=== PATIENT | male | born 1990 | race Caucasian/White ===

== ENCOUNTER 2016-10-09 12:34 | Emergency (ER) | payer MEDICARE ==
[2016-10-09] MEDS ORDERED: XYLOCAINE 1% HCL 20 ML MDV IJ ONE (12:47)
[2016-10-09] MEDS ORDERED: NORCO 5/325 MG PO ONE (12:47)
--- NOTE | 2016-10-09 12:50 | ERPHSYRPT ---
- History of Present Illness Time Seen by Provider: 10/09/16 12:47 Source: patient Physician History: CC: boil Hx: 26 y/o patient of Dr Boateng with hx of DM. Tetanus vaccine up to date. He has had a sore on the right lower leg. He saw [facility] 8 days ago and started bactrim. It is worse. No drng. No fever or chills. Pain moderate. Sugars running well. Allergies/Adverse Reactions: Penicillins Allergy (Verified 10/09/16 12:49) shellfish derived Allergy (Verified 10/09/16 12:49) Home Medications: Atorvastatin Calcium [Lipitor 20MG Tablet] 20 mg PO HS 10/09/16 [History] Hx Tetanus, Diphtheria Vaccination/Date Given: Yes Hx Influenza Vaccination/Date Given: No Hx Pneumococcal Vaccination/Date Given: No - Review of Systems Constitutional: No Fever, No Chills Abdominal/Gastrointestinal: No Nausea Skin: Skin Lesions (right lower leg) Neurological: No Focal Weakness, No Parasthesia - Past Medical History Pertinent Past Medical History: Yes Neurological History: Migraines, Peripheral Neuropathy Cardiac History: High Cholesterol Respiratory History: No Pertinent History Endocrine Medical History: Diabetes Type II Musculoskeletal History: Other - Past Surgical History Past Surgical History: No Other Surgical History: MRSA - Social History Smoking Status: Never smoker Exposure to second hand smoke: No Drug Use: none Patient Lives Alone: No - Nursing Vital Signs Nursing Vital Signs: Initial Vital Signs Temperature 98.8 F 10/09/16 12:42 Pulse Rate 97 H 10/09/16 12:42 Respiratory Rate 16 10/09/16 12:42 Blood Pressure 139/88 10/09/16 12:42 O2 Sat by Pulse Oximetry 95 10/09/16 12:42 Pain Scale Pain Intensity 8 - Physical Exam General Appearance: alert Eyes, Ears, Nose, Throat Exam: moist mucous membranes Neck Exam: supple Cardiovascular/Respiratory Exam: regular rate/rhythm Neuro/Tendon Exam: normal sensation, normal motor functions Mental Status Exam: alert, oriented x 3, cooperative Skin Exam: warm, dry, other (boil with surrounding erythema right lateral mid lower leg) Procedures - Incision and Drainage Site: right lower leg Anesthesia: 1% Lidocaine cc's of anesthesia: 5 Blade Size: scalpel I & D Procedure: betadine prep, culture obtained Results: moderate amount pus - Course Nursing assessment & vital signs reviewed: Yes Ordered Tests: Active Orders 24 hr Category Date Time Status Accucheck STAT Care 10/09/16 12:47 Active Wound Care STAT Care 10/09/16 12:47 Active CULTURE,WOUND Stat Lab 10/09/16 12:47 Ordered Medication Summary Discontinued Medications Generic Name Dose Route Start Last Admin Trade Name Rosa Isela PRN Reason Stop Dose Admin Hydrocodone Bitart/Acetaminophen 1 tab 10/09/16 12:47 10/09/16 12:55 [place] 5/325 Mg PO 10/09/16 12:48 1 tab STAT ONE Administration Hydrocodone Bitart/Acetaminophen Confirm 10/09/16 12:54 [place] 5/325 Mg Administered 10/09/16 12:55 Dose 1 tab .ROUTE .STK-MED ONE Lidocaine HCl 5 ml 10/09/16 12:47 10/09/16 12:55 Xylocaine 1% Hcl 20 Ml Mdv IJ 10/09/16 12:48 5 ml STAT ONE Administration Lidocaine HCl Confirm 10/09/16 12:54 Xylocaine 1% Hcl 20 Ml Mdv Administered 10/09/16 12:55 Dose 5 ml .ROUTE .STK-MED ONE - Progress Progress Note: 10/09/16 12:50 Advised I&D. 10/09/16 13:25 Sugar up buthe is not surprised and will take his meds at home. Wound care instr given. He already has bactrim which will be continued. Counseled pt/family regarding: lab results, diagnosis, need for follow-up - Departure Time of Disposition: 13:25 Departure Disposition: Home Clinical Impression: cutaneous abscess right lower leg, Diabetes mellitus Condition: Stable Critical Care Time: No Referrals: GARY BOATENG MD [Primary Care Provider] - Instructions: Incision and Drainage of a Skin Abscess Additional Instructions: Change dressing and apply warm compress twice a day. See Dr Boateng office this week for recheck. Continue bactrim. Watch and treat your sugars. Return for problems or concerns.
[2016-10-09] MEDS ORDERED: NORCO 5/325 MG ONE (12:54)
[2016-10-09] MEDS ORDERED: XYLOCAINE 1% HCL 20 ML MDV ONE (12:54)
[2016-10-09 13:42] VITALS: BP 134/70; PULSE 88; O2SAT 98
== END 2016-10-09 13:47 | disposition home or self-care (01) ==
LOC: ED 12:34
DX: L02.415 Cutaneous abscess of right lower limb (principal); E11.9 Type 2 diabetes mellitus without complications
CPT/HCPCS: 82962; 87070; 87077; 99283; A9270-GY

== ENCOUNTER 2017-11-09 17:48 | Emergency (ER) | payer MEDICARE, OTHER ==
--- NOTE | 2017-11-09 18:03 | ERPHSYRPT ---
- History of Present Illness Time Seen by Provider: 11/09/17 17:57 Source: patient Exam Limitations: no limitations (R open dictation box) Physician History: The patient is a 27-year-old obese white male who complains of a sore throat that began last night. He also has a mild cough that hurts when he coughs. He denies fever. It hurts for him to swallow. He has a past medical history of diabetes. Timing/Duration: gradual onset, yesterday Severity: moderate ENT Location: throat Prearrival Treatment: no prearrival treatment Modifying Factors: Improves With: coughing Associated Symptoms: cough, sore throat, difficulty swallowing Allergies/Adverse Reactions: Penicillins Allergy (Verified 11/09/17 17:54) shellfish derived Allergy (Verified 11/09/17 17:54) Home Medications: No Reportable Medications [No Reported Medications] 11/09/17 [History] Hx Tetanus, Diphtheria Vaccination/Date Given: Yes Hx Influenza Vaccination/Date Given: No Hx Pneumococcal Vaccination/Date Given: No - Review of Systems Constitutional: No Fever, No Chills Eyes: No Symptoms Ears, Nose, & Throat: Throat Pain Respiratory: Cough, No Dyspnea Cardiac: No Chest Pain, No Edema, No Syncope Abdominal/Gastrointestinal: No Abdominal Pain, No Nausea, No Vomiting, No Diarrhea Genitourinary Symptoms: No Dysuria Musculoskeletal: No Back Pain, No Neck Pain Skin: No Rash Neurological: No Dizziness, No Focal Weakness, No Sensory Changes Psychological: No Symptoms Endocrine: No Symptoms Hematologic/Lymphatic: No Symptoms Immunological/Allergic: No Symptoms All Other Systems: Reviewed and Negative - Past Medical History Pertinent Past Medical History: Yes Neurological History: Migraines, Peripheral Neuropathy Cardiac History: High Cholesterol Respiratory History: No Pertinent History Endocrine Medical History: Diabetes Type II Musculoskeletal History: Other - Past Surgical History Past Surgical History: No Other Surgical History: MRSA - Social History Smoking Status: Never smoker Exposure to second hand smoke: No Drug Use: none Patient Lives Alone: No - Nursing Vital Signs Nursing Vital Signs: Initial Vital Signs Temperature 98.1 F 11/09/17 17:48 Pulse Rate 104 H 11/09/17 17:48 Respiratory Rate 20 11/09/17 17:48 Blood Pressure 143/85 11/09/17 17:48 O2 Sat by Pulse Oximetry 97 11/09/17 17:48 Pain Scale Pain Intensity 6 - Physical Exam General Appearance: no apparent distress, alert Eye Exam: bilateral eye: normal inspection, PERRL Ear Exam: bilateral ear: auricle normal, canal normal Nasal Exam: normal inspection Throat Exam: tonsillar exudate, tonsillar swelling, uvula swelling Neck Exam: supple Cardiovascular/Respiratory Exam: normal breath sounds, regular rate/rhythm Abdominal Exam: non-tender, soft Neurologic Exam: alert, oriented x 3, sensation nml, No motor deficits Skin Exam: normal color, warm, dry SpO2 Interpretation: normal Oxygen Delivery: Room Air Lab/Rad Data: Laboratory Results 11/09/17 Range/Units 18:20 Group A Strep Antibody NEGATIVE (NEGATIVE) - Departure Time of Disposition: 18:51 Departure Disposition: Home Clinical Impression: Pharyngitis, Bronchitis Condition: Stable Critical Care Time: No Referrals: GARY BOATENG MD [Primary Care Provider] - Additional Instructions: You have viral pharyngitis and bronchitis. Your strep test was negative. You were given Toradol 60 mg by IM in the ER. Gargle with warm salt water as often as you need to for comfort. Take Tylenol and ibuprofen as needed. Follow-up with your primary medical doctor as needed.
[2017-11-09] MEDS ORDERED: TORAdol 30 mg Injection IM ONE (18:52)
[2017-11-09] MEDS ORDERED: TORAdol 30 mg Injection ONE (18:53)
[2017-11-09 18:59] VITALS: BP 140/85; PULSE 88; O2SAT 97
== END 2017-11-09 19:16 | disposition home or self-care (01) ==
LOC: ED 17:48
DX: J02.9 Acute pharyngitis, unspecified (principal); J40 Bronchitis, not specified as acute or chronic
CPT/HCPCS: 87651; 96372; 99284; J1885

== ENCOUNTER 2018-02-12 08:59 | Emergency (ER) | payer MEDICARE, OTHER ==
--- NOTE | 2018-02-12 09:22 | ERPHSYRPT ---
- History of Present Illness Time Seen by Provider: 02/12/18 09:07 Source: patient Physician History: patient complaining of a sorethroat since , no travel and no exposure , no fever, no cough, no vomiting or diarrhea Timing/Duration: abrupt onset, days (2) Severity: moderate ENT Location: throat Prearrival Treatment: no prearrival treatment Modifying Factors: Improves With: nothing Associated Symptoms: sore throat, No ear pain (R), No ear pain (L), No cough, No fever, No drooling, No headache, No epistaxis, No neck pain, No difficulty swallowing Allergies/Adverse Reactions: Penicillins Allergy (Verified 11/09/17 17:54) shellfish derived Allergy (Verified 11/09/17 17:54) Home Medications: No Reportable Medications [No Reported Medications] 11/09/17 [History] Hx Tetanus, Diphtheria Vaccination/Date Given: Yes Hx Influenza Vaccination/Date Given: No Hx Pneumococcal Vaccination/Date Given: No - Review of Systems Constitutional: No Symptoms Eyes: No Symptoms Ears, Nose, & Throat: Throat Pain, No Ear Pain, No Hearing Changes, No Nose Congestion, No Epistaxis, No Painful Swallowing Respiratory: No Cough, No Dyspnea, No Wheezing Cardiac: No Chest Pain, No Palpitations, No Syncope Abdominal/Gastrointestinal: No Abdominal Pain, No Nausea, No Vomiting, No Diarrhea Genitourinary Symptoms: No Symptoms Musculoskeletal: No Symptoms Skin: No Symptoms Neurological: No Symptoms Psychological: No Symptoms Endocrine: No Symptoms Hematologic/Lymphatic: No Symptoms Immunological/Allergic: No Symptoms - Past Medical History Pertinent Past Medical History: Yes Neurological History: Migraines, Peripheral Neuropathy Cardiac History: High Cholesterol Respiratory History: No Pertinent History Endocrine Medical History: Diabetes Type II Musculoskeletal History: Other - Past Surgical History Past Surgical History: No Other Surgical History: MRSA - Social History Smoking Status: Never smoker Exposure to second hand smoke: No Alcohol Use: Socially Drug Use: none Patient Lives Alone: No Significant Family History: no pertinent family hx - Female History Hx Now: No - Physical Exam General Appearance: mild distress, alert Eye Exam: bilateral eye: normal inspection, PERRL, EOMI Ear Exam: bilateral ear: auricle normal, canal normal, TM normal Nasal Exam: normal inspection, No dried blood Throat Exam: moist mucus membranes, tonsillar exudate, tonsillar swelling, No pharynx normal, No dental tenderness, No excessive drooling, No mandibular swelling, No trismus, No uvula swelling, No voice changes Neck Exam: normal inspection, non-tender, supple, full range of motion, No stiff neck Cardiovascular/Respiratory Exam: chest non-tender, normal breath sounds, regular rate/rhythm, heart sounds normal, no JVD, no M/R/G, no respiratory distress Abdominal Exam: non-tender, soft, no organomegaly Neurologic Exam: alert, oriented x 3, cooperative, protective signal superintendent II-XII nml as tested, normal mood/affect, nml cerebellar function, nml station & gait Skin Exam: normal color, warm, dry, No rash - Course Nursing assessment & vital signs reviewed: Yes Ordered Tests: Active Orders 24 hr Category Date Time Status Pulse Oximetry (ED) STAT Care 02/12/18 09:15 Ordered - Progress Progress Note: 02/12/18 09:19 discussed treatment options discussed; instructions givnen; no work 48 hours Counseled pt/family regarding: diagnosis, need for follow-up - Departure Time of Disposition: 09:20 Departure Disposition: Home Clinical Impression: Acute tonsillitis Condition: Stable Critical Care Time: No Referrals: GARY BOATENG MD [Primary Care Provider] - Instructions: Sore Throat, Adult (DC), Strep Throat (DC) Additional Instructions: no work 48 hours; gargle H2)2; choroseptic gargle; tylenol prn; Z pack Follow-up with family doctor as directed. Call for appointment. Return if any problems. If you smoke please stop. Call or follow up with your family doctor for assistance if you need it to stop. Please wear your seatbelt when driving. Have a nice day. Thank you for allowing us to participate in your care today. :o) Dr Surinder Kumar
[2018-02-12 09:27] VITALS: BP 142/98; PULSE 100; O2SAT 99
== END 2018-02-12 09:32 | disposition home or self-care (01) ==
LOC: ED 08:59
DX: J03.90 Acute tonsillitis, unspecified (principal)
CPT/HCPCS: 99283

== ENCOUNTER 2018-10-08 19:50 | Emergency (ER) | payer SELFPAY | END 2018-10-08 23:23 | disposition home or self-care (01) | LOC: ED 23:23 ==

== ENCOUNTER 2019-02-24 09:53 | Emergency (ER) | payer BC ==
[2019-02-24] MEDS ORDERED: Sodium Chloride 0.9% 1000 ML 1,000 ML IV STA (10:09)
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
[2019-02-24 10:35] LABS: Absolute Neutrophil Ct (ANC) 4.13 (1.4-6.9); BASOPHIL % 0.5 % (0.0-0.4); Basophil (Absolute #) 0.04 (0-0.4); Eosinophil % 1.6 % (0.00-5.0); Eosinophil (Absolute #) 0.12 (0-0.5); Hematocrit 41.3 % (42-50); Lymphocyte (Absolute #) 2.44 (1.0-4.6); Lymphocytes % 33.4 % (24.0-44.0); Mean Cell Volume 88.2 fl (78-100); Mean Corpuscular Hemoglobin 29.9 pg (26-32); Mean Corpuscular Hgb Concent. 33.9 g/dl (32-36); Mean Platelet Volume 12.3 fl (7.5-11.0); Monocyte (Absolute #) 0.57 (0.0-1.3); Monocytes % 7.8 % (0.0-12.0); Neutrophil % 56.7 % (36.0-66.0); Platelet Count 165 K/mm3 (150-450); Red Blood Count 4.68 M/mm3 (4.1-5.6); Red Cell Distribution Width 12.7 % (11.5-14.0); White Blood Count 7.3 K/mm3 (4.0-10.5)
[2019-02-24 10:41] LABS: ALBUMIN 4.2 g/dL (3.5-5.0); ALKALINE PHOSPHATASE 79 U/L (38-126); AMYLASE 46 U/L (30-110); ANION GAP 15.1 MEQ/L (5-15); BLOOD UREA NITROGEN 15 mg/dL (9-20); CHLORIDE 104 mmol/L (98-107); Calcium 9.5 mg/dL (8.4-10.2); Carbon Dioxide 22 mmol/L (22-30); Creatinine 1 0.58 mg/dL (0.66-1.25); Glucose 408 mg/dL (74-106); LIPASE 44 U/L (23-300); Potassium 4.2 mmol/L (3.5-5.1); SGOT/AST 66 U/L (17-59); SGPT/ALT 90 U/L (0-50); SODIUM 137 mmol/L (137-145); Total Protein 7.5 g/dL (6.3-8.2)
[2019-02-24] MEDS ORDERED: Sodium Chloride 0.9% 1000 ML 1,000 ML ONE (10:56)
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
[2019-02-24 11:00] LABS: Appearance CLEAR (CLEAR); Bilirubin NEGATIVE (NEGATIVE); Blood NEGATIVE Ery/ul (0-5); Glucose >=500 mg/dL (NEGATIVE); Ketones NEGATIVE (NEGATIVE); Leukocyte Esterase NEGATIVE (NEGATIVE); Mucus SLIGHT /HPF (NEGATIVE); Nitrite NEGATIVE (NEGATIVE); Protein,Urine Dip NEGATIVE (Negative); Specific Gravity 1.035 (1.005-1.025); Urobilinogen NEGATIVE mg/dL (0-1)
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
[2019-02-24] MEDS ORDERED: TYLENOL EXTRA STRENGTH 500 MG PO STA (11:22)
[2019-02-24] MEDS ORDERED: TYLENOL EXTRA STRENGTH 500 MG ONE (11:26)
[2019-02-24 11:32] VITALS: BP 118/76; PULSE 84; O2SAT 97
== END 2019-02-24 11:36 | disposition home or self-care (01) ==
LOC: ED 09:53
DX: S16.1XXA Strain of muscle, fascia and tendon at neck level, initial encounter (principal); V89.2XXA Person injured in unspecified motor-vehicle accident, traffic, initial encounter; R51 Headache; M25.519 Pain in unspecified shoulder
CPT/HCPCS: 36000; 36415; 70450; 71045; 72125; 73030; 80053; 81001; 82150; 83690; 84484; 85025; 93005; 99285; A9270-GY

== ENCOUNTER 2022-07-22 14:36 | Observation (INO) | payer BC ==
--- NOTE | 2022-07-22 15:01 | ERPHSYRPT ---
- History of Present Illness Source: patient Exam Limitations: no limitations Patient Subjective Stated Complaint: Pt states "I have pain on my reight leg and had an ultrasound done a couple days ago and i was on steroids and antibiotics but ever since I stopped my steroids it has been hurting." Triage Nursing Assessment: Pt presented alert and oriented X 3, skin pwd. Pt ambulates with a limp. PT able to speak in clear full sentencs. PT has small blister on bottom of right foot and thickened toe nail to great toe on right foot. Physician History: 32 yo WM w R medial thigh pain since 06/13/22. Pt also has an open lesion on plantar foot and erythema R dorsal foot. Pain is 8/10 and worse w weight bearing. He is a Type2 diabetic. Venous doppler RLE neg 07/14/22. Injury/fever/dyspnea/chest pain all denied. Method of Injury: unknown (Denies injury) Occurred: other (06/13/22) Quality: aching Severity of Pain-Max: severe Severity of Pain-Current: severe Lower Extremities Pain: knee: right, thigh: right, foot: right Modifying Factors: Improves With: movement Associated Symptoms: none Allergies/Adverse Reactions: Penicillins Allergy (Verified 02/24/19 10:08) shellfish derived Allergy (Verified 02/24/19 10:08) Home Medications: Cefdinir 300 mg PO DAILY 07/22/22 [History] Insulin Degludec/Liraglutide [Xultophy 100 Unit-3.6MG/ml Pen] 40 units IM DAILY 07/22/22 [History] Levothyroxine Sodium [Unithroid] 225 mcg PO DAILY 07/22/22 [History] Ziprasidone Mesylate [Geodon] 20 mg IM DAILY 07/22/22 [History] Hx Tetanus, Diphtheria Vaccination/Date Given: Yes Hx Influenza Vaccination/Date Given: No Hx Pneumococcal Vaccination/Date Given: No Travel Risk - International Travel Have you traveled outside of the country in past 3 weeks: No - Coronavirus Screening Are you exhibiting any of the following symptoms?: No Close contact with a COVID-19 positive Pt in past 14-21 Days: No - Vaccine Status Have you recieved a Covid-19 vaccination: No - Review of Systems Constitutional: No Symptoms Eyes: No Symptoms Ears, Nose, & Throat: No Symptoms Respiratory: No Symptoms Cardiac: No Symptoms Abdominal/Gastrointestinal: No Symptoms Genitourinary Symptoms: No Symptoms Neurological: No Symptoms Psychological: No Symptoms Endocrine: No Symptoms Hematologic/Lymphatic: No Symptoms Immunological/Allergic: No Symptoms - Past Medical History Pertinent Past Medical History: Yes Neurological History: Migraines, Peripheral Neuropathy ENT History: Other Cardiac History: No Pertinent History Respiratory History: No Pertinent History Endocrine Medical History: Diabetes Type II Musculoskeletal History: No Pertinent History GI Medical History: No Pertinent History History: No Pertinent History Psycho-Social History: No Pertinent History Male Reproductive Disorders: No Pertinent History Other Medical History: tonsils and adnoids - Past Surgical History Past Surgical History: Yes Neuro Surgical History: No Pertinent History Cardiac: No Pertinent History Respiratory: No Pertinent History Gastrointestinal: No Pertinent History Genitourinary: No Pertinent History Musculoskeletal: No Pertinent History Male Surgical History: No Pertinent History Other Surgical History: MRSA - Social History Smoking Status: Never smoker Exposure to second hand smoke: No Alcohol Use: Socially Drug Use: none Patient Lives Alone: No Significant Family History: no pertinent family hx - Nursing Vital Signs Nursing Vital Signs: Initial Vital Signs Temperature 98.0 F 07/22/22 14:40 Pulse Rate 99 H 07/22/22 14:40 Respiratory Rate 20 07/22/22 14:40 Blood Pressure 135/89 07/22/22 14:40 O2 Sat by Pulse Oximetry 96 07/22/22 14:40 Pain Scale Pain Intensity 4 WNL - Physical Exam General Appearance: no apparent distress Eyes, Ears, Nose, Throat Exam: normal ENT inspection, TMs normal, pharynx normal, moist mucous membranes Neck Exam: normal inspection, non-tender, supple, full range of motion, No Brudz inski, No Kernig's, No meningismus Cardiovascular/Respiratory Exam: normal breath sounds, regular rate/rhythm, heart sounds normal Gastrointestinal/Abdominal Exam: non-tender, soft Back Exam: normal inspection, normal range of motion, No vertebral tenderness Hips Exam: bilateral: non-tender, normal inspection, normal range of motion, no evidence of injury Knees Exam: right knee: pain (TTP medial to R knee) Ankle Exam: bilateral ankle: non-tender, normal inspection, normal range of motion Foot Exam: right foot: other (Open lesion on ventral foot/erythema radiating superiorly dorsal foot/Good pedal pulse, distal sensation, and capillary return) Neuro/Tendon Exam: normal sensation, normal motor functions, normal tendon functions, responds to pain Mental Status Exam: alert, oriented x 3, cooperative Skin Exam: other (Erythem R dorsal foot, otherwise negative) SpO2 Interpretation: normal SpO2: 96 O2 Delivery: Room Air - Course Nursing assessment & vital signs reviewed: Yes Ordered Tests: Active Orders 24 hr Category Date Time Status Bedrest ROUTINE Activity 07/22/22 15:55 Active Code Status Order ROUTINE Care 07/22/22 15:54 Active IV Care Q6H Care 07/22/22 15:[address] in Observation ROUTINE Care 07/22/22 15:54 Active Vital Signs Q4H Care 07/22/22 15:54 Active Consult Podiatry ROUTINE Cons 07/22/22 15:54 Active Consistent Carbohydrate Diet 2000 Calorie Diet 07/22/22 Dinner Active BLOOD CULTURE Stat Lab 07/22/22 15:55 Received CBC W DIFF AM.LAB Lab 07/23/22 04:00 Ordered CBC W DIFF Stat Lab 07/22/22 15:05 Completed CMP AM.LAB Lab 07/23/22 04:00 Ordered CMP Stat Lab 07/22/22 15:05 Completed Lactic Acid Stat Lab 07/22/22 14:54 Completed UA W/RFX UR CULTURE Stat Lab 07/22/22 15:06 Completed Transfer Order Routine Transfer 07/22/22 Ordered Medication Summary Generic Name Dose Route Start Last Admin Trade Name Freq PRN Reason Stop Dose Admin Enoxaparin Sodium 40 mg 07/23/22 10:00 Enoxaparin Sodium 40 Mg/0.4 Ml Syringe SQ 08/22/22 09:59 DAILY FERNANDO Hydromorphone HCl 0.5 mg 07/22/22 15:54 Hydromorphone 1 Mg/1ml Inj IV 07/27/22 15:53 Q4H PRN PRN PAIN Vancomycin HCl 1 gm in 200 mls @ 125 mls/hr 07/22/22 15:51 07/22/22 15:54 Vancomycin 1 Gram/200 Ml Bag IV 07/22/22 17:26 125 mls/hr STAT ONE 125 mls/hr Administration Sodium Chloride 1,000 mls @ 100 mls/hr 07/22/22 16:00 Sodium Chloride 0.9% 1000 Ml IV 08/21/22 15:59 .Q10H FERNANDO Vancomycin HCl 1 gm in 200 mls @ 125 mls/hr 07/22/22 16:00 Vancomycin 1 Gram/200 Ml Bag IV 08/21/22 15:59 Q12H FERNANDO Insulin Human Lispro 0 unit 07/22/22 15:54 Insulin Lispro 1 Unit SQ 08/21/22 15:53 UD PRN HYPERGLYCEMIA Ondansetron HCl 4 mg 07/22/22 15:54 Ondansetron Hcl 4 Mg/2 Ml Vial IV 08/21/22 15:53 Q6H PRN PRN NAUSEA/VOMITING Discontinued Medications Generic Name Dose Route Start Last Admin Trade Name Freq PRN Reason Stop Dose Admin Vancomycin HCl Confirm 07/22/22 15:53 Vancomycin 1 Gram/200 Ml Bag Administered 07/22/22 15:54 Dose 1 gm in 200 mls @ ud IV .STK-MED ONE Lab/Rad Data: Laboratory Result Diagrams 07/22/22 15:05 07/22/22 15:05 Laboratory Results 07/22/22 07/22/22 07/22/22 Range/Units 15:06 15:05 15:05 WBC 12.4 H (4.0-10.5) x10^3/uL RBC 4.75 (4.1-5.6) x10^6/uL Hgb 14.0 (12.5-18.0) g/dL Hct 43.0 (42-50) % MCV 90.5 (78-100) fL MCH 29.5 (26-32) pg MCHC 32.6 (32-36) g/dL RDW 12.1 (11.5-14.0) % Plt Count 238 (150-450) x10^3/uL MPV 10.6 (7.5-11.0) fL Gran % 67.4 H (36.0-66.0) % Immature Gran % (Auto) 0.6 H (0.00-0.4) % Nucleat RBC Rel Count 0.0 (0.00-0.1) % Eos # (Auto) 0.08 (0-0.5) x10^3/uL Immature Gran # (Auto) 0.07 H (0.00-0.03) x10^3u/L Absolute Lymphs (auto) 2.70 (1.0-4.6) x10^3/uL Absolute Monos (auto) 1.13 (0.0-1.3) x10^3/uL Absolute Nucleated RBC 0.00 (0.00-0.01) x10^3u/L Lymphocytes % 21.7 L (24.0-44.0) % Monocytes % 9.1 (0.0-12.0) % Eosinophils % 0.6 (0.00-5.0) % Basophils % 0.6 (0.0-0.4) % Absolute Granulocytes 8.36 H (1.4-6.9) x10^3/uL Basophils # 0.08 (0-0.4) x10^3/uL Sodium 137 (137-145) mmol/L Potassium 3.8 (3.5-5.1) mmol/L Chloride 101 (98-107) mmol/L Carbon Dioxide 24 (22-30) mmol/L Anion Gap 15.4 H (5-15) MEQ/L BUN 20 (9-20) mg/dL Creatinine 0.81 (0.66-1.25) mg/dL Estimated GFR > 60.0 ML/MIN Glucose 272 H (74-106) mg/dL Lactic Acid (0.4-2.0) Calcium 8.9 (8.4-10.2) mg/dL Total Bilirubin 0.50 (0.2-1.3) mg/dL AST 38 (17-59) U/L ALT 56 H (0-50) U/L Alkaline Phosphatase 69 (38-126) U/L Serum Total Protein 7.6 (6.3-8.2) g/dL Albumin 4.0 (3.5-5.0) g/dL Urine Color Yellow (Yellow) Urine Appearance Clear (Clear) Urine pH 6.5 (4.6-8.0) Ur Specific [place] >=1.030 A (1.005-1.030) Urine Protein Negative (Negative) Urine Glucose (UA) >=1000 A (Negative) mg/dL Urine Ketones Negative (Negative) Urine Blood Negative (Negative) Urine Nitrite Negative (Negative) Urine Bilirubin Negative (Negative) Urine Urobilinogen 0.2 (0.2) mg/dL Ur Leukocyte Esterase Negative (Negative) U Hyaline Cast (Auto) NONE SEEN (0-2) /LPF Urine Microscopic RBC 0-2 (0-5) /HPF Urine Microscopic WBC 0-2 (0-5) /HPF Ur Epithelial Cells None Seen (None Seen) /HPF Urine Bacteria None Seen (None Seen) /HPF Urine Culture Reflexed NO (NO) 07/22/22 Range/Units 14:54 WBC (4.0-10.5) x10^3/uL RBC (4.1-5.6) x10^6/uL Hgb (12.5-18.0) g/dL Hct (42-50) % MCV (78-100) fL MCH (26-32) pg MCHC (32-36) g/dL RDW (11.5-14.0) % Plt Count (150-450) x10^3/uL MPV (7.5-11.0) fL Gran % (36.0-66.0) % Immature Gran % (Auto) (0.00-0.4) % Nucleat RBC Rel Count (0.00-0.1) % Eos # (Auto) (0-0.5) x10^3/uL Immature Gran # (Auto) (0.00-0.03) x10^3u/L Absolute Lymphs (auto) (1.0-4.6) x10^3/uL Absolute Monos (auto) (0.0-1.3) x10^3/uL Absolute Nucleated RBC (0.00-0.01) x10^3u/L Lymphocytes % (24.0-44.0) % Monocytes % (0.0-12.0) % Eosinophils % (0.00-5.0) % Basophils % (0.0-0.4) % Absolute Granulocytes (1.4-6.9) x10^3/uL Basophils # (0-0.4) x10^3/uL Sodium (137-145) mmol/L Potassium (3.5-5.1) mmol/L Chloride (98-107) mmol/L Carbon Dioxide (22-30) mmol/L Anion Gap (5-15) MEQ/L BUN (9-20) mg/dL Creatinine (0.66-1.25) mg/dL Estimated GFR ML/MIN Glucose (74-106) mg/dL Lactic Acid 1.8 (0.4-2.0) Calcium (8.4-10.2) mg/dL Total Bilirubin (0.2-1.3) mg/dL AST (17-59) U/L ALT (0-50) U/L Alkaline Phosphatase (38-126) U/L Serum Total Protein (6.3-8.2) g/dL Albumin (3.5-5.0) g/dL Urine Color (Yellow) Urine Appearance (Clear) Urine pH (4.6-8.0) Ur Specific [place] (1.005-1.030) Urine Protein (Negative) Urine Glucose (UA) (Negative) mg/dL Urine Ketones (Negative) Urine Blood (Negative) Urine Nitrite (Negative) Urine Bilirubin (Negative) Urine Urobilinogen (0.2) mg/dL Ur Leukocyte Esterase (Negative) U Hyaline Cast (Auto) (0-2) /LPF Urine Microscopic RBC (0-5) /HPF Urine Microscopic WBC (0-5) /HPF Ur Epithelial Cells (None Seen) /HPF Urine Bacteria (None Seen) /HPF Urine Culture Reflexed (NO) - Progress Progress Note: 07/22/22 15:52 Nursing note and vital signs reviewed No food or housing insecurities noted All lab results reviewed and shared w pt/ Obs per Dr. Lacy Blood cultures x2/1gm IV Vancomycin 07/22/22 16:23 Discussed with .: [place] Will see patient in: hospital (observation) Counseled pt/family regarding: lab results, diagnosis Medical Desision Making - Independent Historian Additional History obtained from: Spouse - Discussion of managment Care discussed with:: on-call "doc" Reviewed:: Test results, Need for additional workup Agreed on:: place in obs Will see patient: in hospital - Diagnostic Testing Diagnostic test were ordered, analyzed, and reviewed by me: Yes - Risk of complications The pt has a high risk of morbidity or mortality based on: Drug therapy requiring intensive monitoring for toxicity - Departure Departure Disposition: Observation Clinical Impression: Diabetic foot ulcer, Cellulitis Condition: Stable Critical Care Time: No
[2022-07-22 15:12] LABS: Absolute Neutrophil Ct (ANC) 8.36 x10^3/uL (1.4-6.9); BASOPHIL % 0.6 % (0.0-0.4); Basophil (Absolute #) 0.08 x10^3/uL (0-0.4); Eosinophil % 0.6 % (0.00-5.0); Eosinophil (Absolute #) 0.08 x10^3/uL (0-0.5); IMMATURE GRAN # 0.07 x10^3u/L (0.00-0.03); IMMATURE GRAN % 0.6 % (0.00-0.4); Lymphocytes % 21.7 % (24.0-44.0); Mean Cell Volume 90.5 fL (78-100); Mean Corpuscular Hemoglobin 29.5 pg (26-32); Mean Corpuscular Hgb Concent. 32.6 g/dL (32-36); Mean Platelet Volume 10.6 fL (7.5-11.0); Monocyte (Absolute #) 1.13 x10^3/uL (0.0-1.3); Monocytes % 9.1 % (0.0-12.0); Neutrophil % 67.4 % (36.0-66.0); Platelet Count 238 x10^3/uL (150-450); Red Blood Count 4.75 x10^6/uL (4.1-5.6); Red Cell Distribution Width 12.1 % (11.5-14.0); White Blood Count 12.4 x10^3/uL (4.0-10.5)
[2022-07-22 15:23] LABS: Appearance Clear (Clear); Bacteria None Seen /HPF (None Seen); Bilirubin Negative (Negative); Blood Negative (Negative); Epithelial Cells None Seen /HPF (None Seen); Glucose, Urine >=1000 mg/dL (Negative); Hyaline Casts NONE SEEN /LPF (0-2); Ketones Negative (Negative); Leukocyte Esterase Negative (Negative); Nitrite Negative (Negative); Ph 6.5 (4.6-8.0); Protein,Urine Dip Negative (Negative); RBC 0-2 /HPF (0-5); Specific Gravity >=1.030 (1.005-1.030); Urobilinogen 0.2 mg/dL (0.2); WBC 0-2 /HPF (0-5)
[2022-07-22 15:36] LABS: ADD URINE CULTURE? NO (NO)
[2022-07-22 15:44] LABS: ALKALINE PHOSPHATASE 69 U/L (38-126); ANION GAP 15.4 MEQ/L (5-15); BLOOD UREA NITROGEN 20 mg/dL (9-20); CHLORIDE 101 mmol/L (98-107); Calcium 8.9 mg/dL (8.4-10.2); Carbon Dioxide 24 mmol/L (22-30); Creatinine 1 0.81 mg/dL (0.66-1.25); EST GLOMERULAR FILTRATION RATE > 60.0 ML/MIN; Glucose 272 mg/dL (74-106); Potassium 3.8 mmol/L (3.5-5.1); SGOT/AST 38 U/L (17-59); SGPT/ALT 56 U/L (0-50); SODIUM 137 mmol/L (137-145); Total Protein 7.6 g/dL (6.3-8.2)
[2022-07-22] MEDS ORDERED: VANCOMYCIN 1 GRAM/200 ML BAG 1 GM/200 ML PIGGYBACK IV ONE ×2 (15:51→15:53)
[2022-07-22] MEDS ORDERED: Zofran 4 MG/2 ML VIAL IV PRN (15:54)
[2022-07-22] MEDS ORDERED: Hydromorphone 1 mg/ml Injection IV PRN (15:54)
[2022-07-22] MEDS: VANCOMYCIN 1 GRAM/200 ML BAG 1 GM/200 ML PIGGYBACK IV SCH (16:55)
[2022-07-22] MEDS: NORCO 7.5/325 MG TAB PO PRN ×2 (17:39→22:26)
[2022-07-22] MEDS: ENOXAPARIN SODIUM SQ SCH (19:55)
[2022-07-22] MEDS ORDERED: HUMULIN R ONE ×2 (21:35→21:38)
[2022-07-22] MEDS: HUMALOG SQ PRN (21:41)
[2022-07-22] MEDS: Geodon 20 MG Capsule PO SCH (22:22)
[2022-07-23] MEDS: VANCOMYCIN 1 GRAM/200 ML BAG 1 GM/200 ML PIGGYBACK IV SCH (03:42)
[2022-07-23] MEDS: Sodium Chloride 0.9% 1000 ML 1,000 ML IV SCH ×2 (03:42→14:43)
[2022-07-23 04:42] LABS: BASOPHIL % 0.6 % (0.0-0.4); Basophil (Absolute #) 0.05 x10^3/uL (0-0.4); Eosinophil % 1.4 % (0.00-5.0); Eosinophil (Absolute #) 0.12 x10^3/uL (0-0.5); Hematocrit 40.1 % (42-50); Hemoglobin 13.1 g/dL (12.5-18.0); IMMATURE GRAN # 0.02 x10^3u/L (0.00-0.03); IMMATURE GRAN % 0.2 % (0.00-0.4); Lymphocyte (Absolute #) 2.41 x10^3/uL (1.0-4.6); Lymphocytes % 28.5 % (24.0-44.0); Mean Cell Volume 89.7 fL (78-100); Mean Corpuscular Hemoglobin 29.3 pg (26-32); Mean Corpuscular Hgb Concent. 32.7 g/dL (32-36); Mean Platelet Volume 10.6 fL (7.5-11.0); Monocyte (Absolute #) 0.77 x10^3/uL (0.0-1.3); Monocytes % 9.1 % (0.0-12.0); Neutrophil % 60.2 % (36.0-66.0); Platelet Count 190 x10^3/uL (150-450); Red Blood Count 4.47 x10^6/uL (4.1-5.6); Red Cell Distribution Width 12.5 % (11.5-14.0); White Blood Count 8.5 x10^3/uL (4.0-10.5)
[2022-07-23 05:02] LABS: ALBUMIN 3.5 g/dL (3.5-5.0); ALKALINE PHOSPHATASE 68 U/L (38-126); ANION GAP 11.6 MEQ/L (5-15); BLOOD UREA NITROGEN 17 mg/dL (9-20); CHLORIDE 104 mmol/L (98-107); Calcium 8.2 mg/dL (8.4-10.2); Carbon Dioxide 26 mmol/L (22-30); Creatinine 1 0.76 mg/dL (0.66-1.25); EST GLOMERULAR FILTRATION RATE > 60.0 ML/MIN; Glucose 256 mg/dL (74-106); Potassium 3.9 mmol/L (3.5-5.1); SGOT/AST 29 U/L (17-59); SGPT/ALT 47 U/L (0-50); SODIUM 138 mmol/L (137-145); Total Protein 6.6 g/dL (6.3-8.2)
[2022-07-23] MEDS ORDERED: MEDICATION INTERVENTION MC SCH (08:00)
[2022-07-23] MEDS: Geodon 20 MG Capsule PO SCH ×2 (08:08→17:11)
[2022-07-23] MEDS: HUMALOG SQ PRN ×4 (08:08→21:54)
[2022-07-23] MEDS: SYNTHROID 125 MCG PO SCH (09:50)
[2022-07-23] MEDS: ENOXAPARIN SODIUM SQ SCH (09:50)
[2022-07-23] MEDS: SYNTHROID 100 MCG PO SCH (09:50)
[2022-07-23] MEDS ORDERED: ENOXAPARIN SODIUM SQ SCH (10:00)
[2022-07-23] MEDS ORDERED: INSULIN DEGLUDEC SQ SCH (10:00)
[2022-07-23] MEDS ORDERED: LEVOTHYROXINE SODIUM 200 MCG PO SCH (10:00)
[2022-07-23] MEDS ORDERED: LIRAGLUTIDE SQ SCH (10:00)
[2022-07-23] MEDS ORDERED: INS SQ SCH (10:00)
[2022-07-23] MEDS ORDERED: Geodon 20 MG Capsule PO SCH ×2 (10:00)
[2022-07-23] MEDS ORDERED: [UNRECOGNIZED DRUG - OTHER] SQ SCH (10:00)
[2022-07-23] MEDS ORDERED: SYNTHROID 112 MCG PO SCH (10:00)
--- NOTE | 2022-07-23 13:05 | XRAY ---
CLINICAL HISTORY:Diabetic foot ulcer. COMPARISON:None. TECHNIQUES:X-ray right foot AP, oblique and lateral views. FINDINGS: Moderate soft tissue swelling of the mid and forefoot seen. No clear signs of osteomyelitis noted. Reduced bone mineral density noted. Radiological examination of foot demonstrates no lytic or sclerotic bone lesion. No definite fracture is visible. Cortical margins of the osseous structures are within normal limits. Normal metatarsophalangeal and interphalangeal joint spaces. Articular margins are intact. Small tractional and plantar calcaneal spurs are noted with small soft tissue calcification at the heel. No focal abnormality seen in great toe. IMPRESSION: 1. Moderate soft tissue swelling of the mid and forefoot seen. 2. Small tractional and plantar calcaneal spurs are noted with small soft tissue calcification at the heel. 3. No clear signs of osteomyelitis noted. 4. No definite fracture is visible. 5. Correlation with CT/MRI is recommended. DISCLAIMER: A subtle bone abnormality or fracture may not be readily apparent on x-rays, thus clinical correlation and further imaging including follow-up CT, MRI, or follow-up x-rays are advised as needed. Electronically Signed by: Dex Vazquez MD. ( 07/23/2022 12:02:21 [employer])
[2022-07-23] MEDS: VANCOMYCIN 1.5 GRAM/300 ML BAG 1.5 GM/300 ML PIGGYBACK IV SCH ×2 (14:40→21:10)
--- NOTE | 2022-07-23 15:53 | PCM.NOTE ---
Date and Time: 07/23/22 1546 Subjective Assessment: No new complaints. Does not report foot pain or fever. The entirety of this encounter was performed via telemedicine. The patient consented to this telemedicine encounter. - Review of Systems Constitutional: No Symptoms Eyes: No Symptoms Ears, Nose, & Throat: No Symptoms Respiratory: No Symptoms Cardiac: No Symptoms Abdominal/Gastrointestinal: No Symptoms Genitourinary Symptoms: No Symptoms Musculoskeletal: No Symptoms Skin: Other (Foot ulcer on right) Neurological: No Symptoms Psychological: No Symptoms Endocrine: No Symptoms Hematologic/Lymphatic: No Symptoms Immunological/Allergic: No Symptoms All Other Systems: Reviewed and Negative Objective Exam Neurologic Exam: alert, oriented x 3, cooperative, observation nurse II-XII nml as tested, normal mood/affect, nml cerebellar function Skin Exam: other (right foot ulcer noted without bleeding or purulent drainage) Wound Assessment: Skin/Wound Assessment Wound/Incision Assessment Start: 07/22/22 18:39 Text: Status: Active Freq: Q6H Protocol: Document 07/23/22 14:00 (Rec: 07/23/22 15:05 [id number]) Co-Sign 07/23/22 14:00 AW Wound/Incision Assessment Left Volar Foot Wound Assessment Shift Assessment Wound Stage Non Pressure Wound Drainage Amount None General Appearance Open to air,Reddened Surrounding Tissue Olla Eye Exam: PERRL, EOMI, eyes nml inspection Ears, Nose, Throat Exam: normal ENT inspection Neck Exam: normal inspection Respiratory Exam: normal breath sounds Cardiovascular Exam: regular rate/rhythm Gastrointestinal/Abdomen Exam: soft, normal bowel sounds Extremity Exam: normal inspection, normal range of motion OBJECTIVE DATA Vital Signs: Vital Signs - 24 hr Temp Pulse Resp BP Pulse Ox 07/23/22 11:51 97.0 F 81 17 127/70 97 07/23/22 07:23 97.0 F 73 18 132/80 97 07/23/22 04:00 97.6 F 76 19 122/70 97 07/22/22 23:45 97.8 F 76 20 118/63 98 07/22/22 20:00 98.2 F 88 20 124/58 97 07/22/22 18:01 98.2 F 88 130/73 98 07/22/22 16:24 96 07/22/22 15:52 98.2 F 88 20 132/86 98 Pain Assessment - Last Documented Pain Intensity 0 Pain Scale Used 0-10 Pain Scale Intake and Output: Intake & Output 07/21/22 07/22/22 07/23/22 07/24/22 11:59 11:59 11:59 11:59 Intake Total 3296 240 Balance 3296 240 Weight 141.4 kg Lab Results: Lab Results-Last 24 Hours 07/22/22 07/22/22 07/22/22 Range/Units 15:12 15:12 15:12 WBC (4.0-10.5) x10^3/uL RBC (4.1-5.6) x10^6/uL Hgb (12.5-18.0) g/dL Hct (42-50) % MCV (78-100) fL MCH (26-32) pg MCHC (32-36) g/dL RDW (11.5-14.0) % Plt Count (150-450) x10^3/uL MPV (7.5-11.0) fL Gran % (36.0-66.0) % Immature Gran % (Auto) (0.00-0.4) % Nucleat RBC Rel Count (0.00-0.1) % Eos # (Auto) (0-0.5) x10^3/uL Immature Gran # (Auto) (0.00-0.03) x10^3u/L Absolute Lymphs (auto) (1.0-4.6) x10^3/uL Absolute Monos (auto) (0.0-1.3) x10^3/uL Absolute Nucleated RBC (0.00-0.01) x10^3u/L Lymphocytes % (24.0-44.0) % Monocytes % (0.0-12.0) % Eosinophils % (0.00-5.0) % Basophils % (0.0-0.4) % Absolute Granulocytes (1.4-6.9) x10^3/uL Basophils # (0-0.4) x10^3/uL Sodium (137-145) mmol/L Potassium (3.5-5.1) mmol/L Chloride (98-107) mmol/L Carbon Dioxide (22-30) mmol/L Anion Gap (5-15) MEQ/L BUN (9-20) mg/dL Creatinine (0.66-1.25) mg/dL Estimated GFR ML/MIN Glucose (74-106) mg/dL POC Glucometer (74 to 106) mg/dL Hemoglobin A1c 9.02 H (4.5-6.0) % Calcium (8.4-10.2) mg/dL Total Bilirubin (0.2-1.3) mg/dL AST (17-59) U/L ALT (0-50) U/L Alkaline Phosphatase (38-126) U/L Serum Total Protein (6.3-8.2) g/dL Albumin (3.5-5.0) g/dL Prealbumin (17.6-36.0) mg/dL Free T4 1.31 (0.78-2.19) ng/dL Free T3 pg/mL (2.77-5.27) pg/mL TSH 3rd Generation 11.800 H (0.47-4.68) mIU/L 07/22/22 07/22/22 07/22/22 Range/Units 15:12 17:00 21:13 WBC (4.0-10.5) x10^3/uL RBC (4.1-5.6) x10^6/uL Hgb (12.5-18.0) g/dL Hct (42-50) % MCV (78-100) fL MCH (26-32) pg MCHC (32-36) g/dL RDW (11.5-14.0) % Plt Count (150-450) x10^3/uL MPV (7.5-11.0) fL Gran % (36.0-66.0) % Immature Gran % (Auto) (0.00-0.4) % Nucleat RBC Rel Count (0.00-0.1) % Eos # (Auto) (0-0.5) x10^3/uL Immature Gran # (Auto) (0.00-0.03) x10^3u/L Absolute Lymphs (auto) (1.0-4.6) x10^3/uL Absolute Monos (auto) (0.0-1.3) x10^3/uL Absolute Nucleated RBC (0.00-0.01) x10^3u/L Lymphocytes % (24.0-44.0) % Monocytes % (0.0-12.0) % Eosinophils % (0.00-5.0) % Basophils % (0.0-0.4) % Absolute Granulocytes (1.4-6.9) x10^3/uL Basophils # (0-0.4) x10^3/uL Sodium (137-145) mmol/L Potassium (3.5-5.1) mmol/L Chloride (98-107) mmol/L Carbon Dioxide (22-30) mmol/L Anion Gap (5-15) MEQ/L BUN (9-20) mg/dL Creatinine (0.66-1.25) mg/dL Estimated GFR ML/MIN Glucose (74-106) mg/dL POC Glucometer 345 H (74 to 106) mg/dL Hemoglobin A1c (4.5-6.0) % Calcium (8.4-10.2) mg/dL Total Bilirubin (0.2-1.3) mg/dL AST (17-59) U/L ALT (0-50) U/L Alkaline Phosphatase (38-126) U/L Serum Total Protein (6.3-8.2) g/dL Albumin (3.5-5.0) g/dL Prealbumin 26.76 (17.6-36.0) mg/dL Free T4 (0.78-2.19) ng/dL Free T3 pg/mL 3.65 (2.77-5.27) pg/mL TSH 3rd Generation (0.47-4.68) mIU/L 07/23/22 07/23/22 07/23/22 Range/Units 04:27 04:27 07:06 WBC 8.5 (4.0-10.5) x10^3/uL RBC 4.47 (4.1-5.6) x10^6/uL Hgb 13.1 (12.5-18.0) g/dL Hct 40.1 L (42-50) % MCV 89.7 (78-100) fL MCH 29.3 (26-32) pg MCHC 32.7 (32-36) g/dL RDW 12.5 (11.5-14.0) % Plt Count 190 (150-450) x10^3/uL MPV 10.6 (7.5-11.0) fL Gran % 60.2 (36.0-66.0) % Immature Gran % (Auto) 0.2 (0.00-0.4) % Nucleat RBC Rel Count 0.0 (0.00-0.1) % Eos # (Auto) 0.12 (0-0.5) x10^3/uL Immature Gran # (Auto) 0.02 (0.00-0.03) x10^3u/L Absolute Lymphs (auto) 2.41 (1.0-4.6) x10^3/uL Absolute Monos (auto) 0.77 (0.0-1.3) x10^3/uL Absolute Nucleated RBC 0.00 (0.00-0.01) x10^3u/L Lymphocytes % 28.5 (24.0-44.0) % Monocytes % 9.1 (0.0-12.0) % Eosinophils % 1.4 (0.00-5.0) % Basophils % 0.6 (0.0-0.4) % Absolute Granulocytes 5.10 (1.4-6.9) x10^3/uL Basophils # 0.05 (0-0.4) x10^3/uL Sodium 138 (137-145) mmol/L Potassium 3.9 (3.5-5.1) mmol/L Chloride 104 (98-107) mmol/L Carbon Dioxide 26 (22-30) mmol/L Anion Gap 11.6 (5-15) MEQ/L BUN 17 (9-20) mg/dL Creatinine 0.76 (0.66-1.25) mg/dL Estimated GFR > 60.0 ML/MIN Glucose 256 H (74-106) mg/dL POC Glucometer 225 H (74 to 106) mg/dL Hemoglobin A1c (4.5-6.0) % Calcium 8.2 L (8.4-10.2) mg/dL Total Bilirubin 0.40 (0.2-1.3) mg/dL AST 29 (17-59) U/L ALT 47 (0-50) U/L Alkaline Phosphatase 68 (38-126) U/L Serum Total Protein 6.6 (6.3-8.2) g/dL Albumin 3.5 (3.5-5.0) g/dL Prealbumin (17.6-36.0) mg/dL Free T4 (0.78-2.19) ng/dL Free T3 pg/mL (2.77-5.27) pg/mL TSH 3rd Generation (0.47-4.68) mIU/L 07/23/22 Range/Units 11:39 WBC (4.0-10.5) x10^3/uL RBC (4.1-5.6) x10^6/uL Hgb (12.5-18.0) g/dL Hct (42-50) % MCV (78-100) fL MCH (26-32) pg MCHC (32-36) g/dL RDW (11.5-14.0) % Plt Count (150-450) x10^3/uL MPV (7.5-11.0) fL Gran % (36.0-66.0) % Immature Gran % (Auto) (0.00-0.4) % Nucleat RBC Rel Count (0.00-0.1) % Eos # (Auto) (0-0.5) x10^3/uL Immature Gran # (Auto) (0.00-0.03) x10^3u/L Absolute Lymphs (auto) (1.0-4.6) x10^3/uL Absolute Monos (auto) (0.0-1.3) x10^3/uL Absolute Nucleated RBC (0.00-0.01) x10^3u/L Lymphocytes % (24.0-44.0) % Monocytes % (0.0-12.0) % Eosinophils % (0.00-5.0) % Basophils % (0.0-0.4) % Absolute Granulocytes (1.4-6.9) x10^3/uL Basophils # (0-0.4) x10^3/uL Sodium (137-145) mmol/L Potassium (3.5-5.1) mmol/L Chloride (98-107) mmol/L Carbon Dioxide (22-30) mmol/L Anion Gap (5-15) MEQ/L BUN (9-20) mg/dL Creatinine (0.66-1.25) mg/dL Estimated GFR ML/MIN Glucose (74-106) mg/dL POC Glucometer 290 H (74 to 106) mg/dL Hemoglobin A1c (4.5-6.0) % Calcium (8.4-10.2) mg/dL Total Bilirubin (0.2-1.3) mg/dL AST (17-59) U/L ALT (0-50) U/L Alkaline Phosphatase (38-126) U/L Serum Total Protein (6.3-8.2) g/dL Albumin (3.5-5.0) g/dL Prealbumin (17.6-36.0) mg/dL Free T4 (0.78-2.19) ng/dL Free T3 pg/mL (2.77-5.27) pg/mL TSH 3rd Generation (0.47-4.68) mIU/L Radiology Exams: Radiology Procedures Category Date Time Status FOOT (MINIMUM 3 VIEWS) Routine Exams 07/23/22 11:36 Completed MRI LOW EXT JOINT W/O CONTRAST [MRI] Stat Exams 07/23/22 11:39 Ordered Multi-Disciplinary Progress Notes: Multi-Disciplinary Progress Notes 07/23/22 07:38 Pharmacy Note by Florencio Barrera Vancomycin dose increased for weight and renal function. Trough tomorrow with 14:00 dose. Initialized on 07/23/22 07:38 - END OF NOTE Assessment/Plan (1) Diabetic foot ulcer Current Visit: Yes Status: Acute Assessment & Plan: Podiatry consulted. Wound care Code(s): E11.621 - TYPE 2 DIABETES MELLITUS WITH FOOT ULCER; L97.509 - NON- PRESSURE CHRONIC ULCER OTH PRT UNSP FOOT W UNSP SEVERITY (2) Leukocytosis Current Visit: Yes Status: Acute Assessment & Plan: Awaiting recommendations by podiatry (Dr. Mullen). WBC improved Code(s): D72.829 - ELEVATED WHITE BLOOD CELL COUNT, UNSPECIFIED (3) Hypothyroidism Current Visit: Yes Status: Acute Assessment & Plan: TSH elevated but FT4 normal. On synthroid (high dose). Will need close outpatient follow up Code(s): E03.9 - HYPOTHYROIDISM, UNSPECIFIED (4) Diabetes mellitus Current Visit: No Status: Acute Assessment & Plan: Monitor sugars Code(s): E11.9 - TYPE 2 DIABETES MELLITUS WITHOUT COMPLICATIONS
--- NOTE | 2022-07-23 16:22 | PCM.CONS ---
Podiatry HPI - Consult Reason for Consult: Diabetic foot ulcer right foot. Cellulitis Consulting Provider: MAHNAZ PISANO DPM - HPI History of Present Illness: Felice is a very pleasant 32 year old male resting at bedside this AM with by bedside. Patient states he has no pain to the right foot. He indicates that he noticed the wound approximately 3-4 weeks ago and in the last several days he presented to the emergency department for streaking up the leg and pain. He currently denies pain. He also denies any constitutional signs of infection at this time. Medications & Allergies Home Medications: Home Medication List Cefdinir 300 mg PO DAILY 07/22/22 [History Confirmed 07/22/22] Insulin Degludec/Liraglutide [Xultophy 100 Unit-3.6MG/ml Pen] 40 units SQ QAM 07/22/22 [History Confirmed 07/22/22] Levothyroxine Sodium [Unithroid] 225 mcg PO DAILY 07/22/22 [History Confirmed 07/22/22] Ziprasidone 20 mg [Geodon 20 MG Capsule] 20 mg PO BID 07/22/22 [History Confirmed 07/22/22] Allergies/Adverse Reactions: Allergies Allergy/AdvReac Type Severity Reaction Status Date / Time Penicillins Allergy Verified 02/24/19 10:08 shellfish derived Allergy Verified 02/24/19 10:08 - Past Medical History Past Medical History: Yes Neurological History: Migraines, Peripheral Neuropathy ENT History: Other Cardiac History: No Pertinent History Respiratory History: No Pertinent History Endocrine Medical History: Diabetes Type II Musculoskelatal History: No Pertinent History GI Medical History: No Pertinent History History: No Pertinent History Pyscho-Social History: Other Male Reproductive Disorders: No Pertinent History Comment: tonsils and adenoids; psychosis requring inpatient admission - Past Surgical History Past Surgical History: Yes Neuro Surgical History: No Pertinent History Cardiac History: No Pertinent History Respiratory Surgery: No Pertinent History GI Surgical History: No Pertinent History Genitourinary Surgical Hx: No Pertinent History Musculskeletal Surgical Hx: No Pertinent History Male Surgical History: No Pertinent History Other Surgical History: thyroidectomy. MRSA - Social History Smoking Status: Never smoker Exposure to second hand smoke: No Alcohol: None Drug Use: none Significant Family History: no pertinent family hx Physical Exam - General General Appearance: lethargy, obese - Neuro Neurologic: Epicritic and protopathic (absent 0/10 bilaterally) - Vascular Peripheral Pulses: Posterior tibialis: 2+, Dorsalis-Pedis: 2+ Capillary Refill Time: < 3 seconds Hair Growth: Symmetrical and Bilateral (toe tops with hair) Varicosities: Negtive Edema: Pitting Edema Degree: 2+ (R>L) Skin: Supple, not atrophic (Wound plantar right foot 2.5 x 1.7 x 0.3) - Muscular Muscle Strength: 5/5 on all 4 quadrants Digital Deformity: no digital deformities Equinus: Gastorocnemius equinus - Narrative Narrative Physical Exam: Podiatry Physical Exam Results - Labs Lab/Micro Results: Lab Results-Last 24 Hours 07/22/22 07/22/22 07/22/22 Range/Units 15:12 15:12 15:12 WBC (4.0-10.5) x10^3/uL RBC (4.1-5.6) x10^6/uL Hgb (12.5-18.0) g/dL Hct (42-50) % MCV (78-100) fL MCH (26-32) pg MCHC (32-36) g/dL RDW (11.5-14.0) % Plt Count (150-450) x10^3/uL MPV (7.5-11.0) fL Gran % (36.0-66.0) % Immature Gran % (Auto) (0.00-0.4) % Nucleat RBC Rel Count (0.00-0.1) % Eos # (Auto) (0-0.5) x10^3/uL Immature Gran # (Auto) (0.00-0.03) x10^3u/L Absolute Lymphs (auto) (1.0-4.6) x10^3/uL Absolute Monos (auto) (0.0-1.3) x10^3/uL Absolute Nucleated RBC (0.00-0.01) x10^3u/L Lymphocytes % (24.0-44.0) % Monocytes % (0.0-12.0) % Eosinophils % (0.00-5.0) % Basophils % (0.0-0.4) % Absolute Granulocytes (1.4-6.9) x10^3/uL Basophils # (0-0.4) x10^3/uL Sodium (137-145) mmol/L Potassium (3.5-5.1) mmol/L Chloride (98-107) mmol/L Carbon Dioxide (22-30) mmol/L Anion Gap (5-15) MEQ/L BUN (9-20) mg/dL Creatinine (0.66-1.25) mg/dL Estimated GFR ML/MIN Glucose (74-106) mg/dL POC Glucometer (74 to 106) mg/dL Hemoglobin A1c 9.02 H (4.5-6.0) % Calcium (8.4-10.2) mg/dL Total Bilirubin (0.2-1.3) mg/dL AST (17-59) U/L ALT (0-50) U/L Alkaline Phosphatase (38-126) U/L Serum Total Protein (6.3-8.2) g/dL Albumin (3.5-5.0) g/dL Prealbumin (17.6-36.0) mg/dL Free T4 1.31 (0.78-2.19) ng/dL Free T3 pg/mL (2.77-5.27) pg/mL TSH 3rd Generation 11.800 H (0.47-4.68) mIU/L 07/22/22 07/22/22 07/22/22 Range/Units 15:12 17:00 21:13 WBC (4.0-10.5) x10^3/uL RBC (4.1-5.6) x10^6/uL Hgb (12.5-18.0) g/dL Hct (42-50) % MCV (78-100) fL MCH (26-32) pg MCHC (32-36) g/dL RDW (11.5-14.0) % Plt Count (150-450) x10^3/uL MPV (7.5-11.0) fL Gran % (36.0-66.0) % Immature Gran % (Auto) (0.00-0.4) % Nucleat RBC Rel Count (0.00-0.1) % Eos # (Auto) (0-0.5) x10^3/uL Immature Gran # (Auto) (0.00-0.03) x10^3u/L Absolute Lymphs (auto) (1.0-4.6) x10^3/uL Absolute Monos (auto) (0.0-1.3) x10^3/uL Absolute Nucleated RBC (0.00-0.01) x10^3u/L Lymphocytes % (24.0-44.0) % Monocytes % (0.0-12.0) % Eosinophils % (0.00-5.0) % Basophils % (0.0-0.4) % Absolute Granulocytes (1.4-6.9) x10^3/uL Basophils # (0-0.4) x10^3/uL Sodium (137-145) mmol/L Potassium (3.5-5.1) mmol/L Chloride (98-107) mmol/L Carbon Dioxide (22-30) mmol/L Anion Gap (5-15) MEQ/L BUN (9-20) mg/dL Creatinine (0.66-1.25) mg/dL Estimated GFR ML/MIN Glucose (74-106) mg/dL POC Glucometer 345 H (74 to 106) mg/dL Hemoglobin A1c (4.5-6.0) % Calcium (8.4-10.2) mg/dL Total Bilirubin (0.2-1.3) mg/dL AST (17-59) U/L ALT (0-50) U/L Alkaline Phosphatase (38-126) U/L Serum Total Protein (6.3-8.2) g/dL Albumin (3.5-5.0) g/dL Prealbumin 26.76 (17.6-36.0) mg/dL Free T4 (0.78-2.19) ng/dL Free T3 pg/mL 3.65 (2.77-5.27) pg/mL TSH 3rd Generation (0.47-4.68) mIU/L 07/23/22 07/23/22 07/23/22 Range/Units 04:27 04:27 07:06 WBC 8.5 (4.0-10.5) x10^3/uL RBC 4.47 (4.1-5.6) x10^6/uL Hgb 13.1 (12.5-18.0) g/dL Hct 40.1 L (42-50) % MCV 89.7 (78-100) fL MCH 29.3 (26-32) pg MCHC 32.7 (32-36) g/dL RDW 12.5 (11.5-14.0) % Plt Count 190 (150-450) x10^3/uL MPV 10.6 (7.5-11.0) fL Gran % 60.2 (36.0-66.0) % Immature Gran % (Auto) 0.2 (0.00-0.4) % Nucleat RBC Rel Count 0.0 (0.00-0.1) % Eos # (Auto) 0.12 (0-0.5) x10^3/uL Immature Gran # (Auto) 0.02 (0.00-0.03) x10^3u/L Absolute Lymphs (auto) 2.41 (1.0-4.6) x10^3/uL Absolute Monos (auto) 0.77 (0.0-1.3) x10^3/uL Absolute Nucleated RBC 0.00 (0.00-0.01) x10^3u/L Lymphocytes % 28.5 (24.0-44.0) % Monocytes % 9.1 (0.0-12.0) % Eosinophils % 1.4 (0.00-5.0) % Basophils % 0.6 (0.0-0.4) % Absolute Granulocytes 5.10 (1.4-6.9) x10^3/uL Basophils # 0.05 (0-0.4) x10^3/uL Sodium 138 (137-145) mmol/L Potassium 3.9 (3.5-5.1) mmol/L Chloride 104 (98-107) mmol/L Carbon Dioxide 26 (22-30) mmol/L Anion Gap 11.6 (5-15) MEQ/L BUN 17 (9-20) mg/dL Creatinine 0.76 (0.66-1.25) mg/dL Estimated GFR > 60.0 ML/MIN Glucose 256 H (74-106) mg/dL POC Glucometer 225 H (74 to 106) mg/dL Hemoglobin A1c (4.5-6.0) % Calcium 8.2 L (8.4-10.2) mg/dL Total Bilirubin 0.40 (0.2-1.3) mg/dL AST 29 (17-59) U/L ALT 47 (0-50) U/L Alkaline Phosphatase 68 (38-126) U/L Serum Total Protein 6.6 (6.3-8.2) g/dL Albumin 3.5 (3.5-5.0) g/dL Prealbumin (17.6-36.0) mg/dL Free T4 (0.78-2.19) ng/dL Free T3 pg/mL (2.77-5.27) pg/mL TSH 3rd Generation (0.47-4.68) mIU/L 07/23/22 Range/Units 11:39 WBC (4.0-10.5) x10^3/uL RBC (4.1-5.6) x10^6/uL Hgb (12.5-18.0) g/dL Hct (42-50) % MCV (78-100) fL MCH (26-32) pg MCHC (32-36) g/dL RDW (11.5-14.0) % Plt Count (150-450) x10^3/uL MPV (7.5-11.0) fL Gran % (36.0-66.0) % Immature Gran % (Auto) (0.00-0.4) % Nucleat RBC Rel Count (0.00-0.1) % Eos # (Auto) (0-0.5) x10^3/uL Immature Gran # (Auto) (0.00-0.03) x10^3u/L Absolute Lymphs (auto) (1.0-4.6) x10^3/uL Absolute Monos (auto) (0.0-1.3) x10^3/uL Absolute Nucleated RBC (0.00-0.01) x10^3u/L Lymphocytes % (24.0-44.0) % Monocytes % (0.0-12.0) % Eosinophils % (0.00-5.0) % Basophils % (0.0-0.4) % Absolute Granulocytes (1.4-6.9) x10^3/uL Basophils # (0-0.4) x10^3/uL Sodium (137-145) mmol/L Potassium (3.5-5.1) mmol/L Chloride (98-107) mmol/L Carbon Dioxide (22-30) mmol/L Anion Gap (5-15) MEQ/L BUN (9-20) mg/dL Creatinine (0.66-1.25) mg/dL Estimated GFR ML/MIN Glucose (74-106) mg/dL POC Glucometer 290 H (74 to 106) mg/dL Hemoglobin A1c (4.5-6.0) % Calcium (8.4-10.2) mg/dL Total Bilirubin (0.2-1.3) mg/dL AST (17-59) U/L ALT (0-50) U/L Alkaline Phosphatase (38-126) U/L Serum Total Protein (6.3-8.2) g/dL Albumin (3.5-5.0) g/dL Prealbumin (17.6-36.0) mg/dL Free T4 (0.78-2.19) ng/dL Free T3 pg/mL (2.77-5.27) pg/mL TSH 3rd Generation (0.47-4.68) mIU/L Accuchecks Date 07/23/22 Date 07/23/22 Time 11:50 Time 07:22 - Radiology Impressions Radiology Exams & Impressions: Radiology Procedures Category Date Time Status FOOT (MINIMUM 3 VIEWS) Routine Exams 07/23/22 11:36 Completed MRI LOWER EXT W/O CONTRAST [MRI] Stat Exams 07/23/22 11:39 Ordered Assessment/Plan (1) Cellulitis Current Visit: Yes Status: Acute Assessment & Plan: Venous doppler obtained demonstrating no indications of superficial or deep vein thrombosis Patient good candidate for compression therapy Unna boot applied to the right lower extremity. Code(s): L03.90 - CELLULITIS, UNSPECIFIED (2) Diabetic foot ulcer Current Visit: Yes Status: Acute Assessment & Plan: Seen at bedside. Pulses palpable Discussed with the patient the etiology and treatment options for their ulceration. Today, the ulcer was debrided under asepctic technique utilzing a sterile loop curette. post intervention wound measuring 2.7x 1.9 x 0.4 . It was then dressed with Hibiclens, adaptic 4x4 Unna boot kerlix and coban. Patient was provided care instructions. Code(s): E11.621 - TYPE 2 DIABETES MELLITUS WITH FOOT ULCER; L97.509 - NON-PRESSURE CHRONIC ULCER OTH PRT UNSP FOOT W UNSP SEVERITY (3) Hypothyroidism Current Visit: Yes Status: Acute Code(s): E03.9 - HYPOTHYROIDISM, UNSPECIFIED (4) Leukocytosis Current Visit: Yes Status: Acute Assessment & Plan: resolving with IV abx. Can likely switch to Oral on D/c. culture obtained at bedside. Awaiting preliminary. Code(s): D72.829 - ELEVATED WHITE BLOOD CELL COUNT, UNSPECIFIED (5) Peripheral neuropathy Current Visit: Yes Status: Acute Assessment & Plan: Patient is under a comprehensive plan of care for diabetes. Perform diabetic foot exam. Patient has peripheral neuropathy with callus formation. Patient requires diabetic shoes and inserts Code(s): G62.9 - POLYNEUROPATHY, UNSPECIFIED (6) Uncontrolled diabetes mellitus Current Visit: Yes Status: Acute Assessment & Plan: Work with PCP on better management HbA1c 9.1 during stay Code(s): [id number] -
--- NOTE | 2022-07-23 18:29 | XRAY ---
CLINICAL HISTORY:Osteomyelitis; COMPARISON:CR dated 07/23/2022; TECHNIQUES:Multiplanar multisequence MRI of Foot was performed without contrast administration; FINDINGS: Moderate soft tissue edema involving plantar and dorsal food without associating fluid collection. Muscles are also involved. No associated bone marrow edema. Findings are suggestive of cellulitis. No evidence of osteomyelitis. First MTP joint moderate effusion suggestive of synovitis. Bony structures appears normal. No bony marrow edema. No aggressive bony lesion. Visualized tendons appears normal. No evidence of edema or inflammation. Visualized plantar fascia unremarkable. Joints grossly normal. Limited study: Distal toe area not visualized. IMPRESSION: MR findings suggestive of soft tissue cellulitis without evidence of osteomyelitis. No evidence of abscess. First MTP joints synovitis. No bone marrow edema. Electronically Signed by: Dex Vazquez MD. (07/23/2022 17:19:35 HEAD PASTRY CHEF;)
[2022-07-23] MEDS: NORCO 7.5/325 MG TAB PO PRN (21:21)
[2022-07-24] MEDS: VANCOMYCIN 1.5 GRAM/300 ML BAG 1.5 GM/300 ML PIGGYBACK IV SCH (05:06)
[2022-07-24 05:11] VITALS: O2SAT 98
[2022-07-24 07:52] VITALS: BP 132/77; PULSE 87
[2022-07-24] MEDS: Geodon 20 MG Capsule PO SCH (08:29)
[2022-07-24] MEDS: Sodium Chloride 0.9% 1000 ML 1,000 ML IV SCH (08:29)
[2022-07-24] MEDS: ENOXAPARIN SODIUM SQ SCH (10:56)
[2022-07-24] MEDS: SYNTHROID 100 MCG PO SCH (10:56)
[2022-07-24] MEDS: SYNTHROID 125 MCG PO SCH (10:56)
--- NOTE | 2022-07-24 12:35 | PCM.DS ---
Discharge Summary Date of Admission: 07/22/22 16:21 Date of Discharge: Patient seen and examined. Case discussed with podiatry via case management. Wound culture collected with prelim gram positive growth (final ID pending). Leukocytosis resolved. Plan is for discharge on po Bactrim and doxycycline with outpatient podiatry follow up and wound care. The entirety of this encounter was performed via telemedicine. The patient consented to this telemedicine encounter. Admitting Physician: TOMMIE DAMON DO Consults: Consults on Case 07/22/22 15:54 Consult Podiatry ROUTINE Primary Care Provider: GARY BOATENG ALPA Allergies Allergies Penicillins Allergy (Verified 02/24/19 10:08) shellfish derived Allergy (Verified 02/24/19 10:08) Hospital Summary - Vitals & Intake/Output Vital Signs: Vital Signs Temperature 96.2 F 07/24/22 07:50 Pulse Rate 87 07/24/22 07:50 Respiratory Rate 20 07/24/22 07:50 Blood Pressure 132/77 07/24/22 07:50 O2 Sat by Pulse Oximetry 98 07/24/22 07:50 Intake & Output: Intake & Output 07/22/22 07/23/22 07/24/22 07/25/22 11:59 11:59 11:59 11:59 Intake Total 3296 2385 Balance 3296 2385 Weight 141.4 kg - Lab Result Diagrams: 07/23/22 04:27 07/23/22 04:27 Lab Results-Last 24 Hrs: Lab Results-Last 24 Hours 07/23/22 07/23/22 07/24/22 Range/Units 16:56 21:37 07:28 POC Glucometer 284 H 310 H 233 H (74 to 106) mg/dL 07/24/22 Range/Units 12:28 POC Glucometer 335 H (74 to 106) mg/dL Micro Results-Entire Visit: Microbiology 07/23/22 Unknown Wound Culture - Preliminary Foot - Right Bottom GRAM POSITIVE ID AND SENSITIVITY PENDING 07/22/22 16:07 Blood Culture - Preliminary Blood NO GROWTH TO DATE 07/22/22 15:55 Blood Culture - Preliminary Blood NO GROWTH TO DATE Accuchecks Date 07/24/22 Date 07/23/22 Date 07/23/22 Time 07:41 Time 16:58 - Radiology Exams Ordered Rad Exams-Entire Visit: Radiology Procedures Category Date Time Status FOOT (MINIMUM 3 VIEWS) Routine Exams 07/23/22 11:36 Completed MRI LOWER EXT W/O CONTRAST [MRI] Stat Exams 07/23/22 11:39 Completed - Procedures and Test Procedures and Tests throughout Hospitalization: Therapy Orders & Screens 07/22/22 18:39 OT Screen per Nursing Assess ONCE Comment: Protocol Order Physician Instructions: Greater than 3 points order OT Admission Screening Reason For Exam: Triggered on Admission Diagnosis: diabetic foot ulcer; cellulitis Open Wound/Cellutlitis/Pressure Ulcers: Yes: diabetic ulcer Acute Fx/ORIF/Change in wt bearing status: No Severe MUSCULOSKELETAL pain: No ADL Dysfunction: No Acute CVA w/Hemiparesis/Hemiplegia: No Decreased Functional Mobility/Strength: No Sprain/Strain: No Acute Post-op Mobility Dysfunction: No Total Points: 5 PT Screen per Nursing Assess ONCE Comment: Protocol Order Physician Instructions: Greater than 3 points order PT Admission Screenin Reason For Exam: Triggered on Admission Diagnosis: diabetic foot ulcer; cellulitis Open Wound/Cellutlitis/Pressure Ulcers: Yes: diabetic ulcer Acute Fx/ORIF/Change in wt bearing status: No Severe MUSCULOSKELETAL pain: No ADL Dysfunction: No Acute CVA w/Hemiparesis/Hemiplegia: No Decreased Functional Mobility/Strength: No Sprain/Strain: No Acute Post-op Mobility Dysfunction: No Total Points: 5 Discharge Exam Wound Assessment: Skin/Wound Assessment Wound/Incision Assessment Start: 07/22/22 18:39 Text: Status: Active Freq: Q6H Protocol: Document 07/24/22 08:00 CATHERINE (Rec: 07/24/22 08:38 CATHERINE [id number]) Wound/Incision Assessment Left Volar Foot Wound Assessment Shift Assessment Wound Type DIABETIC ULCER Wound Stage Non Pressure Wound Dressing Status Dry & Intact Drainage Amount None Comment DRESSING CLEAN DRY AND INTACT Final Diagnosis/Problem List - Final Discharge Diagnosis/Problem (1) Diabetic foot ulcer Current Visit: Yes Status: Acute Code(s): E11.621 - TYPE 2 DIABETES MELLITUS WITH FOOT ULCER; L97.509 - NON-PRESSURE CHRONIC ULCER OTH PRT UNSP FOOT W UNSP SEVERITY (2) Leukocytosis Current Visit: Yes Status: Acute Code(s): D72.829 - ELEVATED WHITE BLOOD CELL COUNT, UNSPECIFIED (3) Hypothyroidism Current Visit: Yes Status: Acute Code(s): E03.9 - HYPOTHYROIDISM, UNSPECIFIE D (4) Diabetes mellitus Current Visit: No Status: Acute Code(s): E11.9 - TYPE 2 DIABETES MELLITUS WITHOUT COMPLICATIONS - Discharge Disposition: Home, Self-Care Condition: Stable Prescriptions: New Smz/Tmp Ds Tablet [Bactrim Ds Tablet] 1 tab PO BID 10 Days #20 tablet Doxycycline Hyclate 100 mg [Vibramycin 100 MG] 100 mg PO BID 10 Days #20 tab No Action Levothyroxine Sodium [Unithroid] 225 mcg PO DAILY Insulin Degludec/Liraglutide [Xultophy 100 Unit-3.6MG/ml Pen] 40 units SQ QAM Cefdinir 300 mg PO DAILY Ziprasidone 20 mg [Geodon 20 MG Capsule] 20 mg PO BID Additional Instructions: LEAVE DRESSING CLEAN AND DRY Follow up with: MAHNAZ PISANO DPM [ACTIVE STAFF] - 07/26/22
[2022-07-24] MEDS ORDERED: TROUGH DRUG LEVELS IJ ONE (13:30)
== END 2022-07-24 13:30 | disposition home or self-care (01) ==
LOC: ED 14:36 → MED SURG 16:21
PROVIDERS: ADMIT Family Medicine; ATTEND Family Medicine
DX: E11.621 Type 2 diabetes mellitus with foot ulcer (principal); L03.115 Cellulitis of right lower limb; M79.604 Pain in right leg; L97.519 Non-pressure chronic ulcer of other part of right foot with unspecified severity; E03.9 Hypothyroidism, unspecified; D72.829 Elevated white blood cell count, unspecified; G62.9 Polyneuropathy, unspecified; E11.9 Type 2 diabetes mellitus without complications; Z79.899 Other long term (current) drug therapy; Z20.828 Contact with and (suspected) exposure to other viral communicable diseases
CPT/HCPCS: 11042; 29580; 36415; 73630; 73718; 80053; 81001; 82947; 83036; 83605; 84134; 84439; 84443; 84481; 85025; 87040; 87070; 99223; 99285; Q3014; 87077; 87186; G0378; J1650; J1815; J1817; A9270-GY; J3370

== ENCOUNTER 2023-04-04 17:41 | Emergency (ER) | payer BC ==
[2023-04-04 18:00] VITALS: RESP 18; TEMP 97.5; O2SAT 98
[2023-04-04 18:49] VITALS: BP 103/62; PULSE 86
[2023-04-04] MEDS ORDERED: BACIGUENT PACKET ONE (18:50)
--- NOTE | 2023-04-04 18:51 | ERPHSYRPT ---
- History of Present Illness Time Seen by Provider: 04/04/23 18:00 Source: patient Exam Limitations: no limitations Patient Subjective Stated Complaint: Wound check Triage Nursing Assessment: Patient ambulated back to ED and transferred self to bed. Patient A+O X 3. Patient's skin pink, warm and dry. Patient states he is a diabetic and peripheral neuropathy. Patient states his right foot has had an ulcer on intra digital space that is 1cm X 1cm with 1cm depth that has a black center. Patient's toes noted to be moist. Patient denies pain or discomfort. Physician History: Patient is [id number] white male diabetic who presents with an ulcer on his right foot between his fourth and fifth toes. He is followed by Dr. Loving for care of his feet as a diabetic. He has been told by Dr. Loving that this right foot causes problems because of excessive perspiration. The patient noted that there was a deepening of the ulcer on the fourth toe and is not on antibiotics. Patient does not complain of pain because he has loss of sensation. Allergies/Adverse Reactions: Iodinated Contrast Media Allergy (Verified 04/04/23 17:46) Penicillins Allergy (Verified 04/04/23 17:46) shellfish derived Allergy (Verified 04/04/23 17:46) Home Medications: Insulin Degludec/Liraglutide [Xultophy 100 Unit-3.6MG/ml Pen] 40 units SQ QAM 07/22/22 [History] Levothyroxine Sodium [Unithroid] 225 mcg PO DAILY 07/22/22 [History] Ziprasidone 20 mg [Geodon 20 MG Capsule] 20 mg PO BID 07/22/22 [History] Hydroxyzine HCl 25 mg [Atarax 25 mg] 25 mg PO QID 11/14/22 [History] Insulin Lispro [Humalog] 15 unit SQ BID 11/14/22 [History] Zinc Acetate [Galzin] 1 cap PO DAILY 11/16/22 [History] Hx Tetanus, Diphtheria Vaccination/Date Given: Yes Hx Influenza Vaccination/Date Given: No Hx Pneumococcal Vaccination/Date Given: No Immunizations Up to Date: Yes Travel Risk - International Travel Have you traveled outside of the country in past 3 weeks: No - Coronavirus Screening Are you exhibiting any of the following symptoms?: No Close contact with a COVID-19 positive Pt in past 14-21 Days: No - Vaccine Status Have you recieved a Covid-19 vaccination: No - Review of Systems Constitutional: No Fever, No Chills Eyes: No Symptoms Ears, Nose, & Throat: No Symptoms Respiratory: No Cough, No Dyspnea Cardiac: No Chest Pain, No Edema, No Syncope Abdominal/Gastrointestinal: No Abdominal Pain, No Nausea, No Vomiting, No Diarrhea Genitourinary Symptoms: No Dysuria Musculoskeletal: No Back Pain, No Neck Pain Skin: No Rash Neurological: No Dizziness, No Focal Weakness, No Sensory Changes Psychological: No Symptoms Endocrine: No Symptoms All Other Systems: Reviewed and Negative - Past Medical History Pertinent Past Medical History: Yes Neurological History: Peripheral Neuropathy ENT History: Other Cardiac History: No Pertinent History Respiratory History: No Pertinent History Endocrine Medical History: Diabetes Type II, Thyroid Cancer, Other Musculoskeletal History: No Pertinent History GI Medical History: No Pertinent History History: No Pertinent History Psycho-Social History: Bipolar Male Reproductive Disorders: No Pertinent History Other Medical History: PAST THYROID CA, - Past Surgical History Past Surgical History: Yes Neuro Surgical History: No Pertinent History Cardiac: No Pertinent History Respiratory: No Pertinent History Gastrointestinal: No Pertinent History Genitourinary: No Pertinent History Musculoskeletal: No Pertinent History Male Surgical History: No Pertinent History Other Surgical History: thyroidectomy. MRSA - Social History Smoking Status: Never smoker Exposure to second hand smoke: No Alcohol Use: Socially Drug Use: none Patient Lives Alone: No Significant Family History: no pertinent family hx - Nursing Vital Signs Nursing Vital Signs: Initial Vital Signs Temperature 97.5 F 04/04/23 17:57 Pulse Rate 99 H 04/04/23 17:57 Respiratory Rate 18 04/04/23 17:57 Blood Pressure 114/77 04/04/23 17:57 O2 Sat by Pulse Oximetry 98 04/04/23 17:57 Pain Scale Pain Intensity 0 - Physical Exam General Appearance: alert Eyes, Ears, Nose, Throat Exam: moist mucous membranes Neck Exam: non-tender, supple Cardiovascular/Respiratory Exam: chest non-tender, normal breath sounds, regular rate/rhythm, no respiratory distress Gastrointestinal/Abdominal Exam: non-tender, guarding Back Exam: normal inspection, No vertebral tenderness Hips Exam: bilateral: non-tender, normal inspection, normal range of motion Legs Exam: bilateral leg: non-tender, normal inspection, normal range of motion Knees Exam: bilateral knee: non-tender, normal inspection, normal range of motion Ankle Exam: bilateral ankle: non-tender, normal inspection, normal range of motion Foot Exam: right foot: soft tissue tenderness, swelling, other (1 cm circular ulcer deep with purulent material) Neuro/Tendon Exam: normal sensation, normal motor functions Mental Status Exam: alert, oriented x 3, cooperative Skin Exam: normal color, warm, dry SpO2 Interpretation: normal SpO2: 98 O2 Delivery: Room Air - Course Nursing assessment & vital signs reviewed: Yes - Radiology Exams Right Foot X-ray Interpretation: Interpreted by me, Other (No appreciated evidence of o steomyelitis.) Ordered Tests: Active Orders 24 hr Category Date Time Status FOOT (MINIMUM 3 VIEWS) Stat Exams 04/04/23 18:00 Taken CULTURE,WOUND Stat Lab 04/04/23 18:07 Received - Progress Progress: unchanged Medical Desision Making - Diagnostic Testing Radiological Interpretation: Interpreted by me - Risk of complications The pt has a mod risk of morbidity or mortality based on: Need for prescription drug management - Departure Departure Disposition: Home Clinical Impression: Diabetic ulcer of right foot Condition: Stable Critical Care Time: No Referrals: GARY BOATENG MD [Primary Care Provider] - Follow up/PCP as directed Instructions: Wound Care (DC) Prescriptions: clindamycin HCL [Cleocin HCl] 300 mg PO TID 10 Days #30 cap
[2023-04-04] MEDS: BACIGUENT PACKET TP ONE (18:52)
--- NOTE | 2023-04-05 08:53 | XRAY ---
Indication: 2nd digit wound 1 week. Comparison: September 11, 2022 3 nonweightbearing views right foot demonstrates new 4th digit soft tissue swelling with tiny lateral subcutaneous emphysema presumed infectious. Also new finding old distal 5th metatarsal fracture. Stable small heel spurs and small cuboid accessory ossicle. No other bony, articular, or soft tissue abnormalities.
== END 2023-04-04 18:59 | disposition home or self-care (01) ==
LOC: ED 17:41
DX: E11.621 Type 2 diabetes mellitus with foot ulcer (principal); L97.519 Non-pressure chronic ulcer of other part of right foot with unspecified severity; E11.42 Type 2 diabetes mellitus with diabetic polyneuropathy; Z79.4 Long term (current) use of insulin; Z79.899 Other long term (current) drug therapy; Z28.310 Unvaccinated for COVID-19
CPT/HCPCS: 73630; 87070; 87077; 87186; 99283; A9270-GY

== ENCOUNTER 2023-05-15 08:21 | Inpatient (IN) | payer BC ==
[2023-05-15] MEDS ORDERED: Zofran 4 MG/2 ML VIAL ONE ×2 (08:41→10:15)
[2023-05-15] MEDS ORDERED: PROTONIX 40 MG IV IV ONE (08:41)
[2023-05-15] MEDS ORDERED: Sodium Chloride 0.9% 1000 ML 1,000 ML ONE (08:42)
[2023-05-15] MEDS: Sodium Chloride 0.9% 1000 ML 1,000 ML IV STA (08:42)
[2023-05-15] MEDS ORDERED: Hydromorphone 1 mg/ml Injection ONE (08:42)
[2023-05-15] MEDS: PROTONIX 40 MG IV IV ONE (08:43)
[2023-05-15] MEDS: Hydromorphone 1 mg/ml Injection IV ONE (08:43)
[2023-05-15] MEDS: Zofran 4 MG/2 ML VIAL IV ONE ×2 (08:43→10:15)
--- NOTE | 2023-05-15 08:43 | ERPHSYRPT ---
- History of Present Illness Time Seen by Provider: 05/15/23 08:30 Historian: patient, family Exam Limitations: no limitations Patient Subjective Stated Complaint: Pt states "I have been running a fever and had a headache since yesterday afternoon." Triage Nursing Assessment: Pt presented alert and orietned X 3, skin pwd. pt ambulates with an upright steady gait, able to speak in clear full sentences. PT will moan occasionally. Physician History: This is an obese 32-year-old white male patient of Dr. Boateng who was brought into the emergency department by private vehicle by his significant other. Patient states that he has been having vomiting, body aches, headaches since yesterday. Symptoms have persisted. Patient has been taking his insulin medication. Patient is insulin-dependent diabetic, has hypothyroidism, peripheral neuropathy, bipolar disorder and history of MRSA. Patient has not had any exposures to individuals with similar symptoms. Patient denies chest pain. Patient denies shortness of breath. His abdominal pain is present and generalized in location. He has not had diarrhea. Timing/Duration: yesterday Activities at Onset: none Quality: aching Abdominal Pain Onset Location: generalized abdomen Severity of Pain-Max: moderate Severity of Pain-Current: moderate Modifying Factors: Improves With: vomiting Associated Symptoms: fever/chills, loss of appetite, nausea, vomiting, weakness, No chest pain, No diarrhea, No shortness of breath Previous symptoms: no prior history, no recent treatment Allergies/Adverse Reactions: Iodinated Contrast Media Allergy (Verified 04/04/23 17:46) Penicillins Allergy (Verified 04/04/23 17:46) shellfish derived Allergy (Verified 04/04/23 17:46) Home Medications: Insulin Degludec/Liraglutide [Xultophy 100 Unit-3.6MG/ml Pen] 40 units SQ QAM 07/22/22 [History] Levothyroxine Sodium [Unithroid] 225 mcg PO DAILY 07/22/22 [History] Ziprasidone 20 mg [Geodon 20 MG Capsule] 20 mg PO BID 07/22/22 [History] Hydroxyzine HCl 25 mg [Atarax 25 mg] 25 mg PO QID 11/14/22 [History] Insulin Lispro [Humalog] 15 unit SQ BID 11/14/22 [History] Zinc Acetate [Galzin] 1 cap PO DAILY 11/16/22 [History] Hx Tetanus, Diphtheria Vaccination/Date Given: Yes Hx Influenza Vaccination/Date Given: No Hx Pneumococcal Vaccination/Date Given: No Immunizations Up to Date: Yes Travel Risk - International Travel Have you traveled outside of the country in past 3 weeks: No - Emerging Infectious Disease Are you exhibiting symptoms associated with any current EIDs: Yes Symptoms: Abdominal Pain, Fever, Headaches/Body Aches/, Vomitting - Review of Systems Constitutional: Fever Eyes: No Symptoms Ears, Nose, & Throat: No Symptoms Respiratory: No Symptoms Cardiac: No Symptoms Abdominal/Gastrointestinal: Abdominal Pain, Nausea, Vomiting, Appetite Changes Genitourinary Symptoms: No Symptoms Musculoskeletal: Arthralgias, Myalgias Skin: No Symptoms Neurological: Headache Psychological: No Symptoms Endocrine: No Symptoms Hematologic/Lymphatic: No Symptoms Immunological/Allergic: No Symptoms All Other Systems: Reviewed and Negative - Past Medical History Pertinent Past Medical History: Yes Neurological History: Peripheral Neuropathy ENT History: Other Cardiac History: No Pertinent History Respiratory History: No Pertinent History Endocrine Medical History: Diabetes Type II, Thyroid Cancer, Other Musculoskeletal History: No Pertinent History GI Medical History: No Pertinent History History: No Pertinent History Psycho-Social History: Bipolar Male Reproductive Disorders: No Pertinent History Other Medical History: PAST THYROID CA, - Past Surgical History Past Surgical History: Yes Neuro Surgical History: No Pertinent History Cardiac: No Pertinent History Respiratory: No Pertinent History Gastrointestinal: No Pertinent History Genitourinary: No Pertinent History Musculoskeletal: No Pertinent History Male Surgical History: No Pertinent History Other Surgical History: thyroidectomy. MRSA Significant Family History: no pertinent family hx - Social History Smoking Status: Never smoker Exposure to second hand smoke: No Alcohol Use: Socially Drug Use: none Patient Lives Alone: No - Nursing Vital Signs Nursing Vital Signs: Initial Vital Signs Temperature 100.5 F 05/15/23 08:25 Pulse Rate 136 H 05/15/23 08:25 Respiratory Rate 24 05/15/23 08:25 Blood Pressure 125/95 05/15/23 08:25 O2 Sat by Pulse Oximetry 96 05/15/23 08:25 Pain Scale Pain Intensity 0 - Physical Exam General Appearance: mild distress, alert, anxiety, obese Eye Exam: PERRL/EOMI, eyes nml inspection Ears, Nose, Throat Exam: TMs normal, dry mucous membranes Neck Exam: normal inspection, non-tender, supple, full range of motion Respiratory Exam: normal breath sounds, lungs clear, airway intact, No chest tenderness, No respiratory distress Cardiovascular Exam: tachycardia Gastrointestinal/Abdomen Exam: soft, normal bowel sounds, tenderness (Generalized), guarding (Generalized to palpation), No rebound Rectal Exam: not done Back Exam: normal inspection, normal range of motion, No CVA tenderness, No vertebral tenderness Extremity Exam: normal inspection, normal range of motion, pelvis stable Neurologic Exam: alert, oriented x 3, cooperative, polymerization helper II-XII nml as tested, sensation nml Skin Exam: normal color, warm, dry Lymphatic Exam: No adenopathy SpO2 Interpretation: normal SpO2: 96 O2 Delivery: Room Air - Course Nursing assessment & vital signs reviewed: Yes Ordered Tests: Active Orders 24 hr Category Date Time Status EKG-ER Only STAT Care 05/15/23 10:51 Active IV Insertion STAT Care 05/15/23 08:35 Active ABDOMEN AND PELVIS W/0 CONTRAS [CT] Stat Exams 05/15/23 08:37 Completed CHEST 1 VIEW (PORTABLE) Stat Exams 05/15/23 11:05 Ordered AMYLASE Stat Lab 05/15/23 08:57 Completed BLOOD CULTURE Stat Lab 05/15/23 08:37 Received CBC W DIFF Stat Lab 05/15/23 08:57 Completed CMP Stat Lab 05/15/23 08:57 Completed LIPASE Stat Lab 05/15/23 08:57 Completed Lactic Acid Stat Lab 05/15/23 08:42 Completed Lactic Acid Stat Lab 05/15/23 10:47 Completed MONO SCREEN Stat Lab 05/15/23 08:57 Completed POCT GLUCOSE Stat Lab 05/15/23 08:28 Completed TROPONIN Q4H Lab 05/15/23 15:00 Ordered TROPONIN Q4H Lab 05/15/23 19:00 Ordered TROPONIN Q4H Lab 05/15/23 23:00 Ordered TSH [TSH, 3RD Generation] Stat Lab 05/15/23 08:59 Received UA W/RFX UR CULTURE Stat Lab 05/15/23 10:06 Completed Medication Summary Discontinued Medications Generic Name Dose Route Start Last Admin Trade Name Freq PRN Reason Stop Dose Admin Acetaminophen 650 mg 05/15/23 10:02 05/15/23 10:12 Acetaminophen 325 Mg Tablet PO 05/15/23 10:03 650 mg STAT ONE Administration Acetaminophen Confirm 05/15/23 10:10 Acetaminophen 325 Mg Tablet Administered 05/15/23 10:11 Dose 650 mg .ROUTE .STK-MED ONE Doxycycline Hyclate 100 mg 05/15/23 11:20 Doxycycline Hyclate 100 Mg Tablet PO 05/15/23 11:21 STAT ONE Hydromorphone HCl 1 mg 05/15/23 08:35 05/15/23 08:43 Hydromorphone 1 Mg/1ml Inj IV 05/15/23 08:36 1 mg STAT ONE Administration Hydromorphone HCl Confirm 05/15/23 08:42 Hydromorphone 1 Mg/1ml Inj Administered 05/15/23 08:43 Dose 1 mg .ROUTE .STK-MED ONE Sodium Chloride 1,000 mls @ 999 mls/hr 05/15/23 08:35 05/15/23 09:53 Sodium Chloride 0.9% 1000 Ml IV 05/15/23 09:35 Infused .Q1H1M STA Infusion Sodium Chloride Confirm 05/15/23 08:42 Sodium Chloride 0.9% 1000 Ml Administered 05/15/23 08:43 Dose 1,000 mls @ ud .ROUTE .STK-MED ONE Lactated Ringer's 1,000 mls @ 999 mls/hr 05/15/23 09:52 05/15/23 11:15 Lactated Ringers IV 05/15/23 10:52 Infused .Q1H1M ONE Infusion Lactated Ringer's Confirm 05/15/23 10:11 Lactated Ringers Administered 05/15/23 10:12 Dose 1,000 mls @ ud IV .STK-MED ONE Levofloxacin 500 mg 05/15/23 11:20 Levofloxacin 500 Mg Tablet PO 05/15/23 11:21 STAT ONE Metoprolol Tartrate 5 mg 05/15/23 10:50 05/15/23 10:55 Metoprolol Tartrate 5 Mg/5 Ml Vial IV 05/15/23 10:51 5 mg STAT ONE Administration Metoprolol Tartrate Confirm 05/15/23 10:55 Metoprolol Tartrate 5 Mg/5 Ml Vial Administered 05/15/23 10:56 Dose 5 mg IV .STK-MED ONE Ondansetron HCl 4 mg 05/15/23 08:35 05/15/23 08:43 Ondansetron Hcl 4 Mg/2 Ml Vial IV 05/15/23 08:36 4 mg STAT ONE Administration Ondansetron HCl Confirm 05/15/23 08:41 Ondansetron Hcl 4 Mg/2 Ml Vial Administered 05/15/23 08:42 Dose 4 mg .ROUTE .STK-MED ONE Ondansetron HCl 4 mg 05/15/23 10:15 05/15/23 10:15 Ondansetron Hcl 4 Mg/2 Ml Vial IV 05/15/23 10:16 4 mg STAT ONE Administration Ondansetron HCl Confirm 05/15/23 10:15 Ondansetron Hcl 4 Mg/2 Ml Vial Administered 05/15/23 10:16 Dose 4 mg .ROUTE .STK-MED ONE Pantoprazole Sodium 40 mg 05/15/23 08:35 05/15/23 08:43 Pantoprazole 40 Mg Vial IV 05/15/23 08:36 40 mg STAT ONE Administration Pantoprazole Sodium Confirm 05/15/23 08:41 Pantoprazole 40 Mg Vial Administered 05/15/23 08:42 Dose 40 mg IV .STK-MED ONE Lab/Rad Data: Laboratory Result Diagrams 05/15/23 08:57 05/15/23 08:57 Laboratory Results 05/15/23 05/15/23 05/15/23 Range/Units 10:47 10:06 08:57 WBC (4.0-10.5) x10^3/uL RBC (4.1-5.6) x10^6/uL Hgb (12.5-18.0) g/dL Hct (42-50) % MCV (78-100) fL MCH (26-32) pg MCHC (32-36) g/dL RDW (11.5-14.0) % Plt Count (150-450) x10^3/uL MPV (7.5-11.0) fL Gran % (36.0-66.0) % Immature Gran % (Auto) (0.00-0.4) % Nucleat RBC Rel Count (0.00-0.1) % Eos # (Auto) (0-0.5) x10^3/uL Immature Gran # (Auto) (0.00-0.03) x10^3u/L Absolute Lymphs (auto) (1.0-4.6) x10^3/uL Absolute Monos (auto) (0.0-1.3) x10^3/uL Absolute Nucleated RBC (0.00-0.01) x10^3u/L Lymphocytes % (24.0-44.0) % Monocytes % (0.0-12.0) % Eosinophils % (0.00-5.0) % Basophils % (0.0-0.4) % Absolute Granulocytes (1.4-6.9) x10^3/uL Basophils # (0-0.4) x10^3/uL Sodium (135-145) mmol/L Potassium (3.5-5.1) mmol/L Chloride (98-107) mmol/L Carbon Dioxide (22-30) mmol/L Anion Gap (5-15) MEQ/L BUN (9-20) mg/dL Creatinine (0.66-1.25) mg/dL Estimated GFR ML/MIN Glucose (74-106) mg/dL POC Glucometer (74 to 106) mg/dL Lactic Acid 1.7 (0.4-2.0) Calcium (8.4-10.2) mg/dL Total Bilirubin (0.2-1.3) mg/dL AST (17-59) U/L ALT (0-50) U/L Alkaline Phosphatase (38-126) U/L Serum Total Protein (6.3-8.2) g/dL Albumin (3.5-5.0) g/dL Amylase (30-110) U/L Lipase (23-300) U/L Urine Color Dark Yellow (Yellow) Urine Appearance Clear (Clear) Urine pH 5.5 (4.6-8.0) Ur Specific [place] >=1.030 A (1.005-1.030) Urine Protein Trace A (Negative) Urine Glucose (UA) Negative (Negative) mg/dL Urine Ketones Trace A (Negative) Urine Blood Negative (Negative) Urine Nitrite Negative (Negative) Urine Bilirubin Negative (Negative) Urine Urobilinogen 1.0 A (0.2) mg/dL Ur Leukocyte Esterase Negative (Negative) U Hyaline Cast (Auto) NONE SEEN (0-2) /LPF Urine Microscopic RBC 0-2 (0-5) /HPF Urine Microscopic WBC 0-2 (0-5) /HPF Ur Epithelial Cells None Seen (None Seen) /HPF Urine Bacteria None Seen (None Seen) /HPF Urine Culture Reflexed NO (NO) Monoscreen (NEGATIVE) Influenza Type A Ag NEGATIVE (NEGATIVE) Influenza Type B Ag NEGATIVE (NEGATIVE) RSV (PCR) NEGATIVE (NEGATIVE) SARS-CoV-2 (PCR) NEGATIVE (NEGATIVE) 05/15/23 05/15/23 05/15/23 Range/Units 08:57 08:57 08:57 WBC 12.3 H (4.0-10.5) x10^3/uL RBC 5.10 (4.1-5.6) x10^6/uL Hgb 15.0 (12.5-18.0) g/dL Hct 47.0 (42-50) % MCV 92.2 (78-100) fL MCH 29.4 (26-32) pg MCHC 31.9 L (32-36) g/dL RDW 11.9 (11.5-14.0) % Plt Count 163 (150-450) x10^3/uL MPV 11.8 H (7.5-11.0) fL Gran % 80.7 H (36.0-66.0) % Immature Gran % (Auto) 0.5 H (0.00-0.4) % Nucleat RBC Rel Count 0.0 (0.00-0.1) % Eos # (Auto) 0 (0-0.5) x10^3/uL Immature Gran # (Auto) 0.06 H (0.00-0.03) x10^3u/L Absolute Lymphs (auto) 1.11 (1.0-4.6) x10^3/uL Absolute Monos (auto) 1.18 (0.0-1.3) x10^3/uL Absolute Nucleated RBC 0.00 (0.00-0.01) x10^3u/L Lymphocytes % 9.0 L (24.0-44.0) % Monocytes % 9.6 (0.0-12.0) % Eosinophils % 0.0 (0.00-5.0) % Basophils % 0.2 (0.0-0.4) % Absolute Granulocytes 9.89 H (1.4-6.9) x10^3/uL Basophils # 0.03 (0-0.4) x10^3/uL Sodium 134 L (135-145) mmol/L Potassium 4.6 (3.5-5.1) mmol/L Chloride 100 (98-107) mmol/L Carbon Dioxide 20 L (22-30) mmol/L Anion Gap 19.0 H (5-15) MEQ/L BUN 17 (9-20) mg/dL Creatinine 1.36 H (0.66-1.25) mg/dL Estimated GFR 70.0 ML/MIN Glucose 227 H (74-106) mg/dL POC Glucometer (74 to 106) mg/dL Lactic Acid (0.4-2.0) Calcium 9.0 (8.4-10.2) mg/dL Total Bilirubin 1.70 H (0.2-1.3) mg/dL AST 35 (17-59) U/L ALT 40 (0-50) U/L Alkaline Phosphatase 73 (38-126) U/L Serum Total Protein 8.2 (6.3-8.2) g/dL Albumin 4.3 (3.5-5.0) g/dL Amylase 71 (30-110) U/L Lipase 50 (23-300) U/L Urine Color (Yellow) Urine Appearance (Clear) Urine pH (4.6-8.0) Ur Specific [place] (1.005-1.030) Urine Protein (Negative) Urine Glucose (UA) (Negative) mg/dL Urine Ketones (Negative) Urine Blood (Negative) Urine Nitrite (Negative) Urine Bilirubin (Negative) Urine Urobilinogen (0.2) mg/dL Ur Leukocyte Esterase (Negative) U Hyaline Cast (Auto) (0-2) /LPF Urine Microscopic RBC (0-5) /HPF Urine Microscopic WBC (0-5) /HPF Ur Epithelial Cells (None Seen) /HPF Urine Bacteria (None Seen) /HPF Urine Culture Reflexed (NO) Monoscreen NEGATIVE (NEGATIVE) Influenza Type A Ag (NEGATIVE) Influenza Type B Ag (NEGATIVE) RSV (PCR) (NEGATIVE) SARS-CoV-2 (PCR) (NEGATIVE) 05/15/23 05/15/23 Range/Units 08:42 08:28 WBC (4.0-10.5) x10^3/uL RBC (4.1-5.6) x10^6/uL Hgb (12.5-18.0) g/dL Hct (42-50) % MCV (78-100) fL MCH (26-32) pg MCHC (32-36) g/dL RDW (11.5-14.0) % Plt Count (150-450) x10^3/uL MPV (7.5-11.0) fL Gran % (36.0-66.0) % Immature Gran % (Auto) (0.00-0.4) % Nucleat RBC Rel Count (0.00-0.1) % Eos # (Auto) (0-0.5) x10^3/uL Immature Gran # (Auto) (0.00-0.03) x10^3u/L Absolute Lymphs (auto) (1.0-4.6) x10^3/uL Absolute Monos (auto) (0.0-1.3) x10^3/uL Absolute Nucleated RBC (0.00-0.01) x10^3u/L Lymphocytes % (24.0-44.0) % Monocytes % (0.0-12.0) % Eosinophils % (0.00-5.0) % Basophils % (0.0-0.4) % Absolute Granulocytes (1.4-6.9) x10^3/uL Basophils # (0-0.4) x10^3/uL Sodium (135-145) mmol/L Potassium (3.5-5.1) mmol/L Chloride (98-107) mmol/L Carbon Dioxide (22-30) mmol/L Anion Gap (5-15) MEQ/L BUN (9-20) mg/dL Creatinine (0.66-1.25) mg/dL Estimated GFR ML/MIN Glucose (74-106) mg/dL POC Glucometer 173 H (74 to 106) mg/dL Lactic Acid 3.1 H (0.4-2.0) Calcium (8.4-10.2) mg/dL Total Bilirubin (0.2-1.3) mg/dL AST (17-59) U/L ALT (0-50) U/L Alkaline Phosphatase (38-126) U/L Serum Total Protein (6.3-8.2) g/dL Albumin (3.5-5.0) g/dL Amylase (30-110) U/L Lipase (23-300) U/L Urine Color (Yellow) Urine Appearance (Clear) Urine pH (4.6-8.0) Ur Specific [place] (1.005-1.030) Urine Protein (Negative) Urine Glucose (UA) (Negative) mg/dL Urine Ketones (Negative) Urine Blood (Negative) Urine Nitrite (Negative) Urine Bilirubin (Negative) Urine Urobilinogen (0.2) mg/dL Ur Leukocyte Esterase (Negative) U Hyaline Cast (Auto) (0-2) /LPF Urine Microscopic RBC (0-5) /HPF Urine Microscopic WBC (0-5) /HPF Ur Epithelial Cells (None Seen) /HPF Urine Bacteria (None Seen) /HPF Urine Culture Reflexed (NO) Monoscreen (NEGATIVE) Influenza Type A Ag (NEGATIVE) Influenza Type B Ag (NEGATIVE) RSV (PCR) (NEGATIVE) SARS-CoV-2 (PCR) (NEGATIVE) - Progress Progress: improved, re-examined Progress Note: 05/15/23 08:42 This patient's medical issue is at least moderate complexity. The level of complexity in the workup performed is based on review of the patient's past medical history, review the patient's medication list, review of patient drug allergy list, history of present illness and physical findings on examination. The workup in this patient includes placement of an intravenous line, infusion of normal saline solution, infusion of Protonix, infusion of Dilaudid, infusion of Zofran, CBC, CMP, amylase, lipase, urinalysis, lactic acid level, viral swabs, mono screen, and CT scan of the abdomen pelvis without contrast. 05/15/23 10:04 CT scan of the abdomen pelvis was interpreted by the radiologist and I reviewed the impression. Impression states markedly distended urinary bladder outlet obstruction versus neurogenic bladder. There is an indeterminate 1 cm right lung base noncalcified nodule. The remainder of the CT scan of the abdomen pelvis is negative. I discussed these findings with the patient and his spouse. 05/15/23 11:23 The chest x-ray was interpreted by me. This is a preliminary reading. This was discussed with the patient. I do not appreciate any acute cardiopulmonary process. There is no specific infiltrate that I see on this chest x-ray. I interpreted the patient's laboratory data results. The patient has leukocytosis. Patient has hyperglycemia. Patient's initial lactic acid is elevated. Repeat lactic acid level after infusion of 2 L crystalloid solution intravenously is now normal. This patient has leukocytosis, fever and infection of unknown origin. I reexam ined the patient's right foot. There is a fourth toe/digit right foot ulceration that has been present and been treated in the past. There is also a plantar surface crack that is superficial. There is no expressible pus present. There is no malodor present. The patient states that he does not want to be transferred to an inpatient or outpatient facility. He does not want to be admitted into the hospital. I explained to him that there is significant amount of benefit by being placed in the hospital in terms of intravenous fluid, intravenous antibiotics, consultation with his paper rewinder and treating his infection/sepsis. Patient refuses because he states he has to go to work he cannot miss work. He was told that his condition could worsen and this could lead to worsening sepsis and possible . He and his spouse are both aware. He is awake alert oriented and understands that there are consequences to his is leaving AGAINST MEDICAL ADVICE. He will sign the AGAINST MEDICAL ADVICE form. Counseled pt/family regarding: lab results, diagnosis Medical Desision Making - Independent Historian Additional History obtained from: Spouse - Diagnostic Testing Diagnostic test were ordered, analyzed, and reviewed by me: Yes - Risk of complications The pt has a high risk of morbidity or mortality based on: Decision regarding hospitilization or escalation of hosp level of care - Departure Departure Disposition: AMA Clinical Impression: Fever, Abdominal pain, Right lower lobe pulmonary nodule, Sepsis, Fever of unknown origin (FUO) Condition: Fair Critical Care Time: Yes Critical Care Time(excluding separately billable procedures): Critical 30-74 mins (45 minutes) Referrals: GARY BOATENG MD [Primary Care Provider] - Follow up/PCP as directed Additional Instructions: Drink plenty of fluids before advancing your diet. Take your medications as prescribed. Return to the emergency department if symptoms worsen. Call your primary care provider and your paper rewinder today to make an appointment for follow-up as an outpatient in the next 2 to 3 days. Monitor your blood sugar levels closely. Prescriptions: Smz/Tmp Ds Tablet [Bactrim Ds Tablet] 1 udtab PO BID #20 tablet
[2023-05-15 09:09] LABS: Absolute Neutrophil Ct (ANC) 9.89 x10^3/uL (1.4-6.9); BASOPHIL % 0.2 % (0.0-0.4); Basophil (Absolute #) 0.03 x10^3/uL (0-0.4); Eosinophil (Absolute #) 0 x10^3/uL (0-0.5); IMMATURE GRAN # 0.06 x10^3u/L (0.00-0.03); IMMATURE GRAN % 0.5 % (0.00-0.4); Lymphocyte (Absolute #) 1.11 x10^3/uL (1.0-4.6); Mean Cell Volume 92.2 fL (78-100); Mean Corpuscular Hemoglobin 29.4 pg (26-32); Mean Corpuscular Hgb Concent. 31.9 g/dL (32-36); Mean Platelet Volume 11.8 fL (7.5-11.0); Monocyte (Absolute #) 1.18 x10^3/uL (0.0-1.3); Monocytes % 9.6 % (0.0-12.0); Neutrophil % 80.7 % (36.0-66.0); Platelet Count 163 x10^3/uL (150-450); Red Cell Distribution Width 11.9 % (11.5-14.0); White Blood Count 12.3 x10^3/uL (4.0-10.5)
[2023-05-15 09:23] LABS: ALBUMIN 4.3 g/dL (3.5-5.0); BILIRUBIN,TOTAL 1.7 mg/dL (0.2-1.3); Creatinine 1 1.36 mg/dL (0.66-1.25); Potassium 4.6 mmol/L (3.5-5.1); Total Protein 8.2 g/dL (6.3-8.2)
--- NOTE | 2023-05-15 09:52 | XRAY ---
Indication: Abdominal pain and vomiting. Multiple contiguous axial images obtained through the abdomen and pelvis without contrast. Comparison: None Lung bases and upper abdomen are degraded by respiration. Scattered bibasilar subsuming atelectasis/scarring. Posterior right lung base demonstrates 1 cm indeterminant noncalcified nodule. Heart not enlarged. Noncontrasted stomach and bowel loops appear nonobstructed with normal appendix. No free fluid/air. Markedly distended urinary bladder. Remaining liver, gallbladder, pancreas, spleen, adrenal glands, kidneys, ureters, bladder, and aorta are unremarkable for noncontrast exam. Osseous structures intact with minimal/mild degenerative changes throughout the spine. No ventral or inguinal hernias. Impression: 1. Respiration artifact. 2. Markedly distended urinary bladder. Rule out outlet obstruction versus neurogenic bladder. 3. Indeterminant 1 cm right lung base noncalcified nodule. Outside comparison studies recommended if available. If not, baseline CT with follow-up per Fleischner guidelines recommend. 4. Remaining CT abdomen/pelvis without contrast exam grossly negative.
[2023-05-15 09:55] LABS: INFLUENZA A NEGATIVE (NEGATIVE); INFLUENZA B NEGATIVE (NEGATIVE); RESPIRATORY SYNCTIAL VIRUS NEGATIVE (NEGATIVE); SARS-CoV-2 Xpert Express NEGATIVE (NEGATIVE)
[2023-05-15] MEDS ORDERED: TYLENOL 325 MG ONE (10:10)
[2023-05-15] MEDS ORDERED: Lactated Ringers 1,000 ML IV ONE (10:11)
[2023-05-15] MEDS: Lactated Ringers 1,000 ML IV ONE (10:12)
[2023-05-15] MEDS: TYLENOL 325 MG PO ONE (10:12)
[2023-05-15 10:35] LABS: Appearance Clear (Clear); Bacteria None Seen /HPF (None Seen); Bilirubin Negative (Negative); Blood Negative (Negative); Epithelial Cells None Seen /HPF (None Seen); Glucose, Urine Negative (Negative); Hyaline Casts NONE SEEN /LPF (0-2); Ketones Trace (Negative); Leukocyte Esterase Negative (Negative); Nitrite Negative (Negative); Ph 5.5 (4.6-8.0); Protein,Urine Dip Trace (Negative); RBC 0-2 /HPF (0-5); Specific Gravity >=1.030 (1.005-1.030); WBC 0-2 /HPF (0-5)
[2023-05-15 10:37] LABS: ADD URINE CULTURE? NO (NO)
[2023-05-15] MEDS: LOPRESSOR INJECTION IV ONE (10:55)
[2023-05-15] MEDS ORDERED: LOPRESSOR INJECTION IV ONE (10:55)
[2023-05-15] MEDS ORDERED: Vibramycin 100 MG ONE (11:35)
[2023-05-15] MEDS ORDERED: Levofloxacin 500 MG Tablet ONE (11:35)
--- NOTE | 2023-05-15 11:36 | XRAY ---
Indication: Fever. Comparison: February 24, 2019 Portable apical lordotic chest less inflated and clear. Heart not enlarged. Bony thorax intact. Impression: Nonacute underinflated chest.
[2023-05-15] MEDS: Levofloxacin 500 MG Tablet PO ONE (12:07)
[2023-05-15] MEDS: Vibramycin 100 MG PO ONE (12:07)
[2023-05-15] MEDS ORDERED: BACTRIM DS TABLET PO ONE (12:08)
[2023-05-15] MEDS ORDERED: Levofloxacin 500MG/100ML D5W 500 MG/100 ML BAG IV ONE (12:08)
[2023-05-15] MEDS: BACTRIM DS TABLET PO ONE (12:09)
[2023-05-15] MEDS: Sodium Chloride 0.9% 1000 ML 1,000 ML IV SCH (12:10)
[2023-05-15] MEDS: Levofloxacin 500MG/100ML D5W 500 MG/100 ML BAG IV STA (12:11)
[2023-05-15] MEDS ORDERED: TYLENOL 325 MG PO PRN (12:59)
[2023-05-15] MEDS ORDERED: HUMULIN R SQ PRN (12:59)
--- NOTE | 2023-05-15 13:24 | PCM.HP ---
History of Present Illness - Chief Complaint Chief Complaint: Fever of unknown origin Date: 05/15/23 History of Present Illness: Mr.KING MENDOZA is a 32 year old male with PMHX of Type II DM, hypothyroidism, thyroid CA, bipolar, and obesity. He reports a chronic foot wound that he follow Dr. Loving for. He was brought into the emergency department by private vehicle by his significant other. Patient states that he has been having vomiting, body aches, headaches since yesterday. Symptoms have persisted. Patient has been taking his insulin medication. Patient has not had any exposures to individuals with similar symptoms. + generalized abdominal pain. He denies CP, SOB, diarrhea or constipation. In ER initial Lactate was 3.1 after fluid bolus repeat LA was 1.7. Temp 99.7 and WBC 12.3. He is dehydrated and will continue IVF. Will have podiatry consult as this may be source of infection. Continue antibiotics per podiatry recs. Levaquin started in ER. - Review of Systems Constitutional: Fever, Other (body aches), No Chills Eyes: No Symptoms Ears, Nose, & Throat: No Symptoms Respiratory: No Cough, No Short Of Breath Cardiac: No Chest Pain, No Edema, No Syncope Abdominal/Gastrointestinal: Abdominal Pain, Vomiting, No Nausea, No Diarrhea Genitourinary Symptoms: No Dysuria Musculoskeletal: No Back Pain, No Neck Pain Skin: Decubiti (chronic right foot wound), No Rash Neurological: No Dizziness, No Focal Weakness, No Sensory Changes Psychological: No Symptoms Endocrine: No Symptoms Hematologic/Lymphatic: No Symptoms Immunological/Allergic: No Symptoms Medications & Allergies Home Medications: Home Medication List Insulin Degludec/Liraglutide [Xultophy 100 Unit-3.6MG/ml Pen] 50 units SQ QAM 07/22/22 [History Confirmed 05/15/23] Levothyroxine Sodium [Unithroid] 225 mcg PO DAILY 07/22/22 [History Confirmed 05/15/23] Hydroxyzine HCl 25 mg [Atarax 25 mg] 25 mg PO QID 11/14/22 [History Confirmed 05/15/23] Insulin Lispro [Humalog] 15 unit SQ BID 11/14/22 [History Confirmed 05/15/23] Zinc Acetate [Galzin] 1 cap PO DAILY 09/29/23 [History Confirmed 05/15/23] Ondansetron ODT 4 MG [Zofran Odt 4 mg] 4 mg PO Q6H PRN PRN #10 tablet 05/15/23 [Rx] Smz/Tmp Ds Tablet [Bactrim Ds Tablet] 1 udtab PO BID #20 tablet 05/15/23 [Rx] Allergies/Adverse Reactions: Allergies Allergy/AdvReac Type Severity Reaction Status Date / Time Iodinated Contrast Media Allergy Verified 04/04/23 17:46 Penicillins Allergy Verified 04/04/23 17:46 shellfish derived Allergy Verified 04/04/23 17:46 - Past Medical History Past Medical History: Yes Neurological History: Peripheral Neuropathy ENT History: Other Cardiac History: No Pertinent History Respiratory History: No Pertinent History Endocrine Medical History: Diabetes Type II, Thyroid Cancer, Other Musculoskelatal History: No Pertinent History GI Medical History: No Pertinent History History: No Pertinent History Pyscho-Social History: Bipolar Male Reproductive Disorders: No Pertinent History Comment: PAST THYROID CA, - Past Surgical History Past Surgical History: Yes Neuro Surgical History: No Pertinent History Cardiac History: No Pertinent History Respiratory Surgery: No Pertinent History GI Surgical History: No Pertinent History Genitourinary Surgical Hx: No Pertinent History Musculskeletal Surgical Hx: No Pertinent History Male Surgical History: No Pertinent History Other Surgical History: thyroidectomy. MRSA Significant Family History: no pertinent family hx - Social History Smoking Status: Never smoker Exposure to second hand smoke: No Alcohol: None Drug Use: none - Social Determinants of Health Will the patient participate in the screening: Yes Do you worry about a steady place to live?: No Do you have any problems with any of the following?: No known problems In the past 12 months,have you had to go without utilities?: No Have you or anyone in your house had to go without enough: No Transportation Issues: No Has anyone in your support network made you feel unsafe?: No - Physical Exam Vital Signs: Vital Signs - 24 hr Temp Pulse Resp BP BP Pulse Ox 05/15/23 12:45 105/81 05/15/23 12:30 107 H 18 107/72 95 05/15/23 12:15 99.7 F 110 H 22 113/70 95 05/15/23 12:00 109 H 22 108/65 05/15/23 11:45 112 H 18 110/60 05/15/23 11:30 96 05/15/23 11:30 113 H 22 111/66 05/15/23 11:15 116 H 28 H 113/59 05/15/23 11:00 103 F 113 H 25 H 132/64 99 05/15/23 10:45 115 H 19 136/75 97 05/15/23 10:30 134 H 32 H 153/86 94 L 05/15/23 10:15 131 H 33 H 138/95 96 05/15/23 10:08 132 H 16 154/92 98 05/15/23 10:07 129 H 31 H 96 05/15/23 10:02 96 05/15/23 09:45 130 H 29 H 175/96 100 05/15/23 09:31 133 H 31 H 99 05/15/23 09:24 135 H 31 H 96 05/15/23 09:00 138 H 24 122/76 100 05/15/23 08:46 136 H 23 127/81 99 05/15/23 08:31 133 H 28 H 142/70 05/15/23 08:25 100.5 F 136 H 24 125/95 96 General Appearance: no apparent distress, alert, obese Neurologic Exam: alert, oriented x 3, cooperative, normal mood/affect, nml cerebellar function, nml station & gait, sensation nml, No motor deficits Eye Exam: PERRL/EOMI, eyes nml inspection Ears, Nose, Throat Exam: normal ENT inspection, TMs normal, pharynx normal, moist mucous membranes Neck Exam: normal inspection, non-tender, supple, full range of motion Respiratory Exam: normal breath sounds, lungs clear, No respiratory distress Cardiovascular Exam: regular rate/rhythm, normal heart sounds, normal peripheral pulses Gastrointestinal/Abdomen Exam: soft, normal bowel sounds, tenderness (generalized), No mass Back Exam: normal inspection, normal range of motion, No CVA tenderness, No vertebral tenderness Extremity Exam: normal inspection, normal range of motion, pelvis stable Skin Exam: normal color, warm, dry, decubitus (right lower extremity, foot), No rash Lymphatic Exam: No adenopathy Results - Labs Lab/Micro Results: Lab Results-Last 24 Hours 05/15/23 05/15/23 05/15/23 Range/Units 08:28 08:42 08:57 WBC 12.3 H (4.0-10.5) x10^3/uL RBC 5.10 (4.1-5.6) x10^6/uL Hgb 15.0 (12.5-18.0) g/dL Hct 47.0 (42-50) % MCV 92.2 (78-100) fL MCH 29.4 (26-32) pg MCHC 31.9 L (32-36) g/dL RDW 11.9 (11.5-14.0) % Plt Count 163 (150-450) x10^3/uL MPV 11.8 H (7.5-11.0) fL Gran % 80.7 H (36.0-66.0) % Immature Gran % (Auto) 0.5 H (0.00-0.4) % Nucleat RBC Rel Count 0.0 (0.00-0.1) % Eos # (Auto) 0 (0-0.5) x10^3/uL Immature Gran # (Auto) 0.06 H (0.00-0.03) x10^3u/L Absolute Lymphs (auto) 1.11 (1.0-4.6) x10^3/uL Absolute Monos (auto) 1.18 (0.0-1.3) x10^3/uL Absolute Nucleated RBC 0.00 (0.00-0.01) x10^3u/L Lymphocytes % 9.0 L (24.0-44.0) % Monocytes % 9.6 (0.0-12.0) % Eosinophils % 0.0 (0.00-5.0) % Basophils % 0.2 (0.0-0.4) % Absolute Granulocytes 9.89 H (1.4-6.9) x10^3/uL Basophils # 0.03 (0-0.4) x10^3/uL Sodium (135-145) mmol/L Potassium (3.5-5.1) mmol/L Chloride (98-107) mmol/L Carbon Dioxide (22-30) mmol/L Anion Gap (5-15) MEQ/L BUN (9-20) mg/dL Creatinine (0.66-1.25) mg/dL Estimated GFR ML/MIN Glucose (74-106) mg/dL POC Glucometer 173 H (74 to 106) mg/dL Lactic Acid 3.1 H (0.4-2.0) Calcium (8.4-10.2) mg/dL Total Bilirubin (0.2-1.3) mg/dL AST (17-59) U/L ALT (0-50) U/L Alkaline Phosphatase (38-126) U/L Troponin (0.00-0.03) ng/mL Serum Total Protein (6.3-8.2) g/dL Albumin (3.5-5.0) g/dL Amylase (30-110) U/L Lipase (23-300) U/L Urine Color (Yellow) Urine Appearance (Clear) Urine pH (4.6-8.0) Ur Specific Bandon (1.005-1.030) Urine Protein (Negative) Urine Glucose (UA) (Negative) mg/dL Urine Ketones (Negative) Urine Blood (Negative) Urine Nitrite (Negative) Urine Bilirubin (Negative) Urine Urobilinogen (0.2) mg/dL Ur Leukocyte Esterase (Negative) U Hyaline Cast (Auto) (0-2) /LPF Urine Microscopic RBC (0-5) /HPF Urine Microscopic WBC (0-5) /HPF Ur Epithelial Cells (None Seen) /HPF Urine Bacteria (None Seen) /HPF Urine Culture Reflexed (NO) Monoscreen (NEGATIVE) Influenza Type A Ag (NEGATIVE) Influenza Type B Ag (NEGATIVE) RSV (PCR) (NEGATIVE) SARS-CoV-2 (PCR) (NEGATIVE) 05/15/23 05/15/23 05/15/23 Range/Units 08:57 08:57 08:57 WBC (4.0-10.5) x10^3/uL RBC (4.1-5.6) x10^6/uL Hgb (12.5-18.0) g/dL Hct (42-50) % MCV (78-100) fL MCH (26-32) pg MCHC (32-36) g/dL RDW (11.5-14.0) % Plt Count (150-450) x10^3/uL MPV (7.5-11.0) fL Gran % (36.0-66.0) % Immature Gran % (Auto) (0.00-0.4) % Nucleat RBC Rel Count (0.00-0.1) % Eos # (Auto) (0-0.5) x10^3/uL Immature Gran # (Auto) (0.00-0.03) x10^3u/L Absolute Lymphs (auto) (1.0-4.6) x10^3/uL Absolute Monos (auto) (0.0-1.3) x10^3/uL Absolute Nucleated RBC (0.00-0.01) x10^3u/L Lymphocytes % (24.0-44.0) % Monocytes % (0.0-12.0) % Eosinophils % (0.00-5.0) % Basophils % (0.0-0.4) % Absolute Granulocytes (1.4-6.9) x10^3/uL Basophils # (0-0.4) x10^3/uL Sodium 134 L (135-145) mmol/L Potassium 4.6 (3.5-5.1) mmol/L Chloride 100 (98-107) mmol/L Carbon Dioxide 20 L (22-30) mmol/L Anion Gap 19.0 H (5-15) MEQ/L BUN 17 (9-20) mg/dL Creatinine 1.36 H (0.66-1.25) mg/dL Estimated GFR 70.0 ML/MIN Glucose 227 H (74-106) mg/dL POC Glucometer (74 to 106) mg/dL Lactic Acid (0.4-2.0) Calcium 9.0 (8.4-10.2) mg/dL Total Bilirubin 1.70 H (0.2-1.3) mg/dL AST 35 (17-59) U/L ALT 40 (0-50) U/L Alkaline Phosphatase 73 (38-126) U/L Troponin (0.00-0.03) ng/mL Serum Total Protein 8.2 (6.3-8.2) g/dL Albumin 4.3 (3.5-5.0) g/dL Amylase 71 (30-110) U/L Lipase 50 (23-300) U/L Urine Color (Yellow) Urine Appearance (Clear) Urine pH (4.6-8.0) Ur Specific Bandon (1.005-1.030) Urine Protein (Negative) Urine Glucose (UA) (Negative) mg/dL Urine Ketones (Negative) Urine Blood (Negative) Urine Nitrite (Negative) Urine Bilirubin (Negative) Urine Urobilinogen (0.2) mg/dL Ur Leukocyte Esterase (Negative) U Hyaline Cast (Auto) (0-2) /LPF Urine Microscopic RBC (0-5) /HPF Urine Microscopic WBC (0-5) /HPF Ur Epithelial Cells (None Seen) /HPF Urine Bacteria (None Seen) /HPF Urine Culture Reflexed (NO) Monoscreen NEGATIVE (NEGATIVE) Influenza Type A Ag NEGATIVE (NEGATIVE) Influenza Type B Ag NEGATIVE (NEGATIVE) RSV (PCR) NEGATIVE (NEGATIVE) SARS-CoV-2 (PCR) NEGATIVE (NEGATIVE) 05/15/23 05/15/23 05/15/23 Range/Units 10:06 10:47 11:14 WBC (4.0-10.5) x10^3/uL RBC (4.1-5.6) x10^6/uL Hgb (12.5-18.0) g/dL Hct (42-50) % MCV (78-100) fL MCH (26-32) pg MCHC (32-36) g/dL RDW (11.5-14.0) % Plt Count (150-450) x10^3/uL MPV (7.5-11.0) fL Gran % (36.0-66.0) % Immature Gran % (Auto) (0.00-0.4) % Nucleat RBC Rel Count (0.00-0.1) % Eos # (Auto) (0-0.5) x10^3/uL Immature Gran # (Auto) (0.00-0.03) x10^3u/L Absolute Lymphs (auto) (1.0-4.6) x10^3/uL Absolute Monos (auto) (0.0-1.3) x10^3/uL Absolute Nucleated RBC (0.00-0.01) x10^3u/L Lymphocytes % (24.0-44.0) % Monocytes % (0.0-12.0) % Eosinophils % (0.00-5.0) % Basophils % (0.0-0.4) % Absolute Granulocytes (1.4-6.9) x10^3/uL Basophils # (0-0.4) x10^3/uL Sodium (135-145) mmol/L Potassium (3.5-5.1) mmol/L Chloride (98-107) mmol/L Carbon Dioxide (22-30) mmol/L Anion Gap (5-15) MEQ/L BUN (9-20) mg/dL Creatinine (0.66-1.25) mg/dL Estimated GFR ML/MIN Glucose (74-106) mg/dL POC Glucometer (74 to 106) mg/dL Lactic Acid 1.7 (0.4-2.0) Calcium (8.4-10.2) mg/dL Total Bilirubin (0.2-1.3) mg/dL AST (17-59) U/L ALT (0-50) U/L Alkaline Phosphatase (38-126) U/L Troponin 0.00 (0.00-0.03) ng/mL Serum Total Protein (6.3-8.2) g/dL Albumin (3.5-5.0) g/dL Amylase (30-110) U/L Lipase (23-300) U/L Urine Color Dark Yellow (Yellow) Urine Appearance Clear (Clear) Urine pH 5.5 (4.6-8.0) Ur Specific Bandon >=1.030 A (1.005-1.030) Urine Protein Trace A (Negative) Urine Glucose (UA) Negative (Negative) mg/dL Urine Ketones Trace A (Negative) Urine Blood Negative (Negative) Urine Nitrite Negative (Negative) Urine Bilirubin Negative (Negative) Urine Urobilinogen 1.0 A (0.2) mg/dL Ur Leukocyte Esterase Negative (Negative) U Hyaline Cast (Auto) NONE SEEN (0-2) /LPF Urine Microscopic RBC 0-2 (0-5) /HPF Urine Microscopic WBC 0-2 (0-5) /HPF Ur Epithelial Cells None Seen (None Seen) /HPF Urine Bacteria None Seen (None Seen) /HPF Urine Culture Reflexed NO (NO) Monoscreen (NEGATIVE) Influenza Type A Ag (NEGATIVE) Influenza Type B Ag (NEGATIVE) RSV (PCR) (NEGATIVE) SARS-CoV-2 (PCR) (NEGATIVE) 05/15/23 Range/Units 12:21 WBC (4.0-10.5) x10^3/uL RBC (4.1-5.6) x10^6/uL Hgb (12.5-18.0) g/dL Hct (42-50) % MCV (78-100) fL MCH (26-32) pg MCHC (32-36) g/dL RDW (11.5-14.0) % Plt Count (150-450) x10^3/uL MPV (7.5-11.0) fL Gran % (36.0-66.0) % Immature Gran % (Auto) (0.00-0.4) % Nucleat RBC Rel Count (0.00-0.1) % Eos # (Auto) (0-0.5) x10^3/uL Immature Gran # (Auto) (0.00-0.03) x10^3u/L Absolute Lymphs (auto) (1.0-4.6) x10^3/uL Absolute Monos (auto) (0.0-1.3) x10^3/uL Absolute Nucleated RBC (0.00-0.01) x10^3u/L Lymphocytes % (24.0-44.0) % Monocytes % (0.0-12.0) % Eosinophils % (0.00-5.0) % Basophils % (0.0-0.4) % Absolute Granulocytes (1.4-6.9) x10^3/uL Basophils # (0-0.4) x10^3/uL Sodium (135-145) mmol/L Potassium (3.5-5.1) mmol/L Chloride (98-107) mmol/L Carbon Dioxide (22-30) mmol/L Anion Gap (5-15) MEQ/L BUN (9-20) mg/dL Creatinine (0.66-1.25) mg/dL Estimated GFR ML/MIN Glucose (74-106) mg/dL POC Glucometer 262 H (74 to 106) mg/dL Lactic Acid (0.4-2.0) Calcium (8.4-10.2) mg/dL Total Bilirubin (0.2-1.3) mg/dL AST (17-59) U/L ALT (0-50) U/L Alkaline Phosphatase (38-126) U/L Troponin (0.00-0.03) ng/mL Serum Total Protein (6.3-8.2) g/dL Albumin (3.5-5.0) g/dL Amylase (30-110) U/L Lipase (23-300) U/L Urine Color (Yellow) Urine Appearance (Clear) Urine pH (4.6-8.0) Ur Specific [place] (1.005-1.030) Urine Protein (Negative) Urine Glucose (UA) (Negative) mg/dL Urine Ketones (Negative) Urine Blood (Negative) Urine Nitrite (Negative) Urine Bilirubin (Negative) Urine Urobilinogen (0.2) mg/dL Ur Leukocyte Esterase (Negative) U Hyaline Cast (Auto) (0-2) /LPF Urine Microscopic RBC (0-5) /HPF Urine Microscopic WBC (0-5) /HPF Ur Epithelial Cells (None Seen) /HPF Urine Bacteria (None Seen) /HPF Urine Culture Reflexed (NO) Monoscreen (NEGATIVE) Influenza Type A Ag (NEGATIVE) Influenza Type B Ag (NEGATIVE) RSV (PCR) (NEGATIVE) SARS-CoV-2 (PCR) (NEGATIVE) Accuchecks Date 05/15/23 Date 05/15/23 Time 12:21 Time 08:28 - Radiology Impressions Radiology Exams & Impressions: Radiology Procedures Category Date Time Status ABDOMEN AND PELVIS W/0 CONTRAS [CT] Stat Exams 05/15/23 08:37 Completed CHEST 1 VIEW (PORTABLE) Stat Exams 05/15/23 11:05 Completed Assessment/Plan (1) Sepsis Current Visit: Yes Status: Acute Assessment & Plan: - 2:2 DM wound of right foot? - HR > 90, WBC > 12 - BC x2 - UA with C&S - wound culture - LA on admission 3.1- fluid bolus in ER, repeat LA 1.7 in ER - Cont IVF - antibiotics per podiatry recs - Levaquin gave in ER (2) Diabetic ulcer of right foot Current Visit: No Status: Acute Assessment & Plan: - Acute on chronic- follows Dr. Loving OP - Wound culture right 4th toe and bottom of right foot - hx of MRSA - podiatry consult - Levaquin started in ER- stopped - Antibiotics per podiatry recs- vanc and zosyn with pharmacy to dose - MRI RLE - If podiatry not doing procedure today then can eat ADA diet Code(s): E11.621 - TYPE 2 DIABETES MELLITUS WITH FOOT ULCER; L97.519 - NON-PRS CHRONIC ULCER OTH PRT RIGHT FOOT W UNSP SEVERITY (3) ORIANA (acute kidney injury) Current Visit: Yes Status: Acute Assessment & Plan: - Creat 1.36- baseline normal - IVF - recheck in AM Code(s): N17.9 - ACUTE KIDNEY FAILURE, UNSPECIFIED (4) Dehydration Current Visit: Yes Status: Acute Assessment & Plan: - anion gap 19.0 - IVF Code(s): E86.0 - DEHYDRATION (5) Hyponatremia Current Visit: Yes Status: Acute Assessment & Plan: - Mild Na+134- trend - Cont IVF - 2:2 fever, vomiting Code(s): E87.1 - HYPO-OSMOLALITY AND HYPONATREMIA (6) Diabetes Current Visit: Yes Status: Chronic Qualifiers: Diabetes mellitus type: type 2 Diabetes mellitus complication detail: with foot ulcer Assessment & Plan: - A1C - accuchecks ac/HS - Humalog 15 units BID per home dose - Will ask pt if he can bring in home insulin of Xultophy. If not will start 50 unit s of lantus daily with moderate dose s/s with meals. Code(s): E11.9 - TYPE 2 DIABETES MELLITUS WITHOUT COMPLICATIONS (7) Tachycardia Current Visit: Yes Status: Acute Assessment & Plan: - 2:2 N/V, dehydration, ORIANA - tele - EKG Code(s): R00.0 - TACHYCARDIA, UNSPECIFIED (8) Abdominal pain Current Visit: Yes Status: Acute Assessment & Plan: - Compazine PRN N/V - CT Abd. and pelvis 05/15/23 Impression: 1. Respiration artifact. 2. Markedly distended urinary bladder. Rule out outlet obstruction versus neurogenic bladder. 3. Indeterminant 1 cm right lung base noncalcified nodule. Outside comparison studies recommended if available. If not, baseline CT with follow-up per Fleischner guidelines recommend. 4. Remaining CT abdomen/pelvis without contrast exam grossly negative. - PRN bladder scan - Accurate I&O's - Consider amin for acute urinary retention - Sxs improved since admission Code(s): R10.9 - UNSPECIFIED ABDOMINAL PAIN (9) Fever Current Visit: Yes Status: Acute Assessment & Plan: - temp 99. 7 - tylenol PRN - BC x2 - UA with C&S - 2:2 DM foot wound infection? - CXR 05/14 Portable apical lordotic chest less inflated and clear. Heart not enlarged. Bony thorax intact. Impression: Nonacute underinflated chest Code(s): R50.9 - FEVER, UNSPECIFIED (10) Hx MRSA infection Current Visit: Yes Status: Chronic Assessment & Plan: - place in isolation- contact Code(s): Z86.14 - PERSONAL HISTORY OF METHICILLIN RESIS STAPH INFECTION (11) Obesity (BMI 30-39.9) Current Visit: Yes Status: Chronic Assessment & Plan: - Advised ADA diet and exercise control VTE: SCD's Next of Kin: , Jaimie Doan [phone] D/C plan: 1-2 days Code status: Full Code(s): E66.9 - OBESITY, UNSPECIFIED
[2023-05-15] MEDS ORDERED: Compazine 10 MG/2 ML IM PRN (13:44)
--- NOTE | 2023-05-15 14:57 | XRAY ---
Indication: Diabetic wound with sepsis. Sagittal, coronal, and axial MRI right mid to forefoot performed using pre and post T1, T2, and STIR sequences. 20 cc Dotarem contrast used. Comparison: September 11, 2022 Worsening more diffuse subcutaneous and deep soft tissue swelling/edema signal with enhancement favoring marked cellulitis. No focal solid/cystic soft tissue mass or abnormal fluid collection. Proximal and base 2nd-5th metatarsals, 2nd/3rd cuneiforms, and cuboid bone all demonstrates minimal patchy bone edema signal and enhancement favoring osteomyelitis. New finding healing angulated fracture head 5th metatarsal. No other acute fracture, dislocation, or abnormal bone marrow signal. Impression: Worsening diffuse enhancing cellulitis involving subcutaneous and deep soft tissues. No walled off fluid collection/abscess. New minimal osteomyelitis 2nd-5th metatarsals, 2nd/3rd cuneiforms, and cuboid.
[2023-05-15] MEDS ORDERED: BENADRYL 50 MG/ML IV PRN (16:06)
[2023-05-15 16:12] LABS: ANION GAP 16.8 MEQ/L (5-15); BILIRUBIN,TOTAL 1.8 mg/dL (0.2-1.3); Calcium 8.5 mg/dL (8.4-10.2); Creatinine 1 1.31 mg/dL (0.66-1.25); EST GLOMERULAR FILTRATION RATE 73.3 ML/MIN; Potassium 4.2 mmol/L (3.5-5.1); Total Protein 7.7 g/dL (6.3-8.2)
[2023-05-15 16:14] LABS: Amphetamine,Urine NEGATIVE (NEGATIVE); Barbiturate,Urine NEGATIVE (NEGATIVE); Benzodiazepine,Urine NEGATIVE (NEGATIVE); Cocaine,Urine NEGATIVE (NEGATIVE); Methadone,Urine NEGATIVE (NEGATIVE); Opiate,Urine NEGATIVE (NEGATIVE); PCP,Urine NEGATIVE (NEGATIVE); THC,Urine NEGATIVE (NEGATIVE)
[2023-05-15] MEDS: VANCOMYCIN 1.5 GRAM/300 ML BAG 1.5 GM/300 ML PIGGYBACK IV SCH (16:17)
[2023-05-15] MEDS: TYLENOL 325 MG PO PRN (16:50)
[2023-05-15] MEDS: Compazine 10 MG/2 ML IV PRN (17:31)
[2023-05-15] MEDS: HUMALOG SQ SCH (17:31)
[2023-05-15] MEDS: PHARMACY DOSING REQUEST MC ONE (17:38)
[2023-05-15] MEDS: PHARMACY DOSING REQUIRED: VANCOMYCIN IV STA (17:39)
[2023-05-15] MEDS: PIPERACILLIN/TAZOBACTAM 4.5 GM in Dextrose 5%/Water IV Soln. 100ML PLUS BAG 100 ML IV SCH (18:45)
[2023-05-16] MEDS: Sodium Chloride 0.9% 1000 ML 1,000 ML IV SCH (03:34)
[2023-05-16] MEDS: TYLENOL 325 MG PO ONE (03:51)
[2023-05-16 04:56] LABS: Absolute Neutrophil Ct (ANC) 8.88 x10^3/uL (1.4-6.9); BASOPHIL % 0.3 % (0.0-0.4); Basophil (Absolute #) 0.03 x10^3/uL (0-0.4); Eosinophil (Absolute #) 0 x10^3/uL (0-0.5); Hematocrit 43.6 % (42-50); Hemoglobin 14.1 g/dL (12.5-18.0); IMMATURE GRAN # 0.06 x10^3u/L (0.00-0.03); IMMATURE GRAN % 0.6 % (0.00-0.4); Lymphocyte (Absolute #) 0.65 x10^3/uL (1.0-4.6); Mean Cell Volume 90.8 fL (78-100); Mean Corpuscular Hemoglobin 29.4 pg (26-32); Mean Corpuscular Hgb Concent. 32.3 g/dL (32-36); Mean Platelet Volume 11.5 fL (7.5-11.0); Monocyte (Absolute #) 1.13 x10^3/uL (0.0-1.3); Monocytes % 10.5 % (0.0-12.0); Neutrophil % 82.6 % (36.0-66.0); Platelet Count 127 x10^3/uL (150-450); Red Cell Distribution Width 12.1 % (11.5-14.0); White Blood Count 10.8 x10^3/uL (4.0-10.5)
[2023-05-16 05:04] LABS: INR 1.14 (0.8-3.0); PROTIME 12.3 SECONDS (9.4-12.5)
[2023-05-16 05:06] LABS: ALBUMIN 3.9 g/dL (3.5-5.0); ANION GAP 16.9 MEQ/L (5-15); BILIRUBIN,TOTAL 1.7 mg/dL (0.2-1.3); Calcium 8.7 mg/dL (8.4-10.2); Creatinine 1 1.21 mg/dL (0.66-1.25); EST GLOMERULAR FILTRATION RATE 80.6 ML/MIN; MAGNESIUM 1.8 mg/dL (1.6-2.3); Total Protein 7.9 g/dL (6.3-8.2)
--- NOTE | 2023-05-16 07:56 | PCM.CONS ---
Podiatry HPI - Consult Date of Consultation Date: 05/16/23 Reason for Consult: Diabetic foot ulcer, sepsis, possible osteomyelitis right foot Consulting Provider: MAHNAZ PISANO DPM - [facility] History of Present Illness: Felice is a very pleasant 33-year-old male very well-known to my service for history of diabetic foot ulceration. Patient did have ulceration underneath the fifth metatarsal head for some period of time which was resolved for the last several months. Patient did develop a new ulceration on the lateral aspect of his fourth digit however due to his 's work being in [employer] they decided on a transfer of service to Dr. Clayton approximately a month ago. Patient was seen with Dr. Clayton for wound care which was seeming to improve however in recent history patient presented to the emergency department with nausea vomiting fevers chills and gastrointestinal upset. Patient presents with a relatively swollen right foot however no obvious indicators of local infection. No other identifiable source of infection is present. Patient on presentation is ill and brief in response. Medications & Allergies Home Medications: Home Medication List Insulin Degludec/Liraglutide [Xultophy 100 Unit-3.6MG/ml Pen] 50 units SQ QAM 07/22/22 [History Confirmed 05/15/23] Levothyroxine Sodium [Unithroid] 225 mcg PO DAILY 07/22/22 [History Confirmed 05/15/23] Hydroxyzine HCl 25 mg [Atarax 25 mg] 25 mg PO QID 11/14/22 [History Confirmed 05/15/23] Insulin Lispro [Humalog] 15 unit SQ BID 11/14/22 [History Confirmed 05/15/23] Zinc Acetate [Galzin] 1 cap PO DAILY 11/16/22 [History Confirmed 05/15/23] Ondansetron ODT 4 MG [Zofran Odt 4 mg] 4 mg PO Q6H PRN PRN #10 tablet 05/15/23 [Rx] Smz/Tmp Ds Tablet [Bactrim Ds Tablet] 1 udtab PO BID #20 tablet 05/15/23 [Rx] Allergies/Adverse Reactions: Allergies Allergy/AdvReac Type Severity Reaction Status Date / Time Iodinated Contrast Media Allergy Verified 04/04/23 17:46 Penicillins Allergy Verified 04/04/23 17:46 shellfish derived Allergy Verified 04/04/23 17:46 - Past Medical History Past Medical History: Yes Neurological History: Peripheral Neuropathy ENT History: Other Cardiac History: No Pertinent History Respiratory History: No Pertinent History Endocrine Medical History: Diabetes Type II, Thyroid Cancer, Other Musculoskelatal History: No Pertinent History GI Medical History: No Pertinent History History: No Pertinent History Pyscho-Social History: Bipolar Male Reproductive Disorders: No Pertinent History Comment: PAST THYROID CA, - Past Surgical History Past Surgical History: Yes Neuro Surgical History: No Pertinent History Cardiac History: No Pertinent History Respiratory Surgery: No Pertinent History GI Surgical History: No Pertinent History Genitourinary Surgical Hx: No Pertinent History Musculskeletal Surgical Hx: No Pertinent History Male Surgical History: No Pertinent History Other Surgical History: thyroidectomy. MRSA Significant Family History: no pertinent family hx - Social History Smoking Status: Never smoker Exposure to second hand smoke: No Alcohol: None Drug Use: none - Social Determinants of Health Will the patient participate in the screening: Yes Do you worry about a steady place to live?: No Do you have any problems with any of the following?: No known problems In the past 12 months,have you had to go without utilities?: No Have you or anyone in your house had to go without enough: No Transportation Issues: No Has anyone in your support network made you feel unsafe?: No Does the patient want assistance with any of the above?: No Physical Exam - General General Appearance: moderate distress, lethargy, obese - Neuro Neurologic: Epicritic and protopathic (Absent) - Vascular Peripheral Pulses: Posterior tibialis: 2+, Dorsalis-Pedis: 2+ Capillary Refill Time: < 3 seconds Varicosities: Positive Edema: Pitting Edema Degree: 2+ Skin: Supple, not atrophic Skin Temperature: Warm to touch - Narrative Narrative Physical Exam: Podiatry Physical Exam Results - Labs Lab/Micro Results: Lab Results-Last 24 Hours 05/15/23 05/15/23 05/15/23 Range/Units 08:28 08:42 08:57 WBC 12.3 H (4.0-10.5) x10^3/uL RBC 5.10 (4.1-5.6) x10^6/uL Hgb 15.0 (12.5-18.0) g/dL Hct 47.0 (42-50) % MCV 92.2 (78-100) fL MCH 29.4 (26-32) pg MCHC 31.9 L (32-36) g/dL RDW 11.9 (11.5-14.0) % Plt Count 163 (150-450) x10^3/uL MPV 11.8 H (7.5-11.0) fL Gran % 80.7 H (36.0-66.0) % Immature Gran % (Auto) 0.5 H (0.00-0.4) % Nucleat RBC Rel Count 0.0 (0.00-0.1) % Eos # (Auto) 0 (0-0.5) x10^3/uL Immature Gran # (Auto) 0.06 H (0.00-0.03) x10^3u/L Absolute Lymphs (auto) 1.11 (1.0-4.6) x10^3/uL Absolute Monos (auto) 1.18 (0.0-1.3) x10^3/uL Absolute Nucleated RBC 0.00 (0.00-0.01) x10^3u/L Lymphocytes % 9.0 L (24.0-44.0) % Monocytes % 9.6 (0.0-12.0) % Eosinophils % 0.0 (0.00-5.0) % Basophils % 0.2 (0.0-0.4) % Absolute Granulocytes 9.89 H (1.4-6.9) x10^3/uL Basophils # 0.03 (0-0.4) x10^3/uL PT (9.4-12.5) SECONDS INR (0.8-3.0) Sodium (135-145) mmol/L Potassium (3.5-5.1) mmol/L Chloride (98-107) mmol/L Carbon Dioxide (22-30) mmol/L Anion Gap (5-15) MEQ/L BUN (9-20) mg/dL Creatinine (0.66-1.25) mg/dL Estimated GFR ML/MIN Glucose (74-106) mg/dL POC Glucometer 173 H (74 to 106) mg/dL Hemoglobin A1c (4.8-5.6) % Lactic Acid 3.1 H (0.4-2.0) Calcium (8.4-10.2) mg/dL Magnesium (1.6-2.3) mg/dL Total Bilirubin (0.2-1.3) mg/dL AST (17-59) U/L ALT (0-50) U/L Alkaline Phosphatase (38-126) U/L Troponin (0.00-0.03) ng/mL Troponin I (0.000-0.034) ng/mL Serum Total Protein (6.3-8.2) g/dL Albumin (3.5-5.0) g/dL Amylase (30-110) U/L Lipase (23-300) U/L Free T4 (0.78-2.19) ng/dL TSH 3rd Generation (0.47-4.68) mIU/L Urine Color (Yellow) Urine Appearance (Clear) Urine pH (4.6-8.0) Ur Specific [place] (1.005-1.030) Urine Protein (Negative) Urine Glucose (UA) (Negative) mg/dL Urine Ketones (Negative) Urine Blood (Negative) Urine Nitrite (Negative) Urine Bilirubin (Negative) Urine Urobilinogen (0.2) mg/dL Ur Leukocyte Esterase (Negative) U Hyaline Cast (Auto) (0-2) /LPF Urine Microscopic RBC (0-5) /HPF Urine Microscopic WBC (0-5) /HPF Ur Epithelial Cells (None Seen) /HPF Urine Bacteria (None Seen) /HPF Urine Culture Reflexed (NO) Urine Opiates Level (NEGATIVE) Ur Methadone (NEGATIVE) Urine Barbiturates (NEGATIVE) Ur Phencyclidine (PCP) (NEGATIVE) Urine Amphetamine (NEGATIVE) U Benzodiazepine Level (NEGATIVE) Urine Cocaine (NEGATIVE) Urine Marijuana (THC) (NEGATIVE) Monoscreen (NEGATIVE) Influenza Type A Ag (NEGATIVE) Influenza Type B Ag (NEGATIVE) RSV (PCR) (NEGATIVE) SARS-CoV-2 (PCR) (NEGATIVE) 05/15/23 05/15/23 05/15/23 Range/Units 08:57 08:57 08:57 WBC (4.0-10.5) x10^3/uL RBC (4.1-5.6) x10^6/uL Hgb (12.5-18.0) g/dL Hct (42-50) % MCV (78-100) fL MCH (26-32) pg MCHC (32-36) g/dL RDW (11.5-14.0) % Plt Count (150-450) x10^3/uL MPV (7.5-11.0) fL Gran % (36.0-66.0) % Immature Gran % (Auto) (0.00-0.4) % Nucleat RBC Rel Count (0.00-0.1) % Eos # (Auto) (0-0.5) x10^3/uL Immature Gran # (Auto) (0.00-0.03) x10^3u/L Absolute Lymphs (auto) (1.0-4.6) x10^3/uL Absolute Monos (auto) (0.0-1.3) x10^3/uL Absolute Nucleated RBC (0.00-0.01) x10^3u/L Lymphocytes % (24.0-44.0) % Monocytes % (0.0-12.0) % Eosinophils % (0.00-5.0) % Basophils % (0.0-0.4) % Absolute Granulocytes (1.4-6.9) x10^3/uL Basophils # (0-0.4) x10^3/uL PT (9.4-12.5) SECONDS INR (0.8-3.0) Sodium 134 L (135-145) mmol/L Potassium 4.6 (3.5-5.1) mmol/L Chloride 100 (98-107) mmol/L Carbon Dioxide 20 L (22-30) mmol/L Anion Gap 19.0 H (5-15) MEQ/L BUN 17 (9-20) mg/dL Creatinine 1.36 H (0.66-1.25) mg/dL Estimated GFR 70.0 ML/MIN Glucose 227 H (74-106) mg/dL POC Glucometer (74 to 106) mg/dL Hemoglobin A1c (4.8-5.6) % Lactic Acid (0.4-2.0) Calcium 9.0 (8.4-10.2) mg/dL Magnesium (1.6-2.3) mg/dL Total Bilirubin 1.70 H (0.2-1.3) mg/dL AST 35 (17-59) U/L ALT 40 (0-50) U/L Alkaline Phosphatase 73 (38-126) U/L Troponin (0.00-0.03) ng/mL Troponin I (0.000-0.034) ng/mL Serum Total Protein 8.2 (6.3-8.2) g/dL Albumin 4.3 (3.5-5.0) g/dL Amylase 71 (30-110) U/L Lipase 50 (23-300) U/L Free T4 (0.78-2.19) ng/dL TSH 3rd Generation (0.47-4.68) mIU/L Urine Color (Yellow) Urine Appearance (Clear) Urine pH (4.6-8.0) Ur Specific [place] (1.005-1.030) Urine Protein (Negative) Urine Glucose (UA) (Negative) mg/dL Urine Ketones (Negative) Urine Blood (Negative) Urine Nitrite (Negative) Urine Bilirubin (Negative) Urine Urobilinogen (0.2) mg/dL Ur Leukocyte Esterase (Negative) U Hyaline Cast (Auto) (0-2) /LPF Urine Microscopic RBC (0-5) /HPF Urine Microscopic WBC (0-5) /HPF Ur Epithelial Cells (None Seen) /HPF Urine Bacteria (None Seen) /HPF Urine Culture Reflexed (NO) Urine Opiates Level (NEGATIVE) Ur Methadone (NEGATIVE) Urine Barbiturates (NEGATIVE) Ur Phencyclidine (PCP) (NEGATIVE) Urine Amphetamine (NEGATIVE) U Benzodiazepine Level (NEGATIVE) Urine Cocaine (NEGATIVE) Urine Marijuana (THC) (NEGATIVE) Monoscreen NEGATIVE (NEGATIVE) Influenza Type A Ag NEGATIVE (NEGATIVE) Influenza Type B Ag NEGATIVE (NEGATIVE) RSV (PCR) NEGATIVE (NEGATIVE) SARS-CoV-2 (PCR) NEGATIVE (NEGATIVE) 05/15/23 05/15/23 05/15/23 Range/Units 08:59 08:59 10:06 WBC (4.0-10.5) x10^3/uL RBC (4.1-5.6) x10^6/uL Hgb (12.5-18.0) g/dL Hct (42-50) % MCV (78-100) fL MCH (26-32) pg MCHC (32-36) g/dL RDW (11.5-14.0) % Plt Count (150-450) x10^3/uL MPV (7.5-11.0) fL Gran % (36.0-66.0) % Immature Gran % (Auto) (0.00-0.4) % Nucleat RBC Rel Count (0.00-0.1) % Eos # (Auto) (0-0.5) x10^3/uL Immature Gran # (Auto) (0.00-0.03) x10^3u/L Absolute Lymphs (auto) (1.0-4.6) x10^3/uL Absolute Monos (auto) (0.0-1.3) x10^3/uL Absolute Nucleated RBC (0.00-0.01) x10^3u/L Lymphocytes % (24.0-44.0) % Monocytes % (0.0-12.0) % Eosinophils % (0.00-5.0) % Basophils % (0.0-0.4) % Absolute Granulocytes (1.4-6.9) x10^3/uL Basophils # (0-0.4) x10^3/uL PT (9.4-12.5) SECONDS INR (0.8-3.0) Sodium (135-145) mmol/L Potassium (3.5-5.1) mmol/L Chloride (98-107) mmol/L Carbon Dioxide (22-30) mmol/L Anion Gap (5-15) MEQ/L BUN (9-20) mg/dL Creatinine (0.66-1.25) mg/dL Estimated GFR ML/MIN Glucose (74-106) mg/dL POC Glucometer (74 to 106) mg/dL Hemoglobin A1c (4.8-5.6) % Lactic Acid (0.4-2.0) Calcium (8.4-10.2) mg/dL Magnesium (1.6-2.3) mg/dL Total Bilirubin (0.2-1.3) mg/dL AST (17-59) U/L ALT (0-50) U/L Alkaline Phosphatase (38-126) U/L Troponin (0.00-0.03) ng/mL Troponin I (0.000-0.034) ng/mL Serum Total Protein (6.3-8.2) g/dL Albumin (3.5-5.0) g/dL Amylase (30-110) U/L Lipase (23-300) U/L Free T4 0.57 L (0.78-2.19) ng/dL TSH 3rd Generation 5.040 H (0.47-4.68) mIU/L Urine Color Dark Yellow (Yellow) Urine Appearance Clear (Clear) Urine pH 5.5 (4.6-8.0) Ur Specific [place] >=1.030 A (1.005-1.030) Urine Protein Trace A (Negative) Urine Glucose (UA) Negative (Negative) mg/dL Urine Ketones Trace A (Negative) Urine Blood Negative (Negative) Urine Nitrite Negative (Negative) Urine Bilirubin Negative (Negative) Urine Urobilinogen 1.0 A (0.2) mg/dL Ur Leukocyte Esterase Negative (Negative) U Hyaline Cast (Auto) NONE SEEN (0-2) /LPF Urine Microscopic RBC 0-2 (0-5) /HPF Urine Microscopic WBC 0-2 (0-5) /HPF Ur Epithelial Cells None Seen (None Seen) /HPF Urine Bacteria None Seen (None Seen) /HPF Urine Culture Reflexed NO (NO) Urine Opiates Level (NEGATIVE) Ur Methadone (NEGATIVE) Urine Barbiturates (NEGATIVE) Ur Phencyclidine (PCP) (NEGATIVE) Urine Amphetamine (NEGATIVE) U Benzodiazepine Level (NEGATIVE) Urine Cocaine (NEGATIVE) Urine Marijuana (THC) (NEGATIVE) Monoscreen (NEGATIVE) Influenza Type A Ag (NEGATIVE) Influenza Type B Ag (NEGATIVE) RSV (PCR) (NEGATIVE) SARS-CoV-2 (PCR) (NEGATIVE) 05/15/23 05/15/23 05/15/23 Range/Units 10:47 11:00 11:14 WBC (4.0-10.5) x10^3/uL RBC (4.1-5.6) x10^6/uL Hgb (12.5-18.0) g/dL Hct (42-50) % MCV (78-100) fL MCH (26-32) pg MCHC (32-36) g/dL RDW (11.5-14.0) % Plt Count (150-450) x10^3/uL MPV (7.5-11.0) fL Gran % (36.0-66.0) % Immature Gran % (Auto) (0.00-0.4) % Nucleat RBC Rel Count (0.00-0.1) % Eos # (Auto) (0-0.5) x10^3/uL Immature Gran # (Auto) (0.00-0.03) x10^3u/L Absolute Lymphs (auto) (1.0-4.6) x10^3/uL Absolute Monos (auto) (0.0-1.3) x10^3/uL Absolute Nucleated RBC (0.00-0.01) x10^3u/L Lymphocytes % (24.0-44.0) % Monocytes % (0.0-12.0) % Eosinophils % (0.00-5.0) % Basophils % (0.0-0.4) % Absolute Granulocytes (1.4-6.9) x10^3/uL Basophils # (0-0.4) x10^3/uL PT (9.4-12.5) SECONDS INR (0.8-3.0) Sodium (135-145) mmol/L Potassium (3.5-5.1) mmol/L Chloride (98-107) mmol/L Carbon Dioxide (22-30) mmol/L Anion Gap (5-15) MEQ/L BUN (9-20) mg/dL Creatinine (0.66-1.25) mg/dL Estimated GFR ML/MIN Glucose (74-106) mg/dL POC Glucometer (74 to 106) mg/dL Hemoglobin A1c 7.2 H (4.8-5.6) % Lactic Acid 1.7 (0.4-2.0) Calcium (8.4-10.2) mg/dL Magnesium (1.6-2.3) mg/dL Total Bilirubin (0.2-1.3) mg/dL AST (17-59) U/L ALT (0-50) U/L Alkaline Phosphatase (38-126) U/L Troponin 0.00 (0.00-0.03) ng/mL Troponin I (0.000-0.034) ng/mL Serum Total Protein (6.3-8.2) g/dL Albumin (3.5-5.0) g/dL Amylase (30-110) U/L Lipase (23-300) U/L Free T4 (0.78-2.19) ng/dL TSH 3rd Generation (0.47-4.68) mIU/L Urine Color (Yellow) Urine Appearance (Clear) Urine pH (4.6-8.0) Ur Specific [place] (1.005-1.030) Urine Protein (Negative) Urine Glucose (UA) (Negative) mg/dL Urine Ketones (Negative) Urine Blood (Negative) Urine Nitrite (Negative) Urine Bilirubin (Negative) Urine Urobilinogen (0.2) mg/dL Ur Leukocyte Esterase (Negative) U Hyaline Cast (Auto) (0-2) /LPF Urine Microscopic RBC (0-5) /HPF Urine Microscopic WBC (0-5) /HPF Ur Epithelial Cells (None Seen) /HPF Urine Bacteria (None Seen) /HPF Urine Culture Reflexed (NO) Urine Opiates Level (NEGATIVE) Ur Methadone (NEGATIVE) Urine Barbiturates (NEGATIVE) Ur Phencyclidine (PCP) (NEGATIVE) Urine Amphetamine (NEGATIVE) U Benzodiazepine Level (NEGATIVE) Urine Cocaine (NEGATIVE) Urine Marijuana (THC) (NEGATIVE) Monoscreen (NEGATIVE) Influenza Type A Ag (NEGATIVE) Influenza Type B Ag (NEGATIVE) RSV (PCR) (NEGATIVE) SARS-CoV-2 (PCR) (NEGATIVE) 05/15/23 05/15/23 05/15/23 Range/Units 12:21 12:40 15:16 WBC (4.0-10.5) x10^3/uL RBC (4.1-5.6) x10^6/uL Hgb (12.5-18.0) g/dL Hct (42-50) % MCV (78-100) fL MCH (26-32) pg MCHC (32-36) g/dL RDW (11.5-14.0) % Plt Count (150-450) x10^3/uL MPV (7.5-11.0) fL Gran % (36.0-66.0) % Immature Gran % (Auto) (0.00-0.4) % Nucleat RBC Rel Count (0.00-0.1) % Eos # (Auto) (0-0.5) x10^3/uL Immature Gran # (Auto) (0.00-0.03) x10^3u/L Absolute Lymphs (auto) (1.0-4.6) x10^3/uL Absolute Monos (auto) (0.0-1.3) x10^3/uL Absolute Nucleated RBC (0.00-0.01) x10^3u/L Lymphocytes % (24.0-44.0) % Monocytes % (0.0-12.0) % Eosinophils % (0.00-5.0) % Basophils % (0.0-0.4) % Absolute Granulocytes (1.4-6.9) x10^3/uL Basophils # (0-0.4) x10^3/uL PT (9.4-12.5) SECONDS INR (0.8-3.0) Sodium (135-145) mmol/L Potassium (3.5-5.1) mmol/L Chloride (98-107) mmol/L Carbon Dioxide (22-30) mmol/L Anion Gap (5-15) MEQ/L BUN (9-20) mg/dL Creatinine (0.66-1.25) mg/dL Estimated GFR ML/MIN Glucose (74-106) mg/dL POC Glucometer 262 H (74 to 106) mg/dL Hemoglobin A1c (4.8-5.6) % Lactic Acid (0.4-2.0) Calcium (8.4-10.2) mg/dL Magnesium (1.6-2.3) mg/dL Total Bilirubin (0.2-1.3) mg/dL AST (17-59) U/L ALT (0-50) U/L Alkaline Phosphatase (38-126) U/L Troponin (0.00-0.03) ng/mL Troponin I < 0.012 (0.000-0.034) ng/mL Serum Total Protein (6.3-8.2) g/dL Albumin (3.5-5.0) g/dL Amylase (30-110) U/L Lipase (23-300) U/L Free T4 (0.78-2.19) ng/dL TSH 3rd Generation (0.47-4.68) mIU/L Urine Color (Yellow) Urine Appearance (Clear) Urine pH (4.6-8.0) Ur Specific [place] (1.005-1.030) Urine Protein (Negative) Urine Glucose (UA) (Negative) mg/dL Urine Ketones (Negative) Urine Blood (Negative) Urine Nitrite (Negative) Urine Bilirubin (Negative) Urine Urobilinogen (0.2) mg/dL Ur Leukocyte Esterase (Negative) U Hyaline Cast (Auto) (0-2) /LPF Urine Microscopic RBC (0-5) /HPF Urine Microscopic WBC (0-5) /HPF Ur Epithelial Cells (None Seen) /HPF Urine Bacteria (None Seen) /HPF Urine Culture Reflexed (NO) Urine Opiates Level NEGATIVE (NEGATIVE) Ur Methadone NEGATIVE (NEGATIVE) Urine Barbiturates NEGATIVE (NEGATIVE) Ur Phencyclidine (PCP) NEGATIVE (NEGATIVE) Urine Amphetamine NEGATIVE (NEGATIVE) U Benzodiazepine Level NEGATIVE (NEGATIVE) Urine Cocaine NEGATIVE (NEGATIVE) Urine Marijuana (THC) NEGATIVE (NEGATIVE) Monoscreen (NEGATIVE) Influenza Type A Ag (NEGATIVE) Influenza Type B Ag (NEGATIVE) RSV (PCR) (NEGATIVE) SARS-CoV-2 (PCR) (NEGATIVE) 05/15/23 05/15/23 05/15/23 Range/Units 15:16 16:33 18:50 WBC (4.0-10.5) x10^3/uL RBC (4.1-5.6) x10^6/uL Hgb (12.5-18.0) g/dL Hct (42-50) % MCV (78-100) fL MCH (26-32) pg MCHC (32-36) g/dL RDW (11.5-14.0) % Plt Count (150-450) x10^3/uL MPV (7.5-11.0) fL Gran % (36.0-66.0) % Immature Gran % (Auto) (0.00-0.4) % Nucleat RBC Rel Count (0.00-0.1) % Eos # (Auto) (0-0.5) x10^3/uL Immature Gran # (Auto) (0.00-0.03) x10^3u/L Absolute Lymphs (auto) (1.0-4.6) x10^3/uL Absolute Monos (auto) (0.0-1.3) x10^3/uL Absolute Nucleated RBC (0.00-0.01) x10^3u/L Lymphocytes % (24.0-44.0) % Monocytes % (0.0-12.0) % Eosinophils % (0.00-5.0) % Basophils % (0.0-0.4) % Absolute Granulocytes (1.4-6.9) x10^3/uL Basophils # (0-0.4) x10^3/uL PT (9.4-12.5) SECONDS INR (0.8-3.0) Sodium 134 L (135-145) mmol/L Potassium 4.2 (3.5-5.1) mmol/L Chloride 101 (98-107) mmol/L Carbon Dioxide 20 L (22-30) mmol/L Anion Gap 16.8 H (5-15) MEQ/L BUN 17 (9-20) mg/dL Creatinine 1.31 H (0.66-1.25) mg/dL Estimated GFR 73.3 ML/MIN Glucose 243 H (74-106) mg/dL POC Glucometer 216 H (74 to 106) mg/dL Hemoglobin A1c (4.8-5.6) % Lactic Acid (0.4-2.0) Calcium 8.5 (8.4-10.2) mg/dL Magnesium (1.6-2.3) mg/dL Total Bilirubin 1.80 H (0.2-1.3) mg/dL AST 36 (17-59) U/L ALT 37 (0-50) U/L Alkaline Phosphatase 66 (38-126) U/L Troponin (0.00-0.03) ng/mL Troponin I < 0.012 (0.000-0.034) ng/mL Serum Total Protein 7.7 (6.3-8.2) g/dL Albumin 4.0 (3.5-5.0) g/dL Amylase (30-110) U/L Lipase (23-300) U/L Free T4 (0.78-2.19) ng/dL TSH 3rd Generation (0.47-4.68) mIU/L Urine Color (Yellow) Urine Appearance (Clear) Urine pH (4.6-8.0) Ur Specific [place] (1.005-1.030) Urine Protein (Negative) Urine Glucose (UA) (Negative) mg/dL Urine Ketones (Negative) Urine Blood (Negative) Urine Nitrite (Negative) Urine Bilirubin (Negative) Urine Urobilinogen (0.2) mg/dL Ur Leukocyte Esterase (Negative) U Hyaline Cast (Auto) (0-2) /LPF Urine Microscopic RBC (0-5) /HPF Urine Microscopic WBC (0-5) /HPF Ur Epithelial Cells (None Seen) /HPF Urine Bacteria (None Seen) /HPF Urine Culture Reflexed (NO) Urine Opiates Level (NEGATIVE) Ur Methadone (NEGATIVE) Urine Barbiturates (NEGATIVE) Ur Phencyclidine (PCP) (NEGATIVE) Urine Amphetamine (NEGATIVE) U Benzodiazepine Level (NEGATIVE) Urine Cocaine (NEGATIVE) Urine Marijuana (THC) (NEGATIVE) Monoscreen (NEGATIVE) Influenza Type A Ag (NEGATIVE) Influenza Type B Ag (NEGATIVE) RSV (PCR) (NEGATIVE) SARS-CoV-2 (PCR) (NEGATIVE) 05/15/23 05/16/23 05/16/23 Range/Units 21:20 04:50 04:50 WBC 10.8 H (4.0-10.5) x10^3/uL RBC 4.80 (4.1-5.6) x10^6/uL Hgb 14.1 (12.5-18.0) g/dL Hct 43.6 (42-50) % MCV 90.8 (78-100) fL MCH 29.4 (26-32) pg MCHC 32.3 (32-36) g/dL RDW 12.1 (11.5-14.0) % Plt Count 127 L (150-450) x10^3/uL MPV 11.5 H (7.5-11.0) fL Gran % 82.6 H (36.0-66.0) % Immature Gran % (Auto) 0.6 H (0.00-0.4) % Nucleat RBC Rel Count 0.0 (0.00-0.1) % Eos # (Auto) 0 (0-0.5) x10^3/uL Immature Gran # (Auto) 0.06 H (0.00-0.03) x10^3u/L Absolute Lymphs (auto) 0.65 L (1.0-4.6) x10^3/uL Absolute Monos (auto) 1.13 (0.0-1.3) x10^3/uL Absolute Nucleated RBC 0.00 (0.00-0.01) x10^3u/L Lymphocytes % 6.0 L (24.0-44.0) % Monocytes % 10.5 (0.0-12.0) % Eosinophils % 0.0 (0.00-5.0) % Basophils % 0.3 (0.0-0.4) % Absolute Granulocytes 8.88 H (1.4-6.9) x10^3/uL Basophils # 0.03 (0-0.4) x10^3/uL PT (9.4-12.5) SECONDS INR (0.8-3.0) Sodium 134 L (135-145) mmol/L Potassium 4.0 (3.5-5.1) mmol/L Chloride 100 (98-107) mmol/L Carbon Dioxide 21 L (22-30) mmol/L Anion Gap 16.9 H (5-15) MEQ/L BUN 14 (9-20) mg/dL Creatinine 1.21 (0.66-1.25) mg/dL Estimated GFR 80.6 ML/MIN Glucose 166 H (74-106) mg/dL POC Glucometer 188 H (74 to 106) mg/dL Hemoglobin A1c (4.8-5.6) % Lactic Acid (0.4-2.0) Calcium 8.7 (8.4-10.2) mg/dL Magnesium 1.8 (1.6-2.3) mg/dL Total Bilirubin 1.70 H (0.2-1.3) mg/dL AST 41 (17-59) U/L ALT 39 (0-50) U/L Alkaline Phosphatase 65 (38-126) U/L Troponin (0.00-0.03) ng/mL Troponin I (0.000-0.034) ng/mL Serum Total Protein 7.9 (6.3-8.2) g/dL Albumin 3.9 (3.5-5.0) g/dL Amylase (30-110) U/L Lipase (23-300) U/L Free T4 (0.78-2.19) ng/dL TSH 3rd Generation (0.47-4.68) mIU/L Urine Color (Yellow) Urine Appearance (Clear) Urine pH (4.6-8.0) Ur Specific [place] (1.005-1.030) Urine Protein (Negative) Urine Glucose (UA) (Negative) mg/dL Urine Ketones (Negative) Urine Blood (Negative) Urine Nitrite (Negative) Urine Bilirubin (Negative) Urine Urobilinogen (0.2) mg/dL Ur Leukocyte Esterase (Negative) U Hyaline Cast (Auto) (0-2) /LPF Urine Microscopic RBC (0-5) /HPF Urine Microscopic WBC (0-5) /HPF Ur Epithelial Cells (None Seen) /HPF Urine Bacteria (None Seen) /HPF Urine Culture Reflexed (NO) Urine Opiates Level (NEGATIVE) Ur Methadone (NEGATIVE) Urine Barbiturates (NEGATIVE) Ur Phencyclidine (PCP) (NEGATIVE) Urine Amphetamine (NEGATIVE) U Benzodiazepine Level (NEGATIVE) Urine Cocaine (NEGATIVE) Urine Marijuana (THC) (NEGATIVE) Monoscreen (NEGATIVE) Influenza Type A Ag (NEGATIVE) Influenza Type B Ag (NEGATIVE) RSV (PCR) (NEGATIVE) SARS-CoV-2 (PCR) (NEGATIVE) 05/16/23 Range/Units 04:51 WBC (4.0-10.5) x10^3/uL RBC (4.1-5.6) x10^6/uL Hgb (12.5-18.0) g/dL Hct (42-50) % MCV (78-100) fL MCH (26-32) pg MCHC (32-36) g/dL RDW (11.5-14.0) % Plt Count (150-450) x10^3/uL MPV (7.5-11.0) fL Gran % (36.0-66.0) % Immature Gran % (Auto) (0.00-0.4) % Nucleat RBC Rel Count (0.00-0.1) % Eos # (Auto) (0-0.5) x10^3/uL Immature Gran # (Auto) (0.00-0.03) x10^3u/L Absolute Lymphs (auto) (1.0-4.6) x10^3/uL Absolute Monos (auto) (0.0-1.3) x10^3/uL Absolute Nucleated RBC (0.00-0.01) x10^3u/L Lymphocytes % (24.0-44.0) % Monocytes % (0.0-12.0) % Eosinophils % (0.00-5.0) % Basophils % (0.0-0.4) % Absolute Granulocytes (1.4-6.9) x10^3/uL Basophils # (0-0.4) x10^3/uL PT 12.3 (9.4-12.5) SECONDS INR 1.14 (0.8-3.0) Sodium (135-145) mmol/L Potassium (3.5-5.1) mmol/L Chloride (98-107) mmol/L Carbon Dioxide (22-30) mmol/L Anion Gap (5-15) MEQ/L BUN (9-20) mg/dL Creatinine (0.66-1.25) mg/dL Estimated GFR ML/MIN Glucose (74-106) mg/dL POC Glucometer (74 to 106) mg/dL Hemoglobin A1c (4.8-5.6) % Lactic Acid (0.4-2.0) Calcium (8.4-10.2) mg/dL Magnesium (1.6-2.3) mg/dL Total Bilirubin (0.2-1.3) mg/dL AST (17-59) U/L ALT (0-50) U/L Alkaline Phosphatase (38-126) U/L Troponin (0.00-0.03) ng/mL Troponin I (0.000-0.034) ng/mL Serum Total Protein (6.3-8.2) g/dL Albumin (3.5-5.0) g/dL Amylase (30-110) U/L Lipase (23-300) U/L Free T4 (0.78-2.19) ng/dL TSH 3rd Generation (0.47-4.68) mIU/L Urine Color (Yellow) Urine Appearance (Clear) Urine pH (4.6-8.0) Ur Specific [place] (1.005-1.030) Urine Protein (Negative) Urine Glucose (UA) (Negative) mg/dL Urine Ketones (Negative) Urine Blood (Negative) Urine Nitrite (Negative) Urine Bilirubin (Negative) Urine Urobilinogen (0.2) mg/dL Ur Leukocyte Esterase (Negative) U Hyaline Cast (Auto) (0-2) /LPF Urine Microscopic RBC (0-5) /HPF Urine Microscopic WBC (0-5) /HPF Ur Epithelial Cells (None Seen) /HPF Urine Bacteria (None Seen) /HPF Urine Culture Reflexed (NO) Urine Opiates Level (NEGATIVE) Ur Methadone (NEGATIVE) Urine Barbiturates (NEGATIVE) Ur Phencyclidine (PCP) (NEGATIVE) Urine Amphetamine (NEGATIVE) U Benzodiazepine Level (NEGATIVE) Urine Cocaine (NEGATIVE) Urine Marijuana (THC) (NEGATIVE) Monoscreen (NEGATIVE) Influenza Type A Ag (NEGATIVE) Influenza Type B Ag (NEGATIVE) RSV (PCR) (NEGATIVE) SARS-CoV-2 (PCR) (NEGATIVE) Microbiology 05/15/23 08:57 Blood Culture Gram Stain - Preliminary Blood Accuchecks Date 05/15/23 Date 05/15/23 Date 05/15/23 Date 05/15/23 Time 12:21 Time 08:28 - Radiology Impressions Radiology Exams & Impressions: Radiology Procedures Category Date Time Status ABDOMEN AND PELVIS W/0 CONTRAS [CT] Stat Exams 05/15/23 08:37 Completed CHEST 1 VIEW (PORTABLE) Stat Exams 05/15/23 11:05 Completed MRI LOWER EXT W & W/O [MRI] Routine Exams 05/15/23 13:15 Completed PICC LINE PLACEMENT Routine Exams 05/16/23 08:00 Ordered Assessment/Plan (1) Diabetes mellitus Current Visit: No Status: Chronic Qualifiers: Diabetes mellitus type: type 2 Code(s): E11.9 - TYPE 2 DIABETES MELLITUS WITHOUT COMPLICATIONS (2) Diabetic foot ulcer Current Visit: No Status: Acute Qualifiers: Diabetes mellitus type: type 2 Laterality: right Code(s): E11.621 - TYPE 2 DIABETES MELLITUS WITH FOOT ULCER; L97.509 - NON- PRESSURE CHRONIC ULCER OTH PRT UNSP FOOT W UNSP SEVERITY (3) Cellulitis Current Visit: No Status: Acute Qualifiers: Site of cellulitis: extremity Site of cellulitis of extremity: lower extremity Laterality: right Qualified Code(s): L03.115 - Cellulitis of right lower limb Code(s): L03.90 - CELLULITIS, UNSPECIFIED (4) Leukocytosis Current Visit: No Status: Acute Code(s): D72.829 - ELEVATED WHITE BLOOD CELL COUNT, UNSPECIFIED (5) Hypothyroidism Current Visit: No Status: Acute Code(s): E03.9 - HYPOTHYROIDISM, UNSPECIFIED (6) Peripheral neuropathy Current Visit: No Status: Acute Code(s): G62.9 - POLYNEUROPATHY, UNSPECIFIED (7) Uncontrolled diabetes mellitus Current Visit: No Status: Acute Code(s): [id number] - (8) Diabetic ulcer of right foot Current Visit: No Status: Acute Code(s): E11.621 - TYPE 2 DIABETES MELLITUS WITH FOOT ULCER; L97.519 - NON-PRS CHRONIC ULCER OTH PRT RIGHT FOOT W UNSP SEVERITY (9) Fever Current Visit: Yes Status: Acute Code(s): R50.9 - FEVER, UNSPECIFIED (10) Sepsis Current Visit: Yes Status: Acute Assessment & Plan: Patient examination and evaluation. MRI ordered with impression reading worsening diffuse enhancing cellulitis involving subcutaneous and deep tissues no obvious walled off fluid collections or abscesses. New minimal osteomyelitis of the second through fifth metatarsals second and third cuneiforms and cuboid. On independent inspection of the MRI I do not see dropout on T1 or significant enhancement without contrast therefore feel it necessary to proceed with bone biopsy prior to aggressive management. Given patient's septic nature will likely be willing to proceed with incision and drainage with bone debridement to see if symptoms resolve with this course as long as we are able to obtain bone biopsies intraoperatively and he responds to IV antibiotic therapy. IV antibiotics Vanco and Zosyn until cultures have returned. Preliminary blood culture cultures demonstrating gram-positive cocci. Will continue to follow in this respect Patient to OR tomorrow afternoon for incision and drainage with bone debridement and bone biopsies Nonweightbearing to right lower extremity./Bedrest N.p.o. 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
[2023-05-16] MEDS ORDERED: ZINC ACETATE 50 MG PO SCH (10:00)
[2023-05-16] MEDS ORDERED: LEVOTHYROXINE SODIUM 200 MCG PO SCH (10:00)
--- NOTE | 2023-05-16 10:08 | PCM.NOTE ---
Date and Time: 05/16/23 1001 Subjective Assessment: 05/15/23 Mr.KING MENDOZA is a 32 year old male with PMHX of Type II DM, hypothyroidism, thyroid CA, bipolar, and obesity. He reports a chronic foot wound that he follow Dr. Loving for. He was brought into the emergency department by private vehicle by his significant other. Patient states that he has been having vomiting, body aches, headaches since yesterday. Symptoms have persisted. Patient has been taking his insulin medication. Patient has not had any exposures to individuals with similar symptoms. + generalized abdominal pain. He denies CP, SOB, diarrhea or constipation. In ER initial Lactate was 3.1 after fluid bolus repeat LA was 1.7. Temp 99.7 and WBC 12.3. He is dehydrated and will continue IVF. Will have podiatry consult as this may be source of infection. Continue antibiotics per podiatry recs. Levaquin started in ER. 05/16/23 Pt resting in bed. He has continued to run a temp all night despite Tylenol being given. He states he continues to not feel well. He continues to c/o RUQ and RLQ pain with palpation that radiates to right leg. Palpation makes it worse. Nothing makes it better. CT abd completed yesterday and showed distended bladder. Bladder scan yesterday on floor showed only 20cc of urine. Today post void bladder scan showed 162 cc. Pt denies any concerns with urination. US ordered for further evaluation of abd pain. He is currently NPO and scheduled for a bone biopsy with podiatry today at 1300. He reports no foot pain as he has neuropathy. He continues to have RLE edema and erythema. CT scan of RLE showed cellulitis and minimal osteomyelitis of 2-5th toes. Continue IVF for dehydration. Pt denies CP, SOB, N/V/D. - Review of Systems Constitutional: No Fever, No Chills Eyes: No Symptoms Ears, Nose, & Throat: No Symptoms Respiratory: No Cough, No Short Of Breath Cardiac: No Chest Pain, No Edema, No Syncope Abdominal/Gastrointestinal: Abdominal Pain (RUQ and RLQ), No Nausea, No Vomiting, No Diarrhea Genitourinary Symptoms: No Dysuria Musculoskeletal: No Back Pain, No Neck Pain Skin: Cellulitis (right foot), Other (puncture type wound of bottom of right foot), No Rash Neurological: No Dizziness, No Focal Weakness, No Sensory Changes Psychological: No Symptoms Endocrine: No Symptoms Hematologic/Lymphatic: No Symptoms Immunological/Allergic: No Symptoms Objective Exam General Appearance: no apparent distress, alert, obese Neurologic Exam: alert, oriented x 3, cooperative, normal mood/affect, nml cerebellar function, sensation nml, No motor deficits Skin Exam: normal color, warm, dry, other (R foot erythema, edema, and puncture wound of bottom of right foot. See pic in chart from nursing.) Eye Exam: PERRL, EOMI, eyes nml inspection Ears, Nose, Throat Exam: normal ENT inspection, pharynx normal, moist mucous membranes Neck Exam: normal inspection, non-tender, supple, full range of motion Respiratory Exam: normal breath sounds, lungs clear, No respiratory distress Cardiovascular Exam: regular rate/rhythm, normal heart sounds, tachycardia Gastrointestinal/Abdomen Exam: soft, tenderness (RUQ and RLQ with palpation, RUQ> RLQ), No mass Extremity Exam: normal range of motion, swelling (RLE) Back Exam: normal inspection, normal range of motion, No CVA tenderness, No vertebral tenderness Male Genitalia Exam: deferred Rectal Exam: deferred Objective Data Vital Signs: Vital Signs - 24 hr Temp Pulse Resp BP BP Pulse Ox 05/16/23 07:25 99.4 F 114 H 22 111/56 92 L 05/16/23 04:00 101.1 F 118 H 19 122/62 96 05/15/23 23:33 100.4 F 115 H 19 126/74 95 05/15/23 20:00 99.7 F 104 H 18 104/53 94 L 05/15/23 16:37 100.4 F 05/15/23 12:45 105/81 05/15/23 12:30 107 H 18 107/72 95 05/15/23 12:15 99.7 F 110 H 22 113/70 95 05/15/23 12:00 109 H 22 108/65 05/15/23 11:45 112 H 18 110/60 05/15/23 11:30 96 05/15/23 11:30 113 H 22 111/66 05/15/23 11:15 116 H 28 H 113/59 05/15/23 11:00 103 F 113 H 25 H 132/64 99 05/15/23 10:45 115 H 19 136/75 97 05/15/23 10:30 134 H 32 H 153/86 94 L 05/15/23 10:15 131 H 33 H 138/95 96 05/15/23 10:08 132 H 16 154/92 98 05/15/23 10:07 129 H 31 H 96 05/15/23 10:02 96 Pain Assessment - Last Documented Pain Intensity 0 Pain Scale Used 0-10 Pain Scale Intake and Output: Intake & Output 05/13/23 05/14/23 05/15/23 05/16/23 11:59 11:59 11:59 11:59 Intake Total 1000 1680 Output Total 700 1 Balance 300 1679 Weight 138.6 kg 138.6 kg Lab Results: Lab Results-Last 24 Hours 05/15/23 05/15/23 05/15/23 Range/Units 08:59 08:59 10:06 WBC (4.0-10.5) x10^3/uL RBC (4.1-5.6) x10^6/uL Hgb (12.5-18.0) g/dL Hct (42-50) % MCV (78-100) fL MCH (26-32) pg MCHC (32-36) g/dL RDW (11.5-14.0) % Plt Count (150-450) x10^3/uL MPV (7.5-11.0) fL Gran % (36.0-66.0) % Immature Gran % (Auto) (0.00-0.4) % Nucleat RBC Rel Count (0.00-0.1) % Eos # (Auto) (0-0.5) x10^3/uL Immature Gran # (Auto) (0.00-0.03) x10^3u/L Absolute Lymphs (auto) (1.0-4.6) x10^3/uL Absolute Monos (auto) (0.0-1.3) x10^3/uL Absolute Nucleated RBC (0.00-0.01) x10^3u/L Lymphocytes % (24.0-44.0) % Monocytes % (0.0-12.0) % Eosinophils % (0.00-5.0) % Basophils % (0.0-0.4) % Absolute Granulocytes (1.4-6.9) x10^3/uL Basophils # (0-0.4) x10^3/uL PT (9.4-12.5) SECONDS INR (0.8-3.0) Sodium (135-145) mmol/L Potassium (3.5-5.1) mmol/L Chloride (98-107) mmol/L Carbon Dioxide (22-30) mmol/L Anion Gap (5-15) MEQ/L BUN (9-20) mg/dL Creatinine (0.66-1.25) mg/dL Estimated GFR ML/MIN Glucose (74-106) mg/dL POC Glucometer (74 to 106) mg/dL Hemoglobin A1c (4.8-5.6) % Lactic Acid (0.4-2.0) Calcium (8.4-10.2) mg/dL Magnesium (1.6-2.3) mg/dL Total Bilirubin (0.2-1.3) mg/dL AST (17-59) U/L ALT (0-50) U/L Alkaline Phosphatase (38-126) U/L Troponin (0.00-0.03) ng/mL Troponin I (0.000-0.034) ng/mL Serum Total Protein (6.3-8.2) g/dL Albumin (3.5-5.0) g/dL Free T4 0.57 L (0.78-2.19) ng/dL TSH 3rd Generation 5.040 H (0.47-4.68) mIU/L Urine Color Dark Yellow (Yellow) Urine Appearance Clear (Clear) Urine pH 5.5 (4.6-8.0) Ur Specific [place] >=1.030 A (1.005-1.030) Urine Protein Trace A (Negative) Urine Glucose (UA) Negative (Negative) mg/dL Urine Ketones Trace A (Negative) Urine Blood Negative (Negative) Urine Nitrite Negative (Negative) Urine Bilirubin Negative (Negative) Urine Urobilinogen 1.0 A (0.2) mg/dL Ur Leukocyte Esterase Negative (Negative) U Hyaline Cast (Auto) NONE SEEN (0-2) /LPF Urine Microscopic RBC 0-2 (0-5) /HPF Urine Microscopic WBC 0-2 (0-5) /HPF Ur Epithelial Cells None Seen (None Seen) /HPF Urine Bacteria None Seen (None Seen) /HPF Urine Culture Reflexed NO (NO) Urine Opiates Level (NEGATIVE) Ur Methadone (NEGATIVE) Urine Barbiturates (NEGATIVE) Ur Phencyclidine (PCP) (NEGATIVE) Urine Amphetamine (NEGATIVE) U Benzodiazepine Level (NEGATIVE) Urine Cocaine (NEGATIVE) Urine Marijuana (THC) (NEGATIVE) 05/15/23 05/15/23 05/15/23 Range/Units 10:47 11:00 11:14 WBC (4.0-10.5) x10^3/uL RBC (4.1-5.6) x10^6/uL Hgb (12.5-18.0) g/dL Hct (42-50) % MCV (78-100) fL MCH (26-32) pg MCHC (32-36) g/dL RDW (11.5-14.0) % Plt Count (150-450) x10^3/uL MPV (7.5-11.0) fL Gran % (36.0-66.0) % Immature Gran % (Auto) (0.00-0.4) % Nucleat RBC Rel Count (0.00-0.1) % Eos # (Auto) (0-0.5) x10^3/uL Immature Gran # (Auto) (0.00-0.03) x10^3u/L Absolute Lymphs (auto) (1.0-4.6) x10^3/uL Absolute Monos (auto) (0.0-1.3) x10^3/uL Absolute Nucleated RBC (0.00-0.01) x10^3u/L Lymphocytes % (24.0-44.0) % Monocytes % (0.0-12.0) % Eosinophils % (0.00-5.0) % Basophils % (0.0-0.4) % Absolute Granulocytes (1.4-6.9) x10^3/uL Basophils # (0-0.4) x10^3/uL PT (9.4-12.5) SECONDS INR (0.8-3.0) Sodium (135-145) mmol/L Potassium (3.5-5.1) mmol/L Chloride (98-107) mmol/L Carbon Dioxide (22-30) mmol/L Anion Gap (5-15) MEQ/L BUN (9-20) mg/dL Creatinine (0.66-1.25) mg/dL Estimated GFR ML/MIN Glucose (74-106) mg/dL POC Glucometer (74 to 106) mg/dL Hemoglobin A1c 7.2 H (4.8-5.6) % Lactic Acid 1.7 (0.4-2.0) Calcium (8.4-10.2) mg/dL Magnesium (1.6-2.3) mg/dL Total Bilirubin (0.2-1.3) mg/dL AST (17-59) U/L ALT (0-50) U/L Alkaline Phosphatase (38-126) U/L Troponin 0.00 (0.00-0.03) ng/mL Troponin I (0.000-0.034) ng/mL Serum Total Protein (6.3-8.2) g/dL Albumin (3.5-5.0) g/dL Free T4 (0.78-2.19) ng/dL TSH 3rd Generation (0.47-4.68) mIU/L Urine Color (Yellow) Urine Appearance (Clear) Urine pH (4.6-8.0) Ur Specific [place] (1.005-1.030) Urine Protein (Negative) Urine Glucose (UA) (Negative) mg/dL Urine Ketones (Negative) Urine Blood (Negative) Urine Nitrite (Negative) Urine Bilirubin (Negative) Urine Urobilinogen (0.2) mg/dL Ur Leukocyte Esterase (Negative) U Hyaline Cast (Auto) (0-2) /LPF Urine Microscopic RBC (0-5) /HPF Urine Microscopic WBC (0-5) /HPF Ur Epithelial Cells (None Seen) /HPF Urine Bacteria (None Seen) /HPF Urine Culture Reflexed (NO) Urine Opiates Level (NEGATIVE) Ur Methadone (NEGATIVE) Urine Barbiturates (NEGATIVE) Ur Phencyclidine (PCP) (NEGATIVE) Urine Amphetamine (NEGATIVE) U Benzodiazepine Level (NEGATIVE) Urine Cocaine (NEGATIVE) Urine Marijuana (THC) (NEGATIVE) 05/15/23 05/15/23 05/15/23 Range/Units 12:21 12:40 15:16 WBC (4.0-10.5) x10^3/uL RBC (4.1-5.6) x10^6/uL Hgb (12.5-18.0) g/dL Hct (42-50) % MCV (78-100) fL MCH (26-32) pg MCHC (32-36) g/dL RDW (11.5-14.0) % Plt Count (150-450) x10^3/uL MPV (7.5-11.0) fL Gran % (36.0-66.0) % Immature Gran % (Auto) (0.00-0.4) % Nucleat RBC Rel Count (0.00-0.1) % Eos # (Auto) (0-0.5) x10^3/uL Immature Gran # (Auto) (0.00-0.03) x10^3u/L Absolute Lymphs (auto) (1.0-4.6) x10^3/uL Absolute Monos (auto) (0.0-1.3) x10^3/uL Absolute Nucleated RBC (0.00-0.01) x10^3u/L Lymphocytes % (24.0-44.0) % Monocytes % (0.0-12.0) % Eosinophils % (0.00-5.0) % Basophils % (0.0-0.4) % Absolute Granulocytes (1.4-6.9) x10^3/uL Basophils # (0-0.4) x10^3/uL PT (9.4-12.5) SECONDS INR (0.8-3.0) Sodium (135-145) mmol/L Potassium (3.5-5.1) mmol/L Chloride (98-107) mmol/L Carbon Dioxide (22-30) mmol/L Anion Gap (5-15) MEQ/L BUN (9-20) mg/dL Creatinine (0.66-1.25) mg/dL Estimated GFR ML/MIN Glucose (74-106) mg/dL POC Glucometer 262 H (74 to 106) mg/dL Hemoglobin A1c (4.8-5.6) % Lactic Acid (0.4-2.0) Calcium (8.4-10.2) mg/dL Magnesium (1.6-2.3) mg/dL Total Bilirubin (0.2-1.3) mg/dL AST (17-59) U/L ALT (0-50) U/L Alkaline Phosphatase (38-126) U/L Troponin (0.00-0.03) ng/mL Troponin I < 0.012 (0.000-0.034) ng/mL Serum Total Protein (6.3-8.2) g/dL Albumin (3.5-5.0) g/dL Free T4 (0.78-2.19) ng/dL TSH 3rd Generation (0.47-4.68) mIU/L Urine Color (Yellow) Urine Appearance (Clear) Urine pH (4.6-8.0) Ur Specific [place] (1.005-1.030) Urine Protein (Negative) Urine Glucose (UA) (Negative) mg/dL Urine Ketones (Negative) Urine Blood (Negative) Urine Nitrite (Negative) Urine Bilirubin (Negative) Urine Urobilinogen (0.2) mg/dL Ur Leukocyte Esterase (Negative) U Hyaline Cast (Auto) (0-2) /LPF Urine Microscopic RBC (0-5) /HPF Urine Microscopic WBC (0-5) /HPF Ur Epithelial Cells (None Seen) /HPF Urine Bacteria (None Seen) /HPF Urine Culture Reflexed (NO) Urine Opiates Level NEGATIVE (NEGATIVE) Ur Methadone NEGATIVE (NEGATIVE) Urine Barbiturates NEGATIVE (NEGATIVE) Ur Phencyclidine (PCP) NEGATIVE (NEGATIVE) Urine Amphetamine NEGATIVE (NEGATIVE) U Benzodiazepine Level NEGATIVE (NEGATIVE) Urine Cocaine NEGATIVE (NEGATIVE) Urine Marijuana (THC) NEGATIVE (NEGATIVE) 05/15/23 05/15/23 05/15/23 Range/Units 15:16 16:33 18:50 WBC (4.0-10.5) x10^3/uL RBC (4.1-5.6) x10^6/uL Hgb (12.5-18.0) g/dL Hct (42-50) % MCV (78-100) fL MCH (26-32) pg MCHC (32-36) g/dL RDW (11.5-14.0) % Plt Count (150-450) x10^3/uL MPV (7.5-11.0) fL Gran % (36.0-66.0) % Immature Gran % (Auto) (0.00-0.4) % Nucleat RBC Rel Count (0.00-0.1) % Eos # (Auto) (0-0.5) x10^3/uL Immature Gran # (Auto) (0.00-0.03) x10^3u/L Absolute Lymphs (auto) (1.0-4.6) x10^3/uL Absolute Monos (auto) (0.0-1.3) x10^3/uL Absolute Nucleated RBC (0.00-0.01) x10^3u/L Lymphocytes % (24.0-44.0) % Monocytes % (0.0-12.0) % Eosinophils % (0.00-5.0) % Basophils % (0.0-0.4) % Absolute Granulocytes (1.4-6.9) x10^3/uL Basophils # (0-0.4) x10^3/uL PT (9.4-12.5) SECONDS INR (0.8-3.0) Sodium 134 L (135-145) mmol/L Potassium 4.2 (3.5-5.1) mmol/L Chloride 101 (98-107) mmol/L Carbon Dioxide 20 L (22-30) mmol/L Anion Gap 16.8 H (5-15) MEQ/L BUN 17 (9-20) mg/dL Creatinine 1.31 H (0.66-1.25) mg/dL Estimated GFR 73.3 ML/MIN Glucose 243 H (74-106) mg/dL POC Glucometer 216 H (74 to 106) mg/dL Hemoglobin A1c (4.8-5.6) % Lactic Acid (0.4-2.0) Calcium 8.5 (8.4-10.2) mg/dL Magnesium (1.6-2.3) mg/dL Total Bilirubin 1.80 H (0.2-1.3) mg/dL AST 36 (17-59) U/L ALT 37 (0-50) U/L Alkaline Phosphatase 66 (38-126) U/L Troponin (0.00-0.03) ng/mL Troponin I < 0.012 (0.000-0.034) ng/mL Serum Total Protein 7.7 (6.3-8.2) g/dL Albumin 4.0 (3.5-5.0) g/dL Free T4 (0.78-2.19) ng/dL TSH 3rd Generation (0.47-4.68) mIU/L Urine Color (Yellow) Urine Appearance (Clear) Urine pH (4.6-8.0) Ur Specific [place] (1.005-1.030) Urine Protein (Negative) Urine Glucose (UA) (Negative) mg/dL Urine Ketones (Negative) Urine Blood (Negative) Urine Nitrite (Negative) Urine Bilirubin (Negative) Urine Urobilinogen (0.2) mg/dL Ur Leukocyte Esterase (Negative) U Hyaline Cast (Auto) (0-2) /LPF Urine Microscopic RBC (0-5) /HPF Urine Microscopic WBC (0-5) /HPF Ur Epithelial Cells (None Seen) /HPF Urine Bacteria (None Seen) /HPF Urine Culture Reflexed (NO) Urine Opiates Level (NEGATIVE) Ur Methadone (NEGATIVE) Urine Barbiturates (NEGATIVE) Ur Phencyclidine (PCP) (NEGATIVE) Urine Amphetamine (NEGATIVE) U Benzodiazepine Level (NEGATIVE) Urine Cocaine (NEGATIVE) Urine Marijuana (THC) (NEGATIVE) 05/15/23 05/16/23 05/16/23 Range/Units 21:20 04:50 04:50 WBC 10.8 H (4.0-10.5) x10^3/uL RBC 4.80 (4.1-5.6) x10^6/uL Hgb 14.1 (12.5-18.0) g/dL Hct 43.6 (42-50) % MCV 90.8 (78-100) fL MCH 29.4 (26-32) pg MCHC 32.3 (32-36) g/dL RDW 12.1 (11.5-14.0) % Plt Count 127 L (150-450) x10^3/uL MPV 11.5 H (7.5-11.0) fL Gran % 82.6 H (36.0-66.0) % Immature Gran % (Auto) 0.6 H (0.00-0.4) % Nucleat RBC Rel Count 0.0 (0.00-0.1) % Eos # (Auto) 0 (0-0.5) x10^3/uL Immature Gran # (Auto) 0.06 H (0.00-0.03) x10^3u/L Absolute Lymphs (auto) 0.65 L (1.0-4.6) x10^3/uL Absolute Monos (auto) 1.13 (0.0-1.3) x10^3/uL Absolute Nucleated RBC 0.00 (0.00-0.01) x10^3u/L Lymphocytes % 6.0 L (24.0-44.0) % Monocytes % 10.5 (0.0-12.0) % Eosinophils % 0.0 (0.00-5.0) % Basophils % 0.3 (0.0-0.4) % Absolute Granulocytes 8.88 H (1.4-6.9) x10^3/uL Basophils # 0.03 (0-0.4) x10^3/uL PT (9.4-12.5) SECONDS INR (0.8-3.0) Sodium 134 L (135-145) mmol/L Potassium 4.0 (3.5-5.1) mmol/L Chloride 100 (98-107) mmol/L Carbon Dioxide 21 L (22-30) mmol/L Anion Gap 16.9 H (5-15) MEQ/L BUN 14 (9-20) mg/dL Creatinine 1.21 (0.66-1.25) mg/dL Estimated GFR 80.6 ML/MIN Glucose 166 H (74-106) mg/dL POC Glucometer 188 H (74 to 106) mg/dL Hemoglobin A1c (4.8-5.6) % Lactic Acid (0.4-2.0) Calcium 8.7 (8.4-10.2) mg/dL Magnesium 1.8 (1.6-2.3) mg/dL Total Bilirubin 1.70 H (0.2-1.3) mg/dL AST 41 (17-59) U/L ALT 39 (0-50) U/L Alkaline Phosphatase 65 (38-126) U/L Troponin (0.00-0.03) ng/mL Troponin I (0.000-0.034) ng/mL Serum Total Protein 7.9 (6.3-8.2) g/dL Albumin 3.9 (3.5-5.0) g/dL Free T4 (0.78-2.19) ng/dL TSH 3rd Generation (0.47-4.68) mIU/L Urine Color (Yellow) Urine Appearance (Clear) Urine pH (4.6-8.0) Ur Specific [place] (1.005-1.030) Urine Protein (Negative) Urine Glucose (UA) (Negative) mg/dL Urine Ketones (Negative) Urine Blood (Negative) Urine Nitrite (Negative) Urine Bilirubin (Negative) Urine Urobilinogen (0.2) mg/dL Ur Leukocyte Esterase (Negative) U Hyaline Cast (Auto) (0-2) /LPF Urine Microscopic RBC (0-5) /HPF Urine Microscopic WBC (0-5) /HPF Ur Epithelial Cells (None Seen) /HPF Urine Bacteria (None Seen) /HPF Urine Culture Reflexed (NO) Urine Opiates Level (NEGATIVE) Ur Methadone (NEGATIVE) Urine Barbiturates (NEGATIVE) Ur Phencyclidine (PCP) (NEGATIVE) Urine Amphetamine (NEGATIVE) U Benzodiazepine Level (NEGATIVE) Urine Cocaine (NEGATIVE) Urine Marijuana (THC) (NEGATIVE) 05/16/23 05/16/23 Range/Units 04:51 08:02 WBC (4.0-10.5) x10^3/uL RBC (4.1-5.6) x10^6/uL Hgb (12.5-18.0) g/dL Hct (42-50) % MCV (78-100) fL MCH (26-32) pg MCHC (32-36) g/dL RDW (11.5-14.0) % Plt Count (150-450) x10^3/uL MPV (7.5-11.0) fL Gran % (36.0-66.0) % Immature Gran % (Auto) (0.00-0.4) % Nucleat RBC Rel Count (0.00-0.1) % Eos # (Auto) (0-0.5) x10^3/uL Immature Gran # (Auto) (0.00-0.03) x10^3u/L Absolute Lymphs (auto) (1.0-4.6) x10^3/uL Absolute Monos (auto) (0.0-1.3) x10^3/uL Absolute Nucleated RBC (0.00-0.01) x10^3u/L Lymphocytes % (24.0-44.0) % Monocytes % (0.0-12.0) % Eosinophils % (0.00-5.0) % Basophils % (0.0-0.4) % Absolute Granulocytes (1.4-6.9) x10^3/uL Basophils # (0-0.4) x10^3/uL PT 12.3 (9.4-12.5) SECONDS INR 1.14 (0.8-3.0) Sodium (135-145) mmol/L Potassium (3.5-5.1) mmol/L Chloride (98-107) mmol/L Carbon Dioxide (22-30) mmol/L Anion Gap (5-15) MEQ/L BUN (9-20) mg/dL Creatinine (0.66-1.25) mg/dL Estimated GFR ML/MIN Glucose (74-106) mg/dL POC Glucometer 170 H (74 to 106) mg/dL Hemoglobin A1c (4.8-5.6) % Lactic Acid (0.4-2.0) Calcium (8.4-10.2) mg/dL Magnesium (1.6-2.3) mg/dL Total Bilirubin (0.2-1.3) mg/dL AST (17-59) U/L ALT (0-50) U/L Alkaline Phosphatase (38-126) U/L Troponin (0.00-0.03) ng/mL Troponin I (0.000-0.034) ng/mL Serum Total Protein (6.3-8.2) g/dL Albumin (3.5-5.0) g/dL Free T4 (0.78-2.19) ng/dL TSH 3rd Generation (0.47-4.68) mIU/L Urine Color (Yellow) Urine Appearance (Clear) Urine pH (4.6-8.0) Ur Specific [place] (1.005-1.030) Urine Protein (Negative) Urine Glucose (UA) (Negative) mg/dL Urine Ketones (Negative) Urine Blood (Negative) Urine Nitrite (Negative) Urine Bilirubin (Negative) Urine Urobilinogen (0.2) mg/dL Ur Leukocyte Esterase (Negative) U Hyaline Cast (Auto) (0-2) /LPF Urine Microscopic RBC (0-5) /HPF Urine Microscopic WBC (0-5) /HPF Ur Epithelial Cells (None Seen) /HPF Urine Bacteria (None Seen) /HPF Urine Culture Reflexed (NO) Urine Opiates Level (NEGATIVE) Ur Methadone (NEGATIVE) Urine Barbiturates (NEGATIVE) Ur Phencyclidine (PCP) (NEGATIVE) Urine Amphetamine (NEGATIVE) U Benzodiazepine Level (NEGATIVE) Urine Cocaine (NEGATIVE) Urine Marijuana (THC) (NEGATIVE) Radiology Exams: Radiology Procedures Category Date Time Status ABDOMEN AND PELVIS W/0 CONTRAS [CT] Stat Exams 05/15/23 08:37 Completed CHEST 1 VIEW (PORTABLE) Stat Exams 05/15/23 11:05 Completed MRI LOWER EXT W & W/O [MRI] Routine Exams 05/15/23 13:15 Completed PICC LINE PLACEMENT Routine Exams 05/16/23 08:00 Ordered US ABDOMEN LIMITED [ABDOMINAL-LIMITED] [US] Routine Exams 05/16/23 09:10 Ordered Assessment/Plan (1) Sepsis Current Visit: Yes Status: Acute (2) Diabetic ulcer of right foot Current Visit: No Status: Acute Code(s): E11.621 - TYPE 2 DIABETES MELLITUS WITH FOOT ULCER; L97.519 - NON-PRS CHRONIC ULCER OTH PRT RIGHT FOOT W UNSP SEVERITY (3) ORIANA (acute kidney injury) Current Visit: Yes Status: Acute Code(s): N17.9 - ACUTE KIDNEY FAILURE, UNSPECIFIED (4) Dehydration Current Visit: Yes Status: Acute Code(s): E86.0 - DEHYDRATION (5) Hyponatremia Current Visit: Yes Status: Acute Code(s): E87.1 - HYPO-OSMOLALITY AND HYPONATREMIA (6) Diabetes Current Visit: Yes Status: Chronic Qualifiers: Diabetes mellitus type: type 2 Diabetes mellitus complication detail: with polyneuropathy Code(s): E11.9 - TYPE 2 DIABETES MELLITUS WITHOUT COMPLICATIONS (7) Tachycardia Current Visit: Yes Status: Acute Code(s): R00.0 - TACHYCARDIA, UNSPECIFIED (8) Abdominal pain Current Visit: Yes Status: Acute Code(s): R10.9 - UNSPECIFIED ABDOMINAL PAIN (9) Fever Current Visit: Yes Status: Acute Code(s): R50.9 - FEVER, UNSPECIFIED (10) Hx MRSA infection Current Visit: Yes Status: Chronic Code(s): Z86.14 - PERSONAL HISTORY OF METHICILLIN RESIS STAPH INFECTION (11) Obesity (BMI 30-39.9) Current Visit: Yes Status: Chronic Assessment & Plan: (1) Sepsis Current Visit: Yes Status: Acute Assessment & Plan: - 2:2 DM wound of right foot? - HR > 90, WBC > 12 - BC x2 - UA with C&S - wound culture - LA on admission 3.1- fluid bolus in ER, repeat LA 1.7 in ER - Cont IVF - antibiotics per podiatry recs - Levaquin gave in ER 05/15 - BC x2 +, gram + ID- sensitivity pending - Picc line placement tomorrow - WBC improving 10.8 (2) Diabetic ulcer of right foot Current Visit: No Status: Acute Assessment & Plan: - Acute on chronic- follows Dr. Loving OP - Wound culture right 4th toe and bottom of right foot - hx of MRSA - podiatry consult - Levaquin started in ER- stopped - Antibiotics per podiatry recs- vanc and zosyn with pharmacy to dose - MRI RLE - If podiatry not doing procedure today then can eat ADA diet 05/15 - Scheduled for bone biopsy at 1300 today with podiatry - NPO - MRI RLE: Impression: Worsening diffuse enhancing cellulitis involving subcutaneous and deep soft tissues. No walled off fluid collection/abscess. New minimal osteomyelitis 2nd-5th metatarsals, 2nd/3rd cuneiforms, and cuboid. - BC x2 +, gram + ID- sensitivity pending - Picc line placement tomorrow Code(s): E11.621 - TYPE 2 DIABETES MELLITUS WITH FOOT ULCER; L97.519 - NON-PRS CHRONIC ULCER OTH PRT RIGHT FOOT W UNSP SEVERITY (3) ORIANA (acute kidney injury) Current Visit: Yes Status: Acute Assessment & Plan: - Creat 1.36- baseline normal - IVF - recheck in AM 05/15 - resolved Code(s): N17.9 - ACUTE KIDNEY FAILURE, UNSPECIFIED (4) Dehydration Current Visit: Yes Status: Acute Assessment & Plan: - anion gap 19.0 - IVF 05/15 - anion gap 16.9 - continue IVF Code(s): E86.0 - DEHYDRATION (5) Hyponatremia Current Visit: Yes Status: Acute Assessment & Plan: - Mild Na+134- trend - Cont IVF - 2:2 fever, vomiting 05/15 - Na+ 134- mild Code(s): E87.1 - HYPO-OSMOLALITY AND HYPONATREMIA (6) Diabetes Current Visit: Yes Status: Chronic Qualifiers: Diabetes mellitus type: type 2 Diabetes mellitus complication detail: with foot ulcer Assessment & Plan: - A1C 7.2 uncontrolled - accuchecks ac/HS - Humalog 15 units BID per home dose - Will ask pt if he can bring in home insulin of Xultophy. If not will start 50 unit s of lantus daily with moderate dose s/s with meals. Code(s): E11.9 - TYPE 2 DIABETES MELLITUS WITHOUT COMPLICATIONS (7) Tachycardia Current Visit: Yes Status: Acute Assessment & Plan: - 2:2 N/V, dehydration, ORIANA, fever - tele - EKG 05/15 - continued tachycardia Code(s): R00.0 - TACHYCARDIA, UNSPECIFIED (8) Abdominal pain Current Visit: Yes Status: Acute Assessment & Plan: - Compazine PRN N/V - CT Abd. and pelvis 05/15/23 Impression: 1. Respiration artifact. 2. Markedly distended urinary bladder. Rule out outlet obstruction versus neurogenic bladder. 3. Indeterminant 1 cm right lung base noncalcified nodule. Outside comparison studies recommended if available. If not, baseline CT with follow-up per Fleischner guidelines recommend. 4. Remaining CT abdomen/pelvis without contrast exam grossly negative. - PRN bladder scan - Accurate I&O's - Consider amin for acute urinary retention - Sxs improved since admission 05/15 - US abd today Code(s): R10.9 - UNSPECIFIED ABDOMINAL PAIN (9) Fever Current Visit: Yes Status: Acute Assessment & Plan: - temp 99. 7 - tylenol PRN - BC x2 - UA with C&S - 2:2 DM foot wound infection - CXR 05/14 Portable apical lordotic chest less inflated and clear. Heart not enlarged. Bony thorax intact. Impression: Nonacute underinflated chest 05/15 - continued 2:2 DM wound/ infection Code(s): R50.9 - FEVER, UNSPECIFIED (10) Hx MRSA infection Current Visit: Yes Status: Chronic Assessment & Plan: - place in isolation- contact Code(s): Z86.14 - PERSONAL HISTORY OF METHICILLIN RESIS STAPH INFECTION (11) Obesity (BMI 30-39.9) Current Visit: Yes Status: Chronic Assessment & Plan: - Advised ADA diet and exercise control VTE: SCD's PPI: pantoprazole Next of Kin: , Jaimie Doan [phone] D/C plan: 2-3 days Code status: Full Code(s): E66.9 - OBESITY, UNSPECIFIED
[2023-05-16] MEDS: Lantus Insulin SQ SCH (10:35)
[2023-05-16] MEDS: Protonix 20MG Tablet PO SCH (10:50)
[2023-05-16] MEDS: SYNTHROID 100 MCG PO SCH (10:50)
[2023-05-16] MEDS: SYNTHROID 125 MCG PO SCH (10:50)
[2023-05-16] MEDS: Zinc Gluconate 50 MG PO SCH (10:50)
--- NOTE | 2023-05-16 10:53 | XRAY ---
Indication: Right upper/right lower quadrant pain. Two-dimensional right upper quadrant abdominal sonogram performed. Comparison: None Sonogram limited due to overlying bowel gas and patient unable to follow breathing instructions. Pancreas and gallbladder not well-visualized. Liver is enlarged measuring 21.3 cm. Visualized liver is negative for focal solid/cystic hepatic mass or ascites. Common bile duct measures 4.4 mm. No intrahepatic biliary distention. Right kidney measures 12.9 x 6.8 x 6.3 cm sonographic unremarkable. Impression: Limited right upper quadrant sonogram. Nonvisualization pancreas and gallbladder. Hepatomegaly. See CT abdomen/pelvis exam one day earlier.
[2023-05-16] MEDS ORDERED: Xylocaine 1% Vial 30 ML PF IJ ONE (13:01)
[2023-05-16] MEDS ORDERED: Marcaine Mpf 0.5% Vial 30 Ml ONE (13:01)
[2023-05-16] MEDS ORDERED: DIPRIVAN 200 MG/20 ML IV ONE (13:34)
[2023-05-16] MEDS ORDERED: Zofran 4 MG/2 ML VIAL ONE (13:35)
[2023-05-16] MEDS ORDERED: Pre-Attached Lta Kit TP ONE (13:35)
[2023-05-16] MEDS ORDERED: Lactated Ringers 1,000 ML IV ONE ×2 (13:35→15:15)
[2023-05-16] MEDS ORDERED: Xylocaine-Mpf 2% 5 Ml Vial ONE (13:35)
[2023-05-16] MEDS ORDERED: Quelicin Fliptop 200 MG/10 ML ONE (13:38)
[2023-05-16] MEDS ORDERED: SUBLIMAZE 100 MCG/2 ML ONE (13:39)
[2023-05-16] MEDS ORDERED: Versed 2 MG/2 ML Injection ONE (13:41)
[2023-05-16] MEDS ORDERED: DEXMEDETOMIDINE 80 MCG/20ML-NS IV ONE (13:41)
[2023-05-16] MEDS ORDERED: TORAdol 30 mg Injection ONE (13:59)
[2023-05-16] MEDS ORDERED: BREVIBLOC 100 MG/10 ML IV ONE (14:37)
--- NOTE | 2023-05-16 14:46 | XRAY ---
Indication: Right foot bone biopsy. Intraoperative fluoroscopy provided for 7 seconds. 4 digital spot images submitted for interpretation demonstrates instrumentation distal 5th metatarsal and 4th proximal phalanx. Correlate with intraoperative findings/report.
[2023-05-16] MEDS ORDERED: OFIRMEV 100 ML IV ONE (15:00)
--- NOTE | 2023-05-16 15:22 | XRAY ---
7 seconds of fluoroscopy was used in surgery for a right foot bone biopsy.
[2023-05-17 04:15] LABS: Hematocrit 37.3 % (42-50); Mean Cell Volume 90.1 fL (78-100); Mean Corpuscular Hgb Concent. 32.2 g/dL (32-36); Mean Platelet Volume 11.6 fL (7.5-11.0); Platelet Count 114 x10^3/uL (150-450); Red Blood Count 4.14 x10^6/uL (4.1-5.6); Red Cell Distribution Width 12.2 % (11.5-14.0); White Blood Count 5.3 x10^3/uL (4.0-10.5)
[2023-05-17 04:39] LABS: ALBUMIN 3.2 g/dL (3.5-5.0); ANION GAP 8.9 MEQ/L (5-15); BILIRUBIN,TOTAL 1.2 mg/dL (0.2-1.3); Calcium 8.1 mg/dL (8.4-10.2); Creatinine 1 1.31 mg/dL (0.66-1.25); EST GLOMERULAR FILTRATION RATE 73.3 ML/MIN; Potassium 3.9 mmol/L (3.5-5.1); Total Protein 6.6 g/dL (6.3-8.2)
[2023-05-17] MEDS: MOTRIN 600 MG PO PRN (04:57)
--- NOTE | 2023-05-17 08:15 | PCM.NOTE ---
Date and Time: 05/17/23 0759 Subjective Assessment: 05/15/23 Mr.KING MENDOZA is a 32 year old male with PMHX of Type II DM, hypothyroidism, thyroid CA, bipolar, and obesity. He reports a chronic foot wound that he follow Dr. Loving for. He was brought into the emergency department by private vehicle by his significant other. Patient states that he has been having vomiting, body aches, headaches since yesterday. Symptoms have persisted. Patient has been taking his insulin medication. Patient has not had any exposures to individuals with similar symptoms. + generalized abdominal pain. He denies CP, SOB, diarrhea or constipation. In ER initial Lactate was 3.1 after fluid bolus repeat LA was 1.7. Temp 99.7 and WBC 12.3. He is dehydrated and will continue IVF. Will have podiatry consult as this may be source of infection. Continue antibiotics per podiatry recs. Levaquin started in ER. 05/16/23 Pt resting in bed. He has continued to run a temp all night despite Tylenol being given. He states he continues to not feel well. He continues to c/o RUQ and RLQ pain with palpation that radiates to right leg. Palpation makes it worse. Nothing makes it better. CT abd completed yesterday and showed distended bladder. Bladder scan yesterday on floor showed only 20cc of urine. Today post void bladder scan showed 162 cc. Pt denies any concerns with urination. US ordered for further evaluation of abd pain. He is currently NPO and scheduled for a bone biopsy with podiatry today at 1300. He reports no foot pain as he has neuropathy. He continues to have RLE edema and erythema. CT scan of RLE showed cellulitis and minimal osteomyelitis of 2-5th toes. Continue IVF for dehydration. Pt denies CP, SOB, N/V/D. 05/16 Pt resting in bed. He states he feels a little bit better today. He continued to have a fever all night. HR is down to 80's today. Temp currently 99 F. He continues to have some RLQ pain with palpation only. US yesterday showed gas, simethicone added. He is scheduled to have a PICC line placed at 10 am today. He is currently NPO for this. WBC 5.3 today. Yesterday he had multiple biopsies including bone of right foot with podiatry. right foot wrapped and to be evaluated by podiatry today. Will continue antibiotics and fluids. He denies CP, SOB, N/V/D. - Review of Systems Constitutional: No Fever, No Chills Eyes: No Symptoms Ears, Nose, & Throat: No Symptoms Respiratory: No Cough, No Short Of Breath Cardiac: No Chest Pain, No Edema, No Syncope Abdominal/Gastrointestinal: Abdominal Pain (RLQ with palpation), No Nausea, No Vomiting, No Diarrhea Genitourinary Symptoms: No Dysuria Musculoskeletal: No Back Pain, No Neck Pain Skin: Other (RLE wrapped), No Rash Neurological: No Dizziness, No Focal Weakness, No Sensory Changes Psychological: No Symptoms Endocrine: No Symptoms Hematologic/Lymphatic: No Symptoms Immunological/Allergic: No Symptoms Objective Exam General Appearance: no apparent distress, alert Neurologic Exam: alert, oriented x 3, cooperative, normal mood/affect, nml cerebellar function, sensation nml, No motor deficits Skin Exam: normal color, warm, dry, other (RLE wrapped from podiatry procedure yesterday. See pics on chart.) Eye Exam: PERRL, EOMI, eyes nml inspection Ears, Nose, Throat Exam: normal ENT inspection, pharynx normal, moist mucous membranes Neck Exam: normal inspection, non-tender, supple, full range of motion Respiratory Exam: normal breath sounds, lungs clear, No respiratory distress Cardiovascular Exam: regular rate/rhythm, normal heart sounds Gastrointestinal/Abdomen Exam: soft, No tenderness, No mass Extremity Exam: normal inspection, normal range of motion Back Exam: normal inspection, normal range of motion, No CVA tenderness, No vertebral tenderness Male Genitalia Exam: deferred Rectal Exam: deferred Objective Data Vital Signs: Vital Signs - 24 hr Temp Pulse Resp BP Pulse Ox 05/17/23 06:59 99.2 F 81 18 111/57 98 05/17/23 06:04 99.3 F 05/17/23 03:59 102.0 F 110 H 20 110/59 97 05/17/23 00:00 100.0 F 115 H 19 97/56 97 05/16/23 19:19 98.3 F 89 19 100/60 94 L 05/16/23 18:39 98.6 F 05/16/23 18:29 86 17 99/57 94 L 05/16/23 17:34 99.2 F 95 H 22 94/55 94 L 05/16/23 17:00 93 H 19 97/55 94 L 05/16/23 16:30 98.9 F 92 H 23 105/57 95 05/16/23 15:30 99.0 F 101 H 23 100/54 92 L 05/16/23 12:59 103.1 F 125 H 24 114/55 92 L 05/16/23 11:00 103.1 F 125 H 24 114/55 92 L Pain Assessment - Last Documented Pain Intensity 0 Pain Scale Used 0-10 Pain Scale Intake and Output: Intake & Output 05/14/23 05/15/23 05/16/23 05/17/23 11:59 11:59 11:59 11:59 Intake Total 1000 1680 1860 Output Total 700 1 Balance 300 1679 1860 Weight 138.6 kg 138.6 kg 141.3 kg Lab Results: Lab Results-Last 24 Hours 05/16/23 05/16/23 05/16/23 Range/Units 08:02 11:47 14:59 WBC (4.0-10.5) x10^3/uL RBC (4.1-5.6) x10^6/uL Hgb (12.5-18.0) g/dL Hct (42-50) % MCV (78-100) fL MCH (26-32) pg MCHC (32-36) g/dL RDW (11.5-14.0) % Plt Count (150-450) x10^3/uL MPV (7.5-11.0) fL Sodium (135-145) mmol/L Potassium (3.5-5.1) mmol/L Chloride (98-107) mmol/L Carbon Dioxide (22-30) mmol/L Anion Gap (5-15) MEQ/L BUN (9-20) mg/dL Creatinine (0.66-1.25) mg/dL Estimated GFR ML/MIN Glucose (74-106) mg/dL POC Glucometer 170 H 200 H 183 H (74 to 106) mg/dL Calcium (8.4-10.2) mg/dL Total Bilirubin (0.2-1.3) mg/dL AST (17-59) U/L ALT (0-50) U/L Alkaline Phosphatase (38-126) U/L Serum Total Protein (6.3-8.2) g/dL Albumin (3.5-5.0) g/dL 05/16/23 05/16/23 05/17/23 Range/Units 16:41 21:05 04:06 WBC 5.3 (4.0-10.5) x10^3/uL RBC 4.14 (4.1-5.6) x10^6/uL Hgb 12.0 L (12.5-18.0) g/dL Hct 37.3 L (42-50) % MCV 90.1 (78-100) fL MCH 29.0 (26-32) pg MCHC 32.2 (32-36) g/dL RDW 12.2 (11.5-14.0) % Plt Count 114 L (150-450) x10^3/uL MPV 11.6 H (7.5-11.0) fL Sodium (135-145) mmol/L Potassium (3.5-5.1) mmol/L Chloride (98-107) mmol/L Carbon Dioxide (22-30) mmol/L Anion Gap (5-15) MEQ/L BUN (9-20) mg/dL Creatinine (0.66-1.25) mg/dL Estimated GFR ML/MIN Glucose (74-106) mg/dL POC Glucometer 177 H 147 H (74 to 106) mg/dL Calcium (8.4-10.2) mg/dL Total Bilirubin (0.2-1.3) mg/dL AST (17-59) U/L ALT (0-50) U/L Alkaline Phosphatase (38-126) U/L Serum Total Protein (6.3-8.2) g/dL Albumin (3.5-5.0) g/dL 05/17/23 05/17/23 Range/Units 04:06 06:42 WBC (4.0-10.5) x10^3/uL RBC (4.1-5.6) x10^6/uL Hgb (12.5-18.0) g/dL Hct (42-50) % MCV (78-100) fL MCH (26-32) pg MCHC (32-36) g/dL RDW (11.5-14.0) % Plt Count (150-450) x10^3/uL MPV (7.5-11.0) fL Sodium 132 L (135-145) mmol/L Potassium 3.9 (3.5-5.1) mmol/L Chloride 104 (98-107) mmol/L Carbon Dioxide 24 (22-30) mmol/L Anion Gap 8.9 (5-15) MEQ/L BUN 17 (9-20) mg/dL Creatinine 1.31 H (0.66-1.25) mg/dL Estimated GFR 73.3 ML/MIN Glucose 147 H (74-106) mg/dL POC Glucometer 150 H (74 to 106) mg/dL Calcium 8.1 L (8.4-10.2) mg/dL Total Bilirubin 1.20 (0.2-1.3) mg/dL AST 50 (17-59) U/L ALT 38 (0-50) U/L Alkaline Phosphatase 53 (38-126) U/L Serum Total Protein 6.6 (6.3-8.2) g/dL Albumin 3.2 L (3.5-5.0) g/dL Radiology Exams: Radiology Procedures Category Date Time Status ABDOMEN AND PELVIS W/0 CONTRAS [CT] Stat Exams 05/15/23 08:37 Completed CHEST 1 VIEW (PORTABLE) Stat Exams 05/15/23 11:05 Completed FLUOROSCOPY UP TO 1 HR Routine Exams 05/16/23 13:20 Completed FOOT (MINIMUM 3 VIEWS) Routine Exams 05/16/23 13:19 Completed MRI LOWER EXT W & W/O [MRI] Routine Exams 05/15/23 13:15 Completed US ABDOMEN LIMITED [ABDOMINAL-LIMITED] [US] Routine Exams 05/16/23 09:10 Completed Assessment/Plan (1) Sepsis Current Visit: Yes Status: Acute (2) Diabetic ulcer of right foot Current Visit: No Status: Acute Code(s): E11.621 - TYPE 2 DIABETES MELLITUS WITH FOOT ULCER; L97.519 - NON-PRS CHRONIC ULCER OTH PRT RIGHT FOOT W UNSP SEVERITY (3) ORIANA (acute kidney injury) Current Visit: Yes Status: Acute Code(s): N17.9 - ACUTE KIDNEY FAILURE, UNSPECIFIED (4) Dehydration Current Visit: Yes Status: Acute Code(s): E86.0 - DEHYDRATION (5) Hyponatremia Current Visit: Yes Status: Acute Code(s): E87.1 - HYPO-OSMOLALITY AND HYPONATREMIA (6) Diabetes Current Visit: Yes Status: Chronic Qualifiers: Diabetes mellitus type: type 2 Diabetes mellitus complication detail: with polyneuropathy Code(s): E11.9 - TYPE 2 DIABETES MELLITUS WITHOUT COMPLICATIONS (7) Tachycardia Current Visit: Yes Status: Acute Code(s): R00.0 - TACHYCARDIA, UNSPECIFIED (8) Abdominal pain Current Visit: Yes Status: Acute Code(s): R10.9 - UNSPECIFIED ABDOMINAL PAIN (9) Fever Current Visit: Yes Status: Acute Code(s): R50.9 - FEVER, UNSPECIFIED (10) Hx MRSA infection Current Visit: Yes Status: Chronic Code(s): Z86.14 - PERSONAL HISTORY OF METHICILLIN RESIS STAPH INFECTION (11) Obesity (BMI 30-39.9) Current Visit: Yes Status: Chronic Assessment & Plan: (1) Sepsis Current Visit: Yes Status: Acute Assessment & Plan: - 2:2 DM wound of right foot - HR > 90, WBC > 12 - BC x2 - UA with C&S - wound culture - LA on admission 3.1- fluid bolus in ER, repeat LA 1.7 in ER - Cont IVF - antibiotics per podiatry recs - Levaquin gave in ER 05/15 - BC x2 +, gram + ID- sensitivity pending - Picc line placement tomorrow - WBC improving 10.8 05/16 - WBC 5.3 - + fever all night - BC X2 Gram + cocci- Staph aureus - Wound culture x2- + Staph aureus - Sensitivity of all results reviewed - Continue same antibiotics for now. (2) Diabetic ulcer of right foot Current Visit: No Status: Acute Assessment & Plan: - Acute on chronic- follows Dr. Loving OP - Wound culture right 4th toe and bottom of right foot - hx of MRSA - podiatry consult - Levaquin started in ER- stopped - Antibiotics per podiatry recs- vanc and zosyn with pharmacy to dose - MRI RLE - If podiatry not doing procedure today then can eat ADA diet 05/15 - Scheduled for bone biopsy at 1300 today with podiatry - NPO - MRI RLE: Impression: Worsening diffuse enhancing cellulitis involving subcutaneous and deep soft tissues. No walled off fluid collection/abscess. New minimal osteomyelitis 2nd-5th metatarsals, 2nd/3rd cuneiforms, and cuboid. - BC x2 +, gram + ID- sensitivity pending - Picc line placement tomorrow 05/16 - PICC line today a 10am, NPO for this - Right foot wrapped since procedures yesterday. - Per podiatry charting- multiple bone biopsies - all cultures + for staph aureus - Continue with same antibiotics Code(s): E11.621 - TYPE 2 DIABETES MELLITUS WITH FOOT ULCER; L97.519 - NON-PRS CHRONIC ULCER OTH PRT RIGHT FOOT W UNSP SEVERITY (3) ORIANA (acute kidney injury) Current Visit: Yes Status: Acute Assessment & Plan: - Creat 1.36- baseline normal - IVF - recheck in AM 05/15 - resolved - IBP started for fever 05/16 - Creat 1.31 - stop IBP Code(s): N17.9 - ACUTE KIDNEY FAILURE, UNSPECIFIED (4) Dehydration Current Visit: Yes Status: Acute Assessment & Plan: - anion gap 19.0 - IVF 05/15 - anion gap 16.9 - continue IVF 05/16 - anion gap 8.9- resolved - Cont IVF as pt continues to have fever and ORIANA Code(s): E86.0 - DEHYDRATION (5) Hyponatremia Current Visit: Yes Status: Acute Assessment & Plan: - Mild Na+134- trend - Cont IVF - 2:2 fever, vomiting 05/15 - Na+ 134- mild 05/16 - Na+ 132 mild Code(s): E87.1 - HYPO-OSMOLALITY AND HYPONATREMIA (6) Diabetes Current Visit: Yes Status: Chronic Qualifiers: Diabetes mellitus type: type 2 Diabetes mellitus complication detail: with foot ulcer Assessment & Plan: - A1C 7.2 uncontrolled - accuchecks ac/HS - Humalog 15 units BID per home dose - Will ask pt if he can bring in home insulin of Xultophy. If not will start 50 unit s of lantus daily with moderate dose s/s with meals. Code(s): E11.9 - TYPE 2 DIABETES MELLITUS WITHOUT COMPLICATIONS (7) Tachycardia Current Visit: Yes Status: Acute Assessment & Plan: - 2:2 N/V, dehydration, ORIANA, fever - tele - EKG 05/15 - continued tachycardia 05/16 - resolved Code(s): R00.0 - TACHYCARDIA, UNSPECIFIED (8) Abdominal pain Current Visit: Yes Status: Acute Assessment & Plan: - Compazine PRN N/V - CT Abd. and pelvis 05/15/23 Impression: 1. Respiration artifact. 2. Markedly distended urinary bladder. Rule out outlet obstruction versus neurogenic bladder. 3. Indeterminant 1 cm right lung base noncalcified nodule. Outside comparison studies recommended if available. If not, baseline CT with follow-up per Fleischner guidelines recommend. 4. Remaining CT abdomen/pelvis without contrast exam grossly negative. - PRN bladder scan - Accurate I&O's - Consider amin for acute urinary retention - Sxs improved since admission 05/15 - US abd Sonogram limited due to overlying bowel gas and patient unable to follow breathing instructions. Pancreas and gallbladder not well-visualized. Liver is enlarged measuring 21.3 cm. Visualized liver is negative for focal solid/cystic hepatic mass or ascites. Common bile duct measures 4.4 mm. No intrahepatic biliary distention. Right kidney measures 12.9 x 6.8 x 6.3 cm sonographic unremarkable. Impression: Limited right upper quadrant sonogram. Nonvisualization pancreas and gallbladder. Hepatomegaly. See CT abdomen/pelvis exam one day earlier. 05/16 - Gas-x added Code(s): R10.9 - UNSPECIFIED ABDOMINAL PAIN (9) Fever Current Visit: Yes Status: Acute Assessment & Plan: - temp 99. 7 - tylenol PRN - BC x2 - UA with C&S - 2:2 DM foot wound infection - CXR 05/14 Portable apical lordotic chest less inflated and clear. Heart not enlarged. Bony thorax intact. Impression: Nonacute underinflated chest 05/15 - continued 2:2 DM wound/ infection - IBP added 05/16 - + fever all night - 99F today - IBP stopped d/t ORIANA Code(s): R50.9 - FEVER, UNSPECIFIED (10) Hx MRSA infection Current Visit: Yes Status: Chronic Assessment & Plan: - place in isolation- contact Code(s): Z86.14 - PERSONAL HISTORY OF METHICILLIN RESIS STAPH INFECTION (11) Obesity (BMI 30-39.9) Current Visit: Yes Status: Chronic Assessment & Plan: - Advised ADA diet and exercise control Code(s): E66.9 - OBESITY, UNSPECIFIED (12) Hypocalcemia Current Visit: Yes Status: Acute Assessment & Plan: - corrected Ca+ 8.3 - Start Tums BID VTE: SCD's PPI: pantoprazole Next of Kin: , Jaimie Doan [phone] D/C plan: 2-3 days Code status: Full Code(s): E83.51 - HYPOCALCEMIA
[2023-05-17] MEDS: Mylicon 80MG PO SCH (09:18)
[2023-05-17] MEDS: Tums EX 750 MG PO SCH (09:19)
[2023-05-17] MEDS: TROUGH DRUG LEVELS IJ ONE (09:20)
--- NOTE | 2023-05-17 12:25 | XRAY ---
Indication: PICC line placement. Comparison: May 15, 2023 Portable chest demonstrates new right arm PICC line with tip projecting over distal SVC. Lungs remain underinflated with new right base discoid atelectasis. Remaining heart and left lung unremarkable.
--- NOTE | 2023-05-17 12:27 | XRAY ---
Indication: PICC line adjustment Comparison: Taken earlier in the day Portable chest demonstrates right arm PICC line withdrawal with tip now projecting over proximal SVC. Lungs remain underinflated with mild right base discoid atelectasis. Remaining heart and left lung unremarkable.
--- NOTE | 2023-05-17 12:28 | OP ---
SURGERY DATE: 05/16/2023 SURGERY TIME: 134 PREOPERATIVE DIAGNOSIS: 1. OSTEOMYELITIS RIGHT FOOT. 2. DIABETIC FOOT ULCER 3. DIABETIC PERIPHERAL NEUROPATHY. 4. UNCONTROLLED DIABETES. 5. CHRONIC ULCERATION. POSTOPERATIVE DIAGNOSIS: 1. OSTEOMYELITIS RIGHT FOOT. 2. DIABETIC FOOT ULCER 3. DIABETIC PERIPHERAL NEUROPATHY. 4. UNCONTROLLED DIABETES. 5. CHRONIC ULCERATION. PROCEDURE: SURGEON: Inder Weinberg D.P.M. DRAWBENCH OPERATOR HELPER: None. ANESTHESIA: General. HEMOSTASIS: A pressure dressing. ESTIMATED BLOOD LOSS: 100 cc. MATERIALS: 2-0 Nylon. INJECTABLES: 10 cc of a 1:1 mixture of 1% Lidocaine plain and 0.5% Bupivicaine plain injected in a Peralta block type fashion. INDICATIONS FOR PROCEDURE: Felice is a very pleasant 32 year-old male who is very well known to my service for an ulceration to the plantar aspect of the right foot which was healed. Subsequently, after sealing this wound, which took approximately 6 months, the patient did develop a new wound in between the 4th and 5th toe which was being managed for a short period of time. However, due to issues with transportation and his 's work, patient decided on transfer to Wound Care in [facility] where their services were sought out for the last 5 weeks. On presentation to the Emergency Department, the patient presented with sepsis with elevated WBC, elevated temperature, resting heart rate, and lactic acid. After bolus, his lactic acid did come down quite a bit. However, constitutional symptoms required admission for IV antibiotics. On inspection, the wound did not appear to be clinically infected. However, no other identifiable sources of infection were present. The decision was made to proceed with an MRI. MRI with contrast was performed demonstrating significant osteomyelitis of the 2nd to the 5th metatarsals as well as the cuboid and medial cuneiform. On an independent inspection of the MRI, there was a clinical suspicion of negative findings for osteomyelitis secondary to no drop-out on T1. The decision was made to proceed with bone biopsies and incision and drainage at this time. The patient understands all risks, complications, and benefits of surgical intervention at this time including, but not limited to, infection; hematoma; seroma; possibility of delayed wound healing, non-wound healing; further surgical intervention; possible loss of limb; and possible loss of life. There have been no guarantees provided as to the outcome of the surgical intervention. Plenty of time was allowed for the patient and his to ask questions which were answered to their apparent satisfaction. At this time, we decided to proceed. DESCRIPTION OF PROCEDURE: The patient was brought into the OR, placed on the OR table in the supine position. At this time, general anesthesia was administered until the patient was adequately sedated. At this time, the right lower extremity was prepped and draped in the typical sterile fashion and lowered onto the surgical field. Attention was directed to the dorsal aspect of the lateral forefoot and incision was made utilizing a 10 blade down to the level of bone. At this time, minimal amounts of serous fluid were expressed with some material purulent encountered towards the 4th web space. However, this did not track in any other direction. It did appear to track down to the level of the 4th digit. This was carried circumferentially around the 5th metatarsal and 4th metatarsal where bone biopsies were taken of each of these structures independent. A curette was utilized to debride the bone dorsally which seemed to be relatively intact. From that standpoint, decision was made to proceed to the lateral aspect of the 4th digit where the bone was probed and deemed to be of poor quality. Bone biopsy was also taken of the 4th digit at this time. Debridement took place with copious amounts of Bactisure and sterile saline 1000 ml and 3000 ml respectively. From that standpoint, 2-0 Nylon was utilized to coapt loosely the dorsal aspect of the foot. Following this, dressing consisting of Betadine, Adaptic, 4 X 4, Kerlix, ABD, and compressive Jignesh bandage was then applied to the patient's right foot. The patient was then reversed from anesthesia and returned to the PACU with vital signs stable and vascular status intact. The patient handled the anesthesia as well as the procedure without significant complication. Postoperative orders as indicated in the patient's discharge chart.
[2023-05-17] MEDS: ANTIVERT 25 MG PO PRN (12:44)
[2023-05-17] MEDS: DAPTOmycin 700 MG in Sodium Chloride Flush 30 ML*** 14 ML IV SCH (12:44)
[2023-05-17] MEDS: HUMALOG SQ PRN (16:31)
[2023-05-17] MEDS ORDERED: TYLENOL 325 MG PO PRN (18:35)
[2023-05-17] MEDS ORDERED: TYLENOL EXTRA STRENGTH 500 MG ONE (21:52)
[2023-05-17] MEDS: TYLENOL EXTRA STRENGTH 500 MG PO PRN (22:04)
[2023-05-18 05:20] LABS: 027 TOX PROD PRESUMPTIVE NEGATIVE (NEGATIVE); TOXIGENIC C. DIFF ORG NEGATIVE (NEGATIVE)
[2023-05-18 05:23] LABS: Hematocrit 32.2 % (42-50); Hemoglobin 10.5 g/dL (12.5-18.0); Mean Corpuscular Hgb Concent. 32.6 g/dL (32-36); Mean Platelet Volume 12.4 fL (7.5-11.0); Platelet Count 101 x10^3/uL (150-450); Red Blood Count 3.62 x10^6/uL (4.1-5.6); Red Cell Distribution Width 12.3 % (11.5-14.0); White Blood Count 3.9 x10^3/uL (4.0-10.5)
[2023-05-18 06:03] LABS: ALBUMIN 2.7 g/dL (3.5-5.0); ANION GAP 10.4 MEQ/L (5-15); BILIRUBIN,TOTAL 0.8 mg/dL (0.2-1.3); Calcium 7.5 mg/dL (8.4-10.2); Creatinine 1 0.79 mg/dL (0.66-1.25); EST GLOMERULAR FILTRATION RATE 119.6 ML/MIN; Total Protein 5.6 g/dL (6.3-8.2)
[2023-05-18 06:06] LABS: Potassium 4.2 mmol/L (3.5-5.1)
--- NOTE | 2023-05-18 09:16 | PCM.NOTE ---
Date and Time: 05/18/23900 Subjective Assessment: Patient seen POD #2 with incision and drainage to right foot. Wound inspected with some residual purulence. Patient spiking fevers the most recent of which was 102.9 this AM. Patient with continued constitutional symptoms and abdominal pain and cough. Decision was made to proceed with bedside I&D of right foot to level of bone. Decision was made with patient at bedside. Physical Exam - Vascular Peripheral Pulses: Posterior tibialis: 2+, Dorsalis-Pedis: 2+ Capillary Refill Time: < 3 seconds Hair Growth: Symmetrical and Bilateral Edema: Pitting Edema Degree: 3+ Skin: Supple, not atrophic - Narrative Narrative Physical Exam: Podiatry Physical Exam Objective Data Vital Signs: Vital Signs - 24 hr Temp Pulse Resp BP BP Pulse Ox 05/18/23 06:00 102.9 F 111 H 32 H 121/62 97 05/18/23 04:00 99.7 F 106 H 20 135/54 97 05/18/23 02:00 98.7 F 93 H 18 05/17/23 22:00 99.5 F 96 H 20 104/59 95 05/17/23 18:28 102 F 112 H 22 05/17/23 17:18 101.1 F 116 H 24 05/17/23 16:58 102.2 F 114 H 18 120/59 95 05/17/23 14:07 102.3 F 118 H 30 H 05/17/23 13:06 103.2 F 05/17/23 11:42 99.4 F 05/17/23 10:00 98.7 F 101 H 18 134/63 94 L Pain Assessment - Last Documented Pain Intensity 0 Pain Scale Used 0-10 Pain Scale Intake and Output: Intake & Output 05/15/23 05/16/23 05/17/23 05/18/23 11:59 11:59 11:59 11:59 Intake Total 1000 1680 1860 3051 Output Total 700 1 250 Balance 300 1679 1860 2801 Weight 138.6 kg 138.6 kg 141.3 kg 139.8 kg Lab Results: Lab Results-Last 24 Hours 05/17/23 05/17/23 05/17/23 Range/Units 04:35 08:57 11:39 WBC (4.0-10.5) x10^3/uL RBC (4.1-5.6) x10^6/uL Hgb (12.5-18.0) g/dL Hct (42-50) % MCV (78-100) fL MCH (26-32) pg MCHC (32-36) g/dL RDW (11.5-14.0) % Plt Count (150-450) x10^3/uL MPV (7.5-11.0) fL Sodium (135-145) mmol/L Potassium (3.5-5.1) mmol/L Chloride (98-107) mmol/L Carbon Dioxide (22-30) mmol/L Anion Gap (5-15) MEQ/L BUN (9-20) mg/dL Creatinine (0.66-1.25) mg/dL Estimated GFR ML/MIN Glucose (74-106) mg/dL POC Glucometer 132 H (74 to 106) mg/dL Calcium (8.4-10.2) mg/dL Total Bilirubin (0.2-1.3) mg/dL AST (17-59) U/L ALT (0-50) U/L Alkaline Phosphatase (38-126) U/L Creatine Kinase (55-170) U/L Serum Total Protein (6.3-8.2) g/dL Albumin (3.5-5.0) g/dL Vancomycin Trough 6.97 L (10-20) ug/mL C. difficile Screen NEGATIVE (NEGATIVE) C.difficile 027-NAP1-B1 PRESUMPTIVE NEGATIVE (NEGATIVE) 05/17/23 05/17/23 05/18/23 Range/Units 16:21 21:46 05:15 WBC (4.0-10.5) x10^3/uL RBC (4.1-5.6) x10^6/uL Hgb (12.5-18.0) g/dL Hct (42-50) % MCV (78-100) fL MCH (26-32) pg MCHC (32-36) g/dL RDW (11.5-14.0) % Plt Count (150-450) x10^3/uL MPV (7.5-11.0) fL Sodium (135-145) mmol/L Potassium (3.5-5.1) mmol/L Chloride (98-107) mmol/L Carbon Dioxide (22-30) mmol/L Anion Gap (5-15) MEQ/L BUN (9-20) mg/dL Creatinine (0.66-1.25) mg/dL Estimated GFR ML/MIN Glucose (74-106) mg/dL POC Glucometer 271 H 180 H (74 to 106) mg/dL Calcium (8.4-10.2) mg/dL Total Bilirubin (0.2-1.3) mg/dL AST (17-59) U/L ALT (0-50) U/L Alkaline Phosphatase (38-126) U/L Creatine Kinase 2328 H (55-170) U/L Serum Total Protein (6.3-8.2) g/dL Albumin (3.5-5.0) g/dL Vancomycin Trough (10-20) ug/mL C. difficile Screen (NEGATIVE) C.difficile 027-NAP1-B1 (NEGATIVE) 05/18/23 05/18/23 05/18/23 Range/Units 05:15 05:15 06:44 WBC 3.9 L (4.0-10.5) x10^3/uL RBC 3.62 L (4.1-5.6) x10^6/uL Hgb 10.5 L (12.5-18.0) g/dL Hct 32.2 L (42-50) % MCV 89.0 (78-100) fL MCH 29.0 (26-32) pg MCHC 32.6 (32-36) g/dL RDW 12.3 (11.5-14.0) % Plt Count 101 L (150-450) x10^3/uL MPV 12.4 H (7.5-11.0) fL Sodium 133 L (135-145) mmol/L Potassium 4.2 (3.5-5.1) mmol/L Chloride 108 H (98-107) mmol/L Carbon Dioxide 19 L (22-30) mmol/L Anion Gap 10.4 (5-15) MEQ/L BUN 14 (9-20) mg/dL Creatinine 0.79 (0.66-1.25) mg/dL Estimated GFR 119.6 ML/MIN Glucose 273 H (74-106) mg/dL POC Glucometer 273 H (74 to 106) mg/dL Calcium 7.5 L (8.4-10.2) mg/dL Total Bilirubin 0.80 (0.2-1.3) mg/dL AST 58 (17-59) U/L ALT 36 (0-50) U/L Alkaline Phosphatase 50 (38-126) U/L Creatine Kinase (55-170) U/L Serum Total Protein 5.6 L (6.3-8.2) g/dL Albumin 2.7 L (3.5-5.0) g/dL Vancomycin Trough (10-20) ug/mL C. difficile Screen (NEGATIVE) C.difficile 027-NAP1-B1 (NEGATIVE) Radiology Exams: Radiology Procedures Category Date Time Status ABDOMEN AND PELVIS W&WO CONTRA [CT] Routine Exams 05/18/23 08:12 Ordered CHEST 1 VIEW (PORTABLE) Stat Exams 05/17/23 12:00 Completed CHEST 1 VIEW (PORTABLE) Stat Exams 05/17/23 12:07 Completed FLUOROSCOPY UP TO 1 HR Routine Exams 05/16/23 13:20 Completed FOOT (MINIMUM 3 VIEWS) Routine Exams 05/16/23 13:19 Completed US ABDOMEN LIMITED [ABDOMINAL-LIMITED] [US] Routine Exams 05/16/23 09:10 Completed Multi-Disciplinary Progress Notes: Multi-Disciplinary Progress Notes 05/17/23 09:15 (created 05/17/23 09:54) Case Management Note by Syeda Ramos DISCUSSION WITH PT AND REGARDING NEEDS FOR DISCHARGE. DISCUSSED OPTIONS FOR IV [facility] : OUTPATIENT VS HOME INFUSIONS, IF HIS INSURANCE WILL COVER. ALSO DISCUSSED THAT HHC WOULD BE NEEDED IF HOME INFUSIONS/WOUND CARE IS ORDERED. ENCOURAGED PT/ TO DISCUSS THIS WITH PROVIDER AND ONCE WE RECEIVE ORDERS THE IV INFUSION COMPANY WOULD HAVE TO RUN THE INSURANCE TO CHECK COVERAGE. PT AND BOTH VERBALIZE UNDERSTANDING OF ALL INFORMATION. THEY PREFER TO DO AT HOME, BUT CAN COME TO OUTPATIENT FOR IV INFUSIONS/PICC CARE/WOUND CARE IF NEEDED. ALSO DISCUSSED AIDES FOR MOBILITY, PT IS UNSURE WHAT HE WOULD PREFER. DISCUSSED THAT P.T. WOULD BE WORKING WITH PT TO RECOMMEND A SAFE OPTION. PT AND BOTH AGREEABLE FOR THIS. PT REPORTS THAT HE IS STILL NOT FEELING WELL, BUT WOULD LOVE TO BE HOME AND SLEEP IN HIS OWN BED. EDUCATED PT AND THAT WE DO NOT WANT TO DISCHARGE HIM HOME UNTIL THE PHYSICIANS THINK HE IS MEDICALLY READY, AND ALL FOLLOWUP CARE HAS BEEN ARRANGED FOR. WE WANT HIM TO HAVE THE BEST POSSIBLE OUTCOME. PT AND BOTH VERBALIZED UNDERSTAND ING AND ARE WILLING TO DO WHATEVER IS NEEDED. EMOTIONAL SUPPORT PROVIDED. Initialized on 05/17/23 09:54 - END OF NOTE Assessment/Plan (1) Diabetes mellitus Current Visit: No Status: Chronic Qualifiers: Diabetes mellitus type: type 2 Code(s): E11.9 - TYPE 2 DIABETES MELLITUS WITHOUT COMPLICATIONS (2) Diabetic foot ulcer Current Visit: No Status: Acute Qualifiers: Diabetes mellitus type: type 2 Laterality: right Assessment & Plan: Patient examination and evaluation at bedside this AM Wound inspected this AM with mild purulence noted on compression of dorsal forefoot. Discussion held with patient in regards to management. Given patients clinical symptoms and local sign of infection i believe necessary to proceed with at minimum repeat incision and draiange At this time timeout was called identifying patient procedure and antibiotics. Attention was directed to the dorsal aspect of the right foot where the right foot was prepped and draped in the aseptic manner. Stitches were removed. An incision was carried down to the level of bone over the dorsal webspace of the fourth and fifth metatarsals where mild purulence was expressed. Full-thickness flaps were maintained holding close to the level of bone and elevating the soft tissue over the fourth and third as well as the fifth metatarsals. Mild purulence was tracking to the base of the fourth digit laterally therefore the incision was carried down to the lateral aspect of the fourth connecting to the wound where a mild abscess was identified and resected utilizing a 15 blade. Following this the bone was debrided of any residual infection or necrotic tissue. 1000 mL of sterile saline was then utilized to flush the surgical site a 3-0 nylon was then utilized in a trauma suture type fashion at the distal and proximal extent of the incision coapting loosely the skin edges. Quarter inch iodoform packing soaked in iodine was then packed into the wound lightly. A dressing consisting of Betadine Adaptic 4 x 4 and Unna boot Curlex ABD and Coban was applied to the right lower extremity with approximately 50 to 75% compressi on for localized edema. Patient handled the procedure without significant complication. No current changes in postop orders. Discussion with with decision for change in antibiotics secondary to increase in creatinine kinase.Discontinue daptomycin. Invanz versus Zosyn. Medicine to manage antibiotics, appreciate recommendations. White blood cells down to 3.9 today. Fevers continuing of 102.9. Wound cultures and blood cultures both growing Staph aureus Discussion was held with the patient at bedside today in regards to possibility of need for amputation. Patient's clinical picture did not fit presentation until today however would like to proceed if clinical picture is improving over the next several days to wait for bone biopsies. Patient hesitant to undergo amputation, understandably, however if clinical picture is not improving we will proceed with the transmetatarsal amputation as discussed. Will continue to monitor closely Code(s): E11.621 - TYPE 2 DIABETES MELLITUS WITH FOOT ULCER; L97.509 - NON- PRESSURE CHRONIC ULCER OTH PRT UNSP FOOT W UNSP SEVERITY (3) Cellulitis Current Visit: No Status: Acute Qualifiers: Site of cellulitis: extremity Site of cellulitis of extremity: lower extremity Laterality: right Qualified Code(s): L03.115 - Cellulitis of right lower limb Code(s): L03.90 - CELLULITIS, UNSPECIFIED (4) Leukocytosis Current Visit: No Status: Acute Code(s): D72.829 - ELEVATED WHITE BLOOD CELL COUNT, UNSPECIFIED (5) Hypothyroidism Current Visit: No Status: Acute Code(s): E03.9 - HYPOTHYROIDISM, UNSPECIFIED (6) Peripheral neuropathy Current Visit: No Status: Acute Code(s): G62.9 - POLYNEUROPATHY, UNSPECIFIED (7) Uncontrolled diabetes mellitus Current Visit: No Status: Acute Code(s): [id number] - (8) Diabetic ulcer of right foot Current Visit: No Status: Acute Code(s): E11.621 - TYPE 2 DIABETES MELLITUS WITH FOOT ULCER; L97.519 - NON-PRS CHRONIC ULCER OTH PRT RIGHT FOOT W UNSP SEVERITY (9) Fever Current Visit: Yes Status: Acute Code(s): R50.9 - FEVER, UNSPECIFIED (10) Sepsis Current Visit: Yes Status: Acute (11) ORIANA (acute kidney injury) Current Visit: Yes Status: Acute Code(s): N17.9 - ACUTE KIDNEY FAILURE, UNSPECIFIED (12) Diabetes Current Visit: Yes Status: Chronic Qualifiers: Diabetes mellitus type: type 2 Diabetes mellitus complication detail: with polyneuropathy Code(s): E11.9 - TYPE 2 DIABETES MELLITUS WITHOUT COMPLICATIONS (13) Tachycardia Current Visit: Yes Status: Acute Code(s): R00.0 - TACHYCARDIA, UNSPECIFIED (14) Obesity (BMI 30-39.9) Current Visit: Yes Status: Chronic Code(s): E66.9 - OBESITY, UNSPECIFIED (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
[2023-05-18] MEDS: Acidophilus TABLET PO SCH (09:42)
[2023-05-18] MEDS: PIPERACILLIN/TAZOBACTAM 3.375 GM in Sodium Chloride 100ML MINI-BAG PLUS 100 ML IV SCH (09:44)
--- NOTE | 2023-05-18 10:17 | PCM.NOTE ---
Date and Time: 05/18/23 0943 Subjective Assessment: 05/15/23 Mr.KING MENDOZA is a 32 year old male with PMHX of Type II DM, hypothyroidism, thyroid CA, bipolar, and obesity. He reports a chronic foot wound that he follow Dr. Loving for. He was brought into the emergency department by private vehicle by his significant other. Patient states that he has been having vomiting, body aches, headaches since yesterday. Symptoms have persisted. Patient has been taking his insulin medication. Patient has not had any exposures to individuals with similar symptoms. + generalized abdominal pain. He denies CP, SOB, diarrhea or constipation. In ER initial Lactate was 3.1 after fluid bolus repeat LA was 1.7. Temp 99.7 and WBC 12.3. He is dehydrated and will continue IVF. Will have podiatry consult as this may be source of infection. Continue antibiotics per podiatry recs. Levaquin started in ER. 05/16/23 Pt resting in bed. He has continued to run a temp all night despite Tylenol being given. He states he continues to not feel well. He continues to c/o RUQ and RLQ pain with palpation that radiates to right leg. Palpation makes it worse. Nothing makes it better. CT abd completed yesterday and showed distended bladder. Bladder scan yesterday on floor showed only 20cc of urine. Today post void bladder scan showed 162 cc. Pt denies any concerns with urination. US ordered for further evaluation of abd pain. He is currently NPO and scheduled for a bone biopsy with podiatry today at 1300. He reports no foot pain as he has neuropathy. He continues to have RLE edema and erythema. CT scan of RLE showed cellulitis and minimal osteomyelitis of 2-5th toes. Continue IVF for dehydration. Pt denies CP, SOB, N/V/D. 05/16 Pt resting in bed. He states he feels a little bit better today. He continued to have a fever all night. HR is down to 80's today. Temp currently 99 F. He continues to have some RLQ pain with palpation only. US yesterday showed gas, simethicone added. He is scheduled to have a PICC line placed at 10 am today. He is currently NPO for this. WBC 5.3 today. Yesterday he had multiple biopsies including bone of right foot with podiatry. right foot wrapped and to be evaluated by podiatry today. Will continue antibiotics and fluids. He denies CP, SOB, N/V/D. 05/18/23 Pt resting in bed. He c/o still not feeling well. He spiked a fever again this A.M. of 102.9. Discussed case with Dr. Loving. He was able to drain right foot with + purulent drainage this AM. Daptomycin stopped as CK elevated. Restarted Zosyn, ok with podiatry. Lactic acid 1.1. Pt has a hx of bipolar and states he just stopped taking geodon and never f/u with [facility] in Feb. Today he is tearful and states his life is over among other depressing remarks to nursing staff. Will restart geodon at last dose prescribed from [facility] for bipolar. He denies homicidal or suicidal ideation. He dnies CP, SOB, N/V/D. - Review of Systems Constitutional: No Fever, No Chills Eyes: No Symptoms Ears, Nose, & Throat: No Symptoms Respiratory: No Cough, No Short Of Breath Cardiac: No Chest Pain, No Edema, No Syncope Abdominal/Gastrointestinal: Abdominal Pain (LLQ- sharp and dull intermittent), No Nausea, No Vomiting, No Diarrhea Genitourinary Symptoms: No Dysuria Musculoskeletal: No Back Pain, No Neck Pain Skin: Other (RLE edema and puncture wound. ), No Rash Neurological: No Dizziness, No Focal Weakness, No Sensory Changes Psychological: No Symptoms, Depression, Emotional Lability, Mood Changes Endocrine: No Symptoms Hematologic/Lymphatic: No Symptoms Immunological/Allergic: No Symptoms Objective Exam General Appearance: no apparent distress, alert, obese Neurologic Exam: alert, oriented x 3, cooperative, nml cerebellar function, sensation nml, depressed mood/affect, No motor deficits Skin Exam: normal color, warm, dry, other (RLE procedure today by podiatry - please refer to note in chart. + edema of RLE) Wound Assessment: Skin/Wound Assessment Wound/Incision Assessment Start: 05/17/23 10:13 Text: Status: Active Freq: Q6H Protocol: Document 05/18/23 08:00 [facility] (Rec: 05/18/23 09:29 [facility] [id number]) Wound/Incision Assessment Right Dorsal Foot Wound Assessment Shift Assessment Wound Type Incision Wound Stage Non Pressure Wound Dressing Status Changed Drainage Description Purulent Drainage Odor None/Absent General Appearance Sutures Intact,Unapproximated Surrounding Tissue Edematous,Weeping Topical Solution/Irrigant Saline Irrigant Packing Type Gauze Packing Strips Primary Dressing Adaptic Non-Adherent Secondary Dressing Sterile 4X4 and Unaboot Comment Dressing changed by Dr. Loving this morning. Right Base of 4th & 5th Digit Wound Assessment Shift Assessment Wound Type Diabetic Ulcer Wound Stage Non Pressure Wound Dressing Status Changed Drainage Amount None Drainage Odor None/Absent Topical Solution/Irrigant Saline Irrigant Primary Dressing Adaptic Non-adherent Secondary Dressing Sterile 4X4 and Kerlix Comment Dressing changed by Dr. Loving this morning. Right Plantar Foot Wound Assessment Shift Assessment Wound Type Diabetic Ulcer Wound Stage Non Pressure Wound Dressing Status Changed Drainage Amount None Drainage Odor None/Absent Topical Solution/Irrigant Saline Irrigant Primary Dressing Lovely boot Comment Dressings changed by Dr. Loving this morning. Wound Photo Photo Taken No Eye Exam: PERRL, EOMI, eyes nml inspection Ears, Nose, Throat Exam: normal ENT inspection, pharynx normal, moist mucous membranes Neck Exam: normal inspection, non-tender, supple, full range of motion Respiratory Exam: normal breath sounds, lungs clear, No respiratory distress Cardiovascular Exam: regular rate/rhythm, normal heart sounds Gastrointestinal/Abdomen Exam: soft, No tenderness, No mass Extremity Exam: normal inspection, normal range of motion Back Exam: normal inspection, normal range of motion, No CVA tenderness, No vertebral tenderness Male Genitalia Exam: deferred Rectal Exam: deferred Objective Data Vital Signs: Vital Signs - 24 hr Temp Pulse Resp BP BP Pulse Ox 05/18/23 06:00 102.9 F 111 H 32 H 121/62 97 05/18/23 04:00 99.7 F 106 H 20 135/54 97 05/18/23 02:00 98.7 F 93 H 18 05/17/23 22:00 99.5 F 96 H 20 104/59 95 05/17/23 18:28 102 F 112 H 22 05/17/23 17:18 101.1 F 116 H 24 05/17/23 16:58 102.2 F 114 H 18 120/59 95 05/17/23 14:07 102.3 F 118 H 30 H 05/17/23 13:06 103.2 F 05/17/23 11:42 99.4 F 05/17/23 10:00 98.7 F 101 H 18 134/63 94 L Pain Assessment - Last Documented Pain Intensity 0 Pain Scale Used 0-10 Pain Scale Intake and Output: Intake & Output 05/15/23 05/16/23 05/17/23 05/18/23 11:59 11:59 11:59 11:59 Intake Total 1000 1680 1860 3051 Output Total 700 1 250 Balance 300 1679 1860 2801 Weight 138.6 kg 138.6 kg 141.3 kg 139.8 kg Lab Results: Lab Results-Last 24 Hours 05/17/23 05/17/23 05/17/23 Range/Units 04:35 11:39 16:21 WBC (4.0-10.5) x10^3/uL RBC (4.1-5.6) x10^6/uL Hgb (12.5-18.0) g/dL Hct (42-50) % MCV (78-100) fL MCH (26-32) pg MCHC (32-36) g/dL RDW (11.5-14.0) % Plt Count (150-450) x10^3/uL MPV (7.5-11.0) fL Sodium (135-145) mmol/L Potassium (3.5-5.1) mmol/L Chloride (98-107) mmol/L Carbon Dioxide (22-30) mmol/L Anion Gap (5-15) MEQ/L BUN (9-20) mg/dL Creatinine (0.66-1.25) mg/dL Estimated GFR ML/MIN Glucose (74-106) mg/dL POC Glucometer 132 H 271 H (74 to 106) mg/dL Lactic Acid (0.4-2.0) Calcium (8.4-10.2) mg/dL Total Bilirubin (0.2-1.3) mg/dL AST (17-59) U/L ALT (0-50) U/L Alkaline Phosphatase (38-126) U/L Creatine Kinase (55-170) U/L Serum Total Protein (6.3-8.2) g/dL Albumin (3.5-5.0) g/dL C. difficile Screen NEGATIVE (NEGATIVE) C.difficile [id number]-NAP1-B1 PRESUMPTIVE NEGATIVE (NEGATIVE) 05/17/23 05/18/23 05/18/23 Range/Units 21:46 05:15 05:15 WBC 3.9 L (4.0-10.5) x10^3/uL RBC 3.62 L (4.1-5.6) x10^6/uL Hgb 10.5 L (12.5-18.0) g/dL Hct 32.2 L (42-50) % MCV 89.0 (78-100) fL MCH 29.0 (26-32) pg MCHC 32.6 (32-36) g/dL RDW 12.3 (11.5-14.0) % Plt Count 101 L (150-450) x10^3/uL MPV 12.4 H (7.5-11.0) fL Sodium (135-145) mmol/L Potassium (3.5-5.1) mmol/L Chloride (98-107) mmol/L Carbon Dioxide (22-30) mmol/L Anion Gap (5-15) MEQ/L BUN (9-20) mg/dL Creatinine (0.66-1.25) mg/dL Estimated GFR ML/MIN Glucose (74-106) mg/dL POC Glucometer 180 H (74 to 106) mg/dL Lactic Acid (0.4-2.0) Calcium (8.4-10.2) mg/dL Total Bilirubin (0.2-1.3) mg/dL AST (17-59) U/L ALT (0-50) U/L Alkaline Phosphatase (38-126) U/L Creatine Kinase 2328 H (55-170) U/L Serum Total Protein (6.3-8.2) g/dL Albumin (3.5-5.0) g/dL C. difficile Screen (NEGATIVE) C.difficile 027-NAP1-B1 (NEGATIVE) 05/18/23 05/18/23 05/18/23 Range/Units 05:15 06:44 08:08 WBC (4.0-10.5) x10^3/uL RBC (4.1-5.6) x10^6/uL Hgb (12.5-18.0) g/dL Hct (42-50) % MCV (78-100) fL MCH (26-32) pg MCHC (32-36) g/dL RDW (11.5-14.0) % Plt Count (150-450) x10^3/uL MPV (7.5-11.0) fL Sodium 133 L (135-145) mmol/L Potassium 4.2 (3.5-5.1) mmol/L Chloride 108 H (98-107) mmol/L Carbon Dioxide 19 L (22-30) mmol/L Anion Gap 10.4 (5-15) MEQ/L BUN 14 (9-20) mg/dL Creatinine 0.79 (0.66-1.25) mg/dL Estimated GFR 119.6 ML/MIN Glucose 273 H (74-106) mg/dL POC Glucometer 273 H (74 to 106) mg/dL Lactic Acid 1.1 (0.4-2.0) Calcium 7.5 L (8.4-10.2) mg/dL Total Bilirubin 0.80 (0.2-1.3) mg/dL AST 58 (17-59) U/L ALT 36 (0-50) U/L Alkaline Phosphatase 50 (38-126) U/L Creatine Kinase (55-170) U/L Serum Total Protein 5.6 L (6.3-8.2) g/dL Albumin 2.7 L (3.5-5.0) g/dL C. difficile Screen (NEGATIVE) C.difficile 027-NAP1-B1 (NEGATIVE) Radiology Exams: Radiology Procedures Category Date Time Status CHEST 1 VIEW (PORTABLE) Stat Exams 05/17/23 12:00 Completed CHEST 1 VIEW (PORTABLE) Stat Exams 05/17/23 12:07 Completed FLUOROSCOPY UP TO 1 HR Routine Exams 05/16/23 13:20 Completed FOOT (MINIMUM 3 VIEWS) Routine Exams 05/16/23 13:19 Completed US ABDOMEN LIMITED [ABDOMINAL-LIMITED] [US] Routine Exams 05/16/23 09:10 Completed Assessment/Plan (1) Sepsis Current Visit: Yes Status: Acute Qualifiers: Sepsis acute organ dysfunction status: without acute organ dysfunction (2) Diabetic ulcer of right foot Current Visit: No Status: Acute Code(s): E11.621 - TYPE 2 DIABETES MELLITUS WITH FOOT ULCER; L97.519 - NON-PRS CHRONIC ULCER OTH PRT RIGHT FOOT W UNSP SEVERITY (3) ORIANA (acute kidney injury) Current Visit: Yes Status: Acute Code(s): N17.9 - ACUTE KIDNEY FAILURE, UNSPECIFIED (4) Dehydration Current Visit: Yes Status: Acute Code(s): E86.0 - DEHYDRATION (5) Hyponatremia Current Visit: Yes Status: Acute Code(s): E87.1 - HYPO-OSMOLALITY AND HYPONATREMIA (6) Diabetes Current Visit: Yes Status: Chronic Qualifiers: Diabetes mellitus type: type 2 Diabetes mellitus complication detail: with polyneuropathy Code(s): E11.9 - TYPE 2 DIABETES MELLITUS WITHOUT COMPLICATIONS (7) Tachycardia Current Visit: Yes Status: Acute Code(s): R00.0 - TACHYCARDIA, UNSPECIFIED (8) Abdominal pain Current Visit: Yes Status: Acute Code(s): R10.9 - UNSPECIFIED ABDOMINAL PAIN (9) Fever Current Visit: Yes Status: Acute Code(s): R50.9 - FEVER, UNSPECIFIED (10) Hx MRSA infection Current Visit: Yes Status: Chronic Code(s): Z86.14 - PERSONAL HISTORY OF METHICILLIN RESIS STAPH INFECTION (11) Obesity (BMI 30-39.9) Current Visit: Yes Status: Chronic Code(s): E66.9 - OBESITY, UNSPECIFIED (12) Hypocalcemia Current Visit: Yes Status: Acute Assessment & Plan: (1) Sepsis Current Visit: Yes Status: Acute Assessment & Plan: - 2:2 DM wound of right foot - HR > 90, WBC > 12 - BC x2 - UA with C&S - wound culture - LA on admission 3.1- fluid bolus in ER, repeat LA 1.7 in ER - Cont IVF - antibiotics per podiatry recs - Levaquin gave in ER 05/15 - BC x2 +, gram + ID- sensitivity pending - Picc line placement tomorrow - WBC improving 10.8 05/16 - WBC 5.3 - + fever all night - BC X2 Gram + cocci- Staph aureus - Wound culture x2- + Staph aureus - Sensitivity of all results reviewed - Continue same antibiotics for now. 05/17 - fever agian ths am of 102.9 - podiatry I& D with purulent drainage of RLE - Daptomycin stopped d/t CK elevated - restart zosyn - Lactic acid 1.1 (2) Diabetic ulcer of right foot Current Visit: No Status: Acute Assessment & Plan: - Acute on chronic- follows Dr. Loving OP - Wound culture right 4th toe and bottom of right foot - hx of MRSA - podiatry consult - Levaquin started in ER- stopped - Antibiotics per podiatry recs- vanc and zosyn with pharmacy to dose - MRI RLE - If podiatry not doing procedure today then can eat ADA diet 05/15 - Scheduled for bone biopsy at 1300 today with podiatry - NPO - MRI RLE: Impression: Worsening diffuse enhancing cellulitis involving subcutaneous and deep soft tissues. No walled off fluid collection/abscess. New minimal osteomyelitis 2nd-5th metatarsals, 2nd/3rd cuneiforms, and cuboid. - BC x2 +, gram + ID- sensitivity pending - Picc line placement tomorrow 05/16 - PICC line today a 10am, NPO for this - Right foot wrapped since procedures yesterday. - Per podiatry charting- multiple bone biopsies - all cultures + for staph aureus - Continue with same antibiotics 05/17 - fever agian ths am of 102.9 - podiatry I& D with purulent drainage of RLE - Daptomycin started by podiatry on 05/16 - Daptomycin stopped d/t CK elevated - restart zosyn Code(s): E11.621 - TYPE 2 DIABETES MELLITUS WITH FOOT ULCER; L97.519 - NON-PRS CHRONIC ULCER OTH PRT RIGHT FOOT W UNSP SEVERITY (3) ORIANA (acute kidney injury) Current Visit: Yes Status: Acute Assessment & Plan: - Creat 1.36- baseline normal - IVF - recheck in AM 05/15 - resolved - IBP started for fever 05/16 - Creat 1.31 - stop IBP 05/17 - resolved Code(s): N17.9 - ACUTE KIDNEY FAILURE, UNSPECIFIED (4) Dehydration Current Visit: Yes Status: Acute Assessment & Plan: - anion gap 19.0 - IVF 05/15 - anion gap 16.9 - continue IVF 05/16 - anion gap 8.9- resolved - Cont IVF as pt continues to have fever and ORIANA Code(s): E86.0 - DEHYDRATION (5) Hyponatremia Current Visit: Yes Status: Acute Assessment & Plan: - Mild Na+134- trend - Cont IVF - 2:2 fever, vomiting 05/15 - Na+ 134- mild 05/16 - Na+ 132 mild 05/17 - Na+ 130- mild- improving Code(s): E87.1 - HYPO-OSMOLALITY AND HYPONATREMIA (6) Diabetes Current Visit: Yes Status: Chronic Qualifiers: Diabetes mellitus type: type 2 Diabetes mellitus complication detail: with foot ulcer Assessment & Plan: - A1C 7.2 uncontrolled - accuchecks ac/HS - Humalog 15 units BID per home dose - Will ask pt if he can bring in home insulin of Xultophy. If not will start 50 unit s of lantus daily with moderate dose s/s with meals. Code(s): E11.9 - TYPE 2 DIABETES MELLITUS WITHOUT COMPLICATIONS (7) Tachycardia Current Visit: Yes Status: Acute Assessment & Plan: - 2:2 N/V, dehydration, ORIANA, fever - tele - EKG 05/15 - continued tachycardia 05/16 - resolved 05/17 - tachy with fever only Code(s): R00.0 - TACHYCARDIA, UNSPECIFIED (8) Abdominal pain Current Visit: Yes Status: Acute Assessment & Plan: - Compazine PRN N/V - CT Abd. and pelvis 05/15/23 Impression: 1. Respiration artifact. 2. Markedly distended urinary bladder. Rule out outlet obstruction versus neurogenic bladder. 3. Indeterminant 1 cm right lung base noncalcified nodule. Outside comparison studies recommended if available. If not, baseline CT with follow-up per Fleischner guidelines recommend. 4. Remaining CT abdomen/pelvis without contrast exam grossly negative. - PRN bladder scan - Accurate I&O's - Consider amin for acute urinary retention - Sxs improved since admission 05/15 - US abd Sonogram limited due to overlying bowel gas and patient unable to follow breathing instructions. Pancreas and gallbladder not well-visualized. Liver is enlarged measuring 21.3 cm. Visualized liver is negative for focal solid/cystic hepatic mass or ascites. Common bile duct measures 4.4 mm. No intrahepatic biliary distention. Right kidney measures 12.9 x 6.8 x 6.3 cm sonographic unremarkable. Impression: Limited right upper quadrant sonogram. Nonvisualization pancreas and gallbladder. Hepatomegaly. See CT abdomen/pelvis exam one day earlier. 05/16 - Gas-x added 05/17 - continued abd pain - may need repeat CT if sxs continue or worsen Code(s): R10.9 - UNSPECIFIED ABDOMINAL PAIN (9) Fever Current Visit: Yes Status: Acute Assessment & Plan: - temp 99. 7 - tylenol PRN - BC x2 - UA with C&S - 2:2 DM foot wound infection - CXR 05/14 Portable apical lordotic chest less inflated and clear. Heart not enlarged. Bony thorax intact. Impression: Nonacute underinflated chest 05/15 - continued 2:2 DM wound/ infection - IBP added 05/16 - + fever all night - 99F today - IBP stopped d/t ORIANA 05/17 - Cont IBP ORIANA resolved Code(s): R50.9 - FEVER, UNSPECIFIED (10) Hx MRSA infection Current Visit: Yes Status: Chronic Assessment & Plan: - place in isolation- contact Code(s): Z86.14 - PERSONAL HISTORY OF METHICILLIN RESIS STAPH INFECTION (11) Obesity (BMI 30-39.9) Current Visit: Yes Status: Chronic Assessment & Plan: - Advised ADA diet and exercise control Code(s): E66.9 - OBESITY, UNSPECIFIED (12) Hypocalcemia Current Visit: Yes Status: Acute Assessment & Plan: - corrected Ca+ 8.3 - Start Tums BID 05/17 - corrected Ca+ 8.1 - continue TUMS Code(s): E83.51 - HYPOCALCEMIA (13) Thrombocytopenia Current Visit: Yes Status: Acute Assessment & Plan: - 2:2 infection- mild - Platelets 101 (14) Diarrhea Current Visit: Yes Status: Acute Assessment & Plan: - 2:2 antibiotcs - c-diff negative - start acidophilus Code(s): R19.7 - DIARRHEA, UNSPECIFIED (15) Carbon dioxide, decreased level Current Visit: Yes Status: Acute Assessment & Plan: - 19 trend - 2:2 diarrhea - see plan for diarrhea above Code(s): R79.81 - ABNORMAL BLOOD-GAS LEVEL (16) Bipolar 1 disorder Current Visit: Yes Status: Acute Assessment & Plan: - restarted Geodon as taken previously. - pt admit to stopping medication this winter and not f/u with [facility] mental health concerns - Pt denies homicidal or suicidal ideations. - will need appointment with [facility] at D/C for f/u. VTE: SCD's PPI: pantoprazole Next of Kin: Jaimie [phone] D/C plan: 2-3 days Code status: Full Code(s): F31.9 - BIPOLAR DISORDER, UNSPECIFIED
[2023-05-18] MEDS: Geodon 20 MG Capsule PO SCH (11:33)
[2023-05-18] MEDS: PIPERACILLIN/TAZOBACTAM 3.375 GM in Dextrose 5%/Water IV Soln. 100ML PLUS BAG 100 ML IV SCH (16:27)
[2023-05-19 05:39] LABS: Hematocrit 31.2 % (42-50); Hemoglobin 10.2 g/dL (12.5-18.0); Mean Cell Volume 89.7 fL (78-100); Mean Corpuscular Hemoglobin 29.3 pg (26-32); Mean Corpuscular Hgb Concent. 32.7 g/dL (32-36); Mean Platelet Volume 12.2 fL (7.5-11.0); Platelet Count 128 x10^3/uL (150-450); Red Blood Count 3.48 x10^6/uL (4.1-5.6); Red Cell Distribution Width 12.9 % (11.5-14.0); White Blood Count 5.2 x10^3/uL (4.0-10.5)
[2023-05-19 06:08] LABS: ANION GAP 9.9 MEQ/L (5-15); BILIRUBIN,TOTAL 0.8 mg/dL (0.2-1.3); Calcium 7.9 mg/dL (8.4-10.2); Creatinine 1 0.83 mg/dL (0.66-1.25); EST GLOMERULAR FILTRATION RATE 117.8 ML/MIN; Total Protein 6.3 g/dL (6.3-8.2)
[2023-05-19 06:15] LABS: Potassium 4.3 mmol/L (3.5-5.1)
--- NOTE | 2023-05-19 08:05 | PCM.NOTE ---
Date and Time: 05/19/23801 Subjective Assessment: Patient seen POD #3 with incision and drainage to right foot. Repeat preformed at bedside due to continued purulence and fevers. Wound inspected with no residual signs of infection Fevers appear to be resolving. Patient with continued abdominal pain and minor cough. Patient admittedly feeling better mentally and physically. More sociable today. Physical Exam - Narrative Narrative Physical Exam: Podiatry Physical Exam Objective Data Vital Signs: Vital Signs - 24 hr Temp Pulse Resp BP Pulse Ox 05/19/23 07:05 98.3 F 85 20 119/72 96 05/19/23 04:00 98.9 F 90 19 98/58 93 L 05/19/23 00:00 99.2 F 98 H 18 128/72 96 05/18/23 21:00 99.6 F 91 H 20 113/69 94 L 05/18/23 17:17 100.9 F 122 H 26 H 05/18/23 16:00 101.0 F 108 H 19 125/67 99 05/18/23 10:00 97.9 F 107 H 17 124/65 95 Pain Assessment - Last Documented Pain Intensity 0 Pain Scale Used 0-10 Pain Scale Intake and Output: Intake & Output 05/16/23 05/17/23 05/18/23 05/19/23 11:59 11:59 11:59 11:59 Intake Total 1680 1860 3351 5019 Output Total 1 250 Balance 1679 1860 3101 5019 Weight 138.6 kg 141.3 kg 139.8 kg 140.6 kg Lab Results: Lab Results-Last 24 Hours 05/18/23 05/18/23 05/18/23 Range/Units 08:08 11:46 12:00 WBC (4.0-10.5) x10^3/uL RBC (4.1-5.6) x10^6/uL Hgb (12.5-18.0) g/dL Hct (42-50) % MCV (78-100) fL MCH (26-32) pg MCHC (32-36) g/dL RDW (11.5-14.0) % Plt Count (150-450) x10^3/uL MPV (7.5-11.0) fL Sodium (135-145) mmol/L Potassium (3.5-5.1) mmol/L Chloride (98-107) mmol/L Carbon Dioxide (22-30) mmol/L Anion Gap (5-15) MEQ/L BUN (9-20) mg/dL Creatinine (0.66-1.25) mg/dL Estimated GFR ML/MIN Glucose (74-106) mg/dL POC Glucometer 191 H (74 to 106) mg/dL Lactic Acid 1.1 (0.4-2.0) Calcium (8.4-10.2) mg/dL Total Bilirubin (0.2-1.3) mg/dL AST (17-59) U/L ALT (0-50) U/L Alkaline Phosphatase (38-126) U/L Creatine Kinase 2904 H (55-170) U/L Serum Total Protein (6.3-8.2) g/dL Albumin (3.5-5.0) g/dL 05/18/23 05/18/23 05/18/23 Range/Units 16:15 20:40 21:44 WBC (4.0-10.5) x10^3/uL RBC (4.1-5.6) x10^6/uL Hgb (12.5-18.0) g/dL Hct (42-50) % MCV (78-100) fL MCH (26-32) pg MCHC (32-36) g/dL RDW (11.5-14.0) % Plt Count (150-450) x10^3/uL MPV (7.5-11.0) fL Sodium (135-145) mmol/L Potassium (3.5-5.1) mmol/L Chloride (98-107) mmol/L Carbon Dioxide (22-30) mmol/L Anion Gap (5-15) MEQ/L BUN (9-20) mg/dL Creatinine (0.66-1.25) mg/dL Estimated GFR ML/MIN Glucose (74-106) mg/dL POC Glucometer 152 H 219 H (74 to 106) mg/dL Lactic Acid (0.4-2.0) Calcium (8.4-10.2) mg/dL Total Bilirubin (0.2-1.3) mg/dL AST (17-59) U/L ALT (0-50) U/L Alkaline Phosphatase (38-126) U/L Creatine Kinase 2597 H (55-170) U/L Serum Total Protein (6.3-8.2) g/dL Albumin (3.5-5.0) g/dL 05/19/23 05/19/23 05/19/23 Range/Units 05:27 05:27 06:55 WBC 5.2 (4.0-10.5) x10^3/uL RBC 3.48 L (4.1-5.6) x10^6/uL Hgb 10.2 L (12.5-18.0) g/dL Hct 31.2 L (42-50) % MCV 89.7 (78-100) fL MCH 29.3 (26-32) pg MCHC 32.7 (32-36) g/dL RDW 12.9 (11.5-14.0) % Plt Count 128 L (150-450) x10^3/uL MPV 12.2 H (7.5-11.0) fL Sodium 136 (135-145) mmol/L Potassium 4.3 (3.5-5.1) mmol/L Chloride 110 H (98-107) mmol/L Carbon Dioxide 21 L (22-30) mmol/L Anion Gap 9.9 (5-15) MEQ/L BUN 10 (9-20) mg/dL Creatinine 0.83 (0.66-1.25) mg/dL Estimated GFR 117.8 ML/MIN Glucose 129 H (74-106) mg/dL POC Glucometer 118 H (74 to 106) mg/dL Lactic Acid (0.4-2.0) Calcium 7.9 L (8.4-10.2) mg/dL Total Bilirubin 0.80 (0.2-1.3) mg/dL AST 59 (17-59) U/L ALT 39 (0-50) U/L Alkaline Phosphatase 51 (38-126) U/L Creatine Kinase 2029 H (55-170) U/L Serum Total Protein 6.3 (6.3-8.2) g/dL Albumin 3.0 L (3.5-5.0) g/dL Radiology Exams: Radiology Procedures Category Date Time Status CHEST 1 VIEW (PORTABLE) Stat Exams 05/17/23 12:00 Completed CHEST 1 VIEW (PORTABLE) Stat Exams 05/17/23 12:07 Completed Multi-Disciplinary Progress Notes: Multi-Disciplinary Progress Notes 05/18/23 11:38 Physical Therapy Note by Jhony(Essie#[id number]),[place] PATIENT SEEN AT BEDSIDE FOR GAIT TRAINING WITH NEW ASSISTIVE DEVICES - ROLLING WALKER AND KNEE SCOOTER AND INSTRUCTION IN AND PERFORMANCE OF LOWER EXTREMITY EXERCISES. NURSING STATES DR. JOYA IN THIS A.M. AND PERFORMED I&D OF RIGHT FOOT AND DESCRIBED INCISED THE LENGTH OF THE 4TH METATARSAL. NURSE REPORTS PURULENT DRAINAGE WAS PRESENT AND FOOT IRRIGATED, CLEANED AND REBANDAGED. PATIENT CONTINUES TO BE NON-WEIGHT BEARING. NURSE STATES THAT ATTEMPTS TO MAINTAIN NWB LAST NIGHT AND THIS MORNING WERE NOT SUCCESSFUL PATIENT CONTINUED TO DO WEIGHT-BEARING THROUGH THE HEEL. SUBJECTIVE: PATIENT REPORTS WITH I&D THIS MORNING HAD A LITTLE FEELING IN THE FOOT BUT "NOT MUCH". ACKNOWLEDGED NON-COMPLIANCE WITH WEIGHT-BEARING BUT THINKS HE CAN DO IT JUST TAKES MORE EFFORT. AFTER EDUCATION ON THE NEED FOR NWB FOR HEALING AND HOPEFULLY PREVENT AMPUTATION OF FOOT WHICH M.D. DISCUSSED WITH HIM THIS MORNING, PATIENT VERBALIZED UNDERSTANDING AND DESIRE TO DO WHAT HE NEEDS TO DO. SPOUSE BROUGHT IN KNEE SCHOOER THIS MORNING FROM [facility] [employer] AND PATIENT WANTS TO TRY TO USE IT IF POSSIBLE OBJECTIVE: BED MOBILITY: IN BED PATIENT DEMONSTRATING ABILITY TO PERFORM SLR AND HOOKLYING MARCH ON RIGHT. ALSO ABLE TO PERFORM SUPINE HIP ABDUCTION SUSTAINING FOOT OFF BED. PATIENT ABLE TO DEMONSTRATE SUPINE TO LEFT SIDELYING TO SITING ON EDGE OF BED WITH BEDRAIL ASSIST. ABLE TO DEMONSTRATE SITTING ON EDGE OF BED TO SIDELYING INDEP WITHOUT BEDRAIL ASSIST. ABLE TO SCOOT BACK IN BED AND SIDE TO SIDE NOT USING RIGHT LE TO PERFORM MAINTAINING NWB. TRANSFERS: EDUCATED PATIENT ON PROPER HAD PLACEMENT WITH SIT TO STAND TO SIT USING 2 WHEELED WALKER. PERFORMED X 3. REQUIRED CUE X 1 FOR HAND PLACEMENT ON SIT TO STAND AND CUE X 2 WITH STAND TO SIT TO GET CLOSE TO BED AND HAND PLACEMENT ON BED VERSUS "FALLING" BACK INTO SITTING POSITION. ATTEMPTED SIT TO STAND USING SCOOTER ONLY BUT UNABLE TO PERFORM SAFELY. MOVED WALKER TO LEFT SIDE (PATIENT DOES NOT HAVE BED RAIL AT HOME TO [facility]) AND PLACED KNEE SCOOTER BETWEEN HIS KNEES. PATIENT THEN ABLE TO COME SIT TO STAND WITH ONE HAND ON BED AND ONE HAND ON WALKER WITH CONTACT GUARD ASSIST. ABLE TO THEN GRASP KNEE SCOOTER HANDLE WITH RIGHT HAND AND PLACE KNEE ON SCOOTER PLATFORM WITH MIN ASSIST TO GET PLATFORM IN CORRECT POSITION AND KNEE SECURELY ON PLATFORM. ONCE KNEE ON PLATFORM PATIENT ABLE TO DEMONSTRATE STANDING SAFELY WITH SCOOTER. GAIT: INITIAL TRAINING DONE WITH 2 WHEELED WALKER. PATIENT ABLE TO AMBULATE 15' INCLUDING 180 DEGREE TURN WITH THERAPIST ASSIST ONLY FOR EQUIPMENT (IV) MANAGEMENT. PATIENT DID REQUIRE CUE ON TURN TO DO SMALL STEPS VERSUS LARGE PIVOTS. PATIENT EDUCATED ON USE OF HIP FLEXION TO MAINTAIN NWB ALLOWING VISUALIZATION OF FOOT POSITION SINCE PATIENT LACKS PROTECTIVE SENSATION. WITH SCOOTER PATIENT AMBULATED 15' INCLUDING 180 DEGREE TURN. CONTACT GUARD FOR SAFETY WITH TURN AND INSTRUCTIONS IN 3 POINT TURN TECHNIQUE WHICH PATIENT REQUIRED CUES TO COMPLETE. PATIENT HAD NO LOSS OF BALANCE WITH WALKER OR SCOOTER. WITH SCOOTER DUE TO LIMITED TURN RADIUS TRANSFER BACK TO EDGE OF BED COMPLETED WITH BED RAIL ASSIST AND 90 DEGREE PIVOT ON LEFT LE. PATIENT ABLE TO CMOPLETE AND MAINTAIN NWB. DISCUSSED HOME ENTRY PATIENT HAS TWO SMALL STEP FROM GARAGE INTO HOME. FEEL PATIENT WILL NEED RAMP TO SAFELY ENTER AND MAINTAIN NWB. SPOUSE PRESENT FOR ALL EDUCATION AND OBSERVATION OF AMBULATORY TECHNIQUES AND SAFETY CONCERNS. VERBALIZES UNDERSTANDING. RECOMMEND OBTAINING 2 WHEELED WALKER FOR USE WITH TRANSFERS AND GOING INTO BATHROOM SCOOTER DOES NOT HAVE MANEUVERABILITY FOR USE IN SMALL SPACES. SCOOTER COULD SAFELY BE USED FOR LONGER DISTANCE IN HOME AND COMMUNITY THOUGH ENDURANCE LIMITATIONS PRESENT. PLAN: WILL CONTINUE TO SEE FOR LOWER EXTREMITY EXERCISES, GAIT AND TRANSFER TRAINING 5X WEEK DURING HOSPITALIZATION. Initialized on 05/18/23 11:38 - END OF NOTE Assessment/Plan (1) Diabetes mellitus Current Visit: No Status: Chronic Qualifiers: Diabetes mellitus type: type 2 Code(s): E11.9 - TYPE 2 DIABETES MELLITUS WITHOUT COMPLICATIONS (2) Diabetic foot ulcer Current Visit: No Status: Acute Qualifiers: Diabetes mellitus type: type 2 Laterality: right Assessment & Plan: Patient examination and evaluation at bedside this AM Wound inspected this AM no residual clinical indictors of infection present Packing pulled and redressed with iodine soaked 1/4 in iodoform packing, adaptic soaked in iodine, 4x4 sterile gauze, unna boot for localized edema and secured with kerlix and coban with moderate compression. Zosyn on board will likely d/c with [facility] pharmacy to dose due to continued anaerobic and broad spectrum coverage. Wound cultures and blood cultures both growing Staph Aureus (MSSA). White blood cells down to 5.2 today. patient seemingly afebrile as of this AM with temperature of 98.3 most recently. Subjectively states he is feeling better. Discussion was held with the patient at bedside today in regards to possibility of need for amputation. Continuing to await bone biopsies for definitive management. Await administrator social welfare for definitive discharge plan. continue non weight bearing to the right lower extremity for now. Ok for d/c tomorrow from my standpoint if all medical criteria met. Will continue to monitor closely Code(s): E11.621 - TYPE 2 DIABETES MELLITUS WITH FOOT ULCER; L97.509 - NON- PRESSURE CHRONIC ULCER OTH PRT UNSP FOOT W UNSP SEVERITY (3) Cellulitis Current Visit: No Status: Acute Qualifiers: Site of cellulitis: extremity Site of cellulitis of extremity: lower extremity Laterality: right Qualified Code(s): L03.115 - Cellulitis of right lower limb Code(s): L03.90 - CELLULITIS, UNSPECIFIED (4) Leukocytosis Current Visit: No Status: Acute Code(s): D72.829 - ELEVATED WHITE BLOOD CELL COUNT, UNSPECIFIED (5) Hypothyroidism Current Visit: No Status: Acute Code(s): E03.9 - HYPOTHYROIDISM, UNSPECIFIED (6) Peripheral neuropathy Current Visit: No Status: Acute Code(s): G62.9 - POLYNEUROPATHY, UNSPECIFIED (7) Uncontrolled diabetes mellitus Current Visit: No Status: Acute Code(s): CKY8922 - (8) Diabetic ulcer of right foot Current Visit: No Status: Acute Code(s): E11.621 - TYPE 2 DIABETES MELLITUS WITH FOOT ULCER; L97.519 - NON-PRS CHRONIC ULCER OTH PRT RIGHT FOOT W UNSP SEVERITY (9) Fever Current Visit: Yes Status: Acute Code(s): R50.9 - FEVER, UNSPECIFIED (10) Sepsis Current Visit: Yes Status: Acute Qualifiers: Sepsis acute organ dysfunction status: without acute organ dysfunction (11) ORIANA (acute kidney injury) Current Visit: Yes Status: Acute Code(s): N17.9 - ACUTE KIDNEY FAILURE, UNSPECIFIED (12) Diabetes Current Visit: Yes Status: Chronic Qualifiers: Diabetes mellitus type: type 2 Diabetes mellitus complication detail: with polyneuropathy Code(s): E11.9 - TYPE 2 DIABETES MELLITUS WITHOUT COMPLICATIONS (13) Tachycardia Current Visit: Yes Status: Acute Code(s): R00.0 - TACHYCARDIA, UNSPECIFIED (14) Obesity (BMI 30-39.9) Current Visit: Yes Status: Chronic Code(s): E66.9 - OBESITY, UNSPECIFIED (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
--- NOTE | 2023-05-19 09:55 | PCM.NOTE ---
Date and Time: 05/19/23 0950 Subjective Assessment: 05/15/23 Mr.KING MENDOZA is a 32 year old male with PMHX of Type II DM, hypothyroidism, thyroid CA, bipolar, and obesity. He reports a chronic foot wound that he follow Dr. Joya for. He was brought into the emergency department by private vehicle by his significant other. Patient states that he has been having vomiting, body aches, headaches since yesterday. Symptoms have persisted. Patient has been taking his insulin medication. Patient has not had any exposures to individuals with similar symptoms. + generalized abdominal pain. He denies CP, SOB, diarrhea or constipation. In ER initial Lactate was 3.1 after fluid bolus repeat LA was 1.7. Temp 99.7 and WBC 12.3. He is dehydrated and will continue IVF. Will have podiatry consult as this may be source of infection. Continue antibiotics per podiatry recs. Levaquin started in ER. 05/16/23 Pt resting in bed. He has continued to run a temp all night despite Tylenol being given. He states he continues to not feel well. He continues to c/o RUQ and RLQ pain with palpation that radiates to right leg. Palpation makes it worse. Nothing makes it better. CT abd completed yesterday and showed distended bladder. Bladder scan yesterday on floor showed only 20cc of urine. Today post void bladder scan showed 162 cc. Pt denies any concerns with urination. US ordered for further evaluation of abd pain. He is currently NPO and scheduled for a bone biopsy with podiatry today at 1300. He reports no foot pain as he has neuropathy. He continues to have RLE edema and erythema. CT scan of RLE showed cellulitis and minimal osteomyelitis of 2-5th toes. Continue IVF for dehydration. Pt denies CP, SOB, N/V/D. 05/16 Pt resting in bed. He states he feels a little bit better today. He continued to have a fever all night. HR is down to 80's today. Temp currently 99 F. He continues to have some RLQ pain with palpation only. US yesterday showed gas, simethicone added. He is scheduled to have a PICC line placed at 10 am today. He is currently NPO for this. WBC 5.3 today. Yesterday he had multiple biopsies including bone of right foot with podiatry. right foot wrapped and to be evaluated by podiatry today. Will continue antibiotics and fluids. He denies CP, SOB, N/V/D. 05/18/23 Pt resting in bed. He c/o still not feeling well. He spiked a fever again this A.M. of 102.9. Discussed case with Dr. Joya. He was able to drain right foot with + purulent drainage this AM. Daptomycin stopped as CK elevated. Restarted Zosyn, ok with podiatry. Lactic acid 1.1. Pt has a hx of bipolar and states he just stopped taking geodon and never f/u with [facility] in Feb. Today he is tearful and states his life is over among other depressing remarks to nursing staff. Will restart geodon at last dose prescribed from [facility] for bipolar. He denies homicidal or suicidal ideation. He dnies CP, SOB, N/V/D. 05/19/23 Pt resting in bed. Fever has resolved. He is feeling better overall. Mentally he is doing better today he explains. Ck level is trending down. Continue Zosyn and IVF. Dr. Joya came in this morning to evaluate his right foot and rewrap. He reports some slight abd. pain which he associate with an occasional cough. Lung sounds are clear. Plan per Dr. Joya is for pt to d/c tomorrow and case management to set up OP antibiotics. He denies CP, SOB, N/V/D. - Review of Systems Constitutional: No Fever, No Chills Eyes: No Symptoms Ears, Nose, & Throat: No Symptoms Respiratory: Cough, No Short Of Breath Cardiac: No Chest Pain, No Edema, No Syncope Abdominal/Gastrointestinal: Abdominal Pain, No Nausea, No Vomiting, No Diarrhea Genitourinary Symptoms: No Dysuria Musculoskeletal: No Back Pain, No Neck Pain Skin: Other (Right foot wrapped), No Rash Neurological: No Dizziness, No Focal Weakness, No Sensory Changes Psychological: No Symptoms Endocrine: No Symptoms Hematologic/Lymphatic: No Symptoms Immunological/Allergic: No Symptoms Objective Exam General Appearance: no apparent distress, alert Neurologic Exam: alert, oriented x 3, cooperative, normal mood/affect, nml cerebellar function, sensation nml, No motor deficits Skin Exam: normal color, warm, dry, other (right foot wrapped) Wound Assessment: Skin/Wound Assessment Wound/Incision Assessment Start: 05/17/23 10:13 Text: Status: Active Freq: Q6H Protocol: Document 05/19/23 08:00 KENNEDY (Rec: 05/19/23 09:02 AILYNTORITO [id number]) Wound/Incision Assessment Right Dorsal Foot Wound Assessment Shift Assessment Wound Type Incision Wound Stage Non Pressure Wound Dressing Status Changed Drainage Amount Large Packing Type Gauze Packing Strips Primary Dressing Adaptic Non-Adherent Secondary Dressing Sterile 4X4, Kerlix, Unaboot Comment wound re-packed and dressing changed per Dr Joya this morning Right Base of 4th & 5th Digit Wound Assessment Shift Assessment Wound Type Diabetic Ulcer Wound Stage Non Pressure Wound Dressing Status Changed Primary Dressing Adaptic Non-adherent Secondary Dressing Sterile 4X4 and Kerlix Right Plantar Foot Wound Assessment Shift Assessment Wound Type Diabetic Ulcer Wound Stage Non Pressure Wound Dressing Status Dry & Intact Primary Dressing Adaptic Non-adherent Secondary Dressing Sterile 4X4, kerlix, Unaboot Comment Dressing changed per Dr Joya this morning Wound Photo Photo Taken No Eye Exam: PERRL, EOMI, eyes nml inspection Ears, Nose, Throat Exam: normal ENT inspection, pharynx normal, moist mucous membranes Neck Exam: normal inspection, non-tender, supple, full range of motion Respiratory Exam: normal breath sounds, lungs clear, No respiratory distress Cardiovascular Exam: regular rate/rhythm, normal heart sounds Gastrointestinal/Abdomen Exam: soft, No tenderness, No mass Extremity Exam: normal inspection, normal range of motion Back Exam: normal inspection, normal range of motion, No CVA tenderness, No vertebral tenderness Male Genitalia Exam: deferred Rectal Exam: deferred Objective Data Vital Signs: Vital Signs - 24 hr Temp Pulse Resp BP Pulse Ox 05/19/23 07:05 98.3 F 85 20 119/72 96 05/19/23 04:00 98.9 F 90 19 98/58 93 L 05/19/23 00:00 99.2 F 98 H 18 128/72 96 05/18/23 21:00 99.6 F 91 H 20 113/69 94 L 05/18/23 17:17 100.9 F 122 H 26 H 05/18/23 16:00 101.0 F 108 H 19 125/67 99 05/18/23 10:00 97.9 F 107 H 17 124/65 95 Pain Assessment - Last Documented Pain Intensity 0 Pain Scale Used 0-10 Pain Scale Intake and Output: Intake & Output 05/16/23 05/17/23 05/18/23 05/19/23 11:59 11:59 11:59 11:59 Intake Total 1680 1860 3351 5469 Output Total 1 250 Balance 1679 1860 3101 5469 Weight 138.6 kg 141.3 kg 139.8 kg 140.6 kg Lab Results: Lab Results-Last 24 Hours 05/18/23 05/18/23 05/18/23 Range/Units 11:46 12:00 16:15 WBC (4.0-10.5) x10^3/uL RBC (4.1-5.6) x10^6/uL Hgb (12.5-18.0) g/dL Hct (42-50) % MCV (78-100) fL MCH (26-32) pg MCHC (32-36) g/dL RDW (11.5-14.0) % Plt Count (150-450) x10^3/uL MPV (7.5-11.0) fL Sodium (135-145) mmol/L Potassium (3.5-5.1) mmol/L Chloride (98-107) mmol/L Carbon Dioxide (22-30) mmol/L Anion Gap (5-15) MEQ/L BUN (9-20) mg/dL Creatinine (0.66-1.25) mg/dL Estimated GFR ML/MIN Glucose (74-106) mg/dL POC Glucometer 191 H 152 H (74 to 106) mg/dL Calcium (8.4-10.2) mg/dL Total Bilirubin (0.2-1.3) mg/dL AST (17-59) U/L ALT (0-50) U/L Alkaline Phosphatase (38-126) U/L Creatine Kinase 2904 H (55-170) U/L Serum Total Protein (6.3-8.2) g/dL Albumin (3.5-5.0) g/dL 05/18/23 05/18/23 05/19/23 Range/Units 20:40 21:44 05:27 WBC 5.2 (4.0-10.5) x10^3/uL RBC 3.48 L (4.1-5.6) x10^6/uL Hgb 10.2 L (12.5-18.0) g/dL Hct 31.2 L (42-50) % MCV 89.7 (78-100) fL MCH 29.3 (26-32) pg MCHC 32.7 (32-36) g/dL RDW 12.9 (11.5-14.0) % Plt Count 128 L (150-450) x10^3/uL MPV 12.2 H (7.5-11.0) fL Sodium (135-145) mmol/L Potassium (3.5-5.1) mmol/L Chloride (98-107) mmol/L Carbon Dioxide (22-30) mmol/L Anion Gap (5-15) MEQ/L BUN (9-20) mg/dL Creatinine (0.66-1.25) mg/dL Estimated GFR ML/MIN Glucose (74-106) mg/dL POC Glucometer 219 H (74 to 106) mg/dL Calcium (8.4-10.2) mg/dL Total Bilirubin (0.2-1.3) mg/dL AST (17-59) U/L ALT (0-50) U/L Alkaline Phosphatase (38-126) U/L Creatine Kinase 2597 H (55-170) U/L Serum Total Protein (6.3-8.2) g/dL Albumin (3.5-5.0) g/dL 05/19/23 05/19/23 Range/Units 05:27 06:55 WBC (4.0-10.5) x10^3/uL RBC (4.1-5.6) x10^6/uL Hgb (12.5-18.0) g/dL Hct (42-50) % MCV (78-100) fL MCH (26-32) pg MCHC (32-36) g/dL RDW (11.5-14.0) % Plt Count (150-450) x10^3/uL MPV (7.5-11.0) fL Sodium 136 (135-145) mmol/L Potassium 4.3 (3.5-5.1) mmol/L Chloride 110 H (98-107) mmol/L Carbon Dioxide 21 L (22-30) mmol/L Anion Gap 9.9 (5-15) MEQ/L BUN 10 (9-20) mg/dL Creatinine 0.83 (0.66-1.25) mg/dL Estimated GFR 117.8 ML/MIN Glucose 129 H (74-106) mg/dL POC Glucometer 118 H (74 to 106) mg/dL Calcium 7.9 L (8.4-10.2) mg/dL Total Bilirubin 0.80 (0.2-1.3) mg/dL AST 59 (17-59) U/L ALT 39 (0-50) U/L Alkaline Phosphatase 51 (38-126) U/L Creatine Kinase 2029 H (55-170) U/L Serum Total Protein 6.3 (6.3-8.2) g/dL Albumin 3.0 L (3.5-5.0) g/dL Radiology Exams: Radiology Procedures Category Date Time Status CHEST 1 VIEW (PORTABLE) Stat Exams 05/17/23 12:00 Completed CHEST 1 VIEW (PORTABLE) Stat Exams 05/17/23 12:07 Completed Multi-Disciplinary Progress Notes: Multi-Disciplinary Progress Notes 05/18/23 11:38 Physical Therapy Note by Jhony(Essie#[id number]),[place] PATIENT SEEN AT BEDSIDE FOR GAIT TRAINING WITH NEW ASSISTIVE DEVICES - ROLLING WALKER AND KNEE SCOOTER AND INSTRUCTION IN AND PERFORMANCE OF LOWER EXTREMITY EXERCISES. NURSING STATES DR. JOYA IN THIS A.M. AND PERFORMED I&D OF RIGHT FOOT AND DESCRIBED INCISED THE LENGTH OF THE 4TH METATARSAL. NURSE REPORTS PURULENT DRAINAGE WAS PRESENT AND FOOT IRRIGATED, CLEANED AND REBANDAGED. PATIENT CONTINUES TO BE NON-WEIGHT BEARING. NURSE STATES THAT ATTEMPTS TO MAINTAIN NWB LAST NIGHT AND THIS MORNING WERE NOT SUCCESSFUL PATIENT CONTINUED TO DO WEIGHT-BEARING THROUGH THE HEEL. SUBJECTIVE: PATIENT REPORTS WITH I&D THIS MORNING HAD A LITTLE FEELING IN THE FOOT BUT "NOT MUCH". ACKNOWLEDGED NON-COMPLIANCE WITH WEIGHT-BEARING BUT THINKS HE CAN DO IT JUST TAKES MORE EFFORT. AFTER EDUCATION ON THE NEED FOR NWB FOR HEALING AND HOPEFULLY PREVENT AMPUTATION OF FOOT WHICH [place] DISCUSSED WITH HIM THIS MORNING, PATIENT VERBALIZED UNDERSTANDING AND DESIRE TO DO WHAT HE NEEDS TO DO. SPOUSE BROUGHT IN KNEE SCHOOER THIS MORNING FROM [facility] [employer] AND PATIENT WANTS TO TRY TO USE IT IF POSSIBLE OBJECTIVE: BED MOBILITY: IN BED PATIENT DEMONSTRATING ABILITY TO PERFORM SLR AND HOOKLYING MARCH ON RIGHT. ALSO ABLE TO PERFORM SUPINE HIP ABDUCTION SUSTAINING FOOT OFF BED. PATIENT ABLE TO DEMONSTRATE SUPINE TO LEFT SIDELYING TO SITING ON EDGE OF BED WITH BEDRAIL ASSIST. ABLE TO DEMONSTRATE SITTING ON EDGE OF BED TO SIDELYING INDEP WITHOUT BEDRAIL ASSIST. ABLE TO SCOOT BACK IN BED AND SIDE TO SIDE NOT USING RIGHT LE TO PERFORM MAINTAINING NWB. TRANSFERS: EDUCATED PATIENT ON PROPER HAD PLACEMENT WITH SIT TO STAND TO SIT USING 2 WHEELED WALKER. PERFORMED X 3. REQUIRED CUE X 1 FOR HAND PLACEMENT ON SIT TO STAND AND CUE X 2 WITH STAND TO SIT TO GET CLOSE TO BED AND HAND PLACEMENT ON BED VERSUS "FALLING" BACK INTO SITTING POSITION. ATTEMPTED SIT TO STAND USING SCOOTER ONLY BUT UNABLE TO PERFORM SAFELY. MOVED WALKER TO LEFT SIDE (PATIENT DOES NOT HAVE BED RAIL AT HOME TO [facility]) AND PLACED KNEE SCOOTER BETWEEN HIS KNEES. PATIENT THEN ABLE TO COME SIT TO STAND WITH ONE HAND ON BED AND ONE HAND ON WALKER WITH CONTACT GUARD ASSIST. ABLE TO THEN GRASP KNEE SCOOTER HANDLE WITH RIGHT HAND AND PLACE KNEE ON SCOOTER PLATFORM WITH MIN ASSIST TO GET PLATFORM IN CORRECT POSITION AND KNEE SECURELY ON PLATFORM. ONCE KNEE ON PLATFORM PATIENT ABLE TO DEMONSTRATE STANDING SAFELY WITH SCOOTER. GAIT: INITIAL TRAINING DONE WITH 2 WHEELED WALKER. PATIENT ABLE TO AMBULATE 15' INCLUDING 180 DEGREE TURN WITH THERAPIST ASSIST ONLY FOR EQUIPMENT (IV) MANAGEMENT. PATIENT DID REQUIRE CUE ON TURN TO DO SMALL STEPS VERSUS LARGE PIVOTS. PATIENT EDUCATED ON USE OF HIP FLEXION TO MAINTAIN NWB ALLOWING VISUALIZATION OF FOOT POSITION SINCE PATIENT LACKS PROTECTIVE SENSATION. WITH SCOOTER PATIENT AMBULATED 15' INCLUDING 180 DEGREE TURN. CONTACT GUARD FOR SAFETY WITH TURN AND INSTRUCTIONS IN 3 POINT TURN TECHNIQUE WHICH PATIENT REQUIRED CUES TO COMPLETE. PATIENT HAD NO LOSS OF BALANCE WITH WALKER OR SCOOTER. WITH SCOOTER DUE TO LIMITED TURN RADIUS TRANSFER BACK TO EDGE OF BED COMPLETED WITH BED RAIL ASSIST AND 90 DEGREE PIVOT ON LEFT LE. PATIENT ABLE TO CMOPLETE AND MAINTAIN NWB. DISCUSSED HOME ENTRY PATIENT HAS TWO SMALL STEP FROM GARAGE INTO HOME. FEEL PATIENT WILL NEED RAMP TO SAFELY ENTER AND MAINTAIN NWB. SPOUSE PRESENT FOR ALL EDUCATION AND OBSERVATION OF AMBULATORY TECHNIQUES AND SAFETY CONCERNS. VERBALIZES UNDERSTANDING. RECOMMEND OBTAINING 2 WHEELED WALKER FOR USE WITH TRANSFERS AND GOING INTO BATHROOM SCOOTER DOES NOT HAVE MANEUVERABILITY FOR USE IN SMALL SPACES. SCOOTER COULD SAFELY BE USED FOR LONGER DISTANCE IN HOME AND COMMUNITY THOUGH ENDURANCE LIMITATIONS PRESENT. PLAN: WILL CONTINUE TO SEE FOR LOWER EXTREMITY EXERCISES, GAIT AND TRANSFER TRAINING 5X WEEK DURING HOSPITALIZATION. Initialized on 05/18/23 11:38 - END OF NOTE Assessment/Plan (1) Sepsis Current Visit: Yes Status: Acute Qualifiers: Sepsis acute organ dysfunction status: without acute organ dysfunction (2) Diabetic ulcer of right foot Current Visit: No Status: Acute Code(s): E11.621 - TYPE 2 DIABETES MELLITUS WITH FOOT ULCER; L97.519 - NON-PRS CHRONIC ULCER OTH PRT RIGHT FOOT W UNSP SEVERITY (3) OIRANA (acute kidney injury) Current Visit: Yes Status: Acute Code(s): N17.9 - ACUTE KIDNEY FAILURE, UNSPECIFIED (4) Dehydration Current Visit: Yes Status: Acute Code(s): E86.0 - DEHYDRATION (5) Hyponatremia Current Visit: Yes Status: Acute Code(s): E87.1 - HYPO-OSMOLALITY AND HYPONATREMIA (6) Diabetes Current Visit: Yes Status: Chronic Qualifiers: Diabetes mellitus type: type 2 Diabetes mellitus complication detail: with polyneuropathy Code(s): E11.9 - TYPE 2 DIABETES MELLITUS WITHOUT COMPLICATIONS (7) Tachycardia Current Visit: Yes Status: Acute Code(s): R00.0 - TACHYCARDIA, UNSPECIFIED (8) Abdominal pain Current Visit: Yes Status: Acute Code(s): R10.9 - UNSPECIFIED ABDOMINAL PAIN (9) Fever Current Visit: Yes Status: Acute Code(s): R50.9 - FEVER, UNSPECIFIED (10) Hx MRSA infection Current Visit: Yes Status: Chronic Code(s): Z86.14 - PERSONAL HISTORY OF METHICILLIN RESIS STAPH INFECTION (11) Obesity (BMI 30-39.9) Current Visit: Yes Status: Chronic Code(s): E66.9 - OBESITY, UNSPECIFIED (12) Hypocalcemia Current Visit: Yes Status: Acute Code(s): E83.51 - HYPOCALCEMIA (13) Thrombocytopenia Current Visit: Yes Status: Acute (14) Diarrhea Current Visit: Yes Status: Acute Code(s): R19.7 - DIARRHEA, UNSPECIFIED (15) Carbon dioxide, decreased level Current Visit: Yes Status: Acute Code(s): R79.81 - ABNORMAL BLOOD-GAS LEVEL (16) Bipolar 1 disorder Current Visit: Yes Status: Acute Assessment & Plan: (1) Sepsis Current Visit: Yes Status: Acute Assessment & Plan: - 2:2 DM wound of right foot - HR > 90, WBC > 12 - BC x2 - UA with C&S - wound culture - LA on admission 3.1- fluid bolus in ER, repeat LA 1.7 in ER - Cont IVF - antibiotics per podiatry recs - Levaquin gave in ER 05/15 - BC x2 +, gram + ID- sensitivity pending - Picc line placement tomorrow - WBC improving 10.8 05/16 - WBC 5.3 - + fever all night - BC X2 Gram + cocci- Staph aureus - Wound culture x2- + Staph aureus - Sensitivity of all results reviewed - Continue same antibiotics for now. 05/17 - fever again ths am of 102.9 - podiatry I& D with purulent drainage of RLE - Daptomycin stopped d/t CK elevated - restart zosyn - Lactic acid 1.1 05/18 - fever resolved - sxs improved - sepsis resolved - WBC 5.2 (2) Diabetic ulcer of right foot Current Visit: No Status: Acute Assessment & Plan: - Acute on chronic- follows Dr. Joya OP - Wound culture right 4th toe and bottom of right foot - hx of MRSA - podiatry consult - Levaquin started in ER- stopped - Antibiotics per podiatry recs- vanc and zosyn with pharmacy to dose - MRI RLE - If podiatry not doing procedure today then can eat ADA diet 05/15 - Scheduled for bone biopsy at 1300 today with podiatry - NPO - MRI RLE: Impression: Worsening diffuse enhancing cellulitis involving subcutaneous and deep soft tissues. No walled off fluid collection/abscess. New minimal osteomyelitis 2nd-5th metatarsals, 2nd/3rd cuneiforms, and cuboid. - BC x2 +, gram + ID- sensitivity pending - Picc line placement tomorrow 05/16 - PICC line today a 10am, NPO for this - Right foot wrapped since procedures yesterday. - Per podiatry charting- multiple bone biopsies - all cultures + for staph aureus - Continue with same antibiotics 05/17 - fever agian ths am of 102.9 - podiatry I& D with purulent drainage of RLE today - Daptomycin started by podiatry on 05/16 - Daptomycin stopped d/t CK elevated - trend CK - restart zosyn 05/18 - reviewed podiatry note and agree with plan of care - CM to set up OP antibiotics tomorrow - Podiatry cleaned and rewrapped RLE today - NWB- PT eval, leg scooter Code(s): E11.621 - TYPE 2 DIABETES MELLITUS WITH FOOT ULCER; L97.519 - NON-PRS CHRONIC ULCER OTH PRT RIGHT FOOT W UNSP SEVERITY (3) ORIANA (acute kidney injury) Current Visit: Yes Status: Acute Assessment & Plan: - Creat 1.36- baseline normal - IVF - recheck in AM 05/15 - resolved - IBP started for fever 05/16 - Creat 1.31 - stop IBP 05/17 - resolved Code(s): N17.9 - ACUTE KIDNEY FAILURE, UNSPECIFIED (4) Dehydration Current Visit: Yes Status: Acute Assessment & Plan: - anion gap 19.0 - IVF 05/15 - anion gap 16.9 - continue IVF 05/16 - anion gap 8.9- resolved - Cont IVF as pt continues to have fever and ORIANA Code(s): E86.0 - DEHYDRATION (5) Hyponatremia Current Visit: Yes Status: Acute Assessment & Plan: - Mild Na+134- trend - Cont IVF - 2:2 fever, vomiting 05/15 - Na+ 134- mild 05/16 - Na+ 132 mild 05/17 - Na+ 130- mild- improving 05/18 - resolved Code(s): E87.1 - HYPO-OSMOLALITY AND HYPONATREMIA (6) Diabetes Current Visit: Yes Status: Chronic Qualifiers: Diabetes mellitus type: type 2 Diabetes mellitus complication detail: with foot ulcer Assessment & Plan: - A1C 7.2 uncontrolled - accuchecks ac/HS - Humalog 15 units BID per home dose - pt unable to bring in home insulin of Xultophy. started 50 unit s of lantus daily with moderate dose s/s with meals. Code(s): E11.9 - TYPE 2 DIABETES MELLITUS WITHOUT COMPLICATIONS (7) Tachycardia Current Visit: Yes Status: Acute Assessment & Plan: - 2:2 N/V, dehydration, ORIANA, fever - tele - EKG 05/15 - continued tachycardia 05/16 - resolved 05/17 - tachy with fever only 05/18 - resolved Code(s): R00.0 - TACHYCARDIA, UNSPECIFIED (8) Abdominal pain Current Visit: Yes Status: Acute Assessment & Plan: - Compazine PRN N/V - CT Abd. and pelvis 05/15/23 Impression: 1. Respiration artifact. 2. Markedly distended urinary bladder. Rule out outlet obstruction versus neurogenic bladder. 3. Indeterminant 1 cm right lung base noncalcified nodule. Outside comparison studies recommended if available. If not, baseline CT with follow-up per Fleischner guidelines recommend. 4. Remaining CT abdomen/pelvis without contrast exam grossly negative. - PRN bladder scan - Accurate I&O's - Consider amin for acute urinary retention - Sxs improved since admission 05/15 - US abd Sonogram limited due to overlying bowel gas and patient unable to follow breathing instructions. Pancreas and gallbladder not well-visualized. Liver is enlarged measuring 21.3 cm. Visualized liver is negative for focal solid/cystic hepatic mass or ascites. Common bile duct measures 4.4 mm. No intrahepatic biliary distention. Right kidney measures 12.9 x 6.8 x 6.3 cm sonographic unremarkable. Impression: Limited right upper quadrant sonogram. Nonvisualization pancreas and gallbladder. Hepatomegaly. See CT abdomen/pelvis exam one day earlier. 05/16 - Gas-x added 05/17 - continued abd pain - may need repeat CT if sxs continue or worsen 05/18 - pt associates abd pain with occasional cough Code(s): R10.9 - UNSPECIFIED ABDOMINAL PAIN (9) Fever Current Visit: Yes Status: Acute Assessment & Plan: - temp 99. 7 - tylenol PRN - BC x2 - UA with C&S - 2:2 DM foot wound infection - CXR 05/14 Portable apical lordotic chest less inflated and clear. Heart not enlarged. Bony thorax intact. Impression: Nonacute underinflated chest 05/15 - continued 2:2 DM wound/ infection - IBP added 05/16 - + fever all night - 99F today - IBP stopped d/t ORIANA 05/17 - Cont IBP ORIANA resolved 05/18 - fever resolved Code(s): R50.9 - FEVER, UNSPECIFIED (10) Hx MRSA infection Current Visit: Yes Status: Chronic Assessment & Plan: - place in isolation- contact Code(s): Z86.14 - PERSONAL HISTORY OF METHICILLIN RESIS STAPH INFECTION (11) Obesity (BMI 30-39.9) Current Visit: Yes Status: Chronic Assessment & Plan: - Advised ADA diet and exercise control Code(s): E66.9 - OBESITY, UNSPECIFIED (12) Hypocalcemia Current Visit: Yes Status: Acute Assessment & Plan: - corrected Ca+ 8.3 - Start Tums BID 05/17 - corrected Ca+ 8.1 - continue TUMS 05/18 - corrected Ca+ 8.3 Code(s): E83.51 - HYPOCALCEMIA (13) Thrombocytopenia Current Visit: Yes Status: Acute Assessment & Plan: - 2:2 infection- mild - Platelets 101 05/18 - platelets 128 (14) Diarrhea Current Visit: Yes Status: Acute Assessment & Plan: - 2:2 antibiotics - c-diff negative - start acidophilus Code(s): R19.7 - DIARRHEA, UNSPECIFIED (15) Carbon dioxide, decreased level Current Visit: Yes Status: Acute Assessment & Plan: - 19 trend - 2:2 diarrhea - see plan for diarrhea above 05/18 - no overnight diarrhea, Co2 improved 21 Code(s): R79.81 - ABNORMAL BLOOD-GAS LEVEL (16) Bipolar 1 disorder Current Visit: Yes Status: Acute Assessment & Plan: - restarted Geodon as taken previously. - pt admit to stopping medication this winter and not f/u with [facility] for mental health concerns - Pt denies homicidal or suicidal ideations. - will need appointment with HC at D/C for f/u. 05/18 - mood improved today VTE: SCD's PPI: pantoprazole Next of Kin: , Jaimie Doan [phone] D/C plan: tomorrow Code status: Full Code(s): F31.9 - BIPOLAR DISORDER, UNSPECIFIED
[2023-05-20 05:18] LABS: Hematocrit 32.5 % (42-50); Hemoglobin 10.1 g/dL (12.5-18.0); Mean Cell Volume 91.8 fL (78-100); Mean Corpuscular Hemoglobin 28.5 pg (26-32); Mean Corpuscular Hgb Concent. 31.1 g/dL (32-36); Mean Platelet Volume 12.9 fL (7.5-11.0); Platelet Count 128 x10^3/uL (150-450); Red Blood Count 3.54 x10^6/uL (4.1-5.6); Red Cell Distribution Width 12.8 % (11.5-14.0); White Blood Count 6.7 x10^3/uL (4.0-10.5)
--- NOTE | 2023-05-20 05:20 | PCM.DS ---
Discharge Summary Date of Admission: 05/16/23 10:01 Date of Discharge: 05/20/23 Admitting Physician: UBALDO ARGUETA MD Consults: Consults on Case 05/15/23 12:36 Consult Podiatry ROUTINE Primary Care Provider: GARY BOATENG ALPA Allergies Allergies Iodinated Contrast Media Allergy (Verified 04/04/23 17:46) Penicillins Allergy (Verified 04/04/23 17:46) shellfish derived Allergy (Verified 04/04/23 17:46) Hospital Summary - Hospital Course Hospital Course: 32 year old male with a pmhx of Type II DM, hypothyroidism, thyroid CA, bipolar, diabetic foot ulceration (underneath the fifth metatarsal head, new ulceration on the lateral aspect of his fourth digit), and obesity admitted 05/15/23 with initial complaints of vomiting, body, RLE pain, and head aches. On presentation, the right foot was relatively swollen. He has received prior wound care via Dr. Clayton. This is most likely the source of his current infection. CT scan of the abdomen pelvis demonstrates markedly distended urinary bladder outlet obstruction versus neurogenic bladder. There is an indeterminate 1 cm right lung base noncalcified nodule. CXR with no cardiopulmonary processes.In ED initial Lactate was 3.1 after fluid bolus repeat LA was 1.7. Temp 99.7 and WBC 12.3. MRI of the right lower extremity demonstrates worsening diffuse enhancing cellulitis involving subcutaneous and deep soft tissues. No walled off fluid collection/abscess. New minimal osteomyelitis 2nd-5th metatarsals, 2nd/3rd cuneiforms, and cuboid. Podiatry consulted, I&D of the right foot to the level of the bone performed. IP treatment initially with Vanc/Zosyn. Wound cultures and blood cultures both growing Staph Aureus (MSSA). Vanc d/cd. Patient is improving clinically. Discussion had regarding the possibility of amputation, pending bone biopsies for definitive management. Patient to receive OP Invanz and dressing changes here at [facility]. Advised follow up with PCP/Infectious disease/ podiatry Discharge Note New Diagnosis:Sepsis secondary to diabetic foot ulcer New Medications: Invanz Follow Up: PCP/Podiatry Results pending: cultures Latest Assessment & Plan (1) Sepsis Current Visit: Yes Status: Acute Assessment & Plan: - 2:2 DM wound of right foot - HR > 90, WBC > 12 - BC x2 - UA with C&S - wound culture - LA on admission 3.1- fluid bolus in ER, repeat LA 1.7 in ER - Cont IVF - antibiotics per podiatry recs - Levaquin gave in ER 05/15 - BC x2 +, gram + ID- sensitivity pending - Picc line placement tomorrow - WBC improving 10.8 05/16 - WBC 5.3 - + fever all night - BC X2 Gram + cocci- Staph aureus - Wound culture x2- + Staph aureus - Sensitivity of all results reviewed - Continue same antibiotics for now. 05/17 - fever again ths am of 102.9 - podiatry I& D with purulent drainage of RLE - Daptomycin stopped d/t CK elevated - restart zosyn - Lactic acid 1.1 05/18 - fever resolved - sxs improved - sepsis resolved - WBC 5.2 (2) Diabetic ulcer of right foot Current Visit: No Status: Acute Assessment & Plan: - Acute on chronic- follows Dr. Loving OP - Wound culture right 4th toe and bottom of right foot - hx of MRSA - podiatry consult - Levaquin started in ER- stopped - Antibiotics per podiatry recs- vanc and zosyn with pharmacy to dose - MRI RLE - If podiatry not doing procedure today then can eat ADA diet 05/15 - Scheduled for bone biopsy at 1300 today with podiatry - NPO - MRI RLE: Impression: Worsening diffuse enhancing cellulitis involving subcutaneous and deep soft tissues. No walled off fluid collection/abscess. New minimal osteomyelitis 2nd-5th metatarsals, 2nd/3rd cuneiforms, and cuboid. - BC x2 +, gram + ID- sensitivity pending - Picc line placement tomorrow 05/16 - PICC line today a 10am, NPO for this - Right foot wrapped since procedures yesterday. - Per podiatry charting- multiple bone biopsies - all cultures + for staph aureus - Continue with same antibiotics 05/17 - fever agian ths am of 102.9 - podiatry I& D with purulent drainage of RLE today - Daptomycin started by podiatry on 05/16 - Daptomycin stopped d/t CK elevated - trend CK - restart zosyn 05/18 - reviewed podiatry note and agree with plan of care - CM to set up OP antibiotics tomorrow - Podiatry cleaned and rewrapped RLE today - NWB- PT eval, leg scooter 05/19: -DC home with OP abx (invanz)/dressing changes at [facility] LICENSE OF [facility] -ID follow up Code(s): E11.621 - TYPE 2 DIABETES MELLITUS WITH FOOT ULCER; L97.519 - NON-PRS CHRONIC ULCER OTH PRT RIGHT FOOT W UNSP SEVERITY (3) ORIANA (acute kidney injury) Current Visit: Yes Status: Acute Assessment & Plan: - Creat 1.36- baseline normal - IVF - recheck in AM 05/15 - resolved - IBP started for fever 05/16 - Creat 1.31 - stop IBP 05/17 - resolved Code(s): N17.9 - ACUTE KIDNEY FAILURE, UNSPECIFIED (4) Dehydration Current Visit: Yes Status: Acute Assessment & Plan: - anion gap 19.0 - IVF 05/15 - anion gap 16.9 - continue IVF 05/16 - anion gap 8.9- resolved - Cont IVF as pt continues to have fever and ORIANA Code(s): E86.0 - DEHYDRATION (5) Hyponatremia Current Visit: Yes Status: Acute Assessment & Plan: - Mild Na+134- trend - Cont IVF - 2:2 fever, vomiting 05/15 - Na+ 134- mild 05/16 - Na+ 132 mild 05/17 - Na+ 130- mild- improving 05/18 - resolved Code(s): E87.1 - HYPO-OSMOLALITY AND HYPONATREMIA (6) Diabetes Current Visit: Yes Status: Chronic Qualifiers: Diabetes mellitus type: type 2 Diabetes mellitus complication detail: with foot ulcer Assessment & Plan: - A1C 7.2 uncontrolled - accuchecks ac/HS - Humalog 15 units BID per home dose - pt unable to bring in home insulin of Xultophy. started 50 unit s of lantus daily with moderate dose s/s with meals. Code(s): E11.9 - TYPE 2 DIABETES MELLITUS WITHOUT COMPLICATIONS (7) Tachycardia Current Visit: Yes Status: Acute Assessment & Plan: - 2:2 N/V, dehydration, ORIANA, fever - tele - EKG 05/15 - continued tachycardia 05/16 - resolved 05/17 - tachy with fever only 05/18 - resolved Code(s): R00.0 - TACHYCARDIA, UNSPECIFIED (8) Abdominal pain Current Visit: Yes Status: Acute Assessment & Plan: - Compazine PRN N/V - CT Abd. and pelvis 05/15/23 Impression: 1. Respiration artifact. 2. Markedly distended urinary bladder. Rule out outlet obstruction versus neurogenic bladder. 3. Indeterminant 1 cm right lung base noncalcified nodule. Outside comparison studies recommended if available. If not, baseline CT with follow-up per Fleischner guidelines recommend. 4. Remaining CT abdomen/pelvis without contrast exam grossly negative. - PRN bladder scan - Accurate I&O's - Consider amin for acute urinary retention - Sxs improved since admission 05/15 - US abd Sonogram limited due to overlying bowel gas and patient unable to follow breathing instructions. Pancreas and gallbladder not well-visualized. Liver is enlarged measuring 21.3 cm. Visualized liver is negative for focal solid/cystic hepatic mass or ascites. Common bile duct measures 4.4 mm. No intrahepatic biliary distention. Right kidney measures 12.9 x 6.8 x 6.3 cm sonographic unremarkable. Impression: Limited right upper quadrant sonogram. Nonvisualization pancreas and gallbladder. Hepatomegaly. See CT abdomen/pelvis exam one day earlier. 05/16 - Gas-x added 05/17 - continued abd pain - may need repeat CT if sxs continue or worsen 05/18 - pt associates abd pain with occasional cough Code(s): R10.9 - UNSPECIFIED ABDOMINAL PAIN (9) Fever Current Visit: Yes Status: Acute Assessment & Plan: - temp 99. 7 - tylenol PRN - BC x2 - UA with C&S - 2:2 DM foot wound infection - CXR 05/14 Portable apical lordotic chest less inflated and clear. Heart not enlarged. Bony thorax intact. Impression: Nonacute underinflated chest 05/15 - continued 2:2 DM wound/ infection - IBP added 05/16 - + fever all night - 99F today - IBP stopped d/t ORIANA 05/17 - Cont IBP ORIANA resolved 05/18 - fever resolved Code(s): R50.9 - FEVER, UNSPECIFIED (10) Hx MRSA infection Current Visit: Yes Status: Chronic Assessment & Plan: - place in isolation- contact Code(s): Z86.14 - PERSONAL HISTORY OF METHICILLIN RESIS STAPH INFECTION (11) Obesity (BMI 30-39.9) Current Visit: Yes Status: Chronic Assessment & Plan: - Advised ADA diet and exercise control Code(s): E66.9 - OBESITY, UNSPECIFIED (12) Hypocalcemia Current Visit: Yes Status: Acute Assessment & Plan: - corrected Ca+ 8.3 - Start Tums BID 05/17 - corrected Ca+ 8.1 - continue TUMS 05/18 - corrected Ca+ 8.3 Code(s): E83.51 - HYPOCALCEMIA (13) Thrombocytopenia Current Visit: Yes Status: Acute Assessment & Plan: - 2:2 infection- mild - Platelets 101 05/18 - platelets 128 (14) Diarrhea Current Visit: Yes Status: Acute Assessment & Plan: - 2:2 antibiotics - c-diff negative - start acidophilus Code(s): R19.7 - DIARRHEA, UNSPECIFIED (15) Carbon dioxide, decreased level Current Visit: Yes Status: Acute Assessment & Plan: - 19 trend - 2:2 diarrhea - see plan for diarrhea above 05/18 - no overnight diarrhea, Co2 improved 21 Code(s): R79.81 - ABNORMAL BLOOD-GAS LEVEL (16) Bipolar 1 disorder Current Visit: Yes Status: Acute Assessment & Plan: - restarted Geodon as taken previously. - pt admit to stopping medication this winter and [place] [facility] - Pt denies homicidal or suicidal ideations. - will need appointment with HC at D/C for f/u. 05/18 - mood improved today I spent 35 minutes [id number] with the patient on the day of discharge performing discharge exam, discussing hospital stay and discharge instructions with patient and caregivers, preparation of discharge records, prescriptions & referral forms and addressing any questions/concerns the patient had as documented above. - Vitals & Intake/Output Vital Signs: Vital Signs Temperature 99.2 F 05/20/23 04:00 Pulse Rate 88 05/20/23 04:00 Respiratory Rate 21 05/20/23 04:00 Blood Pressure 119/70 05/20/23 04:00 O2 Sat by Pulse Oximetry 95 05/20/23 04:00 Intake & Output: Intake & Output 05/17/23 05/18/23 05/19/23 05/20/23 11:59 11:59 11:59 11:59 Intake Total 1860 3351 5469 2453 Output Total 250 Balance 1860 3101 5469 2453 Weight 141.3 kg 139.8 kg 140.6 kg - Lab Result Diagrams: 05/20/23 04:40 05/20/23 04:40 Lab Results-Last 24 Hrs: Lab Results-Last 24 Hours 05/19/23 05/19/23 05/19/23 Range/Units 05:27 05:27 06:55 WBC 5.2 (4.0-10.5) x10^3/uL RBC 3.48 L (4.1-5.6) x10^6/uL Hgb 10.2 L (12.5-18.0) g/dL Hct 31.2 L (42-50) % MCV 89.7 (78-100) fL MCH 29.3 (26-32) pg MCHC 32.7 (32-36) g/dL RDW 12.9 (11.5-14.0) % Plt Count 128 L (150-450) x10^3/uL MPV 12.2 H (7.5-11.0) fL Sodium 136 (135-145) mmol/L Potassium 4.3 (3.5-5.1) mmol/L Chloride 110 H (98-107) mmol/L Carbon Dioxide 21 L (22-30) mmol/L Anion Gap 9.9 (5-15) MEQ/L BUN 10 (9-20) mg/dL Creatinine 0.83 (0.66-1.25) mg/dL Estimated GFR 117.8 ML/MIN Glucose 129 H (74-106) mg/dL POC Glucometer 118 H (74 to 106) mg/dL Calcium 7.9 L (8.4-10.2) mg/dL Total Bilirubin 0.80 (0.2-1.3) mg/dL AST 59 (17-59) U/L ALT 39 (0-50) U/L Alkaline Phosphatase 51 (38-126) U/L Creatine Kinase 2029 H (55-170) U/L Serum Total Protein 6.3 (6.3-8.2) g/dL Albumin 3.0 L (3.5-5.0) g/dL 05/19/23 05/19/23 05/19/23 Range/Units 11:32 15:47 21:17 WBC (4.0-10.5) x10^3/uL RBC (4.1-5.6) x10^6/uL Hgb (12.5-18.0) g/dL Hct (42-50) % MCV (78-100) fL MCH (26-32) pg MCHC (32-36) g/dL RDW (11.5-14.0) % Plt Count (150-450) x10^3/uL MPV (7.5-11.0) fL Sodium (135-145) mmol/L Potassium (3.5-5.1) mmol/L Chloride (98-107) mmol/L Carbon Dioxide (22-30) mmol/L Anion Gap (5-15) MEQ/L BUN (9-20) mg/dL Creatinine (0.66-1.25) mg/dL Estimated GFR ML/MIN Glucose (74-106) mg/dL POC Glucometer 195 H 185 H 245 H (74 to 106) mg/dL Calcium (8.4-10.2) mg/dL Total Bilirubin (0.2-1.3) mg/dL AST (17-59) U/L ALT (0-50) U/L Alkaline Phosphatase (38-126) U/L Creatine Kinase (55-170) U/L Serum Total Protein (6.3-8.2) g/dL Albumin (3.5-5.0) g/dL Micro Results-Entire Visit: Microbiology 05/16/23 14:17 AFB Specimen Processing - Final Foot - Right Acid Fast Bacilli Smear - Final Tissue Culture - Preliminary Aerobic Culture Result 1 - Preliminary 05/15/23 08:57 Blood Culture Gram Stain - Final Blood Blood Culture - Final Staphylococcus Aureus 05/16/23 14:19 AFB Specimen Processing - Final Toe - R 4th Acid Fast Bacilli Smear - Final 05/15/23 11:24 Wound Culture - Final Toe - R 4th Staphylococcus Aureus 05/15/23 11:24 Wound Culture - Final Foot - Right Bottom Staphylococcus Aureus Accuchecks Date 05/19/23 Date 05/19/23 Date 05/19/23 Time 16:34 Time 11:49 Time 07:05 - Procedures and Test Procedures and Tests throughout Hospitalization: Therapy Orders & Screens 05/15/23 13:20 OT Screen per Nursing Assess ONCE Comment: Protocol Order Physician Instructions: Greater than 3 points order OT Admission Screening Reason For Exam: Triggered on Admission Diagnosis: Fever of unknown origin Open Wound/Cellutlitis/Pressure Ulcers: Yes Acute Fx/ORIF/Change in wt bearing status: No Severe MUSCULOSKELETAL pain: No ADL Dysfunction: No Acute CVA w/Hemiparesis/Hemiplegia: No Decreased Functional Mobility/Strength: No Sprain/Strain: No Acute Post-op Mobility Dysfunction: No Total Points: 5 PT Screen per Nursing Assess ONCE Comment: Protocol Order Physician Instructions: Greater than 3 points order PT Admission Screenin Reason For Exam: Triggered on Admission Diagnosis: Fever of unknown origin Open Wound/Cellutlitis/Pressure Ulcers: Yes Acute Fx/ORIF/Change in wt bearing status: No Severe MUSCULOSKELETAL pain: No ADL Dysfunction: No Acute CVA w/Hemiparesis/Hemiplegia: No Decreased Functional Mobility/Strength: No Sprain/Strain: No Acute Post-op Mobility Dysfunction: No Total Points: 5 05/17/23 09:29 PT Eval & Treat (MD Order) ONCE Reason for Eval:: per podiatry recomendations - gait training, and home needs Diagnosis: CELLULITIS, OSTEOMYELITIS, BACTEREMIA Discharge Exam General Appearance: no apparent distress Neurologic Exam: alert, oriented x 3, cooperative Eye Exam: PERRL Ears, Nose, Throat Exam: normal ENT inspection Neck Exam: normal inspection Respiratory Exam: normal breath sounds, lungs clear Cardiovascular Exam: regular rate/rhythm, normal heart sounds Gastrointestinal/Abdomen Exam: soft, normal bowel sounds Male Genitalia Exam: deferred Rectal Exam: deferred Back Exam: normal inspection Extremity Exam: other (RLE with surgical incision to right foot, wrapped in surgical dressing/xi bandage) Skin Exam: normal color Wound Assessment: Skin/Wound Assessment Wound/Incision Assessment Start: 05/17/23 10:13 Text: Status: Active Freq: Q6H Protocol: Document 05/20/23 02:00 JV (Rec: 05/20/23 02:33 JV [id number]) Wound/Incision Assessment Right Dorsal Foot Wound Assessment Shift Assessment Wound Type Incision Wound Stage Non Pressure Wound Dressing Status Dry & Intact Primary Dressing Adaptic Non-Adherent Secondary Dressing Sterile 4X4, Kerlix, Unaboot Comment Dressing CDI. Remains true. Right Base of 4th & 5th Digit Wound Assessment Shift Assessment Wound Type Diabetic Ulcer Wound Stage Non Pressure Wound Dressing Status Dry & Intact Primary Dressing Adaptic Non-adherent Secondary Dressing Sterile 4X4 and Kerlix Comment Dressing CDI. Remains true. Right Plantar Foot Wound Assessment Shift Assessment Wound Type Diabetic Ulcer Wound Stage Non Pressure Wound Dressing Status Dry & Intact Primary Dressing Adaptic Non-adherent Secondary Dressing Sterile 4X4, kerlix, Unaboot Comment Dressing CDI. Remains true. Wound Photo Photo Taken No Final Diagnosis/Problem List - Final Discharge Diagnosis/Problem (1) Sepsis Current Visit: Yes Status: Acute (2) Diabetic ulcer of right foot Current Visit: No Status: Acute Code(s): E11.621 - TYPE 2 DIABETES MELLITUS WITH FOOT ULCER; L97.519 - NON-PRS CHRONIC ULCER OTH PRT RIGHT FOOT W UNSP SEVERITY (3) ORIANA (acute kidney injury) Current Visit: Yes Status: Acute Code(s): N17.9 - ACUTE KIDNEY FAILURE, UNSPECIFIED (4) Abdominal pain Current Visit: Yes Status: Acute Code(s): R10.9 - UNSPECIFIED ABDOMINAL PAIN (5) Bipolar 1 disorder Current Visit: Yes Status: Acute Code(s): F31.9 - BIPOLAR DISORDER, UNSPECIFIED (6) Carbon dioxide, decreased level Current Visit: Yes Status: Acute Code(s): R79.81 - ABNORMAL BLOOD-GAS LEVEL (7) Dehydration Current Visit: Yes Status: Acute Code(s): E86.0 - DEHYDRATION (8) Diarrhea Current Visit: Yes Status: Acute Code(s): R19.7 - DIARRHEA, UNSPECIFIED (9) Fever Current Visit: Yes Status: Acute Code(s): R50.9 - FEVER, UNSPECIFIED (10) Hypocalcemia Current Visit: Yes Status: Acute Code(s): E83.51 - HYPOCALCEMIA (11) Hyponatremia Current Visit: Yes Status: Acute Code(s): E87.1 - HYPO-OSMOLALITY AND HYPONATREMIA (12) Tachycardia Current Visit: Yes Status: Acute Code(s): R00.0 - TACHYCARDIA, UNSPECIFIED (13) Thrombocytopenia Current Visit: Yes Status: Acute (14) Diabetes Current Visit: Yes Status: Chronic Code(s): E11.9 - TYPE 2 DIABETES MELLITUS WITHOUT COMPLICATIONS (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 (16) Obesity (BMI 30-39.9) Current Visit: Yes Status: Chronic Code(s): E66.9 - OBESITY, UNSPECIFIED - Discharge Disposition: Home, Self-Care Condition: Stable Prescriptions: New Ondansetron ODT 4 MG [Zofran Odt 4 mg] 4 mg PO Q6H PRN PRN #10 tablet PRN Reason: Vomiting Lactobacillus Acidophilus [Acidophilus TABLET] 1 tab PO DAILY 30 Days #30 tablet Ziprasidone 20 mg [Geodon 20 MG Capsule] 20 mg PO BIDWM 30 Days #60 cap Pantoprazole 20 mg [Protonix 20MG Tablet] 20 mg PO DAILY 30 Days #30 tablet Ertapenem Sodium [Invanz ] 1 g IV DAILY Aspirin EC 325 mg [Ecotrin 325 MG] 325 mg PO DAILY 30 Days #30 tablet Continue Levothyroxine Sodium [Unithroid] 225 mcg PO DAILY Insulin Degludec/Liraglutide [Xultophy 100 Unit-3.6MG/ml Pen] 50 units SQ QAM Insulin Lispro [Humalog] 15 unit SQ BID Hydroxyzine HCl 25 mg [Atarax 25 mg] 25 mg PO QID Zinc Acetate [Galzin] 1 cap PO DAILY Follow up with: MAHNAZ PISANO DPM [ACTIVE STAFF] - Office will call patient (YOU WILL FOLLOW UP ON 05/22/23- THE OFFICE WILL CALL YOU WITH AN APPOINTMENT TIME) GARY BOATENG MD [Primary Care Provider] - 05/30/23 10:45 am MASSIMO MORRELL [NON-STAFF PHY W/O PRIVILEGES] - 1 Week
[2023-05-20 07:47] LABS: ALBUMIN 2.7 g/dL (3.5-5.0); BILIRUBIN,TOTAL 0.4 mg/dL (0.2-1.3); Calcium 7.9 mg/dL (8.4-10.2); Creatinine 1 0.85 mg/dL (0.66-1.25); EST GLOMERULAR FILTRATION RATE 116.9 ML/MIN; Potassium 4.3 mmol/L (3.5-5.1)
[2023-05-20] MEDS ORDERED: PHARMACY DOSING REQUEST MC ONE (12:29)
[2023-05-20] MEDS: SODIUM CHLORIDE 0.9% IV SCH (13:04)
[2023-05-20] MEDS: INVANZ IV SCH (13:04)
--- NOTE | 2023-05-20 18:05 | PCM.NOTE ---
Date and Time: 05/20/231803 Subjective Assessment: Doing well. Physical Exam - Narrative Narrative Physical Exam: Podiatry Physical Exam Objective Data Vital Signs: Vital Signs - 24 hr Temp Pulse Resp BP Pulse Ox 05/20/23 16:00 98.2 F 90 18 122/66 97 05/20/23 12:00 97.5 F 85 18 117/70 97 05/20/23 07:44 97.8 F 81 17 121/60 96 05/20/23 04:00 99.2 F 88 21 119/70 95 05/20/23 00:00 99.8 F 96 H 20 111/58 95 05/19/23 20:00 99.1 F 96 H 22 115/60 96 Pain Assessment - Last Documented Pain Intensity 0 Pain Scale Used 0-10 Pain Scale Intake and Output: Intake & Output 05/18/23 05/19/23 05/20/23 05/21/23 11:59 11:59 11:59 11:59 Intake Total 3351 5469 2573 120 Output Total 250 Balance 3101 5469 2573 120 Weight 139.8 kg 140.6 kg 140.5 kg Lab Results: Lab Results-Last 24 Hours 05/16/23 05/19/23 05/20/23 Range/Units 14:14 21:17 04:40 WBC 6.7 (4.0-10.5) x10^3/uL RBC 3.54 L (4.1-5.6) x10^6/uL Hgb 10.1 L (12.5-18.0) g/dL Hct 32.5 L (42-50) % MCV 91.8 (78-100) fL MCH 28.5 (26-32) pg MCHC 31.1 L (32-36) g/dL RDW 12.8 (11.5-14.0) % Plt Count 128 L (150-450) x10^3/uL MPV 12.9 H (7.5-11.0) fL Sodium (135-145) mmol/L Potassium (3.5-5.1) mmol/L Chloride (98-107) mmol/L Carbon Dioxide (22-30) mmol/L Anion Gap (5-15) MEQ/L BUN (9-20) mg/dL Creatinine (0.66-1.25) mg/dL Estimated GFR ML/MIN Glucose (74-106) mg/dL POC Glucometer 245 H (74 to 106) mg/dL Calcium (8.4-10.2) mg/dL Total Bilirubin (0.2-1.3) mg/dL AST (17-59) U/L ALT (0-50) U/L Alkaline Phosphatase (38-126) U/L Creatine Kinase (55-170) U/L Serum Total Protein (6.3-8.2) g/dL Albumin (3.5-5.0) g/dL Surg PTH Specimen SEE COMMENTS 05/20/23 05/20/23 05/20/23 Range/Units 04:40 04:40 07:34 WBC (4.0-10.5) x10^3/uL RBC (4.1-5.6) x10^6/uL Hgb (12.5-18.0) g/dL Hct (42-50) % MCV (78-100) fL MCH (26-32) pg MCHC (32-36) g/dL RDW (11.5-14.0) % Plt Count (150-450) x10^3/uL MPV (7.5-11.0) fL Sodium 136 (135-145) mmol/L Potassium 4.3 (3.5-5.1) mmol/L Chloride 111 H (98-107) mmol/L Carbon Dioxide 19 L (22-30) mmol/L Anion Gap 11.0 (5-15) MEQ/L BUN 12 (9-20) mg/dL Creatinine 0.85 (0.66-1.25) mg/dL Estimated GFR 116.9 ML/MIN Glucose 251 H (74-106) mg/dL POC Glucometer 220 H (74 to 106) mg/dL Calcium 7.9 L (8.4-10.2) mg/dL Total Bilirubin 0.40 (0.2-1.3) mg/dL AST 42 (17-59) U/L ALT 37 (0-50) U/L Alkaline Phosphatase 58 (38-126) U/L Creatine Kinase 2007 H (55-170) U/L Serum Total Protein 6.0 L (6.3-8.2) g/dL Albumin 2.7 L (3.5-5.0) g/dL Surg PTH Specimen 05/20/23 05/20/23 Range/Units 11:59 16:58 WBC (4.0-10.5) x10^3/uL RBC (4.1-5.6) x10^6/uL Hgb (12.5-18.0) g/dL Hct (42-50) % MCV (78-100) fL MCH (26-32) pg MCHC (32-36) g/dL RDW (11.5-14.0) % Plt Count (150-450) x10^3/uL MPV (7.5-11.0) fL Sodium (135-145) mmol/L Potassium (3.5-5.1) mmol/L Chloride (98-107) mmol/L Carbon Dioxide (22-30) mmol/L Anion Gap (5-15) MEQ/L BUN (9-20) mg/dL Creatinine (0.66-1.25) mg/dL Estimated GFR ML/MIN Glucose (74-106) mg/dL POC Glucometer 190 H 248 H (74 to 106) mg/dL Calcium (8.4-10.2) mg/dL Total Bilirubin (0.2-1.3) mg/dL AST (17-59) U/L ALT (0-50) U/L Alkaline Phosphatase (38-126) U/L Creatine Kinase (55-170) U/L Serum Total Protein (6.3-8.2) g/dL Albumin (3.5-5.0) g/dL Surg PTH Specimen Multi-Disciplinary Progress Notes: Multi-Disciplinary Progress Notes 05/20/23 14:47 Case Management Note by Neva Aguilar S/W PATIENT AND ABOUT NEEDS AT DC- THEY DENY ANY NEW NEEDS. PATIENT HAS A KNEE SCOOTER AT BEDSIDE HE BORROWED FROM A FAMILY MEMBER. WE DISCUSSED A WALKER WELL. HE WOULD LIKE TO GO AHEAD AND GET ONE. DISCUSSED DME PROVIDERS. HE WOULD LIKE TO USE [facility] AND HAVE IT DELIVERED HERE. ORDER FOR WALKER SUGGESTED IN PT NOTE ORDERED VIA [facility] WITH INSTRUCTIONS TO DELIVER TO [facility]. AFTER CALLING AND S/W [facility] AND FINANCIAL OFFICE HERE- PATIENT WILL MEET HIS MAX OUT OF POCKET FROM THIS HOSPITAL STAY COMBINED WITH WHAT PARTS HE ALREADY MET. THEY WERE NOTIFIED THAT CURRENTLY ANTIBIOTICS ARE ONLY ORDERED FOR 14 DAYS. THEY WOULD LIKE TO JUST COME BACK AND FORTH TO [facility] FOR THOSE INFUSIONS DAILY AND DRESSING CHANGES ORDERED. THEY UNDERSTAND THAT HOME INFUSIONS ARE STILL AN OPTION IF A LONGER COURSE OF ANTIBIOTICS ARE NEEDED. S/W MAHNAZ ABOUT DC ORDERS- SEE NURSING MISC ORDER. ORDERS FOR INFUSIONS AND DRESSING CHANGES TAKEN TO OTPT. PATIENT SCHEDULED FOR 1000 05/21/23. THIS INFORMATION WAS GIVEN VERBALLY TO PATIENT AND PLACED IN DC INSTRUCTIONS. Initialized on 05/20/23 14:47 - END OF NOTE 05/20/23 14:30 Physical Therapy Note by Jhony(Essie#[id number])Sydney PATIENT SEEN AT BEDSIDE. NOW IN CONTACT PRECAUTIONS - PER NURSING DUE TO HX OF MRSA. NURSING STATES PATIENT UP WITH ROLLING WALKER BUT NOT MAINTAINING NWB MOST OF THE TIME. PATIENT STATES HE "HOPS" SOMETIMES. ACKNOWLEDGES HE CAN BUT DOESN'T ALWAYS DO IT IT'S HARDER. PATIENT EDUCATED ON NEED FOR NWB AND REITERATED THE POTENTIAL HARM WITH WEIGHT- BEARING. PATIENT DOES NOT HAVE PAIN WITH WEIGHT-BEARING DUE TO NEUROPATHY BUT ACKNOWLEDGED AGAIN AFTER EDUCATION BENEFIT/NEED FOR NWB. ON THIS DATE PATIENT DEMONSTRATED INDEP WITH SIT TO STAND TO SIT WITH ROLLING WALKER. ON FIRST ATTEMPT PATIENT PLACED HANDS ON WALKER FOR COMING TO STAND AND UNABLE TO COMPLETE MOTION. WITH CUE FOR PROPER HAND PLACEMENT PATIENT DEMONSTRATED SIT TO STAND X 2 MAINTAINING NWB RIGHT WITHOUT DIFFICULTY. AMBULATED 15' IN ROOM INCLUDING 180 DEGREE TURN INDEP WITH 2W WALKER WITHOUT DIFFICULTY. DEMONSTRATED SAFE STAND TO SIT WITH PROPER HAND PLACEMENT. SPOUSE PRESENT IN ROOM AND UNDERSTANDS INSTRUCTIONS AND NEED FOR NWB. 2W WALKER HAS BEEN ORDERED AND PER [facility] OUT FOR DELIVERY. PLAN IS TO DISCHARGE HOME TODAY AND RETURN TO HOSPITAL DAILY FOR OUTPATIENT INFUSIONS. NO FURTHER THERAPY INDICATED AT THIS TIME. Initialized on 05/20/23 14:30 - END OF NOTE 05/20/23 09:46 Case Management Note by Neva Aguilar WOULD LIKE PHARMACY TO DOSE OTPT INVANZ FOR DC. WILL NEED FOR 14 DAYS FROM 05/17. S/W [facility] (PHARMACY)- DOSING WOULD BE INVANZ 1 GM IV DAILY SENT TO [facility] TO CHECK IF PATIENT HAS COVERAGE Initialized on 05/20/23 09:46 - END OF NOTE Assessment/Plan (1) Diabetes mellitus Current Visit: No Status: Chronic Qualifiers: Diabetes mellitus type: type 2 Assessment & Plan: Patient examination and evaluation at bedside this AM Wound inspected this AM no residual clinical indictors of infection present Packing pulled and redressed with iodine soaked 1/4 in iodoform packing, adaptic soaked in iodine, 4x4 sterile gauze, unna boot for localized edema and secured with kerlix and coban with moderate compression. Zosyn on board will likely d/c with [facility] to dose due to continued anaerobic and broad spectrum coverage. Wound cultures and blood cultures both growing Staph Aureus (MSSA). White blood cells down to 5.2 today. patient seemingly afebrile as of this AM with temperature of 98.3 most recently. Subjectively states he is feeling better. Discussion was held with the patient at bedside today in regards to possibility of need for amputation. Continuing to await bone biopsies for definitive management. continue non weight bearing to the right lower extremity for now. Ok for d/c follow up this week Code(s): E11.9 - TYPE 2 DIABETES MELLITUS WITHOUT COMPLICATIONS (2) Diabetic foot ulcer Current Visit: No Status: Acute Qualifiers: Diabetes mellitus type: type 2 Laterality: right Code(s): E11.621 - TYPE 2 DIABETES MELLITUS WITH FOOT ULCER; L97.509 - NON- PRESSURE CHRONIC ULCER OTH PRT UNSP FOOT W UNSP SEVERITY (3) Cellulitis Current Visit: No Status: Acute Qualifiers: Site of cellulitis: extremity Site of cellulitis of extremity: lower extremity Laterality: right Qualified Code(s): L03.115 - Cellulitis of right lower limb Code(s): L03.90 - CELLULITIS, UNSPECIFIED (4) Leukocytosis Current Visit: No Status: Acute Code(s): D72.829 - ELEVATED WHITE BLOOD CELL COUNT, UNSPECIFIED (5) Hypothyroidism Current Visit: No Status: Acute Code(s): E03.9 - HYPOTHYROIDISM, UNSPECIFIED (6) Peripheral neuropathy Current Visit: No Status: Acute Code(s): G62.9 - POLYNEUROPATHY, UNSPECIFIED (7) Uncontrolled diabetes mellitus Current Visit: No Status: Acute Code(s): AIZ2512 - (8) Diabetic ulcer of right foot Current Visit: No Status: Acute Code(s): E11.621 - TYPE 2 DIABETES MELLITUS WITH FOOT ULCER; L97.519 - NON-PRS CHRONIC ULCER OTH PRT RIGHT FOOT W UNSP SEVERITY (9) Fever Current Visit: Yes Status: Acute Code(s): R50.9 - FEVER, UNSPECIFIED (10) Sepsis Current Visit: Yes Status: Acute Qualifiers: Sepsis acute organ dysfunction status: without acute organ dysfunction (11) ORIANA (acute kidney injury) Current Visit: Yes Status: Acute Code(s): N17.9 - ACUTE KIDNEY FAILURE, UNSPECIFIED (12) Diabetes Current Visit: Yes Status: Chronic Qualifiers: Diabetes mellitus type: type 2 Diabetes mellitus complication detail: with polyneuropathy Code(s): E11.9 - TYPE 2 DIABETES MELLITUS WITHOUT COMPLICATIONS (13) Tachycardia Current Visit: Yes Status: Acute Code(s): R00.0 - TACHYCARDIA, UNSPECIFIED (14) Obesity (BMI 30-39.9) Current Visit: Yes Status: Chronic Code(s): E66.9 - OBESITY, UNSPECIFIED (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
[2023-05-20 20:41] VITALS: BP 130/60; PULSE 91; RESP 16; TEMP 99.1; O2SAT 95
== END 2023-05-20 22:00 | disposition home or self-care (01) | DRG 872 ==
LOC: ED 08:21 → MED SURG 12:50 → ED 05-16 08:21 → OBSVTOIN 05-16 10:01 → MED SURG 05-16 12:50
PROVIDERS: ADMIT Internal Medicine; ATTEND Internal Medicine
PROC: 0J9Q0ZZ Drainage of Right Foot Subcutaneous Tissue and Fascia, Open Approach (ICD-10-PCS; principal; 2023-05-16)
DX: A41.9 Sepsis, unspecified organism (principal); L03.115 Cellulitis of right lower limb; L97.518 Non-pressure chronic ulcer of other part of right foot with other specified severity; N17.9 Acute kidney failure, unspecified; E87.1 Hypo-osmolality and hyponatremia; M86.9 Osteomyelitis, unspecified; E11.621 Type 2 diabetes mellitus with foot ulcer; D72.829 Elevated white blood cell count, unspecified; E03.9 Hypothyroidism, unspecified; E11.42 Type 2 diabetes mellitus with diabetic polyneuropathy; R50.9 Fever, unspecified; R00.0 Tachycardia, unspecified; E66.9 Obesity, unspecified; Z86.14 Personal history of Methicillin resistant Staphylococcus aureus infection; Z85.850 Personal history of malignant neoplasm of thyroid; E86.0 Dehydration; R10.9 Unspecified abdominal pain; E83.51 Hypocalcemia; D69.6 Thrombocytopenia, unspecified; R19.7 Diarrhea, unspecified; R79.81 Abnormal blood-gas level; F31.9 Bipolar disorder, unspecified
CPT/HCPCS: 0241U; 28005; 36000; 36415; 71045; 73630; 73720; 74176; 76000; 76705; 80053; 80202; 80307; 81001; 82150; 82550; 82947; 83036; 83605; 83690; 83735; 84439; 84443; 84484; 85025; 85027; 85610; 86308; 87040; 87046; 87070; 87075; 87077; 87116; 87186; 87206; 87493; 93005; 93268; 96360; 96374; 96375; 96376; 97110; 97116; 97163; 97530; 99223; 99285; 99291; A6260; J0330; J0878; J1170; J1335; J1817; J1885; J1956; J2001; J2250; J2405; J2543; J2704; J3010; Q3014; A9270-GY; G0378; J3370

== ENCOUNTER 2023-05-29 05:15 | Day surgery (SDC) | payer BC ==
[2023-05-29 05:42] LABS: Hematocrit 37.4 % (42-50); Mean Cell Volume 89.7 fL (78-100); Mean Corpuscular Hemoglobin 28.8 pg (26-32); Mean Corpuscular Hgb Concent. 32.1 g/dL (32-36); Platelet Count 404 x10^3/uL (150-450); Red Blood Count 4.17 x10^6/uL (4.1-5.6); Red Cell Distribution Width 12.1 % (11.5-14.0); White Blood Count 10.1 x10^3/uL (4.0-10.5)
[2023-05-29 05:46] VITALS: RESP 16
[2023-05-29] MEDS: Lactated Ringers 1,000 ML IV SCH (05:50)
[2023-05-29] MEDS: Invanz *** 1 G in Sodium Chloride 100ML MINI-BAG PLUS 100 ML IV SCH (05:59)
[2023-05-29] MEDS ORDERED: Marcaine Mpf 0.5% Vial 30 Ml ONE (06:11)
[2023-05-29] MEDS ORDERED: Xylocaine 1% Vial 30 ML PF IJ ONE (06:11)
[2023-05-29 06:12] LABS: ALBUMIN 3.6 g/dL (3.5-5.0); BILIRUBIN,TOTAL 0.6 mg/dL (0.2-1.3); Calcium 9.1 mg/dL (8.4-10.2); Creatinine 1 0.84 mg/dL (0.66-1.25); EST GLOMERULAR FILTRATION RATE 116.6 ML/MIN; Potassium 4.3 mmol/L (3.5-5.1)
[2023-05-29] MEDS ORDERED: SUBLIMAZE 100 MCG/2 ML ONE (06:29)
[2023-05-29] MEDS ORDERED: DIPRIVAN 200 MG/20 ML IV ONE (06:29)
[2023-05-29] MEDS ORDERED: Versed 2 MG/2 ML Injection ONE (06:29)
[2023-05-29] MEDS ORDERED: Sodium Chloride 0.9% 1000 ML 1,000 ML ONE (06:44)
[2023-05-29 08:01] VITALS: PULSE 99; O2SAT 95
[2023-05-29 08:15] VITALS: BP 126/80; TEMP 96.9
--- NOTE | 2023-05-30 08:33 | OP ---
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 2) Diabetic foot ulceration. 3) Resolved abscess dorsal right foot. 4) Peripheral vascular disease. 5) Uncontrolled diabetes mellitus. POSTOPERATIVE DIAGNOSES: 1) Osteomyelitis right fourth digit proximal phalanx chronic. 2) Diabetic foot ulceration. 3) Resolved abscess dorsal right foot. 4) Peripheral vascular disease. 5) Uncontrolled diabetes mellitus. PROCEDURE: Incision and drainage with repeat bone debridement as well as complex closure of surgical wound. SURGEON: Inder Weinberg DPM. FIRE INVESTIGATION LIEUTENANT: None. ANESTHESIA: Monitored anesthesia care with a block over peroneal nerve distribution. HEMOSTASIS: Pressure dressing. QUANTITATIVE BLOOD LOSS: Approximately 5 cc. MATERIALS: 2-0 Nylon, 3-0 Nylon, 4-0 Monocryl, two separate Suturegards. INJECTABLES: 10 cc of 1:1 mixture of 1% lidocaine plain and 0.5% bupivacaine plain injected in a superficial peroneal and deep peroneal block-type fashion at the level of the ankle. INDICATION FOR SURGERY: Felice is a very pleasant 33-year-old male who is well known to my service for multiple ulcerations of the right lower extremity. At this time, the patient in the acute period had an abscess with sepsis to the right lower extremity. Bone biopsies were taken correlating with MRI that suggested also osteomyelitis wide spread of the right foot. Bone biopsies did return negative for osteomyelitis of the fourth and fifth metatarsal however inconclusive to the fourth digit secondary to the presence of neutrophils. Meaning this is likely not an acute osteomyelitis however chronic. Discussion with the patient in regards to the options and the patient wished to proceed with a salvage instead of amputation of the fourth digit understanding the risks and potential complications that could occur as a result. The patient is aware of the risk that the osteomyelitis could form a sequestrum within the long bones of the foot or leg and potentially break open resulting in insidious infection from the inside out. The patient understands this risk. We have decided to proceed with IV antibiotics for six to eight week course. With that, the patient understands there are no guarantees provided as to the outcome of surgical intervention. However, the goal is a functional and infection-free foot at the end of this process. The patient understands all of these risks and wishes to proceed. Plenty of time was allowed for him and his to ask questions to their apparent satisfaction. It is at this time we decided to proceed. DESCRIPTION OF PROCEDURE AND FINDINGS: The patient is brought into the OR and placed on the OR table in the supine position. At this time, monitored anesthesia care was administered until the patient was adequately sedated. His right lower extremity prepped and draped in the typical sterile fashion and lowered onto the surgical field. Attention was directed to the dorsal aspect of the right foot where a 10 cc injection consisting of a 1:1 mixture of 1% lidocaine plain and 0.5% bupivacaine plain was injected in the dorsal aspect of the right foot in the deep peroneal and superficial peroneal nerve distributions. Following this, debridement took place utilizing a 10 blade incising the edges of the wound this was carried down to the level of bone which was inspected. Debridement took place utilizing curette and rongeur. The base of the proximal phalanx laterally was inspected and debridement took place utilizing rongeur and curette. From that standpoint, copious amounts of sterile saline were utilized to flush the surgical site. Suturegards were placed taking tension off of the wound edges utilizing 2-0 Nylon in a simple interrupted-type fashion. Following this alternating horizontal mattress and simple interrupted sutures were utilized to coapt the subcutaneous skin edges in an everted-type fashion. Following this, a dressing consisting of Betadine, Adaptic, 4x4, ABD, Kerlix and Coban was applied to the patient's right lower extremity. The patient was reversed from anesthesia and returned to the postoperative anesthesia care unit with vital signs stable and vascular status intact. The patient handled the anesthesia as well as procedure without significant complication. Postoperative orders as indicated in the patient's discharge chart.
== END 2023-05-29 08:23 | disposition home or self-care (01) ==
LOC: SDC 05:15
PROVIDERS: ATTEND Podiatrist Foot & Ankle Surgery
DX: M86.9 Osteomyelitis, unspecified (principal); E11.621 Type 2 diabetes mellitus with foot ulcer; E11.51 Type 2 diabetes mellitus with diabetic peripheral angiopathy without gangrene; L02.611 Cutaneous abscess of right foot
CPT/HCPCS: 13160; 28005; 36415; 80053; 85027; J1335; J1642; J2001; J2250; J2704; J3010

== ENCOUNTER 2023-07-22 15:15 | Emergency (ER) | payer BC | END 2023-07-22 15:21 | disposition left against medical advice (07) | LOC: ED 15:15 | DX: Z53.21 Procedure and treatment not carried out due to patient leaving prior to being seen by health care provider (principal) ==

== ENCOUNTER 2023-08-20 08:19 | Day surgery (SDC) | payer BC ==
[2023-08-20] MEDS: CLINDAMYCIN-D5W 900 MG/50 ML*** 900 MG/50 ML BAG IV ONE (08:32)
[2023-08-20] MEDS: Sodium Chloride 0.9% 1000 ML 1,000 ML IV SCH (08:33)
[2023-08-20 08:37] VITALS: BP 125/96; PULSE 97; RESP 18; TEMP 97.1; O2SAT 98
[2023-08-20 08:44] LABS: Hematocrit 42.3 % (40.1-51.0); Hemoglobin 13.8 g/dL (13.7-17.5); Mean Corpuscular Hgb Concent. 32.6 g/dL (32.3-36.5); Mean Platelet Volume 11.8 fL (9.4-12.4); Platelet Count 152 x10^3/uL (163-337); Red Blood Count 4.92 x10^6/uL (4.63-6.08); Red Cell Distribution Width 13.4 % (11.6-14.4); White Blood Count 7.1 x10^3/uL (4.23-9.07)
[2023-08-20 09:02] LABS: ANION GAP 15.7 MEQ/L (5-15); BILIRUBIN,TOTAL 0.6 mg/dL (0.2-1.3); Calcium 9.2 mg/dL (8.4-10.2); Creatinine 1 0.62 mg/dL (0.66-1.25); EST GLOMERULAR FILTRATION RATE 127.8 ML/MIN; Potassium 4.2 mmol/L (3.5-5.1); Total Protein 7.3 g/dL (6.3-8.2)
== END 2023-08-20 09:32 | disposition home or self-care (01) ==
LOC: SDC 08:19
PROVIDERS: ATTEND Podiatrist Foot & Ankle Surgery
DX: Z53.8 Procedure and treatment not carried out for other reasons (principal); E11.9 Type 2 diabetes mellitus without complications; E66.9 Obesity, unspecified
CPT/HCPCS: 36415; 80053; 83036; 85027; 93005

== ENCOUNTER 2024-01-28 09:08 | Observation (INO) | payer BC, SELFPAY ==
[2024-01-28] MEDS ORDERED: Sodium Chloride 0.9% 500 ML IV ONE (09:09)
[2024-01-28] MEDS ORDERED: NEURONTIN ONE (09:38)
[2024-01-28] MEDS ORDERED: Reglan 10 MG/2 ML ONE (09:38)
[2024-01-28] MEDS ORDERED: Lactated Ringers 1,000 ML IV ONE (09:38)
[2024-01-28] MEDS ORDERED: TYLENOL EXTRA STRENGTH 500 MG ONE (09:38)
[2024-01-28] MEDS ORDERED: Pepcid 20 MG VIAL IV ONE (09:38)
[2024-01-28] MEDS ORDERED: Decadron 4 MG ONE (09:38)
[2024-01-28] MEDS ORDERED: celeBREX 100 MG ONE (09:38)
[2024-01-28 09:43] LABS: Hematocrit 36.7 % (40.1-51.0); Hemoglobin 11.1 g/dL (13.7-17.5); Mean Cell Volume 77.8 fL (79.0-92.2); Mean Corpuscular Hemoglobin 23.5 pg (25.7-32.2); Mean Corpuscular Hgb Concent. 30.2 g/dL (32.3-36.5); Mean Platelet Volume 11.2 fL (9.4-12.4); Platelet Count 187 x10^3/uL (163-337); Red Blood Count 4.72 x10^6/uL (4.63-6.08); Red Cell Distribution Width 17.1 % (11.6-14.4); White Blood Count 5.9 x10^3/uL (4.23-9.07)
[2024-01-28] MEDS: Pepcid 20 MG VIAL IV ONE (09:43)
[2024-01-28] MEDS: TYLENOL EXTRA STRENGTH 500 MG PO ONE (09:43)
[2024-01-28] MEDS: Decadron 4 MG PO ONE (09:43)
[2024-01-28] MEDS: Reglan 10 MG/2 ML IV ONE (09:43)
[2024-01-28] MEDS: NEURONTIN PO ONE (09:43)
[2024-01-28] MEDS: celeBREX 100 MG PO ONE (09:43)
[2024-01-28] MEDS: Lactated Ringers 1,000 ML IV SCH (09:44)
[2024-01-28 10:35] LABS: ALBUMIN 4.2 g/dL (3.5-5.0); ANION GAP 16.2 MEQ/L (5-15); BILIRUBIN,TOTAL 0.5 mg/dL (0.2-1.3); Calcium 9.6 mg/dL (8.4-10.2); Creatinine 1 0.78 mg/dL (0.66-1.25); EST GLOMERULAR FILTRATION RATE 119.3 ML/MIN; Potassium 4.4 mmol/L (3.5-5.1); Total Protein 7.5 g/dL (6.3-8.2)
[2024-01-28] MEDS ORDERED: CEFAZOLIN 2 GM/100 ML NaCl 2 GM/100 ML IVPB IV ONE (10:48)
[2024-01-28] MEDS: CEFAZOLIN 2 GM/100 ML NaCl 2 GM/100 ML IVPB IV SCH (10:49)
[2024-01-28] MEDS ORDERED: Sensorcaine 0.25% 10 ML ONE (11:05)
[2024-01-28] MEDS ORDERED: Xylocaine 1% Vial 30 ML PF IJ ONE (11:05)
[2024-01-28] MEDS ORDERED: Marcaine Mpf 0.5% Vial 30 Ml ONE (11:05)
[2024-01-28] MEDS ORDERED: DIPRIVAN 200 MG/20 ML IV ONE ×2 (11:22→11:52)
[2024-01-28] MEDS ORDERED: DEXMEDETOMIDINE 80 MCG/20ML-NS IV ONE (11:48)
[2024-01-28] MEDS ORDERED: Quelicin Fliptop 200 MG/10 ML ONE (11:48)
[2024-01-28] MEDS ORDERED: CLINDAMYCIN-D5W 900 MG/50 ML*** 900 MG/50 ML BAG IV ONE (11:48)
[2024-01-28] MEDS ORDERED: Xylocaine-Mpf 2% 5 Ml Vial ONE (11:48)
[2024-01-28] MEDS ORDERED: Pre-Attached Lta Kit TP ONE (11:49)
[2024-01-28] MEDS ORDERED: Versed 2 MG/2 ML Injection ONE (11:52)
[2024-01-28] MEDS ORDERED: SUBLIMAZE 100 MCG/2 ML ONE (11:54)
[2024-01-28] MEDS ORDERED: Sodium Chloride 0.9% 1000 ML 1,000 ML ONE (12:17)
--- NOTE | 2024-01-28 13:29 | XRAY ---
Indication: Right foot bone debridement and chopart amputation. Tendon debridement posterior tibial tendon, peroneal tendon, tibialis anterior tendon. Intraoperative fluoroscopy provided for 9 seconds. 5 digital spot images submitted for interpretation ultimately demonstrates amputation remaining tarsal bones with only remaining talus and calcaneus. Correlate with intraoperative findings/report.
--- NOTE | 2024-01-28 13:54 | XRAY ---
9 seconds of fluoroscopy was used in surgery for a right foot bone debridement and chopart amputation. Tendon debridement posterior tibial tendon, peroneal tendon, tibialis anterior tendon.
--- NOTE | 2024-01-28 15:14 | PCM.HP ---
<JEREMY POLLACK - Last Filed: 01/28/24 15:43> History of Present Illness - Chief Complaint Chief Complaint: right foot osteomyelitis Date: 01/28/24 History of Present Illness: Mr. Doan is a 33 year-old gentleman with DM2, thyroid cancer s/p thyroidectomy now with hypothyroidism, diabetic foot ulcer, and bipolar disorder patient of Dr. Loving (podiatry) admitted 01/28/24 for right foot I&D bone debridement to the level of Choparts joint amputation, tendon debridement posterior tibial tendon, peroneal tendon and tibialis anterior application of negative pressure wound vac. Hospitalist team consulted for medical management. Patient currently with no complaints. Rates pain level 0/10 on numerical pain scale. Denies fever,cough, sob, cp, abdominal pain, SINGH, dizziness, N/V/D. - Review of Systems Constitutional: No Symptoms Eyes: No Symptoms Ears, Nose, & Throat: No Symptoms Respiratory: No Symptoms Cardiac: No Symptoms Abdominal/Gastrointestinal: No Symptoms Genitourinary Symptoms: No Symptoms Musculoskeletal: No Symptoms Skin: Other (surgical wound to RLE with veriflow woundvac shadow drainage noted to right heel) Neurological: No Symptoms Psychological: No Symptoms Endocrine: No Symptoms Hematologic/Lymphatic: No Symptoms Medications & Allergies Home Medications: Home Medication List Levothyroxine Sodium [Unithroid] 225 mcg PO DAILY 07/22/22 [History Confirmed 01/28/24] Empagliflozin [Jardiance] 20 mg PO DAILY 11/07/23 [History Confirmed 01/28/24] Insulin Aspart [NovoLOG Insulin] 17 units SQ BID 11/07/23 [History Confirmed 01/28/24] Oxycodone HCl/Acetaminophen [Percocet 7.5-325 mg Tablet] 1 each PO UD #1 tablet MDD ud 11/12/23 [Rx Confirmed 01/28/24] Insulin Glargine [Lantus Insulin] 50 units SQ DAILY 01/28/24 [History Confirmed 01/28/24] Pregabalin 50 mg [Lyrica 50MG] 100 mg PO HS 01/28/24 [History Confirmed 01/28/24] Allergies/Adverse Reactions: Allergies Allergy/AdvReac Type Severity Reaction Status Date / Time Iodinated Contrast Media Allergy Verified 01/28/24 09:31 Penicillins Allergy Verified 12/10/24 09:31 shellfish derived Allergy Verified 01/28/24 09:31 - Past Medical History Past Medical History: Yes Neurological History: Peripheral Neuropathy ENT History: Other Cardiac History: No Pertinent History Respiratory History: No Pertinent History Endocrine Medical History: Diabetes Type II, Other Musculoskelatal History: No Pertinent History GI Medical History: No Pertinent History History: No Pertinent History Pyscho-Social History: Bipolar Male Reproductive Disorders: No Pertinent History Comment: THYROID HAS BEEN REMOVED. CURRENTLY HAVING INFUSIONS FOR R FOOT INFECTION. HE HAD OSTEOMYELITIS. HE IS TO HAVE AN MRI ON 01/08/24 TO CHECK PROGRESS. - Past Surgical History Past Surgical History: Yes Neuro Surgical History: No Pertinent History Cardiac History: No Pertinent History Respiratory Surgery: No Pertinent History GI Surgical History: No Pertinent History Genitourinary Surgical Hx: No Pertinent History Musculskeletal Surgical Hx: Amputation, Other Male Surgical History: No Pertinent History Other Surgical History: thyroidectomy. right foot surgery x4-5. all 5 digits removed on right foot Significant Family History: no pertinent family hx - Social History Smoking Status: Never smoker Exposure to second hand smoke: No Alcohol: None Drug Use: none - Social Determinants of Health Will the patient participate in the screening: Yes Do you worry about a steady place to live?: No In the past 12 months,have you had to go without utilities?: No Have you or anyone in your house had to go without enough: No Transportation Issues: No Has anyone in your support network made you feel unsafe?: No Does the patient want assistance with any of the above?: No - Physical Exam Vital Signs: Vital Signs - 24 hr Temp Pulse Resp BP Pulse Ox 01/28/24 10:00 97.1 F 105 H 18 132/77 105 H 01/28/24 09:54 97.1 F 105 H 18 132/77 105 H 01/28/24 09:45 97.1 F 105 H 18 132/77 105 H General Appearance: no apparent distress Neurologic Exam: alert, oriented x 3, cooperative Eye Exam: PERRL/EOMI Ears, Nose, Throat Exam: normal ENT inspection Neck Exam: normal inspection Respiratory Exam: normal breath sounds, lungs clear Cardiovascular Exam: regular rate/rhythm, normal heart sounds Back Exam: normal inspection Skin Exam: other (surgical wound to RLE with veriflow woundvac shadow drainage noted to right heel) Results - Labs Lab/Micro Results: Lab Results-Last 24 Hours 01/28/24 01/28/24 01/28/24 Range/Units 09:20 10:06 14:01 WBC 5.9 (4.23-9.07) x10^3/uL RBC 4.72 (4.63-6.08) x10^6/uL Hgb 11.1 L (13.7-17.5) g/dL Hct 36.7 L (40.1-51.0) % MCV 77.8 L (79.0-92.2) fL MCH 23.5 L (25.7-32.2) pg MCHC 30.2 L (32.3-36.5) g/dL RDW 17.1 H (11.6-14.4) % Plt Count 187 (163-337) x10^3/uL MPV 11.2 (9.4-12.4) fL Sodium 141 (135-145) mmol/L Potassium 4.4 (3.5-5.1) mmol/L Chloride 112 H (98-107) mmol/L Carbon Dioxide 17 L (22-30) mmol/L Anion Gap 16.2 H (5-15) MEQ/L BUN 22 H (9-20) mg/dL Creatinine 0.78 (0.66-1.25) mg/dL Estimated GFR 119.3 ML/MIN Glucose 236 H (74-106) mg/dL POC Glucometer 244 H (74 to 106) mg/dL Calcium 9.6 (8.4-10.2) mg/dL Total Bilirubin 0.50 (0.2-1.3) mg/dL AST 146 H (17-59) U/L ALT 132 H (0-50) U/L Alkaline Phosphatase 90 (38-126) U/L Serum Total Protein 7.5 (6.3-8.2) g/dL Albumin 4.2 (3.5-5.0) g/dL 01/28/24 Range/Units 14:44 WBC (4.23-9.07) x10^3/uL RBC (4.63-6.08) x10^6/uL Hgb (13.7-17.5) g/dL Hct (40.1-51.0) % MCV (79.0-92.2) fL MCH (25.7-32.2) pg MCHC (32.3-36.5) g/dL RDW (11.6-14.4) % Plt Count (163-337) x10^3/uL MPV (9.4-12.4) fL Sodium (135-145) mmol/L Potassium (3.5-5.1) mmol/L Chloride (98-107) mmol/L Carbon Dioxide (22-30) mmol/L Anion Gap (5-15) MEQ/L BUN (9-20) mg/dL Creatinine (0.66-1.25) mg/dL Estimated GFR ML/MIN Glucose (74-106) mg/dL POC Glucometer 246 H (74 to 106) mg/dL Calcium (8.4-10.2) mg/dL Total Bilirubin (0.2-1.3) mg/dL AST (17-59) U/L ALT (0-50) U/L Alkaline Phosphatase (38-126) U/L Serum Total Protein (6.3-8.2) g/dL Albumin (3.5-5.0) g/dL - Radiology Impressions Radiology Exams & Impressions: Radiology Procedures Category Date Time Status FLUOROSCOPY UP TO 1 HR Routine Exams 01/28/24 07:04 Completed FOOT (MINIMUM 3 VIEWS) Routine Exams 01/28/24 07:04 Completed Assessment/Plan (1) Osteomyelitis of right foot Current Visit: No Status: Acute Assessment & Plan: -Reviewed MRI dated 01/09/24 demonstrating Diffuse cutaneous/deep soft tissue swelling and edema signal involving the stump concerning for cellulitis. No walled off fluid collection/abscess. Diffuse bone edema signal of remaining cuneiforms, cuboid, and navicular bones favoring osteomyelitis -Reviewed recent office note from podiatry dated 01/23/24 - agree with post surg ical plan of NWB with knee scooter, IV vanc/zosyn post-operatively while awaiting culture results, and pain management -Podiatry following -DVT prophylaxis ASA 325mg -POD day 0- right foot I&D bone debridement to the level of Choparts joint amputation, tendon debridement posterior tibial tendon, peroneal tendon and tibialis anterior application of negative pressure wound vac -cultures pending Code(s): M86.9 - OSTEOMYELITIS, UNSPECIFIED (2) Diabetic ulcer of right foot Current Visit: No Status: Acute Assessment & Plan: -see osteomyelitis Code(s): E11.621 - TYPE 2 DIABETES MELLITUS WITH FOOT ULCER; L97.519 - NON-PRS CHRONIC ULCER OTH PRT RIGHT FOOT W UNSP SEVERITY (3) Type 2 diabetes mellitus Current Visit: Yes Status: Acute Assessment & Plan: -ADA diet -advised good glycemic control for wound healing -SSI with home insulin regimen/jardiance (4) Bipolar 1 disorder Current Visit: No Status: Acute Assessment & Plan: -continue home meds Code(s): F31.9 - BIPOLAR DISORDER, UNSPECIFIED (5) History of thyroid cancer Current Visit: No Status: Chronic Assessment & Plan: -s/p thyroidectomy now with hypothyroidism- on Synthroid Code(s): Z85.850 - PERSONAL HISTORY OF MALIGNANT NEOPLASM OF THYROID (6) Hypothyroid Current Visit: No Status: Chronic Assessment & Plan: -continue Synthroid DVT: ASA Dispo: 2-3 days Code status: full code Code(s): E03.9 - HYPOTHYROIDISM, UNSPECIFIED (7) Metabolic acidosis Current Visit: Yes Status: Acute Assessment & Plan: -co2 levels reviewed at 17 - -IVF Code(s): E87.20 - ACIDOSIS, UNSPECIFIED (8) Anemia Current Visit: Yes Status: Acute Assessment & Plan: -appears chronic -will add iron studies -hgb < 7 transfuse Code(s): D64.9 - ANEMIA, UNSPECIFIED Telemedicine Encounter - Telemedicine Encounter Telemedicine Encounter: "The entirety of this encounter was performed via Telemedicine" This visit was performed using real-time audio and video connection between my location and thepatients locationwith the assistance of a surrogateat the patients location. Written or verbal consent was obtained from the patient/guardian to perform this visit [facility]. Any patient questions regarding the telemedicine interaction were answered. <RAMSES BURGESS - Last Filed: 01/28/24 21:27> History of Present Illness - Chief Complaint History of Present Illness: Mr.KING MENDOZA is a 33 year old male. - Physical Exam Vital Signs: Vital Signs - 24 hr Temp Pulse Resp BP Pulse Ox 01/28/24 19:00 98.7 F 113 H 17 115/67 95 01/28/24 15:50 98.6 F 95 H 16 141/80 93 L 01/28/24 15:22 98.6 F 95 H 16 141/80 93 L 01/28/24 10:00 97.1 F 105 H 18 132/77 105 H 01/28/24 09:54 97.1 F 105 H 18 132/77 105 H 01/28/24 09:45 97.1 F 105 H 18 132/77 105 H Results - Labs Lab/Micro Results: Lab Results-Last 24 Hours 01/28/24 01/28/24 01/28/24 Range/Units 09:20 10:06 14:01 WBC 5.9 (4.23-9.07) x10^3/uL RBC 4.72 (4.63-6.08) x10^6/uL Hgb 11.1 L (13.7-17.5) g/dL Hct 36.7 L (40.1-51.0) % MCV 77.8 L (79.0-92.2) fL MCH 23.5 L (25.7-32.2) pg MCHC 30.2 L (32.3-36.5) g/dL RDW 17.1 H (11.6-14.4) % Plt Count 187 (163-337) x10^3/uL MPV 11.2 (9.4-12.4) fL Sodium 141 (135-145) mmol/L Potassium 4.4 (3.5-5.1) mmol/L Chloride 112 H (98-107) mmol/L Carbon Dioxide 17 L (22-30) mmol/L Anion Gap 16.2 H (5-15) MEQ/L BUN 22 H (9-20) mg/dL Creatinine 0.78 (0.66-1.25) mg/dL Estimated GFR 119.3 ML/MIN Glucose 236 H (74-106) mg/dL POC Glucometer 244 H (74 to 106) mg/dL Hemoglobin A1c (4.5-6.0) % Calcium 9.6 (8.4-10.2) mg/dL Iron (49-181) ug/dL TIBC (261-497) ug/dL Iron Saturation (20-39) % Total Bilirubin 0.50 (0.2-1.3) mg/dL Ferritin (17.9-464) ng/mL AST 146 H (17-59) U/L ALT 132 H (0-50) U/L Alkaline Phosphatase 90 (38-126) U/L Serum Total Protein 7.5 (6.3-8.2) g/dL Albumin 4.2 (3.5-5.0) g/dL Vitamin B12 (239-931) pg/mL Folic Acid (2.76 - >20) ng/mL 01/28/24 01/28/24 01/28/24 Range/Units 14:44 16:18 16:37 WBC (4.23-9.07) x10^3/uL RBC (4.63-6.08) x10^6/uL Hgb (13.7-17.5) g/dL Hct (40.1-51.0) % MCV (79.0-92.2) fL MCH (25.7-32.2) pg MCHC (32.3-36.5) g/dL RDW (11.6-14.4) % Plt Count (163-337) x10^3/uL MPV (9.4-12.4) fL Sodium 140 (135-145) mmol/L Potassium 4.6 (3.5-5.1) mmol/L Chloride 111 H (98-107) mmol/L Carbon Dioxide 19 L (22-30) mmol/L Anion Gap 15.0 (5-15) MEQ/L BUN 22 H (9-20) mg/dL Creatinine 0.82 (0.66-1.25) mg/dL Estimated GFR 117.5 ML/MIN Glucose 258 H (74-106) mg/dL POC Glucometer 246 H 243 H (74 to 106) mg/dL Hemoglobin A1c (4.5-6.0) % Calcium 9.4 (8.4-10.2) mg/dL Iron (49-181) ug/dL TIBC (261-497) ug/dL Iron Saturation (20-39) % Total Bilirubin 0.40 (0.2-1.3) mg/dL Ferritin (17.9-464) ng/mL AST 123 H (17-59) U/L ALT 133 H (0-50) U/L Alkaline Phosphatase 82 (38-126) U/L Serum Total Protein 7.4 (6.3-8.2) g/dL Albumin 4.2 (3.5-5.0) g/dL Vitamin B12 (239-931) pg/mL Folic Acid (2.76 - >20) ng/mL 01/28/24 01/28/24 01/28/24 Range/Units 16:37 16:37 16:37 WBC (4.23-9.07) x10^3/uL RBC (4.63-6.08) x10^6/uL Hgb (13.7-17.5) g/dL Hct (40.1-51.0) % MCV (79.0-92.2) fL MCH (25.7-32.2) pg MCHC (32.3-36.5) g/dL RDW (11.6-14.4) % Plt Count (163-337) x10^3/uL MPV (9.4-12.4) fL Sodium (135-145) mmol/L Potassium (3.5-5.1) mmol/L Chloride (98-107) mmol/L Carbon Dioxide (22-30) mmol/L Anion Gap (5-15) MEQ/L BUN (9-20) mg/dL Creatinine (0.66-1.25) mg/dL Estimated GFR ML/MIN Glucose (74-106) mg/dL POC Glucometer (74 to 106) mg/dL Hemoglobin A1c 10.55 H (4.5-6.0) % Calcium (8.4-10.2) mg/dL Iron 49 (49-181) ug/dL TIBC 451 (261-497) ug/dL Iron Saturation 11 L (20-39) % Total Bilirubin (0.2-1.3) mg/dL Ferritin 27.3 (17.9-464) ng/mL AST (17-59) U/L ALT (0-50) U/L Alkaline Phosphatase (38-126) U/L Serum Total Protein (6.3-8.2) g/dL Albumin (3.5-5.0) g/dL Vitamin B12 708 (239-931) pg/mL Folic Acid 13.2 (2.76 - >20) ng/mL 01/28/24 Range/Units 20:54 WBC (4.23-9.07) x10^3/uL RBC (4.63-6.08) x10^6/uL Hgb (13.7-17.5) g/dL Hct (40.1-51.0) % MCV (79.0-92.2) fL MCH (25.7-32.2) pg MCHC (32.3-36.5) g/dL RDW (11.6-14.4) % Plt Count (163-337) x10^3/uL MPV (9.4-12.4) fL Sodium (135-145) mmol/L Potassium (3.5-5.1) mmol/L Chloride (98-107) mmol/L Carbon Dioxide (22-30) mmol/L Anion Gap (5-15) MEQ/L BUN (9-20) mg/dL Creatinine (0.66-1.25) mg/dL Estimated GFR ML/MIN Glucose (74-106) mg/dL POC Glucometer 466 H (74 to 106) mg/dL Hemoglobin A1c (4.5-6.0) % Calcium (8.4-10.2) mg/dL Iron (49-181) ug/dL TIBC (261-497) ug/dL Iron Saturation (20-39) % Total Bilirubin (0.2-1.3) mg/dL Ferritin (17.9-464) ng/mL AST (17-59) U/L ALT (0-50) U/L Alkaline Phosphatase (38-126) U/L Serum Total Protein (6.3-8.2) g/dL Albumin (3.5-5.0) g/dL Vitamin B12 (239-931) pg/mL Folic Acid (2.76 - >20) ng/mL Accuchecks Date 01/28/24 Time 16:20 - Radiology Impressions Radiology Exams & Impressions: Radiology Procedures Category Date Time Status FLUOROSCOPY UP TO 1 HR Routine Exams 01/28/24 07:04 Completed FOOT (MINIMUM 3 VIEWS) Routine Exams 01/28/24 07:04 Completed - Other Procedures and Tests Respiratory Therapy 01/28/24 16:37 Oxygen NASAL CANNULA 2 lpm Telemedicine Encounter - Telemedicine Encounter Telemedicine Encounter: "The entirety of this encounter was performed via Telemedicine" This visit was performed using real-time audio and video connection between my location and thepatients locationwith the assistance of a surrogateat the patients location. Written or verbal consent was obtained from the patient/guardian to perform this visit using[employer] technology. Any patient questions regarding the telemedicine interaction were answered. GALO Encounter - GALO Encounter Attestation GALO Encounter Attestation: "IhRobert MENDOZA,BRIDGER LOZANO andhavediscussed pertinent aspects of their care with Jeremy Head agree with the history, physical exam (any modifications based on my personal exam will be noted below), assessment, and plan as outlined in original note. Please see immediately below for my summary of findings and additional assessment and plan along with any meaningful corrections/explanations to the Subjective/Objective portions of the GALO note will be noted." My portion of the encounter took place via telemedicine. -Patient admitted to right foot OM, now s/p Chopart amputation with wound vac in place. Plan per podiatry is for IV antibiotics until culture and path results, with delayed closure
[2024-01-28] MEDS ORDERED: Oxy-IR 5 MG PO PRN (15:27)
[2024-01-28] MEDS ORDERED: HIBICLENS 4% Scrub TP SCH (15:30)
[2024-01-28] MEDS ORDERED: NON-FORMULARY ITEM (Oxycodone Hcl/Acetaminophen [Percocet 7.5-325 Mg Tablet] 1 EACH Tablet PO SCH (15:30)
[2024-01-28] MEDS ORDERED: Zofran 4 MG/2 ML VIAL IV PRN (15:49)
[2024-01-28] MEDS ORDERED: TYLENOL 325 MG PO PRN (15:49)
[2024-01-28] MEDS: PERCOCET TABLET 5/325MG PO PRN (16:14)
[2024-01-28] MEDS: ATARAX 25 MG PO SCH (16:15)
[2024-01-28] MEDS: HUMALOG SQ SCH (16:16)
[2024-01-28] MEDS: Ecotrin 325 MG PO SCH (16:17)
[2024-01-28 16:52] LABS: ALBUMIN 4.2 g/dL (3.5-5.0); BILIRUBIN,TOTAL 0.4 mg/dL (0.2-1.3); Calcium 9.4 mg/dL (8.4-10.2); Creatinine 1 0.82 mg/dL (0.66-1.25); EST GLOMERULAR FILTRATION RATE 117.5 ML/MIN; Potassium 4.6 mmol/L (3.5-5.1); Total Protein 7.4 g/dL (6.3-8.2)
[2024-01-28] MEDS ORDERED: PIPERACILLIN/TAZOBACTAM 3.375 GM in Sodium Chloride 100ML MINI-BAG PLUS 100 ML IV SCH (18:00)
[2024-01-28] MEDS ORDERED: Narcan 0.4 MG/ML IV PRN (18:00)
[2024-01-28] MEDS: MORPHINE SULFATE 2 MG INJ IV PRN (18:43)
[2024-01-28 19:01] LABS: Ferritin 27.3 ng/mL (17.9-464); Folate (Folic Acid) 13.2 ng/mL (2.76 - >20); Iron 49 ug/dL (49-181); Iron Saturation 11 % (20-39); TIBC 451 ug/dL (261-497)
[2024-01-28] MEDS: Maxipime 2 GM** 2 G in Dextrose 5%/Water IV Soln. 100ML PLUS BAG 100 ML IV SCH (21:46)
[2024-01-28] MEDS: Lyrica 50MG PO SCH (21:46)
[2024-01-28] MEDS: VANCOMYCIN 2 GRAM/400 ML BAG 2 GM/400 ML PIGGYBACK IV SCH (22:27)
--- NOTE | 2024-01-29 04:56 | PCM.NOTE ---
Date and Time: 01/29/24 0456 Subjective Assessment: Mr. Doan is a 33 year-old gentleman with DM2, thyroid cancer s/p thyroidectomy now with hypothyroidism, diabetic foot ulcer, and bipolar disorder patient of Dr. Loving (podiatry) admitted 01/28/24 for right foot I&D bone debridement to the level of Choparts joint amputation, tendon debridement posterior tibial tendon, peroneal tendon and tibialis anterior application of negative pressure wound vac. Hospitalist team consulted for medical management. Patient currently with no complaints. Rates pain level 0/10 on numerical pain scale. Denies fever,cough, sob, cp, abdominal pain, SINGH, dizziness, N/V/D. 01/29/24: Patient doing well PODS#1. Rating pain at 8/10 on numerical pain scale. Adding Diluadid for breakthrough pain. Biopsy results pending. Will continue Vanc/cefepime for now. Podiatry following. - Review of Systems Constitutional: No Symptoms Eyes: No Symptoms Ears, Nose, & Throat: No Symptoms Respiratory: No Symptoms Cardiac: No Symptoms Abdominal/Gastrointestinal: No Symptoms Genitourinary Symptoms: No Symptoms Musculoskeletal: Joint Pain (right foot 8/10) Skin: Other (Surgical wound to RLE with wound vac/surgical dressing ) Neurological: No Symptoms Psychological: No Symptoms Endocrine: No Symptoms Hematologic/Lymphatic: No Symptoms Immunological/Allergic: No Symptoms Objective Exam General Appearance: no apparent distress Neurologic Exam: alert, oriented x 3, cooperative Skin Exam: normal color Eye Exam: PERRL Ears, Nose, Throat Exam: normal ENT inspection Neck Exam: normal inspection Lymphatic Exam: adenopathy Respiratory Exam: normal breath sounds, lungs clear Cardiovascular Exam: regular rate/rhythm, normal heart sounds Gastrointestinal/Abdomen Exam: soft, normal bowel sounds Extremity Exam: other (Surgical wound to RLE with wound vac/surgical dressing) Back Exam: normal inspection Male Genitalia Exam: deferred Rectal Exam: deferred Objective Data Vital Signs: Vital Signs - 24 hr Temp Pulse Resp BP Pulse Ox 01/29/24 03:00 97.2 F 93 H 18 122/71 94 L 01/28/24 23:00 98.6 F 113 H 19 121/70 95 01/28/24 19:00 98.7 F 113 H 17 115/67 95 01/28/24 15:50 98.6 F 95 H 16 141/80 93 L 01/28/24 15:22 98.6 F 95 H 16 141/80 93 L 01/28/24 10:00 97.1 F 105 H 18 132/77 105 H 01/28/24 09:54 97.1 F 105 H 18 132/77 105 H 01/28/24 09:45 97.1 F 105 H 18 132/77 105 H Pain Assessment - Last Documented Pain Intensity 5 Pain Scale Used 0-10 Pain Scale Intake and Output: Intake & Output 01/26/24 01/27/24 01/28/24 01/29/24 11:59 11:59 11:59 11:59 Intake Total 2740 Output Total 1400 Balance 1340 Weight 146.7 kg 146.7 kg Lab Results: Lab Results-Last 24 Hours 01/28/24 01/28/24 01/28/24 Range/Units 09:20 10:06 14:01 WBC 5.9 (4.23-9.07) x10^3/uL RBC 4.72 (4.63-6.08) x10^6/uL Hgb 11.1 L (13.7-17.5) g/dL Hct 36.7 L (40.1-51.0) % MCV 77.8 L (79.0-92.2) fL MCH 23.5 L (25.7-32.2) pg MCHC 30.2 L (32.3-36.5) g/dL RDW 17.1 H (11.6-14.4) % Plt Count 187 (163-337) x10^3/uL MPV 11.2 (9.4-12.4) fL Sodium 141 (135-145) mmol/L Potassium 4.4 (3.5-5.1) mmol/L Chloride 112 H (98-107) mmol/L Carbon Dioxide 17 L (22-30) mmol/L Anion Gap 16.2 H (5-15) MEQ/L BUN 22 H (9-20) mg/dL Creatinine 0.78 (0.66-1.25) mg/dL Estimated GFR 119.3 ML/MIN Glucose 236 H (74-106) mg/dL POC Glucometer 244 H (74 to 106) mg/dL Hemoglobin A1c (4.5-6.0) % Calcium 9.6 (8.4-10.2) mg/dL Iron (49-181) ug/dL TIBC (261-497) ug/dL Iron Saturation (20-39) % Total Bilirubin 0.50 (0.2-1.3) mg/dL Ferritin (17.9-464) ng/mL AST 146 H (17-59) U/L ALT 132 H (0-50) U/L Alkaline Phosphatase 90 (38-126) U/L Serum Total Protein 7.5 (6.3-8.2) g/dL Albumin 4.2 (3.5-5.0) g/dL Vitamin B12 (239-931) pg/mL Folic Acid (2.76 - >20) ng/mL 01/28/24 01/28/24 01/28/24 Range/Units 14:44 16:18 16:37 WBC (4.23-9.07) x10^3/uL RBC (4.63-6.08) x10^6/uL Hgb (13.7-17.5) g/dL Hct (40.1-51.0) % MCV (79.0-92.2) fL MCH (25.7-32.2) pg MCHC (32.3-36.5) g/dL RDW (11.6-14.4) % Plt Count (163-337) x10^3/uL MPV (9.4-12.4) fL Sodium 140 (135-145) mmol/L Potassium 4.6 (3.5-5.1) mmol/L Chloride 111 H (98-107) mmol/L Carbon Dioxide 19 L (22-30) mmol/L Anion Gap 15.0 (5-15) MEQ/L BUN 22 H (9-20) mg/dL Creatinine 0.82 (0.66-1.25) mg/dL Estimated GFR 117.5 ML/MIN Glucose 258 H (74-106) mg/dL POC Glucometer 246 H 243 H (74 to 106) mg/dL Hemoglobin A1c (4.5-6.0) % Calcium 9.4 (8.4-10.2) mg/dL Iron (49-181) ug/dL TIBC (261-497) ug/dL Iron Saturation (20-39) % Total Bilirubin 0.40 (0.2-1.3) mg/dL Ferritin (17.9-464) ng/mL AST 123 H (17-59) U/L ALT 133 H (0-50) U/L Alkaline Phosphatase 82 (38-126) U/L Serum Total Protein 7.4 (6.3-8.2) g/dL Albumin 4.2 (3.5-5.0) g/dL Vitamin B12 (239-931) pg/mL Folic Acid (2.76 - >20) ng/mL 01/28/24 01/28/24 01/28/24 Range/Units 16:37 16:37 16:37 WBC (4.23-9.07) x10^3/uL RBC (4.63-6.08) x10^6/uL Hgb (13.7-17.5) g/dL Hct (40.1-51.0) % MCV (79.0-92.2) fL MCH (25.7-32.2) pg MCHC (32.3-36.5) g/dL RDW (11.6-14.4) % Plt Count (163-337) x10^3/uL MPV (9.4-12.4) fL Sodium (135-145) mmol/L Potassium (3.5-5.1) mmol/L Chloride (98-107) mmol/L Carbon Dioxide (22-30) mmol/L Anion Gap (5-15) MEQ/L BUN (9-20) mg/dL Creatinine (0.66-1.25) mg/dL Estimated GFR ML/MIN Glucose (74-106) mg/dL POC Glucometer (74 to 106) mg/dL Hemoglobin A1c 10.55 H (4.5-6.0) % Calcium (8.4-10.2) mg/dL Iron 49 (49-181) ug/dL TIBC 451 (261-497) ug/dL Iron Saturation 11 L (20-39) % Total Bilirubin (0.2-1.3) mg/dL Ferritin 27.3 (17.9-464) ng/mL AST (17-59) U/L ALT (0-50) U/L Alkaline Phosphatase (38-126) U/L Serum Total Protein (6.3-8.2) g/dL Albumin (3.5-5.0) g/dL Vitamin B12 708 (239-931) pg/mL Folic Acid 13.2 (2.76 - >20) ng/mL 01/28/24 Range/Units 20:54 WBC (4.23-9.07) x10^3/uL RBC (4.63-6.08) x10^6/uL Hgb (13.7-17.5) g/dL Hct (40.1-51.0) % MCV (79.0-92.2) fL MCH (25.7-32.2) pg MCHC (32.3-36.5) g/dL RDW (11.6-14.4) % Plt Count (163-337) x10^3/uL MPV (9.4-12.4) fL Sodium (135-145) mmol/L Potassium (3.5-5.1) mmol/L Chloride (98-107) mmol/L Carbon Dioxide (22-30) mmol/L Anion Gap (5-15) MEQ/L BUN (9-20) mg/dL Creatinine (0.66-1.25) mg/dL Estimated GFR ML/MIN Glucose (74-106) mg/dL POC Glucometer 466 H (74 to 106) mg/dL Hemoglobin A1c (4.5-6.0) % Calcium (8.4-10.2) mg/dL Iron (49-181) ug/dL TIBC (261-497) ug/dL Iron Saturation (20-39) % Total Bilirubin (0.2-1.3) mg/dL Ferritin (17.9-464) ng/mL AST (17-59) U/L ALT (0-50) U/L Alkaline Phosphatase (38-126) U/L Serum Total Protein (6.3-8.2) g/dL Albumin (3.5-5.0) g/dL Vitamin B12 (239-931) pg/mL Folic Acid (2.76 - >20) ng/mL Radiology Exams: Radiology Procedures Category Date Time Status FLUOROSCOPY UP TO 1 HR Routine Exams 01/28/24 07:04 Completed FOOT (MINIMUM 3 VIEWS) Routine Exams 01/28/24 07:04 Completed Assessment/Plan (1) Osteomyelitis of right foot Current Visit: No Status: Acute Assessment & Plan: -Reviewed MRI dated 01/09/24 demonstrating Diffuse cutaneous/deep soft tissue swelling and edema signal involving the stump concerning for cellulitis. No walled off fluid collection/abscess. Diffuse bone edema signal of remaining cuneiforms, cuboid, and navicular bones favoring osteomyelitis -Reviewed recent office note from podiatry dated 01/23/24 - agree with post surgical plan of NWB with knee scooter, IV vanc/zosyn post-operatively while awaiting culture results, and pain management -Podiatry following -DVT prophylaxis ASA 325mg -POD day 0- right foot I&D bone debridement to the level of Choparts joint amputation, tendon debridement posterior tibial tendon, peroneal tendon and tibialis anterior application of negative pressure wound vac -cultures pending 01/28: PODS#1 -Pain not controlled - add diluadid prn for break through -Continue vanc/cefepime- pending biopsy results -CMP, CBC- WBC elevated - most likely reactive - will trend -Discussed case with podiatry - final abx determination pending culture results - NWB right leg/elevate -dressing changes per podiatry Code(s): M86.9 - OSTEOMYELITIS, UNSPECIFIED (2) Diabetic ulcer of right foot Current Visit: No Status: Acute Assessment & Plan: -see osteomyelitis Code(s): E11.621 - TYPE 2 DIABETES MELLITUS WITH FOOT ULCER; L97.519 - NON-PRS CHRONIC ULCER OTH PRT RIGHT FOOT W UNSP SEVERITY (3) Type 2 diabetes mellitus Current Visit: Yes Status: Acute Assessment & Plan: -ADA diet -advised good glycemic control for wound healing -SSI with home insulin regimen/jardiance 01/28: -Blood glucose levels elevated this morning - no coverage given overnight -Will monitor closely (4) Bipolar 1 disorder Current Visit: No Status: Acute Assessment & Plan: -continue home meds Code(s): F31.9 - BIPOLAR DISORDER, UNSPECIFIED (5) History of thyroid cancer Current Visit: No Status: Chronic Assessment & Plan: -s/p thyroidectomy now with hypothyroidism- on Synthroid Code(s): Z85.850 - PERSONAL HISTORY OF MALIGNANT NEOPLASM OF THYROID (6) Hypothyroid Current Visit: No Status: Chronic Assessment & Plan: -continue Synthroid DVT: ASA Dispo: 2-3 days Code status: full code Code(s): E03.9 - HYPOTHYROIDISM, UNSPECIFIED (7) Metabolic acidosis Current Visit: Yes Status: Acute Assessment & Plan: -co2 levels reviewed at 17 - -IVF 01/28: -Resolved Code(s): E87.20 - ACIDOSIS, UNSPECIFIED (8) Anemia Current Visit: Yes Status: Acute Assessment & Plan: -appears chronic -will add iron studies -hgb < 7 transfuse 01/28: -CBC reviewed, Hgb stable at 9.9 -trend Code(s): D64.9 - ANEMIA, UNSPECIFIED Code(s): M86.9 - OSTEOMYELITIS, UNSPECIFIED (2) Diabetic ulcer of right foot Current Visit: No Status: Acute Code(s): E11.621 - TYPE 2 DIABETES MELLITUS WITH FOOT ULCER; L97.519 - NON-PRS CHRONIC ULCER OTH PRT RIGHT FOOT W UNSP SEVERITY (3) Type 2 diabetes mellitus Current Visit: Yes Status: Acute (4) Bipolar 1 disorder Current Visit: No Status: Acute Code(s): F31.9 - BIPOLAR DISORDER, UNSPECIFIED (5) History of thyroid cancer Current Visit: No Status: Chronic Code(s): Z85.850 - PERSONAL HISTORY OF MALIGNANT NEOPLASM OF THYROID (6) Hypothyroid Current Visit: No Status: Chronic Code(s): E03.9 - HYPOTHYROIDISM, UNSPECIFIED (7) Metabolic acidosis Current Visit: Yes Status: Acute Code(s): E87.20 - ACIDOSIS, UNSPECIFIED (8) Anemia Current Visit: Yes Status: Acute Code(s): D64.9 - ANEMIA, UNSPECIFIED
[2024-01-29 05:19] LABS: Absolute Neutrophil Ct (ANC) 9.17 x10^3/uL (1.78-5.38); BASOPHIL % 0.2 % (0.2-1.2); Basophil (Absolute #) 0.02 x10^3/uL (0.01-0.08); Eosinophil (Absolute #) 0 x10^3/uL (0.04-0.54); Hematocrit 32.8 % (40.1-51.0); Hemoglobin 9.9 g/dL (13.7-17.5); IMMATURE GRAN # 0.08 x10^3u/L (0.001-0.031); IMMATURE GRAN % 0.7 % (0.001-0.429); Lymphocyte (Absolute #) 1.71 x10^3/uL (1.32-3.57); Lymphocytes % 14.4 % (21.8-53.1); Mean Cell Volume 76.6 fL (79.0-92.2); Mean Corpuscular Hemoglobin 23.1 pg (25.7-32.2); Mean Corpuscular Hgb Concent. 30.2 g/dL (32.3-36.5); Mean Platelet Volume 11.2 fL (9.4-12.4); Monocytes % 7.6 % (5.3-12.2); Neutrophil % 77.1 % (34.0-67.9); Platelet Count 198 x10^3/uL (163-337); Red Blood Count 4.28 x10^6/uL (4.63-6.08); Red Cell Distribution Width 17.1 % (11.6-14.4); White Blood Count 11.9 x10^3/uL (4.23-9.07)
[2024-01-29 05:42] LABS: ALBUMIN 3.9 g/dL (3.5-5.0); ANION GAP 13.5 MEQ/L (5-15); BILIRUBIN,TOTAL 0.4 mg/dL (0.2-1.3); Creatinine 1 0.81 mg/dL (0.66-1.25); EST GLOMERULAR FILTRATION RATE 117.9 ML/MIN
[2024-01-29] MEDS: HUMALOG SQ PRN (07:47)
[2024-01-29] MEDS: SYNTHROID 125 MCG PO SCH (09:31)
[2024-01-29] MEDS: JARDIANCE PO SCH (09:31)
[2024-01-29] MEDS: SYNTHROID 100 MCG PO SCH (09:32)
[2024-01-29] MEDS: Lantus Insulin SQ SCH (09:36)
[2024-01-29] MEDS ORDERED: Lantus Insulin SQ SCH (10:00)
--- NOTE | 2024-01-29 16:28 | PCM.CONS ---
Podiatry HPI - Consult Date of Consultation Date: 01/29/24 Reason for Consult: s/p Chopart amputation right foot Consulting Provider: MAHNAZ PISANO DPM - [facility] History of Present Illness: POD #1 Choparts amputation Medications & Allergies Home Medications: Home Medication List Levothyroxine Sodium [Unithroid] 225 mcg PO DAILY 07/22/22 [History Confirmed 01/28/24] Empagliflozin [Jardiance] 20 mg PO DAILY 11/07/23 [History Confirmed 01/28/24] Insulin Aspart [NovoLOG Insulin] 17 units SQ BID 11/07/23 [History Confirmed 01/28/24] Oxycodone HCl/Acetaminophen [Percocet 7.5-325 mg Tablet] 1 each PO UD #1 tablet MDD ud 11/12/23 [Rx Confirmed 01/28/24] Insulin Glargine [Lantus Insulin] 50 units SQ DAILY 01/28/24 [History Confirmed 01/28/24] Pregabalin 50 mg [Lyrica 50MG] 100 mg PO HS 01/28/24 [History Confirmed 01/28/24] Allergies/Adverse Reactions: Allergies Allergy/AdvReac Type Severity Reaction Status Date / Time Iodinated Contrast Media Allergy Verified 01/28/24 09:31 Penicillins Allergy Verified 01/28/24 09:31 shellfish derived Allergy Verified 01/28/24 09:31 - Past Medical History Past Medical History: Yes Neurological History: Peripheral Neuropathy ENT History: Other Cardiac History: No Pertinent History Respiratory History: No Pertinent History Endocrine Medical History: Diabetes Type II, Other Musculoskelatal History: No Pertinent History GI Medical History: No Pertinent History History: No Pertinent History Pyscho-Social History: Bipolar Male Reproductive Disorders: No Pertinent History Comment: THYROID HAS BEEN REMOVED. CURRENTLY HAVING INFUSIONS FOR R FOOT INFECTION. HE HAD OSTEOMYELITIS. HE IS TO HAVE AN MRI ON 01/08/24 TO CHECK PROGRESS. - Past Surgical History Past Surgical History: Yes Neuro Surgical History: No Pertinent History Cardiac History: No Pertinent History Respiratory Surgery: No Pertinent History GI Surgical History: No Pertinent History Genitourinary Surgical Hx: No Pertinent History Musculskeletal Surgical Hx: Amputation, Other Male Surgical History: No Pertinent History Other Surgical History: thyroidectomy. right foot surgery x4-5. all 5 digits removed on right foot Significant Family History: no pertinent family hx - Social History Smoking Status: Never smoker Exposure to second hand smoke: No Alcohol: None Drug Use: none - Social Determinants of Health Will the patient participate in the screening: Yes Do you worry about a steady place to live?: No Do you have any problems with any of the following?: No known problems In the past 12 months,have you had to go without utilities?: No Have you or anyone in your house had to go without enough: No Transportation Issues: No Has anyone in your support network made you feel unsafe?: No Does the patient want assistance with any of the above?: No Physical Exam - Narrative Narrative Physical Exam: Podiatry Physical Exam Results - Labs Lab/Micro Results: Lab Results-Last 24 Hours 01/28/24 01/28/24 01/28/24 Range/Units 16:37 16:37 16:37 WBC (4.23-9.07) x10^3/uL RBC (4.63-6.08) x10^6/uL Hgb (13.7-17.5) g/dL Hct (40.1-51.0) % MCV (79.0-92.2) fL MCH (25.7-32.2) pg MCHC (32.3-36.5) g/dL RDW (11.6-14.4) % Plt Count (163-337) x10^3/uL MPV (9.4-12.4) fL Gran % (34.0-67.9) % Immature Gran % (Auto) (0.001-0.429) % Nucleat RBC Rel Count (0.00-0.2) % Eos # (Auto) (0.04-0.54) x10^3/uL Immature Gran # (Auto) (0.001-0.031) x10^3u/L Absolute Lymphs (auto) (1.32-3.57) x10^3/uL Absolute Monos (auto) (0.30-0.82) x10^3/uL Absolute Nucleated RBC (0.00-0.012) x10^3u/L Lymphocytes % (21.8-53.1) % Monocytes % (5.3-12.2) % Eosinophils % (0.8-7.0) % Basophils % (0.2-1.2) % Absolute Granulocytes (1.78-5.38) x10^3/uL Basophils # (0.01-0.08) x10^3/uL Sodium 140 (135-145) mmol/L Potassium 4.6 (3.5-5.1) mmol/L Chloride 111 H (98-107) mmol/L Carbon Dioxide 19 L (22-30) mmol/L Anion Gap 15.0 (5-15) MEQ/L BUN 22 H (9-20) mg/dL Creatinine 0.82 (0.66-1.25) mg/dL Estimated GFR 117.5 ML/MIN Glucose 258 H (74-106) mg/dL POC Glucometer (74 to 106) mg/dL Hemoglobin A1c (4.5-6.0) % Calcium 9.4 (8.4-10.2) mg/dL Iron 49 (49-181) ug/dL TIBC 451 (261-497) ug/dL Iron Saturation 11 L (20-39) % Ferritin 27.3 (17.9-464) ng/mL Total Bilirubin 0.40 (0.2-1.3) mg/dL AST 123 H (17-59) U/L ALT 133 H (0-50) U/L Alkaline Phosphatase 82 (38-126) U/L Serum Total Protein 7.4 (6.3-8.2) g/dL Albumin 4.2 (3.5-5.0) g/dL Vitamin B12 708 (239-931) pg/mL Folic Acid 13.2 (2.76 - >20) ng/mL 01/28/24 01/28/24 01/29/24 Range/Units 16:37 20:54 05:10 WBC 11.9 H (4.23-9.07) x10^3/uL RBC 4.28 L (4.63-6.08) x10^6/uL Hgb 9.9 L (13.7-17.5) g/dL Hct 32.8 L (40.1-51.0) % MCV 76.6 L (79.0-92.2) fL MCH 23.1 L (25.7-32.2) pg MCHC 30.2 L (32.3-36.5) g/dL RDW 17.1 H (11.6-14.4) % Plt Count 198 (163-337) x10^3/uL MPV 11.2 (9.4-12.4) fL Gran % 77.1 H (34.0-67.9) % Immature Gran % (Auto) 0.7 H (0.001-0.429) % Nucleat RBC Rel Count 0.0 (0.00-0.2) % Eos # (Auto) 0 L (0.04-0.54) x10^3/uL Immature Gran # (Auto) 0.08 H (0.001-0.031) x10^3u/L Absolute Lymphs (auto) 1.71 (1.32-3.57) x10^3/uL Absolute Monos (auto) 0.90 H (0.30-0.82) x10^3/uL Absolute Nucleated RBC 0.00 (0.00-0.012) x10^3u/L Lymphocytes % 14.4 L (21.8-53.1) % Monocytes % 7.6 (5.3-12.2) % Eosinophils % 0.0 L (0.8-7.0) % Basophils % 0.2 (0.2-1.2) % Absolute Granulocytes 9.17 H (1.78-5.38) x10^3/uL Basophils # 0.02 (0.01-0.08) x10^3/uL Sodium (135-145) mmol/L Potassium (3.5-5.1) mmol/L Chloride (98-107) mmol/L Carbon Dioxide (22-30) mmol/L Anion Gap (5-15) MEQ/L BUN (9-20) mg/dL Creatinine (0.66-1.25) mg/dL Estimated GFR ML/MIN Glucose (74-106) mg/dL POC Glucometer 466 H (74 to 106) mg/dL Hemoglobin A1c 10.55 H (4.5-6.0) % Calcium (8.4-10.2) mg/dL Iron (49-181) ug/dL TIBC (261-497) ug/dL Iron Saturation (20-39) % Ferritin (17.9-464) ng/mL Total Bilirubin (0.2-1.3) mg/dL AST (17-59) U/L ALT (0-50) U/L Alkaline Phosphatase (38-126) U/L Serum Total Protein (6.3-8.2) g/dL Albumin (3.5-5.0) g/dL Vitamin B12 (239-931) pg/mL Folic Acid (2.76 - >20) ng/mL 01/29/24 01/29/24 Range/Units 05:10 07:24 WBC (4.23-9.07) x10^3/uL RBC (4.63-6.08) x10^6/uL Hgb (13.7-17.5) g/dL Hct (40.1-51.0) % MCV (79.0-92.2) fL MCH (25.7-32.2) pg MCHC (32.3-36.5) g/dL RDW (11.6-14.4) % Plt Count (163-337) x10^3/uL MPV (9.4-12.4) fL Gran % (34.0-67.9) % Immature Gran % (Auto) (0.001-0.429) % Nucleat RBC Rel Count (0.00-0.2) % Eos # (Auto) (0.04-0.54) x10^3/uL Immature Gran # (Auto) (0.001-0.031) x10^3u/L Absolute Lymphs (auto) (1.32-3.57) x10^3/uL Absolute Monos (auto) (0.30-0.82) x10^3/uL Absolute Nucleated RBC (0.00-0.012) x10^3u/L Lymphocytes % (21.8-53.1) % Monocytes % (5.3-12.2) % Eosinophils % (0.8-7.0) % Basophils % (0.2-1.2) % Absolute Granulocytes (1.78-5.38) x10^3/uL Basophils # (0.01-0.08) x10^3/uL Sodium 140 (135-145) mmol/L Potassium 4.0 (3.5-5.1) mmol/L Chloride 109 H (98-107) mmol/L Carbon Dioxide 22 (22-30) mmol/L Anion Gap 13.5 (5-15) MEQ/L BUN 18 (9-20) mg/dL Creatinine 0.81 (0.66-1.25) mg/dL Estimated GFR 117.9 ML/MIN Glucose 247 H (74-106) mg/dL POC Glucometer 460 H (74 to 106) mg/dL Hemoglobin A1c (4.5-6.0) % Calcium 9.0 (8.4-10.2) mg/dL Iron (49-181) ug/dL TIBC (261-497) ug/dL Iron Saturation (20-39) % Ferritin (17.9-464) ng/mL Total Bilirubin 0.40 (0.2-1.3) mg/dL AST 63 H (17-59) U/L ALT 107 H (0-50) U/L Alkaline Phosphatase 73 (38-126) U/L Serum Total Protein 7.0 (6.3-8.2) g/dL Albumin 3.9 (3.5-5.0) g/dL Vitamin B12 (239-931) pg/mL Folic Acid (2.76 - >20) ng/mL Accuchecks Date 01/29/24 Date 01/29/24 Date 01/28/24 Time 12:21 Time 07:27 Time 21:00 - Radiology Impressions Radiology Exams & Impressions: Radiology Procedures Category Date Time Status FLUOROSCOPY UP TO 1 HR Routine Exams 01/28/24 07:04 Completed FOOT (MINIMUM 3 VIEWS) Routine Exams 01/28/24 07:04 Completed - Other Procedures and Tests Respiratory Therapy 01/28/24 16:37 Oxygen NASAL CANNULA 2 lpm Assessment/Plan (1) Diabetes mellitus Current Visit: No Status: Chronic Qualifiers: Diabetes mellitus type: type 2 Code(s): E11.9 - TYPE 2 DIABETES MELLITUS WITHOUT COMPLICATIONS (2) Diabetic foot ulcer Current Visit: No Status: Acute Qualifiers: Diabetes mellitus type: type 2 Laterality: right Assessment & Plan: s/p choparts amputation wound vac replaced demonstrating no necrotic margins 800 noted to canister. WIll replace once more tomorrow for outpatient vac Vanco/ Cefipime for now. Will likely await soft tissue cultures for definitive abx plan Code(s): E11.621 - TYPE 2 DIABETES MELLITUS WITH FOOT ULCER; L97.509 - NON- PRESSURE CHRONIC ULCER OTH PRT UNSP FOOT W UNSP SEVERITY (3) Uncontrolled diabetes mellitus Current Visit: No Status: Acute Code(s): [id number] - (4) Diabetic ulcer of right foot Current Visit: No Status: Acute Code(s): E11.621 - TYPE 2 DIABETES MELLITUS WITH FOOT ULCER; L97.519 - NON-PRS CHRONIC ULCER OTH PRT RIGHT FOOT W UNSP SEVERITY (5) Osteomyelitis of right foot Current Visit: No Status: Acute Code(s): M86.9 - OSTEOMYELITIS, UNSPECIFIED
[2024-01-29] MEDS: Hydromorphone 1 mg/ml Injection IV PRN (20:42)
[2024-01-29] MEDS: LYRICA 100MG PO SCH (22:15)
--- NOTE | 2024-01-30 05:07 | PCM.NOTE ---
Date and Time: 01/30/24 050 Subjective Assessment: Mr. Doan is a 33 year-old gentleman with DM2, thyroid cancer s/p thyroidectomy now with hypothyroidism, diabetic foot ulcer, and bipolar disorder patient of Dr. Loving (podiatry) admitted 01/28/24 for right foot I&D bone debridement to the level of Choparts joint amputation, tendon debridement posterior tibial tendon, peroneal tendon and tibialis anterior application of negative pressure wound vac. Hospitalist team consulted for medical management. Patient currently with no complaints. Rates pain level 0/10 on numerical pain scale. Denies fever,cough, sob, cp, abdominal pain, SINGH, dizziness, N/V/D. 01/29/24: Patient doing well PODS#1. Rating pain at 8/10 on numerical pain scale. Adding Diluadid for breakthrough pain. Biopsy results pending. Will continue Vanc/cefepime for now. Podiatry following. 01/29: Met with patient bedside. PODS#2 s/p choparts amputation. Pain level improving with addition of diluadid. Wound vac in place, surgical dressing CDI. Awaiting soft tissue cultures for final antibiotic determination per podiatry. Continue with vanc/cefepime for now. - Review of Systems Constitutional: No Symptoms Eyes: No Symptoms Ears, Nose, & Throat: No Symptoms Respiratory: No Symptoms Cardiac: No Symptoms Abdominal/Gastrointestinal: No Symptoms Genitourinary Symptoms: No Symptoms Musculoskeletal: Joint Pain Skin: No Symptoms Neurological: No Symptoms Psychological: No Symptoms Endocrine: No Symptoms Hematologic/Lymphatic: No Symptoms Immunological/Allergic: No Symptoms Objective Exam General Appearance: no apparent distress Neurologic Exam: alert, oriented x 3, cooperative Skin Exam: normal color, other (surgical wound to Right foot with wound vac/surgical dressing) Eye Exam: PERRL Ears, Nose, Throat Exam: normal ENT inspection Neck Exam: normal inspection Respiratory Exam: normal breath sounds, lungs clear Cardiovascular Exam: regular rate/rhythm, normal heart sounds Gastrointestinal/Abdomen Exam: soft, normal bowel sounds Extremity Exam: normal inspection Back Exam: normal inspection Male Genitalia Exam: deferred Rectal Exam: deferred Objective Data Vital Signs: Vital Signs - 24 hr Temp Pulse Resp BP Pulse Ox 01/30/24 00:00 97.9 F 88 16 132/81 98 01/29/24 20:00 97.5 F 100 H 18 119/65 96 01/29/24 16:00 97.9 F 97 H 16 122/84 96 01/29/24 11:40 97.6 F 101 H 16 117/69 98 01/29/24 07:38 97.8 F 80 16 128/80 96 Pain Assessment - Last Documented Pain Intensity 8 Pain Scale Used 0-10 Pain Scale Intake and Output: Intake & Output 01/27/24 01/28/24 01/29/24 01/30/24 11:59 11:59 11:59 11:59 Intake Total 3560 1510 Output Total 2300 2780 Balance 1260 -1270 Weight 146.7 kg 146.7 kg Lab Results: Lab Results-Last 24 Hours 01/29/24 01/29/24 01/29/24 Range/Units 05:10 05:10 07:24 WBC 11.9 H (4.23-9.07) x10^3/uL RBC 4.28 L (4.63-6.08) x10^6/uL Hgb 9.9 L (13.7-17.5) g/dL Hct 32.8 L (40.1-51.0) % MCV 76.6 L (79.0-92.2) fL MCH 23.1 L (25.7-32.2) pg MCHC 30.2 L (32.3-36.5) g/dL RDW 17.1 H (11.6-14.4) % Plt Count 198 (163-337) x10^3/uL MPV 11.2 (9.4-12.4) fL Gran % 77.1 H (34.0-67.9) % Immature Gran % (Auto) 0.7 H (0.001-0.429) % Nucleat RBC Rel Count 0.0 (0.00-0.2) % Eos # (Auto) 0 L (0.04-0.54) x10^3/uL Immature Gran # (Auto) 0.08 H (0.001-0.031) x10^3u/L Absolute Lymphs (auto) 1.71 (1.32-3.57) x10^3/uL Absolute Monos (auto) 0.90 H (0.30-0.82) x10^3/uL Absolute Nucleated RBC 0.00 (0.00-0.012) x10^3u/L Lymphocytes % 14.4 L (21.8-53.1) % Monocytes % 7.6 (5.3-12.2) % Eosinophils % 0.0 L (0.8-7.0) % Basophils % 0.2 (0.2-1.2) % Absolute Granulocytes 9.17 H (1.78-5.38) x10^3/uL Basophils # 0.02 (0.01-0.08) x10^3/uL Sodium 140 (135-145) mmol/L Potassium 4.0 (3.5-5.1) mmol/L Chloride 109 H (98-107) mmol/L Carbon Dioxide 22 (22-30) mmol/L Anion Gap 13.5 (5-15) MEQ/L BUN 18 (9-20) mg/dL Creatinine 0.81 (0.66-1.25) mg/dL Estimated GFR 117.9 ML/MIN Glucose 247 H (74-106) mg/dL POC Glucometer 460 H (74 to 106) mg/dL Calcium 9.0 (8.4-10.2) mg/dL Total Bilirubin 0.40 (0.2-1.3) mg/dL AST 63 H (17-59) U/L ALT 107 H (0-50) U/L Alkaline Phosphatase 73 (38-126) U/L Serum Total Protein 7.0 (6.3-8.2) g/dL Albumin 3.9 (3.5-5.0) g/dL Radiology Exams: Radiology Procedures Category Date Time Status FLUOROSCOPY UP TO 1 HR Routine Exams 01/28/24 07:04 Completed FOOT (MINIMUM 3 VIEWS) Routine Exams 01/28/24 07:04 Completed Assessment/Plan (1) Osteomyelitis of right foot Current Visit: No Status: Acute Assessment & Plan: -Reviewed MRI dated 01/09/24 demonstrating Diffuse cutaneous/deep soft tissue swelling and edema signal involving the stump concerning for cellulitis. No walled off fluid collection/abscess. Diffuse bone edema signal of remaining cuneiforms, cuboid, and navicular bones favoring osteomyelitis -Reviewed recent office note from podiatry dated 01/23/24 - agree with post surgical plan of NWB with knee scooter, IV vanc/zosyn post-operatively while awaiting culture results, and pain management -Podiatry following -DVT prophylaxis ASA 325mg -POD day 0- right foot I&D bone debridement to the level of Choparts joint amputation, tendon debridement posterior tibial tendon, peroneal tendon and tibi olvin anterior application of negative pressure wound vac -cultures pending 01/28: PODS#1 -Pain not controlled - add diluadid prn for break through -Continue vanc/cefepime- pending biopsy results -CMP, CBC- WBC elevated - most likely reactive - will trend -Discussed case with podiatry - final abx determination pending culture results - NWB right leg/elevate -dressing changes per podiatry 01/29: -Reviewed Podiatry documentation - agree with plan to await final soft tissue culture result for final abx determination -Continue vanc/cefepime for now -CMP/CBC reviewed- WBC count wnl/Hgb stable- chemistries unremarkable Code(s): M86.9 - OSTEOMYELITIS, UNSPECIFIED (2) Diabetic ulcer of right foot Current Visit: No Status: Acute Assessment & Plan: -see osteomyelitis Code(s): E11.621 - TYPE 2 DIABETES MELLITUS WITH FOOT ULCER; L97.519 - NON-PRS CHRONIC ULCER OTH PRT RIGHT FOOT W UNSP SEVERITY (3) Type 2 diabetes mellitus Current Visit: Yes Status: Acute Assessment & Plan: -ADA diet -advised good glycemic control for wound healing -SSI with home insulin regimen/jardiance 01/28: -Blood glucose levels elevated this morning - no coverage given overnight -Will monitor closely 01/29: -Blood glucose levels stable- continue to monitor and adjust as appropriate (4) Bipolar 1 disorder Current Visit: No Status: Acute Assessment & Plan: -continue home meds Code(s): F31.9 - BIPOLAR DISORDER, UNSPECIFIED (5) History of thyroid cancer Current Visit: No Status: Chronic Assessment & Plan: -s/p thyroidectomy now with hypothyroidism- on Synthroid Code(s): Z85.850 - PERSONAL HISTORY OF MALIGNANT NEOPLASM OF THYROID (6) Hypothyroid Current Visit: No Status: Chronic Assessment & Plan: -continue Synthroid DVT: ASA Dispo: 2-3 days Code status: full code Code(s): E03.9 - HYPOTHYROIDISM, UNSPECIFIED (7) Metabolic acidosis Current Visit: Yes Status: Acute Assessment & Plan: -co2 levels reviewed at 17 - -IVF 01/28: -Resolved Code(s): E87.20 - ACIDOSIS, UNSPECIFIED (8) Anemia Current Visit: Yes Status: Acute Assessment & Plan: -appears chronic -will add iron studies -hgb < 7 transfuse 01/28: -CBC reviewed, Hgb stable at 9.9 -trend Code(s): D64.9 - ANEMIA, UNSPECIFIED Code(s): M86.9 - OSTEOMYELITIS, UNSPECIFI Code(s): M86.9 - OSTEOMYELITIS, UNSPECIFIED (2) Diabetic ulcer of right foot Current Visit: No Status: Acute Code(s): E11.621 - TYPE 2 DIABETES MELLITUS WITH FOOT ULCER; L97.519 - NON-PRS CHRONIC ULCER OTH PRT RIGHT FOOT W UNSP SEVERITY (3) Type 2 diabetes mellitus Current Visit: Yes Status: Acute (4) Bipolar 1 disorder Current Visit: No Status: Acute Code(s): F31.9 - BIPOLAR DISORDER, UNSPECIFIED (5) History of thyroid cancer Current Visit: No Status: Chronic Code(s): Z85.850 - PERSONAL HISTORY OF MALIGNANT NEOPLASM OF THYROID (6) Hypothyroid Current Visit: No Status: Chronic Code(s): E03.9 - HYPOTHYROIDISM, UNSPECIFIED (7) Metabolic acidosis Current Visit: Yes Status: Acute Code(s): E87.20 - ACIDOSIS, UNSPECIFIED (8) Anemia Current Visit: Yes Status: Acute Code(s): D64.9 - ANEMIA, UNSPECIFIED
[2024-01-30 05:52] LABS: Absolute Neutrophil Ct (ANC) 4.19 x10^3/uL (1.78-5.38); BASOPHIL % 0.7 % (0.2-1.2); Basophil (Absolute #) 0.05 x10^3/uL (0.01-0.08); Eosinophil % 1.1 % (0.8-7.0); Eosinophil (Absolute #) 0.08 x10^3/uL (0.04-0.54); Hematocrit 31.1 % (40.1-51.0); Hemoglobin 9.3 g/dL (13.7-17.5); IMMATURE GRAN # 0.08 x10^3u/L (0.001-0.031); IMMATURE GRAN % 1.1 % (0.001-0.429); Lymphocyte (Absolute #) 2.52 x10^3/uL (1.32-3.57); Lymphocytes % 34.2 % (21.8-53.1); Mean Cell Volume 77.6 fL (79.0-92.2); Mean Corpuscular Hemoglobin 23.2 pg (25.7-32.2); Mean Corpuscular Hgb Concent. 29.9 g/dL (32.3-36.5); Mean Platelet Volume 11.2 fL (9.4-12.4); Monocyte (Absolute #) 0.44 x10^3/uL (0.30-0.82); Neutrophil % 56.9 % (34.0-67.9); Platelet Count 163 x10^3/uL (163-337); Red Blood Count 4.01 x10^6/uL (4.63-6.08); Red Cell Distribution Width 17.4 % (11.6-14.4); White Blood Count 7.4 x10^3/uL (4.23-9.07)
[2024-01-30 06:04] LABS: ALBUMIN 3.5 g/dL (3.5-5.0); ANION GAP 10.5 MEQ/L (5-15); BILIRUBIN,TOTAL 0.3 mg/dL (0.2-1.3); Calcium 8.5 mg/dL (8.4-10.2); Creatinine 1 0.79 mg/dL (0.66-1.25); EST GLOMERULAR FILTRATION RATE 118.8 ML/MIN; Potassium 3.9 mmol/L (3.5-5.1); Total Protein 6.5 g/dL (6.3-8.2)
--- NOTE | 2024-01-30 08:51 | XRAY ---
Indication: PICC line verification. Comparison: May 17, 2023 Portable chest obtained in expiration again demonstrates right arm PICC line with the tip projecting over SVC. Underinflated lungs negative for pneumothorax. Incidental bibasilar infiltrates/atelectasis, new on left. Heart not enlarged. Bony thorax intact.
[2024-01-30] MEDS: Cathflo Activase 2 MG IV ONE ×2 (09:25→14:41)
[2024-01-30] MEDS: TROUGH DRUG LEVELS IJ ONE (11:01)
[2024-01-30] MEDS: Maxipime 2 GM** 2 G in Dextrose 5%/Water IV Soln. 100ML PLUS BAG 100 ML IV SCH (16:06)
--- NOTE | 2024-01-31 05:02 | PCM.NOTE ---
Date and Time: 01/31/24 0501 Subjective Assessment: Mr. Doan is a 33 year-old gentleman with DM2, thyroid cancer s/p thyroidectomy now with hypothyroidism, diabetic foot ulcer, and bipolar disorder patient of Dr. Loving (podiatry) admitted 01/28/24 for right foot I&D bone debridement to the level of Choparts joint amputation, tendon debridement posterior tibial tendon, peroneal tendon and tibialis anterior application of negative pressure wound vac. Hospitalist team consulted for medical management. Patient currently with no complaints. Rates pain level 0/10 on numerical pain scale. Denies fever,cough, sob, cp, abdominal pain, SINGH, dizziness, N/V/D. 01/29/24: Patient doing well PODS#1. Rating pain at 8/10 on numerical pain scale. Adding Diluadid for breakthrough pain. Biopsy results pending. Will continue Vanc/cefepime for now. Podiatry following. 01/29: Met with patient bedside. PODS#2 s/p choparts amputation. Pain level improving with addition of diluadid. Wound vac in place, surgical dressing CDI. Awaiting soft tissue cultures for final antibiotic determination per podiatry. Continue with vanc/cefepime for now. Objective Data Vital Signs: Vital Signs - 24 hr Temp Pulse Resp BP Pulse Ox 01/31/24 04:00 73 16 109/57 95 01/31/24 00:00 97.9 F 82 18 112/65 98 01/30/24 20:00 97.9 F 94 H 16 124/75 98 01/30/24 16:00 97.9 F 86 18 123/75 97 01/30/24 12:00 97.6 F 88 20 135/76 95 01/30/24 07:58 97.6 F 90 18 136/77 96 Pain Assessment - Last Documented Pain Intensity 9 Pain Scale Used 0-10 Pain Scale Intake and Output: Intake & Output 01/28/24 01/29/24 01/30/24 01/31/24 11:59 11:59 11:59 11:59 Intake Total 3560 1870 3267 Output Total 2300 4080 3550 Balance 1260 -2210 -283 Weight 146.7 kg 146.7 kg 150.9 kg Lab Results: Lab Results-Last 24 Hours 01/30/24 01/30/24 01/30/24 Range/Units 05:41 05:41 05:41 WBC 7.4 (4.23-9.07) x10^3/uL RBC 4.01 L (4.63-6.08) x10^6/uL Hgb 9.3 L (13.7-17.5) g/dL Hct 31.1 L (40.1-51.0) % MCV 77.6 L (79.0-92.2) fL MCH 23.2 L (25.7-32.2) pg MCHC 29.9 L (32.3-36.5) g/dL RDW 17.4 H (11.6-14.4) % Plt Count 163 (163-337) x10^3/uL MPV 11.2 (9.4-12.4) fL Gran % 56.9 (34.0-67.9) % Immature Gran % (Auto) 1.1 H (0.001-0.429) % Nucleat RBC Rel Count 0.0 (0.00-0.2) % Eos # (Auto) 0.08 (0.04-0.54) x10^3/uL Immature Gran # (Auto) 0.08 H (0.001-0.031) x10^3u/L Absolute Lymphs (auto) 2.52 (1.32-3.57) x10^3/uL Absolute Monos (auto) 0.44 (0.30-0.82) x10^3/uL Absolute Nucleated RBC 0.00 (0.00-0.012) x10^3u/L Lymphocytes % 34.2 (21.8-53.1) % Monocytes % 6.0 (5.3-12.2) % Eosinophils % 1.1 (0.8-7.0) % Basophils % 0.7 (0.2-1.2) % Absolute Granulocytes 4.19 (1.78-5.38) x10^3/uL Basophils # 0.05 (0.01-0.08) x10^3/uL Sodium 137 (135-145) mmol/L Potassium 3.9 (3.5-5.1) mmol/L Chloride 110 H (98-107) mmol/L Carbon Dioxide 20 L (22-30) mmol/L Anion Gap 10.5 (5-15) MEQ/L BUN 17 (9-20) mg/dL Creatinine 0.79 (0.66-1.25) mg/dL Estimated GFR 118.8 ML/MIN Glucose 148 H (74-106) mg/dL Calcium 8.5 (8.4-10.2) mg/dL Total Bilirubin 0.30 (0.2-1.3) mg/dL AST 105 H (17-59) U/L ALT 117 H (0-50) U/L Alkaline Phosphatase 62 (38-126) U/L Serum Total Protein 6.5 (6.3-8.2) g/dL Albumin 3.5 (3.5-5.0) g/dL Vancomycin Trough 16.68 (10-20) ug/mL Radiology Exams: Radiology Procedures Category Date Time Status CHEST 1 VIEW (PORTABLE) Stat Exams 01/30/24 07:54 Completed Multi-Disciplinary Progress Notes: Multi-Disciplinary Progress Notes 01/30/24 12:47 Case Management Note by Neva Aguilar S/W PATIENT- HE PLANS TO DC HOME AND RETURN FOR OTPT INFUSIONS. PATIENT HAS KNEE SCOOTER. PATIENT REQUIRING A NEW PICC LINE TO BE PLACED TODAY. PATIENT'S WILL DRIVE PATIENT BACK AND FORTH FOR INFUSIONS. UNSURE WHAT PATIENT WILL NEED REGARDING DRESSING CHANGES- WILL DISCUSS AT TIME OF DC Initialized on 01/30/24 12:47 - END OF NOTE Assessment/Plan (1) Osteomyelitis of right foot Current Visit: No Status: Acute Assessment & Plan: -Reviewed MRI dated 01/09/24 demonstrating Diffuse cutaneous/deep soft tissue swelling and edema signal involving the stump concerning for cellulitis. No walled off fluid collection/abscess. Diffuse bone edema signal of remaining cuneiforms, cuboid, and navicular bones favoring osteomyelitis -Reviewed recent office note from podiatry dated 01/23/24 - agree with post surgical plan of NWB with knee scooter, IV vanc/zosyn post-operatively while awaiting culture results, and pain management -Podiatry following -DVT prophylaxis ASA 325mg -POD day 0- right foot I&D bone debridement to the level of Choparts joint amputation, tendon debridement posterior tibial tendon, peroneal tendon and tibialis anterior application of negative pressure wound vac -cultures pending 01/28: PODS#1 -Pain not controlled - add diluadid prn for break through -Continue vanc/cefepime- pending biopsy results -CMP, CBC- WBC elevated - most likely reactive - will trend -Discussed case with podiatry - final abx determination pending culture results - NWB right leg/elevate -dressing changes per podiatry 01/29: -Reviewed Podiatry documentation - agree with plan to await final soft tissue culture result for final abx determination -Continue vanc/cefepime for now -CMP/CBC reviewed- WBC count wnl/Hgb stable- chemistries unremarkable Code(s): M86.9 - OSTEOMYELITIS, UNSPECIFIED (2) Diabetic ulcer of right foot Current Visit: No Status: Acute Assessment & Plan: -see osteomyelitis Code(s): E11.621 - TYPE 2 DIABETES MELLITUS WITH FOOT ULCER; L97.519 - NON-PRS CHRONIC ULCER OTH PRT RIGHT FOOT W UNSP SEVERITY (3) Type 2 diabetes mellitus Current Visit: Yes Status: Acute Assessment & Plan: -ADA diet -advised good glycemic control for wound healing -SSI with home insulin regimen/jardiance 01/28: -Blood glucose levels elevated this morning - no coverage given overnight -Will monitor closely 01/29: -Blood glucose levels stable- continue to monitor and adjust as appropriate (4) Bipolar 1 disorder Current Visit: No Status: Acute Assessment & Plan: -continue home meds Code(s): F31.9 - BIPOLAR DISORDER, UNSPECIFIED (5) History of thyroid cancer Current Visit: No Status: Chronic Assessment & Plan: -s/p thyroidectomy now with hypothyroidism- on Synthroid Code(s): Z85.850 - PERSONAL HISTORY OF MALIGNANT NEOPLASM OF THYROID (6) Hypothyroid Current Visit: No Status: Chronic Assessment & Plan: -continue Synthroid DVT: ASA Dispo: 2-3 days Code status: full code Code(s): M86.9 - OSTEOMYELITIS, UNSPECIFIED (2) Diabetic ulcer of right foot Current Visit: No Status: Acute Code(s): E11.621 - TYPE 2 DIABETES MELLITUS WITH FOOT ULCER; L97.519 - NON-PRS CHRONIC ULCER OTH PRT RIGHT FOOT W UNSP SEVERITY (3) Type 2 diabetes mellitus Current Visit: Yes Status: Acute (4) Bipolar 1 disorder Current Visit: No Status: Acute Code(s): F31.9 - BIPOLAR DISORDER, UNSPECIFIED (5) History of thyroid cancer Current Visit: No Status: Chronic Code(s): Z85.850 - PERSONAL HISTORY OF MALIGNANT NEOPLASM OF THYROID (6) Hypothyroid Current Visit: No Status: Chronic Code(s): E03.9 - HYPOTHYROIDISM, UNSPECIFIED (7) Metabolic acidosis Current Visit: Yes Status: Acute Code(s): E87.20 - ACIDOSIS, UNSPECIFIED (8) Anemia Current Visit: Yes Status: Acute Code(s): D64.9 - ANEMIA, UNSPECIFIED
[2024-01-31 05:34] LABS: Absolute Neutrophil Ct (ANC) 3.55 x10^3/uL (1.78-5.38); BASOPHIL % 0.9 % (0.2-1.2); Basophil (Absolute #) 0.06 x10^3/uL (0.01-0.08); Eosinophil % 2.3 % (0.8-7.0); Eosinophil (Absolute #) 0.15 x10^3/uL (0.04-0.54); Hematocrit 32.7 % (40.1-51.0); Hemoglobin 9.7 g/dL (13.7-17.5); IMMATURE GRAN # 0.07 x10^3u/L (0.001-0.031); IMMATURE GRAN % 1.1 % (0.001-0.429); Lymphocyte (Absolute #) 2.34 x10^3/uL (1.32-3.57); Lymphocytes % 35.3 % (21.8-53.1); Mean Cell Volume 77.7 fL (79.0-92.2); Mean Corpuscular Hgb Concent. 29.7 g/dL (32.3-36.5); Mean Platelet Volume 11.1 fL (9.4-12.4); Monocyte (Absolute #) 0.46 x10^3/uL (0.30-0.82); Monocytes % 6.9 % (5.3-12.2); Neutrophil % 53.5 % (34.0-67.9); Platelet Count 204 x10^3/uL (163-337); Red Blood Count 4.21 x10^6/uL (4.63-6.08); Red Cell Distribution Width 17.3 % (11.6-14.4); White Blood Count 6.6 x10^3/uL (4.23-9.07)
[2024-01-31 05:55] LABS: ALBUMIN 3.6 g/dL (3.5-5.0); ANION GAP 8.4 MEQ/L (5-15); BILIRUBIN,TOTAL 0.2 mg/dL (0.2-1.3); Creatinine 1 0.95 mg/dL (0.66-1.25); EST GLOMERULAR FILTRATION RATE 107.1 ML/MIN; Potassium 4.2 mmol/L (3.5-5.1); Total Protein 6.6 g/dL (6.3-8.2)
--- NOTE | 2024-01-31 11:04 | OP ---
SURGERY DATE/TIME: 01/28/2024 [id number] PREOPERATIVE DIAGNOSES: 1) Osteomyelitis, chronic, recalcitrant. 2) Diabetes mellitus, uncontrolled. 3) Peripheral neuropathy. 4) Failure of antibiotic therapy. 5) Difficulty with ambulation. POSTOPERATIVE DIAGNOSIS: 1) Osteomyelitis, chronic, recalcitrant. 2) Diabetes mellitus, uncontrolled. 3) Peripheral neuropathy. 4) Failure of antibiotic therapy. 5) Difficulty with ambulation. PROCEDURES: 1) Chopart amputation, right foot. 2) Incision and drainage with bone debridement. 3) Debridement of peroneal tendons. 4) Debridement of tibialis anterior. 5) Debridement of posterior tibial tendon. 6) Application of VeraFlo wound VAC to the right lower extremity. SURGEON: Inder Weinberg DPM SCRAPER OPERATOR: Orion Valadez NP ANESTHESIA: General. HEMOSTASIS: A thigh tourniquet set to 325 mmHg for a total of 45 total tourniquet minutes. ESTIMATED BLOOD LOSS: Approximately 50 mL. MATERIALS: VeraFlo wound VAC, KCI 3M. INJECTABLES: None. INDICATIONS: The patient is a very pleasant and unfortunate patient of [facility] who has had multiple interventions for osteomyelitis and abscess. On his most recent encounter, he did have a transmetatarsal amputation due to osteomyelitis that was acute on chronic that developed in his mid foot. As a result, patient did have to undergo a subsequent transmetatarsal amputation. When clean margins were obtained, this demonstrated some residual osteomyelitis, so we decided to proceed with 8 weeks of IV antibiotics. Upon completion of the 8 weeks of IV antibiotics and almost complete healing of the wound, this did demonstrate some further spreading of the osteomyelitis into his mid foot, nearly into his rear foot; however, stopping at the level of the navicular and the cuboid. At this time, discussion was held in regards to options. The option was discussed to perhaps leave this and allow this to stay chronic as this can stay chronic for a long period of time. However, on discussion of the potentials, patient was concerned that he had 2 episodes of sepsis and nearly losing his life as a result and wished to proceed with the amputation. He understands that as a result of this amputation, this is less functional than a transmetatarsal amputation or a below-knee amputation. However, all information was provided to the patient to make an informed decision. The patient understands that his limitations of function may be increased; however, he will be able to perform sedentary tasks. From that standpoint, patient understands all these risks and wishes to proceed. Plenty of time was left for the patient to ask questions which were answered to his apparent satisfaction. It is at this time we decided to proceed. DESCRIPTION OF PROCEDURE AND FINDINGS: The patient was brought into the operating room and placed on the operating room table in the supine position. At this time, general anesthesia was administered until the patient was adequately sedated. A well-padded thigh tourniquet was applied to the patient's right thigh and the tourniquet was set to 325 mmHg. At this time, the right lower extremity was then prepped and draped in the typical sterile fashion and lowered onto the surgical field. At this time, over the transmetatarsal amputation site, a fishmouth incision was made saving as much of the plantar flap as possible, exposing the intrinsic muscle flap which was then reflected off of the metatarsals. This was harvested for later use in the second stage of his procedure. From that standpoint, once exposed, the medial cuneiforms, the cuboid and the navicular were then resected utilizing multiple 10 blades in order to disarticular these joint surfaces. Once this performed, the tendons were identified, debrided of any nonvital or necrotic tissue and then tacked utilizing 2-0 PDS. Once this was performed, Bactisure was then utilized to flush the surgical site and then 500 mL of sodium chloride were then utilized to flush this site. Once this was performed, bone biopsies were obtained of the debridement of the talus and the calcaneus as well as bony biopsies were performed utilizing a combination of rongeurs and curettes. From that standpoint, copious amounts of sterile saline were then utilized to flush the surgical site. After this, a [employer] wound VAC was then applied to the right lower extremity with 125 mmHg and positive 8 mL of inflow every 3-1/2 hours for the VeraFlo from that standpoint, this was checked for leaps and deemed to be adequate. Once this was performed, the tourniquet was dropped and once again, the wound VAC was assessed. A dressing consisting of 4 x 4, Kerlix, ABD and Jignesh was applied to the patient's right lower extremity. Following this, the patient was then reversed from anesthesia and returned to the postoperative anesthesia care unit with vital signs stable and vascular status intact. The patient handled the anesthesia as well as the procedure without significant complication. Postoperative orders as indicated in the patient's discharge chart.
[2024-01-31 11:40] VITALS: BP 141/94; PULSE 87; RESP 20; TEMP 97.9; O2SAT 99
--- NOTE | 2024-01-31 12:10 | PCM.DS ---
Discharge Summary Date of Admission: 01/28/24 09:08 Date of Discharge: 01/31/24 Admitting Physician: RAMSES BURGESS MD Primary Care Provider: GARY PORRAS [place] Allergies Allergies Iodinated Contrast Media Allergy (Verified 01/28/24 09:31) Penicillins Allergy (Verified 01/28/24 09:31) shellfish derived Allergy (Verified 01/28/24 09:31) Hospital Summary - Hospital Course Hospital Course: Mr. Doan is a 33 year-old gentleman with DM2, thyroid cancer s/p thyroidectomy now with hypothyroidism, diabetic foot ulcer, and bipolar disorder patient of Dr. Loving (podiatry) admitted 01/28/24 for right foot I&D bone debridement to the level of Choparts joint amputation, tendon debridement posterior tibial tendon, peroneal tendon and tibialis anterior application of negative pressure wound vac. Hospitalist team consulted for medical management. Patient currently with no complaints. Rates pain level 0/10 on numerical pain scale. Denies fever,cough, sob, cp, abdominal pain, SINGH, dizziness, N/V/D. PODS#3 s/p choparts amputation. Pain level controlled. Wound vac in place, surgical dressing CDI. Patient to discharge on IV OP Dapto/Invanz. Podiatry has instructed patient on follow up visits and dressing change instructions. Advised patient on the importance of good glycemic control for optimal healing. Patient states that previously he was non-compliant with diet and medications but now has a good plan and frequent follow ups with Dr. Porras. Will monitor glucose levels closely with CGM and reach out to PCP if blood glucose levels are out of range. Patient is agreeable to plan and stable for discharge. Discharge Note New Diagnosis: Osteomyelitis New Medications: Invanz/Dapto Follow Up: podiatry/pcp Results pending: bone biopsy Latest Assessment & Plan (1) Osteomyelitis of right foot Current Visit: No Status: Acute Assessment & Plan: -Reviewed MRI dated 01/09/24 demonstrating Diffuse cutaneous/deep soft tissue swelling and edema signal involving the stump concerning for cellulitis. No walled off fluid collection/abscess. Diffuse bone edema signal of remaining cuneiforms, cuboid, and navicular bones favoring osteomyelitis -Reviewed recent office note from podiatry dated 01/23/24 - agree with post surg ical plan of NWB with knee scooter, IV vanc/zosyn post-operatively while awaiting culture results, and pain management -Podiatry following -DVT prophylaxis ASA 325mg -POD day 0- right foot I&D bone debridement to the level of Choparts joint amputation, tendon debridement posterior tibial tendon, peroneal tendon and tibialis anterior application of negative pressure wound vac -cultures pending 01/28: PODS#1 -Pain not controlled - add diluadid prn for break through -Continue vanc/cefepime- pending biopsy results -CMP, CBC- WBC elevated - most likely reactive - will trend -Discussed case with podiatry - final abx determination pending culture results - NWB right leg/elevate -dressing changes per podiatry 01/29: -Reviewed Podiatry documentation - agree with plan to await final soft tissue c ulture result for final abx determination -Continue vanc/cefepime for now -CMP/CBC reviewed- WBC count wnl/Hgb stable- chemistries unremarkable Code(s): M86.9 - OSTEOMYELITIS, UNSPECIFIED (2) Diabetic ulcer of right foot Current Visit: No Status: Acute Assessment & Plan: -see osteomyelitis Code(s): E11.621 - TYPE 2 DIABETES MELLITUS WITH FOOT ULCER; L97.519 - NON-PRS CHRONIC ULCER OTH PRT RIGHT FOOT W UNSP SEVERITY (3) Type 2 diabetes mellitus Current Visit: Yes Status: Acute Assessment & Plan: -ADA diet -advised good glycemic control for wound healing -SSI with home insulin regimen/jardiance 01/28: -Blood glucose levels elevated this morning - no coverage given overnight -Will monitor closely 01/29: -Blood glucose levels stable- continue to monitor and adjust as appropriate (4) Bipolar 1 disorder Current Visit: No Status: Acute Assessment & Plan: -continue home meds Code(s): F31.9 - BIPOLAR DISORDER, UNSPECIFIED (5) History of thyroid cancer Current Visit: No Status: Chronic Assessment & Plan: -s/p thyroidectomy now with hypothyroidism- on Synthroid Code(s): Z85.850 - PERSONAL HISTORY OF MALIGNANT NEOPLASM OF THYROID (6) Hypothyroid Current Visit: No Status: Chronic Assessment & Plan: -continue Synthroid I spent 35 minutes [id number] with the patient on the day of discharge perfor modesto discharge exam, discussing hospital stay and discharge instructions with patient and caregivers, preparation of discharge records, prescriptions & referral forms and addressing any questions/concerns the patient had as documented above. - Vitals & Intake/Output Vital Signs: Vital Signs Temperature 97.9 F 01/31/24 11:39 Pulse Rate 87 01/31/24 11:39 Respiratory Rate 20 01/31/24 11:39 Blood Pressure 141/94 01/31/24 11:39 O2 Sat by Pulse Oximetry 99 01/31/24 11:39 Intake & Output: Intake & Output 01/29/24 01/30/24 01/31/24 02/01/24 11:59 11:59 11:59 11:59 Intake Total 3560 1870 3867 Output Total 2300 4080 5750 Balance 1260 -9100 -1883 Weight 146.7 kg 150.9 kg 149.6 kg - Lab Result Diagrams: 01/31/24 05:23 01/31/24 05:23 Lab Results-Last 24 Hrs: Lab Results-Last 24 Hours 01/31/24 01/31/24 Range/Units 05:23 05:23 WBC 6.6 (4.23-9.07) x10^3/uL RBC 4.21 L (4.63-6.08) x10^6/uL Hgb 9.7 L (13.7-17.5) g/dL Hct 32.7 L (40.1-51.0) % MCV 77.7 L (79.0-92.2) fL MCH 23.0 L (25.7-32.2) pg MCHC 29.7 L (32.3-36.5) g/dL RDW 17.3 H (11.6-14.4) % Plt Count 204 (163-337) x10^3/uL MPV 11.1 (9.4-12.4) fL Gran % 53.5 (34.0-67.9) % Immature Gran % (Auto) 1.1 H (0.001-0.429) % Nucleat RBC Rel Count 0.0 (0.00-0.2) % Eos # (Auto) 0.15 (0.04-0.54) x10^3/uL Immature Gran # (Auto) 0.07 H (0.001-0.031) x10^3u/L Absolute Lymphs (auto) 2.34 (1.32-3.57) x10^3/uL Absolute Monos (auto) 0.46 (0.30-0.82) x10^3/uL Absolute Nucleated RBC 0.00 (0.00-0.012) x10^3u/L Lymphocytes % 35.3 (21.8-53.1) % Monocytes % 6.9 (5.3-12.2) % Eosinophils % 2.3 (0.8-7.0) % Basophils % 0.9 (0.2-1.2) % Absolute Granulocytes 3.55 (1.78-5.38) x10^3/uL Basophils # 0.06 (0.01-0.08) x10^3/uL Sodium 136 (135-145) mmol/L Potassium 4.2 (3.5-5.1) mmol/L Chloride 107 (98-107) mmol/L Carbon Dioxide 25 (22-30) mmol/L Anion Gap 8.4 (5-15) MEQ/L BUN 18 (9-20) mg/dL Creatinine 0.95 (0.66-1.25) mg/dL Estimated GFR 107.1 ML/MIN Glucose 211 H (74-106) mg/dL Calcium 9.0 (8.4-10.2) mg/dL Total Bilirubin 0.20 (0.2-1.3) mg/dL AST 79 H (17-59) U/L ALT 115 H (0-50) U/L Alkaline Phosphatase 71 (38-126) U/L Serum Total Protein 6.6 (6.3-8.2) g/dL Albumin 3.6 (3.5-5.0) g/dL Micro Results-Entire Visit: Accuchecks Date 01/31/24 Date 01/31/24 Date 01/30/24 Date 01/30/24 Time 21:00 Time 16:57 - Radiology Exams Ordered Rad Exams-Entire Visit: Radiology Procedures Category Date Time Status CHEST 1 VIEW (PORTABLE) Stat Exams 01/30/24 07:54 Completed - Procedures and Test Procedures and Tests throughout Hospitalization: Therapy Orders & Screens 01/28/24 16:37 Oxygen NASAL CANNULA 2 lpm Comment: Diagnosis: right foot osteomyelitis Discharge Exam General Appearance: no apparent distress Neurologic Exam: alert, oriented x 3, cooperative Eye Exam: PERRL Ears, Nose, Throat Exam: normal ENT inspection Neck Exam: normal inspection Respiratory Exam: normal breath sounds, lungs clear Cardiovascular Exam: regular rate/rhythm, normal heart sounds Gastrointestinal/Abdomen Exam: soft, normal bowel sounds Male Genitalia Exam: deferred Rectal Exam: deferred Extremity Exam: other (RLE with surgical dressing and wound vac) Final Diagnosis/Problem List - Final Discharge Diagnosis/Problem (1) Osteomyelitis of right foot Current Visit: No Status: Acute Code(s): M86.9 - OSTEOMYELITIS, UNSPECIFIED (2) Diabetic ulcer of right foot Current Visit: No Status: Chronic Code(s): E11.621 - TYPE 2 DIABETES MELLITUS WITH FOOT ULCER; L97.519 - NON-PRS CHRONIC ULCER OTH PRT RIGHT FOOT W UNSP SEVERITY (3) Type 2 diabetes mellitus Current Visit: Yes Status: Chronic (4) Bipolar 1 disorder Current Visit: No Status: Chronic Code(s): F31.9 - BIPOLAR DISORDER, UNSPECIFIED (5) History of thyroid cancer Current Visit: No Status: Chronic Code(s): Z85.850 - PERSONAL HISTORY OF MALIGNANT NEOPLASM OF THYROID (6) Hypothyroid Current Visit: No Status: Chronic Code(s): E03.9 - HYPOTHYROIDISM, UNSPECIFIED (7) Metabolic acidosis Current Visit: Yes Status: Resolved Code(s): E87.20 - ACIDOSIS, UNSPECIFIED (8) Anemia Current Visit: Yes Status: Chronic Code(s): D64.9 - ANEMIA, UNSPECIFIED - Discharge Discharge Date: 01/31/24 Disposition: Home, Self-Care Condition: Stable Prescriptions: New DAPTOmycin in 0.9 % sod chlor [Daptomycin 500 mg/50 ml-Ns Bag] 850 mg IV DAILY #42 iv piggy Ertapenem Sodium [Invanz ] 1 g IV DAILY #42 Aspirin EC 325 mg [Ecotrin 325 MG] 325 mg PO DAILY #30 tablet Continue Levothyroxine Sodium [Unithroid] 225 mcg PO DAILY Insulin Aspart [NovoLOG Insulin] 17 units SQ BID Empagliflozin [Jardiance] 20 mg PO DAILY Oxycodone HCl/Acetaminophen [Percocet 7.5-325 mg Tablet] 1 each PO UD #1 tablet MDD ud Insulin Glargine [Lantus Insulin] 50 units SQ DAILY Pregabalin 50 mg [Lyrica 50MG] 100 mg PO HS Additional Instructions: LEAVE DRESSING ALONE FOLLOW INSTRUCTIONS GIVEN TO YOU BY PODIATRY REGARDING WOUND VAC STRICT NON WT BEARING TO RIGHT FOOT YOUR FIST APT WITH [facility] IS 02/01/24@0845 Follow up with: MAHNAZ PISANO DPM [ACTIVE STAFF] - 02/06/24 8:00 am GARY PORRAS MD [Primary Care Provider] - 02/10/24 2:15 pm ( )
[2024-01-31] MEDS ORDERED: TROUGH DRUG LEVELS IJ ONE (13:30)
== END 2024-01-31 13:51 | disposition home or self-care (01) ==
LOC: MED SURG 09:08 → EDSTATUS 14:09
PROVIDERS: ADMIT Internal Medicine; ATTEND Podiatrist Foot & Ankle Surgery
DX: M86.9 Osteomyelitis, unspecified (principal); E11.621 Type 2 diabetes mellitus with foot ulcer; L97.519 Non-pressure chronic ulcer of other part of right foot with unspecified severity; Z85.850 Personal history of malignant neoplasm of thyroid; R60.0 Localized edema; F31.9 Bipolar disorder, unspecified; E03.9 Hypothyroidism, unspecified; D64.9 Anemia, unspecified; Z79.899 Other long term (current) drug therapy; E11.40 Type 2 diabetes mellitus with diabetic neuropathy, unspecified; M79.671 Pain in right foot; G89.18 Other acute postprocedural pain; E11.65 Type 2 diabetes mellitus with hyperglycemia; R26.2 Difficulty in walking, not elsewhere classified; T81.30XD Disruption of wound, unspecified, subsequent encounter; E87.20 Acidosis, unspecified
CPT/HCPCS: 27680; 28005; 28800; 36415; 71045; 73630; 76000; 80053; 80202; 82607; 82728; 82746; 82947; 83036; 83540; 83550; 85025; 85027; 97605; 99024; A6260; Q3014; G0378; J0330; J0690; J0692; J1171; J1642; J1817; J2250; J2270; J2704; J2997; J3010; A9270-GY; J3370

== ENCOUNTER 2024-02-18 06:04 | Observation (INO) | payer BC ==
[2024-02-18] MEDS: Decadron 4 MG PO ONE (06:48)
[2024-02-18] MEDS: TYLENOL EXTRA STRENGTH 500 MG PO ONE (06:48)
[2024-02-18] MEDS: NEURONTIN PO ONE (06:49)
[2024-02-18] MEDS: celeBREX 100 MG PO ONE (06:49)
[2024-02-18] MEDS: Lactated Ringers 1,000 ML IV SCH (06:50)
[2024-02-18 06:56] LABS: Hemoglobin 10.2 g/dL (13.7-17.5); Mean Cell Volume 75.6 fL (79.0-92.2); Mean Corpuscular Hemoglobin 22.7 pg (25.7-32.2); Mean Platelet Volume 11.3 fL (9.4-12.4); Platelet Count 209 x10^3/uL (163-337); Red Cell Distribution Width 15.9 % (11.6-14.4); White Blood Count 5.7 x10^3/uL (4.23-9.07)
[2024-02-18 07:03] LABS: ANION GAP 12.2 MEQ/L (5-15); BILIRUBIN,TOTAL 0.3 mg/dL (0.2-1.3); Calcium 9.3 mg/dL (8.4-10.2); Creatinine 1 0.96 mg/dL (0.66-1.25); EST GLOMERULAR FILTRATION RATE 105.7 ML/MIN; Total Protein 7.1 g/dL (6.3-8.2)
[2024-02-18] MEDS ORDERED: Marcaine Mpf 0.5% Vial 30 Ml ONE (09:41)
[2024-02-18] MEDS ORDERED: Xylocaine 1% Vial 30 ML PF IJ ONE (09:41)
[2024-02-18] MEDS ORDERED: Zofran 4 MG/2 ML VIAL ONE (09:45)
[2024-02-18] MEDS ORDERED: Xylocaine-Mpf 2% 5 Ml Vial ONE (09:45)
[2024-02-18] MEDS ORDERED: ROCURONIUM BROMIDE IV ONE (09:45)
[2024-02-18] MEDS ORDERED: BRIDION 200MG/2ML IV ONE (09:45)
[2024-02-18] MEDS ORDERED: TORAdol 30 mg Injection ONE (09:45)
[2024-02-18] MEDS ORDERED: Decadron 4 MG INJ ONE (09:45)
[2024-02-18] MEDS ORDERED: propofoL IV ONE (09:46)
[2024-02-18] MEDS ORDERED: SUBLIMAZE 100 MCG/2 ML ONE ×2 (09:46→12:15)
[2024-02-18] MEDS ORDERED: LOPRESSOR INJECTION IV ONE (11:32)
--- NOTE | 2024-02-18 12:10 | XRAY ---
Indication: Right posterior tibial, tibialis anterior, and peroneous brevis tendon transfer. Intrinsic muscle flap. Delayed closure. Intraoperative fluoroscopy provided for 41 seconds. 6 digital spot images submitted for interpretation demonstrates instrumentation talocalcaneal joint with orthopedic button medial to calcaneus. Incidental amputation mid to forefoot. Correlate with intraoperative findings/report.
--- NOTE | 2024-02-18 12:20 | XRAY ---
41 seconds of fluoroscopy was used in surgery for a right posterior tibial, tibialis anterior, and peroneous brevis tendon transfer, intrinsic muscle flap, and delayed closure.
[2024-02-18] MEDS ORDERED: NON-FORMULARY ITEM (Oxycodone Hcl/Acetaminophen [Percocet 7.5-325 Mg Tablet] 1 EACH Tablet PO SCH (14:30)
[2024-02-18] MEDS ORDERED: TYLENOL 325 MG PO PRN (14:34)
[2024-02-18] MEDS ORDERED: MILK OF MAGNESIA 30 ML PO PRN (14:34)
--- NOTE | 2024-02-18 14:42 | PCM.HP ---
History of Present Illness - Chief Complaint Chief Complaint: right foot osteomyelitis Date: 02/18/24 History of Present Illness: Mr.KING MENDOZA is a 33 year old male with a history of diabetes, hypothyroidism, and a chronic right foot wound who now presents as a direct admission following operation on his right wound with closure. The patient's foot wound has been managed for over 2 years, and for the last week or so a wound vac had been applied. The patient denies fever or recent wound drainage. The patient has had some postoperative nausea but no emesis. He denies chest pain or shortness of breath. - Review of Systems Constitutional: No Symptoms Eyes: No Symptoms Ears, Nose, & Throat: No Symptoms Respiratory: No Symptoms Cardiac: No Symptoms Abdominal/Gastrointestinal: Nausea Genitourinary Symptoms: No Symptoms Musculoskeletal: No Symptoms Skin: Other (right foot wound) Neurological: No Symptoms Psychological: No Symptoms Endocrine: No Symptoms Medications & Allergies Home Medications: Home Medication List Levothyroxine Sodium [Unithroid] 225 mcg PO DAILY 07/22/22 [History Confirmed 02/18/24] Empagliflozin [Jardiance] 20 mg PO DAILY 11/07/23 [History Confirmed 02/14/24] Insulin Aspart [NovoLOG Insulin] 17 units SQ BID 11/07/23 [History Confirmed 02/14/24] Oxycodone HCl/Acetaminophen [Percocet 7.5-325 mg Tablet] 1 each PO UD #1 tablet MDD ud 11/12/23 [Rx Confirmed 02/14/24] Insulin Glargine [Lantus Insulin] 50 units SQ DAILY 01/28/24 [History Confirmed 02/14/24] Pregabalin 50 mg [Lyrica 50MG] 100 mg PO HS 01/28/24 [History Confirmed 02/14/24] DAPTOmycin in 0.9 % sod chlor [Daptomycin 500 mg/50 ml-Ns Bag] 850 mg IV DAILY #42 iv piggy 01/31/24 [Rx Confirmed 02/14/24] Ertapenem Sodium [Invanz ] 1 g IV DAILY #42 01/31/24 [Rx Confirmed 02/14/24] Allergies/Adverse Reactions: Allergies Allergy/AdvReac Type Severity Reaction Status Date / Time Iodinated Contrast Media Allergy Verified 02/18/24 06:20 Penicillins Allergy Verified 02/18/24 06:20 shellfish derived Allergy Verified 02/18/24 06:20 - Past Medical History Past Medical History: Yes Neurological History: Peripheral Neuropathy ENT History: Other Cardiac History: No Pertinent History Respiratory History: No Pertinent History Endocrine Medical History: Diabetes Type II, Other Musculoskelatal History: No Pertinent History GI Medical History: No Pertinent History History: No Pertinent History Pyscho-Social History: Bipolar Male Reproductive Disorders: No Pertinent History Comment: THYROID HAS BEEN REMOVED. CURRENTLY HAVING INFUSIONS FOR R FOOT INFECTION. HE HAD OSTEOMYELITIS. HE IS TO HAVE AN MRI ON 01/08/24 TO CHECK PROGRESS. - Past Surgical History Past Surgical History: Yes Neuro Surgical History: No Pertinent History Cardiac History: No Pertinent History Respiratory Surgery: No Pertinent History GI Surgical History: No Pertinent History Genitourinary Surgical Hx: No Pertinent History Musculskeletal Surgical Hx: Amputation, Other Male Surgical History: No Pertinent History Other Surgical History: thyroidectomy. right foot surgery x2. all 5 digits removed on right foot Significant Family History: no pertinent family hx, other (denies family history of diabetes) - Social History Smoking Status: Never smoker Exposure to second hand smoke: No Alcohol: None Drug Use: none - Social Determinants of Health Will the patient participate in the screening: Yes Do you worry about a steady place to live?: No In the past 12 months,have you had to go without utilities?: No Have you or anyone in your house had to go without enough: No Transportation Issues: No Has anyone in your support network made you feel unsafe?: No Does the patient want assistance with any of the above?: No - Physical Exam Vital Signs: Vital Signs - 24 hr Temp Pulse Resp BP Pulse Ox 02/18/24 14:15 97.7 F 91 H 16 133/84 92 L 02/18/24 06:33 97.0 F 101 H 20 124/86 96 02/18/24 06:25 97.0 F 101 H 20 124/86 96 General Appearance: no apparent distress, alert Neurologic Exam: alert, oriented x 3, cooperative, 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 as tested, normal mood/affect, nml cerebellar function Eye Exam: PERRL/EOMI, eyes nml inspection Ears, Nose, Throat Exam: normal ENT inspection Neck Exam: normal inspection, non-tender, supple, full range of motion Respiratory Exam: normal breath sounds, lungs clear Cardiovascular Exam: regular rate/rhythm, normal heart sounds Gastrointestinal/Abdomen Exam: soft, normal bowel sounds Back Exam: normal range of motion Extremity Exam: normal inspection, normal range of motion Skin Exam: other (right foot wound in dressing) Results - Labs Lab/Micro Results: Lab Results-Last 24 Hours 02/18/24 02/18/24 02/18/24 Range/Units 13:01 Unknown Unknown WBC 5.7 (4.23-9.07) x10^3/uL RBC 4.50 L (4.63-6.08) x10^6/uL Hgb 10.2 L (13.7-17.5) g/dL Hct 34.0 L (40.1-51.0) % MCV 75.6 L (79.0-92.2) fL MCH 22.7 L (25.7-32.2) pg MCHC 30.0 L (32.3-36.5) g/dL RDW 15.9 H (11.6-14.4) % Plt Count 209 (163-337) x10^3/uL MPV 11.3 (9.4-12.4) fL Sodium 139 (135-145) mmol/L Potassium 4.0 (3.5-5.1) mmol/L Chloride 110 H (98-107) mmol/L Carbon Dioxide 21 L (22-30) mmol/L Anion Gap 12.2 (5-15) MEQ/L BUN 17 (9-20) mg/dL Creatinine 0.96 (0.66-1.25) mg/dL Estimated GFR 105.7 ML/MIN Glucose 200 H (74-106) mg/dL POC Glucometer 240 H (74 to 106) mg/dL Calcium 9.3 (8.4-10.2) mg/dL Total Bilirubin 0.30 (0.2-1.3) mg/dL AST 61 H (17-59) U/L ALT 82 H (0-50) U/L Alkaline Phosphatase 76 (38-126) U/L Serum Total Protein 7.1 (6.3-8.2) g/dL Albumin 4.0 (3.5-5.0) g/dL - Radiology Impressions Radiology Exams & Impressions: Radiology Procedures Category Date Time Status FLUOROSCOPY UP TO 1 HR Routine Exams 02/18/24 07:17 Completed FOOT (MINIMUM 3 VIEWS) Routine Exams 02/18/24 07:17 Completed Assessment/Plan (1) Diabetic ulcer of right foot Current Visit: No Status: Chronic Assessment & Plan: Podiatry following. Wound care. IV antibiotics. Code(s): E11.621 - TYPE 2 DIABETES MELLITUS WITH FOOT ULCER; L97.519 - NON-PRS CHRONIC ULCER OTH PRT RIGHT FOOT W UNSP SEVERITY (2) Diabetes Current Visit: No Status: Chronic Qualifiers: Assessment & Plan: Monitor blood sugars on home regimen and ISS. IV fluids for hydration. Patient states that his sugars run in the 200s at home. Code(s): E11.9 - TYPE 2 DIABETES MELLITUS WITHOUT COMPLICATIONS (3) Hypothyroid Current Visit: No Status: Chronic Assessment & Plan: Continue Synthroid. Code(s): E03.9 - HYPOTHYROIDISM, UNSPECIFIED (4) Anemia Current Visit: No Status: Acute Assessment & Plan: Monitor counts. Code(s): D64.9 - ANEMIA, UNSPECIFIED Telemedicine Encounter - Telemedicine Encounter Telemedicine Encounter: "The entirety of this encounter was performed via Telemedicine" This visit was performed using real-time audio and video connection between my location and thepatients locationwith the assistance of a surrogateat the patients location. Written or verbal consent was obtained from the patient/guardian to perform this visit using[facility] technology. Any patient questions regarding the telemedicine interaction were answered. Please note that this admission required 43 minutes to complete.
[2024-02-18] MEDS: PERCOCET TABLET 5/325MG PO PRN (15:15)
[2024-02-18] MEDS: Zofran 4 MG/2 ML VIAL IV PRN (15:16)
[2024-02-18] MEDS: Sodium Chloride 0.9% 1000 ML 1,000 ML IV SCH (16:23)
[2024-02-18] MEDS ORDERED: NON-FORMULARY ITEM (Insulin Aspart** [Novolog Insulin**] 1 UNIT Unit) SQ SCH (17:00)
[2024-02-18] MEDS: HUMALOG SQ SCH (17:12)
[2024-02-18] MEDS: HUMALOG SQ PRN (17:13)
[2024-02-18] MEDS: MORPHINE SULFATE 2 MG INJ IV PRN (19:27)
[2024-02-18] MEDS: LYRICA 100MG PO SCH (20:57)
[2024-02-18] MEDS ORDERED: Lyrica 50MG PO SCH (22:00)
[2024-02-19 06:14] LABS: Absolute Neutrophil Ct (ANC) 11.76 x10^3/uL (1.78-5.38); BASOPHIL % 0.1 % (0.2-1.2); Basophil (Absolute #) 0.01 x10^3/uL (0.01-0.08); Eosinophil % 0.1 % (0.8-7.0); Eosinophil (Absolute #) 0.01 x10^3/uL (0.04-0.54); Hematocrit 31.7 % (40.1-51.0); Hemoglobin 9.3 g/dL (13.7-17.5); IMMATURE GRAN # 0.07 x10^3u/L (0.001-0.031); IMMATURE GRAN % 0.5 % (0.001-0.429); Lymphocytes % 9.2 % (21.8-53.1); Mean Cell Volume 75.8 fL (79.0-92.2); Mean Corpuscular Hemoglobin 22.2 pg (25.7-32.2); Mean Corpuscular Hgb Concent. 29.3 g/dL (32.3-36.5); Mean Platelet Volume 11.6 fL (9.4-12.4); Monocyte (Absolute #) 1.05 x10^3/uL (0.30-0.82); Monocytes % 7.4 % (5.3-12.2); Neutrophil % 82.7 % (34.0-67.9); Platelet Count 228 x10^3/uL (163-337); Red Blood Count 4.18 x10^6/uL (4.63-6.08); Red Cell Distribution Width 15.9 % (11.6-14.4); White Blood Count 14.2 x10^3/uL (4.23-9.07)
[2024-02-19 06:48] LABS: ALBUMIN 3.6 g/dL (3.5-5.0); ANION GAP 11.1 MEQ/L (5-15); BILIRUBIN,TOTAL 0.3 mg/dL (0.2-1.3); Calcium 8.9 mg/dL (8.4-10.2); Creatinine 1 0.76 mg/dL (0.66-1.25); EST GLOMERULAR FILTRATION RATE 120.2 ML/MIN; Potassium 3.9 mmol/L (3.5-5.1); Total Protein 6.5 g/dL (6.3-8.2)
[2024-02-19] MEDS: Lantus Insulin SQ SCH (07:58)
[2024-02-19] MEDS ORDERED: NON-FORMULARY ITEM (Ertapenem Sodium *** [Invanz ***] 1 G/VIAL Vial) IV SCH (10:00)
[2024-02-19] MEDS ORDERED: LEVOTHYROXINE SODIUM 200 MCG PO SCH (10:00)
[2024-02-19] MEDS ORDERED: [UNRECOGNIZED DRUG - OTHER] IV SCH (10:00)
[2024-02-19] MEDS ORDERED: SOD CHLOR IV SCH (10:00)
[2024-02-19] MEDS ORDERED: DAPTOMYCIN IV SCH (10:00)
[2024-02-19] MEDS: Invanz *** 1 G in Sodium Chloride 100ML MINI-BAG PLUS 100 ML IV SCH (10:01)
[2024-02-19] MEDS: Acidophilus TABLET PO SCH (10:02)
[2024-02-19] MEDS: ENOXAPARIN SODIUM SQ SCH (10:02)
[2024-02-19] MEDS: Ecotrin 325 MG PO SCH (10:02)
[2024-02-19] MEDS: Protonix 40MG Tablet PO SCH (10:02)
[2024-02-19] MEDS: SYNTHROID PO SCH (10:02)
[2024-02-19] MEDS: JARDIANCE PO SCH (10:03)
[2024-02-19] MEDS: SODIUM CHLORIDE FLUSH IV SCH (12:04)
[2024-02-19] MEDS: DAPTOMYCIN IV SCH (12:04)
--- NOTE | 2024-02-19 12:13 | PCM.NOTE ---
Date and Time: 02/19/24 1207 Subjective Assessment: No new complaints - Review of Systems Constitutional: No Symptoms Eyes: No Symptoms Ears, Nose, & Throat: No Symptoms Respiratory: No Symptoms Cardiac: No Symptoms Abdominal/Gastrointestinal: No Symptoms Genitourinary Symptoms: No Symptoms Musculoskeletal: No Symptoms Skin: Other (leg wound) Neurological: No Symptoms Psychological: No Symptoms Endocrine: No Symptoms Hematologic/Lymphatic: No Symptoms Immunological/Allergic: No Symptoms All Other Systems: Reviewed and Negative Objective Exam General Appearance: no apparent distress, alert Neurologic Exam: alert, oriented x 3, cooperative, 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 tested, normal mood/affect, nml cerebellar function, nml station & gait, sensation nml Skin Exam: normal color, warm, other (leg wound in dressing) Eye Exam: PERRL, EOMI, eyes nml inspection Ears, Nose, Throat Exam: normal ENT inspection Neck Exam: normal inspection, non-tender, supple, full range of motion Respiratory Exam: normal breath sounds, lungs clear Cardiovascular Exam: regular rate/rhythm, normal heart sounds Gastrointestinal/Abdomen Exam: soft, normal bowel sounds Extremity Exam: normal inspection, normal range of motion Back Exam: normal range of motion Objective Data Vital Signs: Vital Signs - 24 hr Temp Pulse Resp BP Pulse Ox 02/19/24 06:00 97.6 F 81 16 114/68 97 02/19/24 02:00 97.0 F 84 20 116/67 94 L 02/18/24 22:00 97.1 F 86 18 116/62 94 L 02/18/24 18:50 95 02/18/24 18:15 97.1 F 101 H 20 106/50 92 L 02/18/24 14:51 97.7 F 91 H 16 133/84 92 L 02/18/24 14:15 97.7 F 91 H 16 133/84 92 L Pain Assessment - Last Documented Pain Intensity 0 Pain Scale Used 0-10 Pain Scale Intake and Output: Intake & Output 02/17/24 02/18/24 02/19/24 02/20/24 11:59 11:59 11:59 11:59 Intake Total 1685 Output Total 450 Balance 1235 Weight 145 kg 145 kg Lab Results: Lab Results-Last 24 Hours 02/18/24 02/19/24 02/19/24 Range/Units 13:01 06:08 06:08 WBC 14.2 H (4.23-9.07) x10^3/uL RBC 4.18 L (4.63-6.08) x10^6/uL Hgb 9.3 L (13.7-17.5) g/dL Hct 31.7 L (40.1-51.0) % MCV 75.8 L (79.0-92.2) fL MCH 22.2 L (25.7-32.2) pg MCHC 29.3 L (32.3-36.5) g/dL RDW 15.9 H (11.6-14.4) % Plt Count 228 (163-337) x10^3/uL MPV 11.6 (9.4-12.4) fL Gran % 82.7 H (34.0-67.9) % Immature Gran % (Auto) 0.5 H (0.001-0.429) % Nucleat RBC Rel Count 0.0 (0.00-0.2) % Eos # (Auto) 0.01 L (0.04-0.54) x10^3/uL Immature Gran # (Auto) 0.07 H (0.001-0.031) x10^3u/L Absolute Lymphs (auto) 1.30 L (1.32-3.57) x10^3/uL Absolute Monos (auto) 1.05 H (0.30-0.82) x10^3/uL Absolute Nucleated RBC 0.00 (0.00-0.012) x10^3u/L Lymphocytes % 9.2 L (21.8-53.1) % Monocytes % 7.4 (5.3-12.2) % Eosinophils % 0.1 L (0.8-7.0) % Basophils % 0.1 L (0.2-1.2) % Absolute Granulocytes 11.76 H (1.78-5.38) x10^3/uL Basophils # 0.01 (0.01-0.08) x10^3/uL Sodium 141 (135-145) mmol/L Potassium 3.9 (3.5-5.1) mmol/L Chloride 112 H (98-107) mmol/L Carbon Dioxide 22 (22-30) mmol/L Anion Gap 11.1 (5-15) MEQ/L BUN 19 (9-20) mg/dL Creatinine 0.76 (0.66-1.25) mg/dL Estimated GFR 120.2 ML/MIN Glucose 223 H (74-106) mg/dL POC Glucometer 240 H (74 to 106) mg/dL Calcium 8.9 (8.4-10.2) mg/dL Total Bilirubin 0.30 (0.2-1.3) mg/dL AST 41 (17-59) U/L ALT 73 H (0-50) U/L Alkaline Phosphatase 66 (38-126) U/L Serum Total Protein 6.5 (6.3-8.2) g/dL Albumin 3.6 (3.5-5.0) g/dL Radiology Exams: Radiology Procedures Category Date Time Status FLUOROSCOPY UP TO 1 HR Routine Exams 02/18/24 07:17 Completed FOOT (MINIMUM 3 VIEWS) Routine Exams 02/18/24 07:17 Completed Assessment/Plan (1) Diabetic ulcer of right foot Current Visit: No Status: Chronic Assessment & Plan: Continue antibiotics and wound care. Podiatry following. Code(s): E11.621 - TYPE 2 DIABETES MELLITUS WITH FOOT ULCER; L97.519 - NON-PRS CHRONIC ULCER OTH PRT RIGHT FOOT W UNSP SEVERITY (2) Diabetes Current Visit: No Status: Chronic Qualifiers: Assessment & Plan: Monitor sugars. Code(s): E11.9 - TYPE 2 DIABETES MELLITUS WITHOUT COMPLICATIONS (3) Hypothyroid Current Visit: No Status: Chronic Assessment & Plan: Continue Synthroid Code(s): E03.9 - HYPOTHYROIDISM, UNSPECIFIED (4) Anemia Current Visit: No Status: Acute Assessment & Plan: Trend hemoglobin. Code(s): D64.9 - ANEMIA, UNSPECIFIED Telemedicine Encounter - Telemedicine Encounter Telemedicine Encounter: "The entirety of this encounter was performed via Telemedicine" This visit was performed using real-time audio and video connection between my location and thepatients locationwith the assistance of a surrogateat the patients location. Written or verbal consent was obtained from the patient/guardian to perform this visit usingsynchrThe Glassboxtelemedicine technology. Any patient questions regarding the telemedicine interaction were answered.
[2024-02-20 04:30] LABS: Absolute Neutrophil Ct (ANC) 5.42 x10^3/uL (1.78-5.38); BASOPHIL % 0.4 % (0.2-1.2); Basophil (Absolute #) 0.03 x10^3/uL (0.01-0.08); Eosinophil % 0.5 % (0.8-7.0); Eosinophil (Absolute #) 0.04 x10^3/uL (0.04-0.54); Hematocrit 28.3 % (40.1-51.0); Hemoglobin 8.3 g/dL (13.7-17.5); IMMATURE GRAN # 0.03 x10^3u/L (0.001-0.031); IMMATURE GRAN % 0.4 % (0.001-0.429); Lymphocyte (Absolute #) 2.43 x10^3/uL (1.32-3.57); Lymphocytes % 28.6 % (21.8-53.1); Mean Cell Volume 77.1 fL (79.0-92.2); Mean Corpuscular Hemoglobin 22.6 pg (25.7-32.2); Mean Corpuscular Hgb Concent. 29.3 g/dL (32.3-36.5); Mean Platelet Volume 11.6 fL (9.4-12.4); Monocyte (Absolute #) 0.56 x10^3/uL (0.30-0.82); Monocytes % 6.6 % (5.3-12.2); Neutrophil % 63.5 % (34.0-67.9); Platelet Count 186 x10^3/uL (163-337); Red Blood Count 3.67 x10^6/uL (4.63-6.08); Red Cell Distribution Width 16.3 % (11.6-14.4); White Blood Count 8.5 x10^3/uL (4.23-9.07)
[2024-02-20 04:45] LABS: ANION GAP 10.1 MEQ/L (5-15); Calcium 8.2 mg/dL (8.4-10.2); Creatinine 1 0.86 mg/dL (0.66-1.25); EST GLOMERULAR FILTRATION RATE 115.8 ML/MIN; Potassium 3.8 mmol/L (3.5-5.1)
[2024-02-20] MEDS ORDERED: Narcan 0.4 MG/ML IV PRN (07:26)
--- NOTE | 2024-02-20 09:06 | PCM.NOTE ---
Date and Time: 02/20/24 0854 Subjective Assessment: 02/20/24 Pt resting in bed. He has no c/o pain today. Continue IV antibiotics, podiatry following. Awaiting podiatry recs for length of stay needs. Pt denies CP, SOB, abd. pain, N/V/D. - Review of Systems Constitutional: No Fever, No Chills Eyes: No Symptoms Ears, Nose, & Throat: No Symptoms Respiratory: No Cough, No Short Of Breath Cardiac: No Chest Pain, No Edema, No Syncope Abdominal/Gastrointestinal: No Abdominal Pain, No Nausea, No Vomiting, No Diarrhea Genitourinary Symptoms: No Dysuria Musculoskeletal: No Back Pain, No Neck Pain Skin: Other (RLE wound of foot- wrapped), No Rash Neurological: No Dizziness, No Focal Weakness, No Sensory Changes Psychological: No Symptoms Endocrine: No Symptoms Hematologic/Lymphatic: No Symptoms Immunological/Allergic: No Symptoms Objective Exam General Appearance: no apparent distress, alert, obese Neurologic Exam: alert, oriented x 3, cooperative, normal mood/affect, nml cerebellar function, sensation nml, No motor deficits Skin Exam: normal color, warm, dry, other (RLE foot wound- wrapped- see pics in chart- podiatry following) Eye Exam: PERRL, EOMI, eyes nml inspection Ears, Nose, Throat Exam: normal ENT inspection, pharynx normal, moist mucous membranes Neck Exam: normal inspection, non-tender, supple, full range of motion Respiratory Exam: normal breath sounds, lungs clear, No respiratory distress Cardiovascular Exam: regular rate/rhythm, normal heart sounds Gastrointestinal/Abdomen Exam: soft, No tenderness, No mass Extremity Exam: normal inspection, normal range of motion Back Exam: normal inspection, normal range of motion, No CVA tenderness, No vertebral tenderness Male Genitalia Exam: deferred Rectal Exam: deferred Objective Data Vital Signs: Vital Signs - 24 hr Temp Pulse Resp BP Pulse Ox 02/20/24 07:44 97.8 F 92 H 18 115/69 95 02/20/24 04:00 96.4 F 86 18 94/55 96 02/19/24 23:40 96.8 F 95 H 20 98/51 96 02/19/24 20:00 97.6 F 76 16 144/74 97 02/19/24 19:00 96 02/19/24 15:44 98.6 F 90 18 128/78 99 02/19/24 12:00 97.7 F 87 18 114/56 99 02/19/24 11:05 99 Pain Assessment - Last Documented Pain Intensity 2 Pain Scale Used 0-10 Pain Scale Intake and Output: Intake & Output 02/17/24 02/18/24 02/19/24 02/20/24 11:59 11:59 11:59 11:59 Intake Total 2165 4377 Output Total 450 Balance 1715 4377 Weight 145 kg 145 kg Lab Results: Lab Results-Last 24 Hours 02/20/24 02/20/24 Range/Units 04:25 04:25 WBC 8.5 (4.23-9.07) x10^3/uL RBC 3.67 L (4.63-6.08) x10^6/uL Hgb 8.3 L (13.7-17.5) g/dL Hct 28.3 L (40.1-51.0) % MCV 77.1 L (79.0-92.2) fL MCH 22.6 L (25.7-32.2) pg MCHC 29.3 L (32.3-36.5) g/dL RDW 16.3 H (11.6-14.4) % Plt Count 186 (163-337) x10^3/uL MPV 11.6 (9.4-12.4) fL Gran % 63.5 (34.0-67.9) % Immature Gran % (Auto) 0.4 (0.001-0.429) % Nucleat RBC Rel Count 0.0 (0.00-0.2) % Eos # (Auto) 0.04 (0.04-0.54) x10^3/uL Immature Gran # (Auto) 0.03 (0.001-0.031) x10^3u/L Absolute Lymphs (auto) 2.43 (1.32-3.57) x10^3/uL Absolute Monos (auto) 0.56 (0.30-0.82) x10^3/uL Absolute Nucleated RBC 0.00 (0.00-0.012) x10^3u/L Lymphocytes % 28.6 (21.8-53.1) % Monocytes % 6.6 (5.3-12.2) % Eosinophils % 0.5 L (0.8-7.0) % Basophils % 0.4 (0.2-1.2) % Absolute Granulocytes 5.42 H (1.78-5.38) x10^3/uL Basophils # 0.03 (0.01-0.08) x10^3/uL Sodium 140 (135-145) mmol/L Potassium 3.8 (3.5-5.1) mmol/L Chloride 112 H (98-107) mmol/L Carbon Dioxide 22 (22-30) mmol/L Anion Gap 10.1 (5-15) MEQ/L BUN 23 H (9-20) mg/dL Creatinine 0.86 (0.66-1.25) mg/dL Estimated GFR 115.8 ML/MIN Glucose 145 H (74-106) mg/dL Calcium 8.2 L (8.4-10.2) mg/dL Assessment/Plan (1) Diabetic foot ulcer Current Visit: No Status: Acute Qualifiers: Diabetes mellitus type: type 2 Laterality: right Code(s): E11.621 - TYPE 2 DIABETES MELLITUS WITH FOOT ULCER; L97.509 - NON- PRESSURE CHRONIC ULCER OTH PRT UNSP FOOT W UNSP SEVERITY (2) Diabetes mellitus Current Visit: No Status: Chronic Qualifiers: Diabetes mellitus type: type 2 Code(s): E11.9 - TYPE 2 DIABETES MELLITUS WITHOUT COMPLICATIONS (3) Hypothyroidism Current Visit: No Status: Acute Code(s): E03.9 - HYPOTHYROIDISM, UNSPECIFIED (4) Anemia Current Visit: No Status: Acute Assessment & Plan: (1) Diabetic ulcer of right foot Current Visit: No Status: Chronic Assessment & Plan: - Continue antibiotics and wound care. Podiatry following. - Probiotics - CBC, CMP reviewed - IVF Code(s): E11.621 - TYPE 2 DIABETES MELLITUS WITH FOOT ULCER; L97.519 - NON-PRS CHRONIC ULCER OTH PRT RIGHT FOOT W UNSP SEVERITY (2) Diabetes Current Visit: No Status: Chronic Qualifiers: Assessment & Plan: - Accuchecks AC/HS - Humalog scheduled and S/S, Jardiance - A1C 01/28/24 10.55- uncontrolled - Education provided on better control and production engineer track side effects - Nutrition consult - Consistent carb diet Code(s): E11.9 - TYPE 2 DIABETES MELLITUS WITHOUT COMPLICATIONS (3) Hypothyroid Current Visit: No Status: Chronic Assessment & Plan: - Continue Synthroid 02/20/24 - TSH in AM Code(s): E03.9 - HYPOTHYROIDISM, UNSPECIFIED (4) Anemia Current Visit: No Status: Acute Assessment & Plan: - Trend hemoglobin. 02/20/24 - Hgb 8.3 - Fe+ deficiency anemia - Iron sat on - Ferrous sulfate started Code(s): D64.9 - ANEMIA, UNSPECIFIED Code(s): D64.9 - ANEMIA, UNSPECIFIED (5) Obesity, morbid, BMI 40.0-49.9 Current Visit: Yes Status: Chronic Assessment & Plan: - advised ADA diet and exercise control VTE: Lovenox PPI: Protonix Next of KIN: Spouse- Jaimie Doan [phone] D/C plan: pending podiatry recs Code status: Full Code(s): E66.01 - MORBID (SEVERE) OBESITY DUE TO EXCESS CALORIES
[2024-02-20] MEDS: FEOSOL 325 MG PO SCH (10:16)
[2024-02-21 05:28] LABS: ALBUMIN 3.6 g/dL (3.5-5.0); ANION GAP 9.2 MEQ/L (5-15); BILIRUBIN,TOTAL 0.3 mg/dL (0.2-1.3); Calcium 8.9 mg/dL (8.4-10.2); Creatinine 1 0.87 mg/dL (0.66-1.25); EST GLOMERULAR FILTRATION RATE 115.4 ML/MIN; Potassium 4.1 mmol/L (3.5-5.1); Total Protein 6.5 g/dL (6.3-8.2)
[2024-02-21 05:34] LABS: Hematocrit 31.3 % (40.1-51.0); Hemoglobin 9.1 g/dL (13.7-17.5); Mean Cell Volume 75.8 fL (79.0-92.2); Mean Corpuscular Hgb Concent. 29.1 g/dL (32.3-36.5); Platelet Count 202 x10^3/uL (163-337); Red Blood Count 4.13 x10^6/uL (4.63-6.08); Red Cell Distribution Width 15.9 % (11.6-14.4); White Blood Count 6.7 x10^3/uL (4.23-9.07)
[2024-02-21 07:12] VITALS: RESP 18; O2SAT 98
[2024-02-21 11:59] VITALS: BP 135/79; PULSE 77; TEMP 96
--- NOTE | 2024-02-21 12:57 | PCM.NOTE ---
Date and Time: 02/21/24 1253 Subjective Assessment: 02/20/24 Pt resting in bed. He has no c/o pain today. Continue IV antibiotics, podiatry following. Awaiting podiatry recs for length of stay needs. Pt denies CP, SOB, abd. pain, N/V/D. 02/21/24 Pt resting in bed. He states he needs a ramp for his home as he has a steep step to get into his house. Case management to assist. Pt to continue IV antibiotics x2 weeks OP via PICC line. Continue ferrous sulfate for iron deficiency anemia. Hgb stable at 9.1 today. He denies dawit further concerns at this time. Ok with podiatry for d/c today. - Review of Systems Constitutional: No Fever, No Chills Eyes: No Symptoms Ears, Nose, & Throat: No Symptoms Respiratory: No Cough, No Short Of Breath Cardiac: No Chest Pain, No Edema, No Syncope Abdominal/Gastrointestinal: No Abdominal Pain, No Nausea, No Vomiting, No Diarrhea Genitourinary Symptoms: No Dysuria Musculoskeletal: No Back Pain, No Neck Pain Skin: Other (RLE wound- wrapped), No Rash Neurological: No Dizziness, No Focal Weakness, No Sensory Changes Psychological: No Symptoms Endocrine: No Symptoms Hematologic/Lymphatic: No Symptoms Immunological/Allergic: No Symptoms Objective Exam General Appearance: no apparent distress, alert, obese Neurologic Exam: alert, oriented x 3, cooperative, normal mood/affect, nml cerebellar function, sensation nml, No motor deficits Skin Exam: normal color, warm, dry Eye Exam: PERRL, EOMI, eyes nml inspection Ears, Nose, Throat Exam: normal ENT inspection, pharynx normal, moist mucous membranes Neck Exam: normal inspection, non-tender, supple, full range of motion Respiratory Exam: normal breath sounds, lungs clear, No respiratory distress Cardiovascular Exam: regular rate/rhythm, normal heart sounds Gastrointestinal/Abdomen Exam: soft, No tenderness, No mass Extremity Exam: normal inspection, normal range of motion, other (RLE wund wrapped) Back Exam: normal inspection, normal range of motion, No CVA tenderness, No vertebral tenderness Male Genitalia Exam: deferred Rectal Exam: deferred Objective Data Vital Signs: Vital Signs - 24 hr Temp Pulse Resp BP Pulse Ox 02/21/24 11:58 96 F 77 18 135/79 98 02/21/24 07:12 96.2 F 85 18 99/62 98 02/21/24 04:00 97.1 F 73 20 134/68 97 02/21/24 00:00 97.2 F 78 20 131/79 94 L 02/20/24 19:47 97.1 F 91 H 22 124/74 97 02/20/24 19:34 97.4 F 79 18 129/76 98 02/20/24 16:00 97.4 F 79 18 129/76 98 Pain Assessment - Last Documented Pain Intensity 6 Pain Scale Used 0-10 Pain Scale Intake and Output: Intake & Output 02/19/24 02/20/24 02/21/24 02/22/24 11:59 11:59 11:59 11:59 Intake Total 2165 4617 1860 Output Total 450 Balance 1715 4617 1860 Weight 145 kg Lab Results: Lab Results-Last 24 Hours 02/21/24 02/21/24 02/21/24 Range/Units 04:55 04:55 04:55 WBC 6.7 (4.23-9.07) x10^3/uL RBC 4.13 L (4.63-6.08) x10^6/uL Hgb 9.1 L (13.7-17.5) g/dL Hct 31.3 L (40.1-51.0) % MCV 75.8 L (79.0-92.2) fL MCH 22.0 L (25.7-32.2) pg MCHC 29.1 L (32.3-36.5) g/dL RDW 15.9 H (11.6-14.4) % Plt Count 202 (163-337) x10^3/uL MPV 12.0 (9.4-12.4) fL Sodium 137 (135-145) mmol/L Potassium 4.1 (3.5-5.1) mmol/L Chloride 108 H (98-107) mmol/L Carbon Dioxide 24 (22-30) mmol/L Anion Gap 9.2 (5-15) MEQ/L BUN 27 H (9-20) mg/dL Creatinine 0.87 (0.66-1.25) mg/dL Estimated GFR 115.4 ML/MIN Glucose 148 H (74-106) mg/dL Calcium 8.9 (8.4-10.2) mg/dL Total Bilirubin 0.30 (0.2-1.3) mg/dL AST 42 (17-59) U/L ALT 59 H (0-50) U/L Alkaline Phosphatase 57 (38-126) U/L Serum Total Protein 6.5 (6.3-8.2) g/dL Albumin 3.6 (3.5-5.0) g/dL TSH 3rd Generation 2.684 (0.470-4.680) mIU/L Assessment/Plan (1) Diabetic foot ulcer Current Visit: No Status: Acute Qualifiers: Diabetes mellitus type: type 2 Laterality: right Code(s): E11.621 - TYPE 2 DIABETES MELLITUS WITH FOOT ULCER; L97.509 - NON- PRESSURE CHRONIC ULCER OTH PRT UNSP FOOT W UNSP SEVERITY (2) Diabetes mellitus Current Visit: No Status: Chronic Qualifiers: Diabetes mellitus type: type 2 Code(s): E11.9 - TYPE 2 DIABETES MELLITUS WITHOUT COMPLICATIONS (3) Hypothyroidism Current Visit: No Status: Acute Code(s): E03.9 - HYPOTHYROIDISM, UNSPECIFIED (4) Anemia Current Visit: No Status: Acute Code(s): D64.9 - ANEMIA, UNSPECIFIED (5) Obesity, morbid, BMI 40.0-49.9 Current Visit: Yes Status: Chronic Assessment & Plan: (1) Diabetic ulcer of right foot Current Visit: No Status: Chronic Assessment & Plan: - Continue antibiotics and wound care. Podiatry following. - Probiotics - CBC, CMP reviewed - IVF Code(s): E11.621 - TYPE 2 DIABETES MELLITUS WITH FOOT ULCER; L97.519 - NON-PRS CHRONIC ULCER OTH PRT RIGHT FOOT W UNSP SEVERITY (2) Diabetes Current Visit: No Status: Chronic Qualifiers: Assessment & Plan: - Accuchecks AC/HS - Humalog scheduled and S/S, Jardiance - A1C 01/28/24 10.55- uncontrolled - Education provided on better control and long term care social worker side effects - Nutrition consult - Consistent carb diet Code(s): E11.9 - TYPE 2 DIABETES MELLITUS WITHOUT COMPLICATIONS (3) Hypothyroid Current Visit: No Status: Chronic Assessment & Plan: - Continue Synthroid 02/20/24 - TSH in AM Code(s): E03.9 - HYPOTHYROIDISM, UNSPECIFIED (4) Anemia Current Visit: No Status: Acute Assessment & Plan: - Trend hemoglobin. 02/20/24 - Hgb 8.3 - Fe+ deficiency anemia - Iron sat on 01/27- - Ferrous sulfate started Code(s): D64.9 - ANEMIA, UNSPECIFIED Code(s): D64.9 - ANEMIA, UNSPECIFIED (5) Obesity, morbid, BMI 40.0-49.9 Current Visit: Yes Status: Chronic Assessment & Plan: - advised ADA diet and exercise control Code(s): E66.01 - MORBID (SEVERE) OBESITY DUE TO EXCESS CALORIES
--- NOTE | 2024-02-21 13:02 | PCM.DS ---
Discharge Summary Date of Admission: 02/18/24 13:50 Date of Discharge: 02/21/24 Admitting Physician: UBALDO ARGUETA MD Consults: Consults on Case 02/18/24 14:36 Consult Podiatry ROUTINE 02/20/24 09:00 Nutritional Consult ROUTINE Primary Care Provider: GARY BOATENG ALPA Allergies Allergies Iodinated Contrast Media Allergy (Verified 02/18/24 06:20) Penicillins Allergy (Verified 02/18/24 06:20) shellfish derived Allergy (Verified 02/18/24 06:20) Hospital Summary - Hospital Course Hospital Course: 02/20/24 Pt resting in bed. He has no c/o pain today. Continue IV antibiotics, podiatry following. Awaiting podiatry recs for length of stay needs. Pt denies CP, SOB, abd. pain, N/V/D. 02/21/24 Pt resting in bed. He states he needs a ramp for his home as he has a steep step to get into his house. Case management to assist. Pt to continue IV antibiotics x2 weeks OP via PICC line. Continue ferrous sulfate for iron deficiency anemia. Hgb stable at 9.1 today. He denies dawit further concerns at this time. Ok with podiatry for d/c today. - Vitals & Intake/Output Vital Signs: Vital Signs Temperature 96 F 02/21/24 11:58 Pulse Rate 77 02/21/24 11:58 Respiratory Rate 18 02/21/24 11:58 Blood Pressure 135/79 02/21/24 11:58 O2 Sat by Pulse Oximetry 98 02/21/24 11:58 Intake & Output: Intake & Output 02/19/24 02/20/24 02/21/24 02/22/24 11:59 11:59 11:59 11:59 Intake Total 2165 4617 1860 Output Total 450 Balance 1715 4617 1860 Weight 145 kg - Lab Result Diagrams: 02/21/24 04:55 02/21/24 04:55 Lab Results-Last 24 Hrs: Lab Results-Last 24 Hours 02/21/24 02/21/24 02/21/24 Range/Units 04:55 04:55 04:55 WBC 6.7 (4.23-9.07) x10^3/uL RBC 4.13 L (4.63-6.08) x10^6/uL Hgb 9.1 L (13.7-17.5) g/dL Hct 31.3 L (40.1-51.0) % MCV 75.8 L (79.0-92.2) fL MCH 22.0 L (25.7-32.2) pg MCHC 29.1 L (32.3-36.5) g/dL RDW 15.9 H (11.6-14.4) % Plt Count 202 (163-337) x10^3/uL MPV 12.0 (9.4-12.4) fL Sodium 137 (135-145) mmol/L Potassium 4.1 (3.5-5.1) mmol/L Chloride 108 H (98-107) mmol/L Carbon Dioxide 24 (22-30) mmol/L Anion Gap 9.2 (5-15) MEQ/L BUN 27 H (9-20) mg/dL Creatinine 0.87 (0.66-1.25) mg/dL Estimated GFR 115.4 ML/MIN Glucose 148 H (74-106) mg/dL Calcium 8.9 (8.4-10.2) mg/dL Total Bilirubin 0.30 (0.2-1.3) mg/dL AST 42 (17-59) U/L ALT 59 H (0-50) U/L Alkaline Phosphatase 57 (38-126) U/L Serum Total Protein 6.5 (6.3-8.2) g/dL Albumin 3.6 (3.5-5.0) g/dL TSH 3rd Generation 2.684 (0.470-4.680) mIU/L Micro Results-Entire Visit: Accuchecks Date 02/21/24 Date 02/21/24 Date 02/20/24 Time 11:57 Time 07:11 Time 22:00 - Procedures and Test Procedures and Tests throughout Hospitalization: Therapy Orders & Screens 02/18/24 19:09 Oxygen NASAL CANNULA 2 lpm Comment: Diagnosis: DELAYED CLOSURE OF RIGHT FOOT WOUND Discharge Exam General Appearance: no apparent distress, alert Neurologic Exam: alert, oriented x 3, cooperative, normal mood/affect, nml cerebellar function, sensation nml, No motor deficits Eye Exam: PERRL, EOMI, eyes nml inspection Ears, Nose, Throat Exam: normal ENT inspection, pharynx normal, moist mucous membranes Neck Exam: normal inspection, non-tender, supple, full range of motion Respiratory Exam: normal breath sounds, lungs clear, No respiratory distress Cardiovascular Exam: regular rate/rhythm, normal heart sounds Gastrointestinal/Abdomen Exam: soft, No tenderness, No mass Male Genitalia Exam: deferred Rectal Exam: deferred Back Exam: normal inspection, normal range of motion, No CVA tenderness, No vertebral tenderness Extremity Exam: normal inspection, normal range of motion Skin Exam: normal color, warm, dry, other (RLE wrapped) Final Diagnosis/Problem List - Final Discharge Diagnosis/Problem (1) Diabetic foot ulcer Current Visit: No Status: Acute Code(s): E11.621 - TYPE 2 DIABETES MELLITUS WITH FOOT ULCER; L97.509 - NON-PRESSURE CHRONIC ULCER OTH PRT UNSP FOOT W UNSP SEVERITY (2) Diabetes mellitus Current Visit: No Status: Chronic Code(s): E11.9 - TYPE 2 DIABETES MELLITUS WITHOUT COMPLICATIONS (3) Hypothyroidism Current Visit: No Status: Acute Code(s): E03.9 - HYPOTHYROIDISM, UNSPECIFIED (4) Anemia Current Visit: No Status: Acute Code(s): D64.9 - ANEMIA, UNSPECIFIED (5) Obesity, morbid, BMI 40.0-49.9 Current Visit: Yes Status: Chronic Assessment & Plan: (1) Diabetic ulcer of right foot Current Visit: No Status: Chronic Assessment & Plan: - Continue antibiotics and wound care. Podiatry following. - Probiotics - CBC, CMP reviewed - IVF 1/3 - per podiatry continue Dapto and Invanz Via PICC OP x2 weeks - pt requesting ramp for home Code(s): E11.621 - TYPE 2 DIABETES MELLITUS WITH FOOT ULCER; L97.519 - NON-PRS CHRONIC ULCER OTH PRT RIGHT FOOT W UNSP SEVERITY (2) Diabetes Current Visit: No Status: Chronic Qualifiers: Assessment & Plan: - Accuchecks AC/HS - Humalog scheduled and S/S, Jardiance - A1C 01/28/24 10.55- uncontrolled - Education provided on better control and pearl stringer side effects - Nutrition consult - Consistent carb diet Code(s): E11.9 - TYPE 2 DIABETES MELLITUS WITHOUT COMPLICATIONS (3) Hypothyroid Current Visit: No Status: Chronic Assessment & Plan: - Continue Synthroid 02/20/24 - TSH WNL Code(s): E03.9 - HYPOTHYROIDISM, UNSPECIFIED (4) Anemia Current Visit: No Status: Acute Assessment & Plan: - Trend hemoglobin. 02/20/24 - Hgb 8.3 - Fe+ deficiency anemia - Iron sat on 01/27- - Ferrous sulfate started 02/20 - Hgb 9.1- will need OP f/u labs Code(s): D64.9 - ANEMIA, UNSPECIFIED (5) Obesity, morbid, BMI 40.0-49.9 Current Visit: Yes Status: Chronic Assessment & Plan: - advised ADA diet and exercise control Code(s): E66.01 - MORBID (SEVERE) OBESITY DUE TO EXCESS CALORIES - Discharge Discharge Date: 02/21/24 Disposition: Home, Self-Care Condition: Stable Prescriptions: New Ferrous Sulfate 325 mg [Feosol 325 mg] 325 mg PO DAILY 30 Days #30 tablet Continue Levothyroxine Sodium [Unithroid] 225 mcg PO DAILY Insulin Aspart [NovoLOG Insulin] 17 units SQ BID Empagliflozin [Jardiance] 20 mg PO DAILY Oxycodone HCl/Acetaminophen [Percocet 7.5-325 mg Tablet] 1 each PO UD #1 tablet MDD ud Insulin Glargine [Lantus Insulin] 50 units SQ DAILY Pregabalin 50 mg [Lyrica 50MG] 100 mg PO HS DAPTOmycin in 0.9 % sod chlor [Daptomycin 500 mg/50 ml-Ns Bag] 850 mg IV DAILY #42 iv piggy Ertapenem Sodium [Invanz ] 1 g IV DAILY #42 Additional Instructions: YOUR APPOINTMENT FOR INFUSION TOMORROW 02/21/23@ 0900 YOU CAN RENT A RAMP FROM [facility] IF INTERESTED, YOU CAN CALL THEM AT [phone] Follow up with: MAHNAZ PISANO DPM [ACTIVE STAFF] - 02/25/24 2:30 pm GARY BOATENG MD [Primary Care Provider] - 02/28/24 10:00 am
--- NOTE | 2024-02-21 13:04 | OP ---
SURGERY DATE/TIME: 02/18/2024 [id number] PREOPERATIVE DIAGNOSES: 1) Right foot osteomyelitis. 2) Chopart's amputation. 3) Diabetic foot wound. 4) Diabetic peripheral neuropathy. 5) Generalized weakness. 6) Open surgical wound. POSTOPERATIVE DIAGNOSES: 1) Right foot osteomyelitis. 2) Chopart's amputation. 3) Diabetic foot wound. 4) Diabetic peripheral neuropathy. 5) Generalized weakness. 6) Open surgical wound. PROCEDURES: 1) Incision and drainage with bone debridement, right foot. 2) Tibialis anterior peroneus brevis and tibialis posterior tendon transfers to the talus and calcaneus. 3) Intrinsic muscle flap. 4) Complex closure of surgical wound. SURGEON: Inder Weinberg MD VACUUM SPINDLE SANDER: None. ANESTHESIA: General. HEMOSTASIS: A thigh tourniquet set to 320 mmHg for a total of 65 total tourniquet minutes. ESTIMATED BLOOD LOSS: Approximately 15 mL. MATERIALS: 4-0 Monocryl, 2-0 Vicryl, 3-0 nylon, 2-0 nylon, suture guards x3 and surgical jannie. INJECTABLES: See Anesthesia report for details. INDICATIONS FOR PROCEDURE: The patient is a very pleasant, 33-year-old male very well-known to my service for recurrent osteomyelitis, for which he has been treated for the last several months. Patient has recently had a Chopart's amputation after discussing the risks and complications after procedure. However, at this time patient essentially has a nonfunctional leg without the use of tendon transfers. Repeat MRI was obtained, demonstrating that there was some osteomyelitis in the midfoot, which has been completely resected and at this time we have obtained clean margins. Decision was made for repeat I and D with tendon transfers to allow for the Chopart's amputation to be a functional amputation, as well as revising the intrinsic muscle flap and closing the wound. Patient has been made aware of all risks, complications and benefits of surgical intervention at this time including, but not limited to, infection, hematoma, seroma, possibility of delayed wound healing, non-wound healing, and possible need for further surgical intervention at a later date. No guarantees were provided as to the outcome of surgical intervention. Plenty of time was allowed for the patient to ask questions, which were answered to his apparent satisfaction. It is with that we decided to proceed. DESCRIPTION OF PROCEDURE AND FINDINGS: Patient was brought into the operating room, placed on the operating room table in the supine position. At this time, general anesthesia was administered until the patient was adequately sedated. A well-padded thigh tourniquet was applied to the patient's right thigh, and the right lower extremity was prepped and draped in the typical sterile fashion. At this time, attention was directed to the right foot where incision and drainage took place, evacuating any nonviable and necrotic tissue, as well as any granulation tissue that was excessive or scar tissue at the distal aspect of the plantar foot flap. From that standpoint, these incisions were carried medially and laterally along the aspect of the foot, exposing the calcaneus and the talus. The tibialis anterior, peroneus brevis, and the posterior tibia were all identified from previous tagging. Once these were identified, they were debrided and whipstitched in order to prepare for tendon transfer. Under significant tension, the tibialis anterior tendon was advanced into the neck of the talus. The peroneus brevis was attached to the lateral wall of the calcaneus and the tibialis posterior was then whipstitched and [place] stitched to the tibialis posterior tendon to provide for larsen range of motion and power. These were done under fairly significant tension to provide for function with weightbearing. From that standpoint, the copious amounts of sterile saline were utilized to flush the surgical site. The intrinsic muscle flap was then harvested and flapped over the exposed bone and tendon, suturing this utilizing 2-0 Vicryl in an lkhy-den-fygh stitch-type fashion. Once this was performed, any remaining scar tissue or necrotic tissue on the incision was resected and then, the incision was closed utilizing a combination of suture guard, 4-0 Monocryl, 2-0 Vicryl and 3-0 and 2-0 nylon. At certain areas eversion was difficult to achieve due to the amount of scar tissue on the plantar flap. Surgical jannie were utilized to coapt these edges. From that standpoint, dressing consisting of Betadine, Adaptic, 4 x 4, Kerlix, ABD and a well-padded posterior splint was applied to the patient's right lower extremity with the foot orthogonal relative to the longitudinal axis of the leg. Patient was then reversed from anesthesia and returned to the postoperative anesthesia care unit with vital signs stable and vascular status intact. Patient handled the anesthesia, as well as the procedure, without significant complication. Postoperative orders as indicated in the patient's discharge chart.
== END 2024-02-21 13:50 | disposition home or self-care (01) ==
LOC: SDC 06:04 → MED SURG 13:50
PROVIDERS: ADMIT Internal Medicine; ATTEND Internal Medicine
DX: E11.621 Type 2 diabetes mellitus with foot ulcer (principal); E03.9 Hypothyroidism, unspecified; D64.9 Anemia, unspecified; L97.519 Non-pressure chronic ulcer of other part of right foot with unspecified severity; E66.01 Morbid (severe) obesity due to excess calories; M86.9 Osteomyelitis, unspecified; E11.42 Type 2 diabetes mellitus with diabetic polyneuropathy; R53.1 Weakness; Z79.899 Other long term (current) drug therapy
CPT/HCPCS: 13160; 15738; 27691; 28005; 36415; 73630; 76000; 80048; 80053; 82947; 84443; 85025; 85027; 94760; C1713; Q3014; G0378; J0878; J1100; J1335; J1642; J1650; J1817; J1885; J2270; J2405; J2704; J3010; A9270-GY